=== PATIENT | female | born 1955 | race Caucasian/White ===

== ENCOUNTER → 2016-07-23 | Outpatient (CLI) | payer MEDICARE, MEDICAID ==
[~2016-07-23] MED LIST: ASPI81TA83 OR; BENT10CA PO; BUDESONIDE; BUPIVACAINE HCL 0.25% 30 ML VIAL As Ordered ONE; CELE50CA PO; ENTY1INJ IV; ESTR1MIS PV; HYOS0.378 OR; ISON300T4 PO; ISONIAZID; ISONIAZID OR; ISOVUE-M 300 61% 15ML VIAL (Q9967) As Ordered ONE; LIDOCAINE 1% SDV INJ 30 ML VIAL As Ordered ONE; NAME14CA PO; NASONEX; OMEP40CA2 PO; ONDA8TAB8 PO; OXYC15TA76 PO; TRIAMCINOLONE ACETONIDE SUSP 40 MG/ML VIAL (J3301) As Ordered ONE; VITAMIN B-6 OR; [UNRECOGNIZED DRUG - OTHER] AS ORDERED; apriso; diazePAM 5 MG TAB As Ordered ONE; oxyCODONE 5MG TAB As Ordered ONE
--- NOTE | 2016-07-23 18:39 | REP ---
Partial sacral coccyx series: Two views: History: Sacral coccygeal block for pain. 19 seconds of fluoroscopy time is reported. Findings: A sequence of two fluoroscopically obtained intraprocedural spot radiographs of the sacrum and coccyx document needle position and contrast injection associated with sacral coccygeal block procedure. Signed by Yonas Gupta MD 07/23/2016 07:28 P
--- NOTE | 2016-07-31 02:22 | ECWPNPC ---
PATIENT NAME: SANJEEV MONDRAGON : 1955 GENDER: FEMALE VISIT DATE: 07/23/2016 DISCHARGE DATE: 07/23/16 1157 VISIT LOCKED DATE TIME: PHYSICIAN: DAYNE CAMPOS RESOURCE: DAYNE CAMPOS REASON FOR APPOINTMENT 1. SACROCOCCYGEL INJECTION HISTORY OF PRESENT ILLNESS HISTORY OF PRESENT ILLNESS: PAIN THE PATIENT DESCRIBES THE PAIN... FALL RISK SCREENING: SCREENING :NO FALLS IN THE PAST YEAR CURRENT MEDICATIONS TAKING IBUPROFEN 800 MG TABLET 1 TAB ORALLY ONCE DAILY NEEDED, NOTES: NONE RECENT TAKING ALEVE 220 MG TABLET 1 TABLET NEEDED ORALLY EVERY 12 HRS, NOTES: 07/22/16 0500 TAKING OXYCODONE HCL 5 MG TABLET 1 TABLET ORALLY Q8H PRN MDD3, NOTES: 07/23/16 0500 TAKING CELEBREX 200 MG CAPSULE 1 CAPSULE ORALLY BID, NOTES: 07/21/16 2100 TAKING ENTYVIO 300 MG SOLUTION RECONSTITUTED INTRAVENOUS , NOTES: EARLY [facility] PER PT NOT-TAKING ASPIR-81 81 MG TABLET DELAYED RELEASE 1 TABLET ORALLY ONCE A DAY, NOTES: > 3 MONTHS MEDICATION LIST REVIEWED AND RECONCILED WITH THE PATIENT PAST MEDICAL HISTORY NIDDM - DIET CONTROLLED CROHNS DISEASE/IBS (PANCHO) CHRONIC BILATERAL ARM PAIN ALOPECIA OSTEOPOROSIS *ILLITERATE* MEMORY LOSS/HAS- NCN. PROMETHEUS TPMT 27.2 08/31 ( PER DR DELEON) LATENT TUBERCULOSIS LATENT TUBERCULOSIS ALLERGIES LATEX EXAM GLOVES: DIFFICULTY BREATHING: ALLERGY SULFA (FOR ALLERGY USE ONLY): DIFFICULTY BREATHING: ALLERGY REVIEW OF SYSTEMS CONSTITUTIONAL: ANY CHANGE IN YOUR MEDICAL CONDITION? NO . CHILLS NO . FEVER NO . INFECTION: DO YOU HAVE NEW INFECTIONS? NO . DO YOU HAVE HISTORY OF MRSA? NO . MUSCULOSKELETAL: ANY NEW PATTERNS OF PAIN OR NUMBNESS? NO . GASTROENTEROLOGY: ANY NEW CHANGE IN BOWEL CONTROL? NO . GENITOURINARY: ANY NEW CHANGE IN BLADDER CONTROL? NO . IS THERE A CHANCE YOU COULD BE ? NO . HEMATOLOGY/LYMPH: DO YOU TAKE ANY BLOOD THINNERS? (FOR EXAMPLE- COUMADIN, PLAVIX, AGGRENOX, PLATEL, PRADAXA, OR XARELTO) NO . WHEN WAS YOUR LAST DOSE? DATE: TIME: . NEUROLOGY: HAVE YOU FALLEN IN THE PAST 6 MONTHS? NO . ANY NEW EXTREMITY NUMBNESS OR WEAKNESS? NO . CARDIOLOGY: DO YOU HAVE A PACEMAKER OR DEFIBRILLATOR? NO . RESPIRATORY: HAVE YOU BEEN SICK IN THE PAST WEEK? NO . FEVER NO . FLU LIKE SYMPTOMS? NO . COUGH NO . INTEGUMENTARY: DO YOU HAVE ANY RASHES OR OPEN SORES? NO . ALLERGIC/IMMUNO: ARE YOU ALLERGIC TO SHELLFISH OR IV DYE? NO . ANY NEW ALLERGIES? NO . PSYCHIATRIC: DO YOU HAVE THOUGHTS OF HURTING YOURSELF OR SOMEONE ELSE? NO . ARE YOU ABUSED, NEGLECTED, OR IN AN UNSAFE ENVIRONMENT? NO . ENDOCRINOLOGY: ARE YOU DIABETIC? NO . OTHER: DO YOU NEED ANY PRESCRIPTIONS? NO . IF YES, PLEASE LIST: ____ . ANY NEW PROBLEMS WITH YOUR MEDICATIONS? NO . WHEN DID YOU LAST EAT? ____07/22/160 . WHEN DID YOU LAST DRINK? ____07/22/160 . WHAT DID YOU LAST DRINK? ____[place] . NAME OF PERSON DRIVING YOU HOME? ____FRAN ROUNDS . DO YOU HAVE ANY OTHER QUESTIONS OR CONCERNS NO . REVIEWED BY: PROVIDER: . VITAL SIGNS WT 108 LBS, HT 58.75 IN, BMI 22.00 INDEX, BP 131/62 MM HG, HR 93 /MIN, RR 16 /MIN, TEMP 97.4 F, OXYGEN SAT % 96, NA INITIALS TL 0949, REVIEWED BY: JD. ASSESSMENTS SPINAL ENTHESOPATHY, SACRAL AND SACROCOCCYGEAL REGION - M46.08 (PRIMARY) TREATMENT OTHERS NOTES: PREPROCEDURE DIAGNOSIS:INFLAMMATION OF THE SACROCOCCYGEAL LIGAMENT.COCCYDYNIA.POSTPROCEDURE DIAGNOSIS:INFLAMMATION OF THE SACROCOCCYGEAL LIGAMENT.COCCYDYNIA.PROCEDURE: INJECTION OF THE RIGHT AND LEFT SACROCOCCYGEAL LIGAMENT. SURGEON: [facility]. [facility].PREOPERATIVE NOTE: THE PATIENT HAS HISTORY OF LOW BACK PAIN. I EVALUATED THE PATIENT AND REVIEWED THE CHART. WE BOTH AGREE ON INJECTING OVER THE SACROCOCCYGEAL LIGAMENT. THE PATIENT IS AWARE OF THE POTENTIAL COMPLICATIONS WHICH INCLUDE INFECTIONS, VISCERAL PUNCTURE, INCLUDING RECTAL PUNCTURE AMONG OTHERS. I DISCUSSED ALTERNATIVES AND THE PATIENT EXPRESSED THAT SHE WOULD LIKE TO MOVE FORWARD. THE PATIENT DENIES UNEXPLAINABLE, WEIGHT LOSS, FEVER, CHILLS, OR CHANGES IN URINARY OR BOWEL CONTROL. DESCRIPTION OF PROCEDURE: AFTER CONSENT WAS TAKEN, THE PATIENT WAS BROUGHT TO THE PROCEDURE ROOM AND PLACED IN THE PRONE POSITION. THE LUMBOSACRAL AREA WAS CLEANED WITH CHLORAPREP SOLUTION AND DRAPED ASEPTICALLY. THE PROCEDURE WAS DONE UNDER STERILE CONDITIONS. UNDER FLUOROSCOPIC GUIDANCE, THE TARGET WAS SELECTED AT THE RIGHT AND LEFT SACROCOCCYGEAL LIGAMENT. LIDOCAINE WAS USED TO NUMB THE SKIN AND THE SUBCUTANEOUS TISSUE BELOW IT. A 25 NEEDLE WAS ADVANCED UNTIL WE REACHED THE RIGHT AND LEFT SACROCOCCYGEAL LIGAMENT. I DID AP AND LATERAL VIEWS. ISOVUE M DYE 30%, 1/4 ML, WAS INJECTED SHOWING ADEQUATE SPREAD OF THE DYE. THEN A SOLUTION OF 30 ML OF BUPIVACAINE 0.125% WITH KENALOG 30 MG WAS INJECTED OVER THE AFFECTED STRUCTURE. THERE WAS NO EVIDENCE OF BLOOD, PARESTHESIA OR CEREBROSPINAL FLUID. NO EVIDENCE OF VACUUM PHENOMENON OR VISCERAL PUNCTURE. THE PATIENT WAS SENT TO THE RECOVERY ROOM WHERE SHE WAS MOVING HER EXTREMITIES AND DOING WELL. THERE WERE NO COMPLICATIONS DURING THE PROCEDURE. FLUOROSOPY TIME WAS 19 SECONDS.POSTOPERATIVE NOTE: I DISCUSSED ALTERNATIVES WITH THE PATIENT. I AM LOOKING FOR LONG LASTING PAIN RELIEF WITH THIS INTERVENTION. INSTRUCTIONS WERE GIVEN. QUESTIONS WERE ANSWERED. THE PATIENT REPORTS UNDERSTANDING AND AGREES WITH THE PLAN. THERE WERE NO COMPLICATIONS DURING THE PROCEDURE. I, MICHAEL CORNEJO, DOCUMENTED THE ABOVE INFORMATION ACTING A SCRIBE FOR DR. CAMPOS. I, DR. CAMPOS, HAVE REVIEWED THE ABOVE DOCUMENT, SCRIBED BY MICHAEL CORNEJO, AND I VERIFY THAT IT IS ACCURATE. DIAGNOSTIC IMAGING [facility] FLUORO GUIDANCE (PAIN)[id number] PROCEDURE CODES 62617 INJ TENDON SHEATH/LIGAMENT 6045F RADXPS IN END [id number] PXD FOLLOW UP 3 WEEKS ELECTRONICALLY SIGNED BY DAYNE CAMPOS MD ON 07/30/2016 AT 02:27 PM EST DISCLAIMER : THIS IS A VISIT SUMMARY EXTRACTED FROM THE [employer] CHART. IT IS NOT A COPY OF THE [employer] PROGRESS NOTE. MTDD
== END ==
LOC: M PAIN 09:40
PROVIDERS: ATTEND Anesthesiology
DX: M46.08 Spinal enthesopathy, sacral and sacrococcygeal region (principal); K50.00 Crohn's disease of small intestine without complications; M79.601 Pain in right arm; M79.602 Pain in left arm; L65.9 Nonscarring hair loss, unspecified; M81.0 Age-related osteoporosis without current pathological fracture; Z55.0 Illiteracy and low-level literacy; R41.3 Other amnesia; R51 Headache; R76.11 Nonspecific reaction to tuberculin skin test without active tuberculosis; Z91.040 Latex allergy status; Z88.2 Allergy status to sulfonamides; Z79.1 Long term (current) use of non-steroidal anti-inflammatories (NSAID); Z79.891 Long term (current) use of opiate analgesic; Z79.899 Other long term (current) drug therapy
CPT/HCPCS: 20550; 77002; J3301; Q9967

== ENCOUNTER 2016-08-06 10:01 | Outpatient (CLI) | payer MEDICARE, MEDICAID ==
[~2016-08-06] VITALS: Ht 147.3 cm; Wt 48.0 kg
[~2016-08-06 10:01] MED LIST changes: -BUPIVACAINE HCL 0.25% 30 ML VIAL As Ordered ONE; -ISOVUE-M 300 61% 15ML VIAL (Q9967) As Ordered ONE; -LIDOCAINE 1% SDV INJ 30 ML VIAL As Ordered ONE; -TRIAMCINOLONE ACETONIDE SUSP 40 MG/ML VIAL (J3301) As Ordered ONE; -diazePAM 5 MG TAB As Ordered ONE; -oxyCODONE 5MG TAB As Ordered ONE
[2016-08-06] MEDS ORDERED: VEDOLIZUMAB 300 MG in NS 250 ML IV ONE (10:30)
== END 2016-08-06 11:50 | disposition home or self-care (01) ==
LOC: M INFU 10:01
PROVIDERS: ATTEND Internal Medicine Gastroenterology
DX: K50.00 Crohn's disease of small intestine without complications (principal)
CPT/HCPCS: 96413; J3380

== ENCOUNTER → 2016-08-09 | Outpatient (CLI) | payer MEDICARE, MEDICAID ==
--- NOTE | 2016-08-28 23:37 | ECWPNPC ---
PATIENT NAME: SANJEEV MONDRAGON : 1955 GENDER: FEMALE VISIT DATE: 08/09/2016 DISCHARGE DATE: 08/09/16 1052 VISIT LOCKED DATE TIME: PHYSICIAN: ERICK MCGINNIS RESOURCE: ERICK MCGINNIS REASON FOR APPOINTMENT 1. FOLLOWUP HISTORY OF PRESENT ILLNESS HISTORY OF PRESENT ILLNESS: HERE FOR POST PROCEDURE F/U.HAD SACROCOCCYGEAL INJECTION ON 07-23-16.REPORTS 100% IMPROVEMENT IN PAIN FOR 1 1/2 WEEKS THEN PAIN RETURNED.RATING PAIN VAS 10/10.DISCUSSED DIAGNOSTIC FACET BLOCK AND RADIOFREQUENCY.PAIN IS LOCATED OVER CENTRAL SPINE AND DESCRIBED STABBING. FALL RISK SCREENING: SCREENING :NO FALLS IN THE PAST YEAR CURRENT MEDICATIONS TAKING IBUPROFEN 800 MG TABLET 1 TAB ORALLY ONCE DAILY NEEDED TAKING ALEVE 220 MG TABLET 1 TABLET NEEDED ORALLY EVERY 12 HRS TAKING OXYCODONE HCL 5 MG TABLET 1 TABLET ORALLY Q8H PRN MDD3 TAKING CELEBREX 200 MG CAPSULE 1 CAPSULE ORALLY BID TAKING ENTYVIO 300 MG SOLUTION RECONSTITUTED INTRAVENOUS , NOTES: 08/06/16 NOT-TAKING ASPIR-81 81 MG TABLET DELAYED RELEASE 1 TABLET ORALLY ONCE A DAY, NOTES: > 3 MONTHS MEDICATION LIST REVIEWED AND RECONCILED WITH THE PATIENT PAST MEDICAL HISTORY NIDDM - DIET CONTROLLED CROHNS DISEASE/IBS (PANCHO) CHRONIC BILATERAL ARM PAIN ALOPECIA OSTEOPOROSIS *ILLITERATE* MEMORY LOSS/HAS- NCN. PROMETHEUS TPMT 27.2 08/31 ( PER DR DELEON) LATENT TUBERCULOSIS LATENT TUBERCULOSIS ALLERGIES LATEX EXAM GLOVES: DIFFICULTY BREATHING: ALLERGY SULFA (FOR ALLERGY USE ONLY): DIFFICULTY BREATHING: ALLERGY SOCIAL HISTORY GENERAL: TOBACCO USE ARE YOU A:NONSMOKER LEARNING BARRIERS / SPECIAL NEEDS ORIENTED TO PLAN OF CARE: PATIENT, PAIN MANAGEMENT PATIENT, ORIENTED TO PLAN OF CARE: PATIENT, PAIN MANAGEMENT PATIENT. NEW PATIENT PAIN DIARY TODAY'S VISITNOTES FROM 0-10, WHAT LEVEL IS YOUR PAIN TODAY?0 PAIN CLINIC PFS, CLERGY, PUBLIC HEALTH REFERRALS PFS REFERRAL NEEDED?NO CLERGY REFERRAL NEEDED?NO PUBLIC HEALTH REFERRAL NEEDED?NO WAS THE PROVIDER NOTIFIED OF ANY PERTINENT INFO?NO PFS REFERRAL NEEDED?NO CLERGY REFERRAL NEEDED?NO PUBLIC HEALTH REFERRAL NEEDED?NO WAS THE PROVIDER NOTIFIED OF ANY PERTINENT INFO?NO REVIEW OF SYSTEMS CONSTITUTIONAL: ANY CHANGE IN YOUR MEDICAL CONDITION? NO . CHILLS NO . FEVER NO . INFECTION: DO YOU HAVE NEW INFECTIONS? NO . DO YOU HAVE HISTORY OF MRSA? NO . MUSCULOSKELETAL: ANY NEW PATTERNS OF PAIN OR NUMBNESS? NO . GASTROENTEROLOGY: ANY NEW CHANGE IN BOWEL CONTROL? NO . GENITOURINARY: ANY NEW CHANGE IN BLADDER CONTROL? NO . IS THERE A CHANCE YOU COULD BE ? NO . HEMATOLOGY/LYMPH: DO YOU TAKE ANY BLOOD THINNERS? (FOR EXAMPLE- COUMADIN, PLAVIX, AGGRENOX, PLATEL, PRADAXA, OR XARELTO) NO . WHEN WAS YOUR LAST DOSE? DATE: TIME: . NEUROLOGY: HAVE YOU FALLEN IN THE PAST 6 MONTHS? NO . ANY NEW EXTREMITY NUMBNESS OR WEAKNESS? NO . CARDIOLOGY: DO YOU HAVE A PACEMAKER OR DEFIBRILLATOR? NO . RESPIRATORY: HAVE YOU BEEN SICK IN THE PAST WEEK? NO . FEVER NO . FLU LIKE SYMPTOMS? NO . COUGH NO . INTEGUMENTARY: DO YOU HAVE ANY RASHES OR OPEN SORES? NO . ALLERGIC/IMMUNO: ARE YOU ALLERGIC TO SHELLFISH OR IV DYE? NO . ANY NEW ALLERGIES? NO . PSYCHIATRIC: DO YOU HAVE THOUGHTS OF HURTING YOURSELF OR SOMEONE ELSE? NO . ARE YOU ABUSED, NEGLECTED, OR IN AN UNSAFE ENVIRONMENT? NO . ENDOCRINOLOGY: ARE YOU DIABETIC? NO . OTHER: DO YOU NEED ANY PRESCRIPTIONS? NO . IF YES, PLEASE LIST: ____ . ANY NEW PROBLEMS WITH YOUR MEDICATIONS? NO . WHEN DID YOU LAST EAT? ____ . WHEN DID YOU LAST DRINK? ____ . WHAT DID YOU LAST DRINK? ____ . NAME OF PERSON DRIVING YOU HOME? ____ . DO YOU HAVE ANY OTHER QUESTIONS OR CONCERNS NO . REVIEWED BY: PROVIDER: ERICK MORAES . VITAL SIGNS WT 108 LBS, HT 58.75 IN, BMI 22.00 INDEX, BP 115/65 MM HG, HR 76 /MIN, RR 16 /MIN, TEMP 98.0 F, OXYGEN SAT % 97, SAFE IN ENV? (Y/N) Y, Y, NA INITIALS WI 10:08, REVIEWED BY: KG. EXAMINATION GENERAL EXAMINATION: HEENT:HEAD:, NORMOCEPHALIC, EYES:, EYES NORMAL, NOSE:, NOSE CLEAR, THROAT: NORMAL. LUNGS:LUNG SOUNDS ARE CLEAR. HEART:HEART RATE REGULAR. ABDOMEN:SOFT AND NOT TENDER, NON-DISTENDED. MUSCULOSKELETAL:*. LUMBAR SACRAL SPINE POSITIVE PAIN ELICITED WITH PALPATION OVER LUMBAR PARAVERTEBRAL MUSCLES AND INTO THE SACRUM. RESTRICTION OF ROM IN THIS AREA. THORACIC SPINE+ FOR PAIN WITH PALPATION OF THORACIC SPINE. + FOR PAIN WITH PALPATION OF THORACIC PARASPINAL. SKIN:NORMAL, NO RASH. NEUROLOGIC EXAM:ALERT AND ORIENTED X 3, DTRS 1-2+ IN ALL 4 EXTREMITIES, DENIES UPPER EXTREMETIES SENSORY LOSS, DENIES LOWER EXTREMETIES SENSORY LOSS. DIAGNOSTIC:MRI L/S SPINE REVIEWED . 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 IT IS NOT A COPY OF THE [employer] PROGRESS NOTE. MTDD
== END ==
LOC: M PAIN 10:00
PROVIDERS: ATTEND Nurse Practitioner Family
DX: M54.6 Pain in thoracic spine (principal); M43.06 Spondylolysis, lumbar region; Z79.891 Long term (current) use of opiate analgesic; Z79.899 Other long term (current) drug therapy; E11.9 Type 2 diabetes mellitus without complications; K50.90 Crohn's disease, unspecified, without complications; M81.8 Other osteoporosis without current pathological fracture; A15.0 Tuberculosis of lung; R41.3 Other amnesia; Z91.040 Latex allergy status; Z88.2 Allergy status to sulfonamides

== ENCOUNTER → 2016-08-20 | Outpatient (CLI) | payer MEDICARE, MEDICAID ==
--- NOTE | 2016-08-20 11:43 | REPMRS ---
Patient History The patient states she has not had a clinical breast exam in over a year. Patient is postmenopausal. No known family history of cancer. Took unspecified hormones for 6 months. Digital Woman Screen Mammo: August 20, 2016 - Exam #: [id number] Bilateral CC and MLO view(s) were taken. Technologist: Imelda Hess, Technologist Prior study comparison: January 31, 2012, digital woman screen mammo performed at [facility] to [facility]. November 16, 2010, bilateral bilat screen digital mammo performed at [facility] to [facility]. FINDINGS: There are scattered fibroglandular densities. There has been no change in the appearance of the mammogram from the prior studies. There is a mild amount of scattered fibroglandular density which is fairly symmetric. There is no interval development of dominant mass, architectural distortion, or clustered microcalcification suggestive of malignancy. ASSESSMENT: BI-RADS/ACR category 1 mammogram. Negative. Recommendation Routine screening mammogram in 1 year (for women over age 40). This mammogram was interpreted with the aid of an FDA-approved computer-aided dectection system. Electronically Signed By: Nnamdi Gupta MD 08/20/16 [id number]
== END ==
LOC: M WHC 09:53
PROVIDERS: ATTEND Family Medicine
DX: Z12.31 Encounter for screening mammogram for malignant neoplasm of breast (principal); R92.8 Other abnormal and inconclusive findings on diagnostic imaging of breast

== ENCOUNTER → 2016-08-31 | Outpatient (REF) | payer MEDICARE, MEDICAID | LOC: M SFHCPLAZ 08:44 | PROVIDERS: ATTEND Family Medicine | DX: Z86.39 Personal history of other endocrine, nutritional and metabolic disease (principal); F17.200 Nicotine dependence, unspecified, uncomplicated; J20.8 Acute bronchitis due to other specified organisms; Z86.11 Personal history of tuberculosis; Z09 Encounter for follow-up examination after completed treatment for conditions other than malignant neoplasm ==

== ENCOUNTER → 2016-09-22 | Outpatient (CLI) | payer MEDICARE, MEDICAID | LOC: M LAB 16:29 | PROVIDERS: ATTEND Internal Medicine Gastroenterology | DX: K50.018 Crohn's disease of small intestine with other complication (principal) ==

== ENCOUNTER 2016-09-28 12:55 | Outpatient (CLI) | payer MEDICARE, MEDICAID ==
[~2016-09-28] VITALS: Ht 147.3 cm; Wt 48.0 kg
[~2016-09-28 12:55] MED LIST changes: +VEDOLIZUMAB 300 MG in NS 250 ML IV ONE; +diphenhydrAMINE 25 MG CAP PO ONE
== END 2016-09-28 14:15 | disposition home or self-care (01) ==
LOC: M INFU 12:55
PROVIDERS: ATTEND Internal Medicine Gastroenterology
DX: K50.90 Crohn's disease, unspecified, without complications (principal)
CPT/HCPCS: 96413; J3380

== ENCOUNTER → 2016-10-05 | Outpatient (CLI) | payer MEDICARE, MEDICAID ==
[~2016-10-05] MED LIST changes: -VEDOLIZUMAB 300 MG in NS 250 ML IV ONE; -diphenhydrAMINE 25 MG CAP PO ONE
== END ==
LOC: M LAB 14:29
PROVIDERS: ATTEND Internal Medicine Gastroenterology
DX: K50.018 Crohn's disease of small intestine with other complication (principal); R19.7 Diarrhea, unspecified

== ENCOUNTER → 2016-10-08 | Outpatient (CLI) | payer MEDICARE, MEDICAID ==
[~2016-10-08] MED LIST changes: +E-Z PAQUE 60% w/v SUSP 355ML BOTTLE As Ordered ONE
--- NOTE | 2016-10-08 10:53 | REP ---
Clinical: Crohn disease. Technique: Single contrast small bowel follow-through examination. Comparison: CT dated 02/20/2016. Findings: Current examination demonstrates normal appearance to the small bowel without obvious focal areas of narrowing slash stenosis, obstruction, or fistulous tract. The terminal ileum is normal on current exam. The cecum and ascending colon is unremarkable. Total fluoroscopic time 1 minute 50 seconds. Impression: Current examination demonstrates normal appearance to the small bowel including terminal ileum and cecum. Signed by Harry Frazier MD 10/08/2016 10:45 A
== END ==
LOC: M RAD 08:11
PROVIDERS: ATTEND Internal Medicine Gastroenterology
DX: K50.018 Crohn's disease of small intestine with other complication (principal); R19.7 Diarrhea, unspecified

== ENCOUNTER → 2016-10-13 | Outpatient (REF) | payer MEDICARE, MEDICAID ==
[~2016-10-13] MED LIST changes: -E-Z PAQUE 60% w/v SUSP 355ML BOTTLE As Ordered ONE
== END ==
LOC: M LAB REF 14:38
PROVIDERS: ATTEND Internal Medicine Gastroenterology
DX: K50.018 Crohn's disease of small intestine with other complication (principal); R19.7 Diarrhea, unspecified

== ENCOUNTER → 2016-10-22 | Outpatient (CLI) | payer MEDICARE, MEDICAID ==
--- NOTE | 2016-10-26 10:35 | DEXA ---
AP SPINE L1 - L4 0.818 -3.0 -1.1 LT FEMUR TOTAL 0.706 -2.4 -1.0 RT FEMUR TOTAL 0.725 -2.2 -0.8 TOTAL BODY TOTAL OTHER DUAL FEMUR FRAX* ASSESSMENT Risk factors: History of fracture (adult). Tobacco user (current smoker). 10 year probability of fracture Major osteoporotic fracture 18.2 % Hip fracture 5.2 % COMMENTS: There is low bone density of the hips. There is osteoporosis of the spine. The decreased density of the spine does represent a significant change. The decreased density of the left hip does represent a significant change. The decreased density of the right hip does represent a significant change. The density of the spine has decreased 9.4% since the initial exam on 2009. The spine density has decreased 15.2% since the most recent exam on 02/24/2012. The density of the left hip has decreased 9.6% since the initial exam on 2009. The density of the left hip has decreased 13.2% since the most recent exam on . The density of the right hip has decreased 9.1% since the initial exam on 2009. The density of the right hip has decreased 15.6% since the most recent exam on 02/24/2012. FOLLOW-UP: Recommendation for the next bone density exam: 2 years. MAK
== END ==
LOC: M WHC 12:55
PROVIDERS: ATTEND Family Medicine
DX: M81.0 Age-related osteoporosis without current pathological fracture (principal)

== ENCOUNTER 2016-10-25 07:56 | Outpatient (CLI) | payer MEDICARE, MEDICAID ==
[2016-10-25] MEDS ORDERED: ACETAMINOPHEN TAB 650MG DOSE (2X325MG) PO ONE (09:00)
[2016-10-25] MEDS ORDERED: diphenhydrAMINE 25 MG CAP PO ONE ×2 (09:00)
[2016-10-25] MEDS ORDERED: VEDOLIZUMAB 300 MG in NS 250 ML IV ONE (09:00)
== END 2016-10-25 09:55 | disposition home or self-care (01) ==
LOC: M INFU 07:56
PROVIDERS: ATTEND Internal Medicine Gastroenterology
DX: K50.10 Crohn's disease of large intestine without complications (principal)
CPT/HCPCS: 96413; J3380

== ENCOUNTER 2016-11-23 13:38 | Outpatient (CLI) | payer MEDICARE, MEDICAID ==
[2016-11-23] MEDS ORDERED: VEDOLIZUMAB 300 MG in NS 250 ML IV ONE (14:00)
[2016-11-23] MEDS ORDERED: diphenhydrAMINE 25 MG CAP PO ONE (14:00)
== END 2016-11-23 15:00 | disposition home or self-care (01) ==
LOC: M INFU 13:38
PROVIDERS: ATTEND Internal Medicine Gastroenterology
DX: K50.90 Crohn's disease, unspecified, without complications (principal)
CPT/HCPCS: 96365; J3380

== ENCOUNTER → 2016-12-06 | Outpatient (CLI) | payer MEDICARE, MEDICAID ==
--- NOTE | 2016-12-06 12:23 | REP ---
Low-dose lung screening CT: There are no comparison studies. The studies performed without IV contrast images are displayed at lung settings only. There are no nodules or masses. There is a small focal zone of subpleural density anteriorly in the right upper lobe on image 40, nonspecific. This could be a subsegmental infiltrate, atelectasis or fibrosis. There are small linear densities in the medial basilar segments of the lower lobes bilaterally compatible with discoid atelectasis versus scarring. Impression: There are no nodules or masses. The study is category 1 low-dose screening lung CT. Follow-up low-dose lung screening CT is recommended in 12 months. However, there are also findings compatible with infiltrate, atelectasis or scarring as described. For follow-up of these findings, CT of the chest in approximately 2-3 months might be considered in the absence of comparison studies. Signed by Tevin Shabazz MD 12/06/2016 12:14 P
== END ==
LOC: M RAD 11:01
PROVIDERS: ATTEND Family Medicine
DX: F17.210 Nicotine dependence, cigarettes, uncomplicated (principal)

== ENCOUNTER 2016-12-21 12:58 | Outpatient (CLI) | payer MEDICARE, MEDICAID ==
[2016-12-21] MEDS ORDERED: diphenhydrAMINE 25 MG CAP PO ONE (13:00)
[2016-12-21] MEDS ORDERED: VEDOLIZUMAB 300 MG in NS 250 ML IV ONE (13:00)
== END 2016-12-21 14:30 | disposition home or self-care (01) ==
LOC: M INFU 12:58
PROVIDERS: ATTEND Internal Medicine Gastroenterology
DX: K50.919 Crohn's disease, unspecified, with unspecified complications (principal)
CPT/HCPCS: 96413; J3380

== ENCOUNTER 2017-02-07 08:34 | Outpatient (CLI) | payer MEDICARE, MEDICAID ==
[2017-02-07] MEDS ORDERED: VEDOLIZUMAB 300 MG in NS 250 ML IV ONE (09:00)
== END 2017-02-07 09:40 | disposition home or self-care (01) ==
LOC: M INFU 08:34
PROVIDERS: ATTEND Internal Medicine Gastroenterology
DX: K50.90 Crohn's disease, unspecified, without complications (principal); Z88.2 Allergy status to sulfonamides; Z91.040 Latex allergy status; Z88.7 Allergy status to serum and vaccine; Z88.8 Allergy status to other drugs, medicaments and biological substances; Z72.0 Tobacco use; Z79.899 Other long term (current) drug therapy; Z79.891 Long term (current) use of opiate analgesic
CPT/HCPCS: 96413; J3380

== ENCOUNTER → 2017-02-10 | Outpatient (CLI) | payer MEDICARE, MEDICAID ==
[2017-02-10 11:08] LABS: BASO # 0.1 K/mm3 (0.0-0.2); BASO % 1.1 % (0.0-1.0); EOS # 0.4 K/mm3 (0.0-0.50); EOS % 5.8 % (0.0-3.0); LARGE UNSTAINED CELL # 0.2 K/mm3 (0.0-0.4); LARGE UNSTAINED CELL % 2.9 % (0.0-4.0); LYMPH # 1.9 K/mm3 (1.5-4.5); LYMPH % 29.4 % (24.0-44.0); MEAN CORPUSCULAR HEMOGLOBIN 33.1 pg (27.0-33.0); MEAN CORPUSCULAR HGB CONC 34.6 g/dl (32.0-36.5); MEAN CORPUSCULAR VOLUME 95.6 fl (80.0-96.0); MONO # 0.3 K/mm3 (0.0-0.8); MONO % 4.3 % (0.0-5.0); NEUTROPHILS # 3.6 K/mm3 (1.8-7.7); NEUTROPHILS % 56.5 % (36.0-66.0); PLATELET COUNT, AUTOMATED 351 k/mm3 (150-450); RED CELL DISTRIBUTION WIDTH 12.7 % (11.5-14.5); WHITE BLOOD COUNT 6.4 K/mm3 (4.0-10.0)
[2017-02-10 11:36] LABS: ALBUMIN 3.7 GM/DL (3.2-5.2); ALBUMIN/GLOBULIN RATIO 1.06 (1.00-1.93); ALKALINE PHOSPHATASE 118 U/L (45-117); ALT/SGPT 13 U/L (12-78); ANION GAP 6 MEQ/L (8-16); AST/SGOT 9 U/L (15-37); BILIRUBIN,TOTAL 0.3 MG/DL (0.2-1.0); BLOOD UREA NITROGEN 20 MG/DL (7-18); CALCIUM LEVEL 9.8 MG/DL (8.8-10.2); CARBON DIOXIDE LEVEL 27 MEQ/L (21-32); CHLORIDE LEVEL 102 MEQ/L (98-107); CREATININE FOR GFR 0.55 MG/DL (0.55-1.02); GLOMERULAR FILTRATION RATE > 60.0 (>45); GLUCOSE, FASTING 79 MG/DL (80-110); POTASSIUM SERUM 4.2 MEQ/L (3.5-5.1); SODIUM LEVEL 135 MEQ/L (136-145); TOTAL PROTEIN 7.2 GM/DL (6.4-8.2)
[2017-02-10 11:54] LABS: FOLATE 6.6 NG/ML
[2017-02-10 11:57] LABS: VITAMIN B12 LEVEL 399 PG/ML
== END ==
LOC: M LAB 10:19
PROVIDERS: ATTEND Internal Medicine Gastroenterology
DX: K50.018 Crohn's disease of small intestine with other complication (principal); N39.0 Urinary tract infection, site not specified

== ENCOUNTER → 2017-02-10 | Outpatient (REF) | payer MEDICARE, MEDICAID | LOC: M LAB REF 12:29 | PROVIDERS: ATTEND Nurse Practitioner Women's Health | DX: N39.0 Urinary tract infection, site not specified (principal) ==

== ENCOUNTER 2017-03-07 14:56 | Outpatient (CLI) | payer MEDICARE, MEDICAID ==
[2017-03-07] MEDS ORDERED: VEDOLIZUMAB 300 MG in NS 250 ML IV ONE (15:00)
== END 2017-03-07 16:00 | disposition home or self-care (01) ==
LOC: M INFU 14:56
PROVIDERS: ATTEND Internal Medicine Gastroenterology
DX: K50.90 Crohn's disease, unspecified, without complications (principal); Z72.0 Tobacco use; Z88.2 Allergy status to sulfonamides; Z91.040 Latex allergy status; Z88.8 Allergy status to other drugs, medicaments and biological substances; Z88.7 Allergy status to serum and vaccine; Z79.899 Other long term (current) drug therapy
CPT/HCPCS: 96413; J3380

== ENCOUNTER → 2017-03-24 | Outpatient (CLI) | payer MEDICARE, MEDICAID ==
[~2017-03-24] MED LIST changes: +LINE60TAB PO
--- NOTE | 2017-03-24 09:51 | REP ---
Clinical: Pain. Trauma. Technique: AP, lateral, bilateral oblique views of the right wrist. Findings: There is a transverse minimally posteriorly displaced fracture through the distal radial metaphysis with overlying soft tissue swelling. The carpal bones and metacarpal bones appear intact. Impression: Acute transverse fracture of the distal radial metaphysis with mild posterior displacement. Signed by Harry Frazier MD 03/24/2017 09:43 A
== END ==
LOC: M WUC 09:18
PROVIDERS: ATTEND Physician Assistant
DX: S52.511A Displaced fracture of right radial styloid process, initial encounter for closed fracture (principal); M25.531 Pain in right wrist; M79.641 Pain in right hand; X58.XXXA Exposure to other specified factors, initial encounter; Y92.89 Other specified places as the place of occurrence of the external cause; Y93.89 Activity, other specified; Y99.8 Other external cause status

== ENCOUNTER 2017-04-04 12:54 | Outpatient (CLI) | payer MEDICARE, MEDICAID ==
[~2017-04-04 12:54] MED LIST changes: -LINE60TAB PO
[2017-04-04] MEDS ORDERED: VEDOLIZUMAB 300 MG in NS 250 ML IV ONE (14:00)
== END 2017-04-04 14:15 | disposition home or self-care (01) ==
LOC: M INFU 12:54
PROVIDERS: ATTEND Internal Medicine Gastroenterology
DX: K50.90 Crohn's disease, unspecified, without complications (principal); F17.210 Nicotine dependence, cigarettes, uncomplicated; Z88.2 Allergy status to sulfonamides; Z88.8 Allergy status to other drugs, medicaments and biological substances; Z88.7 Allergy status to serum and vaccine; Z91.040 Latex allergy status; Z79.899 Other long term (current) drug therapy
CPT/HCPCS: 96413; J3380

== ENCOUNTER → 2017-04-21 | Outpatient (REF) | payer MEDICARE, MEDICAID ==
[~2017-04-21] MED LIST changes: +LINE60TAB PO
== END ==
LOC: M LAB REF 13:49
PROVIDERS: ATTEND Physician Assistant
DX: N39.0 Urinary tract infection, site not specified (principal)

== ENCOUNTER 2017-05-05 13:47 | Outpatient (CLI) | payer MEDICARE, MEDICAID ==
[~2017-05-05] VITALS: Ht 147.3 cm; Wt 48.6 kg
[~2017-05-05 13:47] MED LIST changes: -LINE60TAB PO
[2017-05-05] MEDS ORDERED: VEDOLIZUMAB 300 MG in NS 250 ML IV ONE (14:15)
== END 2017-05-05 15:30 | disposition home or self-care (01) ==
LOC: M INFU 13:47
PROVIDERS: ATTEND Internal Medicine Gastroenterology
DX: K50.90 Crohn's disease, unspecified, without complications (principal); Z88.2 Allergy status to sulfonamides; Z88.8 Allergy status to other drugs, medicaments and biological substances; Z88.7 Allergy status to serum and vaccine; Z91.040 Latex allergy status; Z79.899 Other long term (current) drug therapy; Z79.891 Long term (current) use of opiate analgesic
CPT/HCPCS: 96413; J3380

== ENCOUNTER 2017-05-22 14:29 | Inpatient (IN) | payer MEDICARE, MEDICAID ==
[~2017-05-22] VITALS: Ht 162.6 cm; Wt 41.4 kg
[2017-05-22] MEDS ORDERED: NS 500 ML IV ONE ×2 (17:15→18:45)
[2017-05-22] MEDS ORDERED: AZITHROMYCIN INJ 500 MG, VIAL MATE ADAPTER 1 EACH in D5W 250 ML IV ONE (17:45)
[2017-05-22] MEDS ORDERED: cefTRIAXone SOD 1 GM in D5W 50 ML IV ONE (17:45)
[2017-05-22 17:58] LABS: MEAN CORPUSCULAR HGB CONC 34.2 g/dl (32.0-36.5); MEAN CORPUSCULAR VOLUME 93.6 fl (80.0-96.0); PLATELET COUNT, AUTOMATED 219 10^3/uL (150-450); RED CELL DISTRIBUTION WIDTH 13.2 % (11.5-14.5); WHITE BLOOD COUNT 13.6 10^3/uL (4.0-10.0)
[2017-05-22 18:00] LABS: ADD MANUAL DIFFER YES; DIFF SLIDE NUMBER 157; LEFT SHIFT POS FLAG; POSITIVE MORPH POS FLAG
[2017-05-22 18:08] LABS: INR 0.93
[2017-05-22 18:31] LABS: ALKALINE PHOSPHATASE 116 U/L (45-117); ALT/SGPT 12 U/L (12-78); AST/SGOT 10 U/L (7-37); BILIRUBIN,DIRECT 0.4 MG/DL (0.0-0.2); BILIRUBIN,TOTAL 1.1 MG/DL (0.2-1.0); BLOOD UREA NITROGEN 28 MG/DL (7-18); CALCIUM LEVEL 9.2 MG/DL (8.8-10.2); CARBON DIOXIDE LEVEL 22 MEQ/L (21-32); CHLORIDE LEVEL 107 MEQ/L (98-107); CREATININE FOR GFR 1.26 MG/DL (0.55-1.02); GLUCOSE, FASTING 114 MG/DL (80-110); POTASSIUM SERUM 3.3 MEQ/L (3.5-5.1); SODIUM LEVEL 141 MEQ/L (136-145); THYROXINE (T4) 10.6 UG/DL (4.5-12.0)
[2017-05-22 18:40] LABS: BANDS 1 % (< 11); DOHLE BODIES 1+
[2017-05-22 18:50] LABS: ALBUMIN 3.2 GM/DL (3.2-5.2); ALBUMIN/GLOBULIN RATIO 0.78 (1.00-1.93); TOTAL PROTEIN 7.3 GM/DL (6.4-8.2)
[2017-05-22 18:51] LABS: ANION GAP 12 MEQ/L (8-16)
[2017-05-22] MEDS ORDERED: POTASSIUM CHLORIDE 10 MEQ SR TABLET PO ONE (19:00)
[2017-05-22 19:12] LABS: MAGNESIUM LEVEL 1.9 MG/DL (1.8-2.4)
[2017-05-22] MEDS ORDERED: IPRATROPIUM 0.02% SOLN 0.5MG/2.5 ML NEB INH PRN (19:30)
[2017-05-22] MEDS ORDERED: LEVALBUTEROL 1.25 MG/0.5 ML CONCENTRATE NEB INH PRN (19:30)
[2017-05-22] MEDS ORDERED: cefTRIAXone SOD 2 GM in D5W 50 ML IV SCH (19:30)
[2017-05-22] MEDS ORDERED: AZITHROMYCIN INJ 500 MG, VIAL MATE ADAPTER 1 EACH in D5W 250 ML IV SCH (19:30)
--- NOTE | 2017-05-22 19:33 | ECGEPIP ---
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
[2017-05-22] MEDS ORDERED: ACETAMINOPHEN TAB 650MG DOSE (2X325MG) PO ONE (19:45)
[2017-05-22] MEDS ORDERED: NS 1,000 ML IV ONE (19:45)
[2017-05-22] MEDS: IPRATROPIUM 0.02% SOLN 0.5MG/2.5 ML NEB INH SCH (20:13)
[2017-05-22] MEDS: LEVALBUTEROL 1.25 MG/0.5 ML CONCENTRATE NEB INH SCH ×2 (20:13→23:28)
[2017-05-22] MEDS: NS 1,000 ML IV SCH (21:00)
[2017-05-22] MEDS ORDERED: PERCOCET 5MG/325MG TAB PO ONE (21:00)
--- NOTE | 2017-05-22 21:20 | REPUSA ---
CLINICAL HISTORY: Left lobar pneumonia. TECHNIQUE: Multiple axial, coronal, sagittal CT images were obtained through the thorax without IV c ontrast material. COMMENTS: A note is made of a large rounded consolidation in the left upper lobe measuring approximately 10 x 6 .5 cm. Although this may represent infectious process, malignancy is not completely excluded. There is scarring versus atelectasis noted in the right mid lung and both lung bases. Small hiatal hernia is present. There are no pleural effusions. There is no evidence of hilar or mediastinal lymphaden opathy. The heart and great vessels are within normal limits. The visualized portions of the liver are of uniform attenuation without mass or defect. There is no intra or extrahepatic biliary ductal dilatation. Status post cholecystectomy. The spleen is unremar kable. The visualized pancreas is of normal contour and attenuation characteristics. There is no ev idence of adrenal mass. The visualized portions of the kidneys present no abnormalities. The bony structures are free of lytic or blastic lesions. IMPRESSION: 1. Large rounded consolidation in the left upper lobe measuring approximately 10 x 6.5 cm. Although this may represent infectious process, malignancy is not completely excluded. 2. Small hiatal hernia is present. 3. Consider short term followup study after treatment vs further evaluation with bronchoalveolar lav age.
[2017-05-23] MEDS ORDERED: UNRESOLVED CLARIFICATION ENTRY XX SCH (00:01)
[2017-05-23 00:33] VITALS: BP 94/68
[2017-05-23] MEDS: NS 1,000 ML IV SCH ×2 (01:26→08:06)
[2017-05-23] MEDS: PERCOCET 5MG/325MG TAB PO PRN ×4 (01:27→21:26)
[2017-05-23] MEDS: LEVALBUTEROL 1.25 MG/0.5 ML CONCENTRATE NEB INH SCH ×5 (03:28→19:49)
--- NOTE | 2017-05-23 06:20 | REP ---
CHEST PA AND LATERAL: 05/22/2017. Clinical history: Cough for several days. Comparison: Chest x-ray earlier today, 05/04/2016, 01/28/2016, 04/23/2015. Findings: There is extensive consolidation in the anterior segment left upper lobe in the left mid lung zone anteriorly. No definite effusion. Heart not enlarged. The aorta is normal for age. Airway is intact. No mediastinal or hilar mass. No free air under the diaphragm. Bones intact. Impression: 1. Fairly large segmental pneumonia in the left upper lobe anterior segment without pleural effusion or other definite infiltrate. This should be followed up with a chest x-ray in about 2-3 weeks after completion of therapy to document clearing. No definite hilar lesion or mass underlying the infiltrate, but this should be followed up after treatment. No change from the earlier study today. Discussed by phone with the attending ED physician. Signed by Sanjeev Ro MD 05/22/2017 06:53 P
--- NOTE | 2017-05-23 06:23 | HPE ---
DATE OF ADMISSION: 05/22/2017 PRIMARY CARE PHYSICIAN: Winnie De. The patient was fired from [facility] due to multiple missed appointments. HOSPITALIST: Dr. Brendan Rodarte. CHIEF COMPLAINT: Fever, cough, and left-sided chest pain. HISTORY OF PRESENTING ILLNESS: This is a 62-year-old female who presented to the emergency room after being seen at urgent care with a three-day history of fever, chills, nonproductive cough, and left-sided pleuritic chest pain. The patient describes the chest pain is worse with deep inspiration, described as sharp and constant. No alleviating factors with position. No medications taken for the pain. The patient has had ongoing fever for the past three days. No medications taken at home. Cough is nonproductive. The patient has had decrease in appetite and complains of generalized weakness. She also has noted right-sided wrist pain from recent surgery two weeks ago. She otherwise denies any dysuria, urgency, frequency, abdominal pain, nausea or vomiting. The patient has not had any bright red blood per rectum, melena or black tarry stools. She denies any shortness of breath, palpitations, lightheadedness, sore throat, rhinorrhea, headache, changes in vision. Denies any upper or lower extremity paresthesias, and no rashes. In the emergency room (ER), she was found to be hypotensive, systolic pressure of 95- 92. White count was 13.6. Chest x-ray showed a large left upper lobe consolidation. The patient has not had any recent travel or sick contacts at home. Denies any weight loss but complains of night sweats that she has had for five years. She had previously seen Dr. Sapp for latent tuberculosis. She otherwise denies any hemoptysis, weight loss, and no sick contacts. The patient was treated for nine months with INH for positive PPD in 2010, with compliance with treatment. She had in 2013, no active signs of tuberculosis and was continued to be treated with tumor necrosis factor (TNF) inhibitor for her Crohn's disease. PAST MEDICAL HISTORY: 1. Crohn's disease, status post TNF inhibitor. 2. Positive PPD, treated with nine months of isoniazid in 2010, reevaluated in 2013, with no active tuberculosis. 3. Vlm-qxoxuko-fpcnyhptx diabetes, diet controlled. 4. Memory loss. 5. Chronic bilateral arm pain. 6. Osteoporosis. 7. Alopecia. 8. Atherosclerotic cardiovascular disease (ASCVD), 5.2% 2017. PAST SURGICAL HISTORY: 1. Right wrist surgery 2. Total hysterectomy for dysfunctional uterine bleeding. 3. Tonsillectomy. 4. Tubal ligation. 5. Cholecystectomy. 6. Colonoscopy 2012, Dr. Singh for Crohn's ileitis treated with TNF alpha inhibitor. 7. Six total pregnancies. FAMILY HISTORY: Father unknown. Mother with Alzheimer's. Siblings four brothers, four sisters. Four daughters healthy. Diabetes in a sibling. SOCIAL HISTORY: Smokes 11-20 cigarettes a day. Not ready to quit. Drinks 2-4 alcoholic beverages per month. One or two in a typical day. No recreational drug use. Uses caffeinated beverages maybe once daily. Lives with a significant other of 30 years. Has a daughter who accompanies the patient to her doctors' appointments. The patient has been fired from the [facility] due to missed appointments from memory loss. REVIEW OF SYSTEMS: Per history of present illness (HPI). 12-point system otherwise negative. PHYSICAL EXAMINATION: VITAL SIGNS: Temperature 99.4, pulse 84, respiratory rate 18, blood pressure 92/55. GENERAL: The patient is awake, alert, and oriented to person, place and time. Answers questions appropriately. HEENT: Pupils are round, reactive. Anicteric sclerae. No jaundice. Extraocular muscles intact. Tongue is midline moist mucous membranes. Poor dentition with dental caries. NECK: No cervical lymphadenopathy, thyromegaly, or jugular venous distention. LUNGS: Bronchial breath sounds left upper lobe. Air entry is equal. Occasional audible wheezing. HEART: S1, S2. Sinus rhythm. No murmurs, rubs, or gallops. ABDOMEN: Soft, nontender, nondistended. Positive bowel sounds. EXTREMITIES: No cyanosis, clubbing or pitting edema. The patient had recent right wrist surgery. LABORATORY DATA: White count 13.6, hemoglobin 13, hematocrit 40, platelet count 219. Sodium 141, potassium 3.3, chloride 107, bicarbonate 22, BUN 28, creatinine 1.26. Previous creatinine 02/10/2017, was 0.55. Glucose of 114, lactic acid of 2.1, magnesium 1.9, calcium 9.2. Total bilirubin 1.1, direct bilirubin 0.4, AST 10, ALT 12, alkaline phosphatase 116. Total CK 25, MB fraction of one. CRP of 26. Total protein 7.3. IMAGING: Chest x-ray: Left upper lobe consolidation, follow through resolution. Repeat imaging recommended. EKG: Sinus rhythm, ventricular rate of 87, nonspecific ST-T wave changes, left atrial enlargement. OH interval 126, QRS 72, QT 356, QTC 429. ASSESSMENT AND PLAN: This is a 62-year-old female with prior history of vjn-sjtnvoa-rsgtmwxpp diabetes diet controlled, currently on no medications, osteoporosis, memory loss, Crohn's disease status post tumor necrosis factor inhibitor, latent tuberculosis treated with nine months of INH in 2010, re-evaluated 2013, by infectious disease specialist, Dr. Rafiq Sapp, with no active tuberculosis (TB) at that time, chronic bilateral upper extremity pain, alopecia, atherosclerotic cardiovascular disease (ASCVD) who presents to the emergency room with three-day history of fever, cough which is dry, left-sided pleuritic chest pain seen at urgent care and found to have left upper lobe pneumonia, sent to the ER for further evaluation and possible admission. The patient was found to be hypotensive, systolic pressure of 92, white count of 13.6 with a large left upper lobe consolidation. Hospitalist service was paged for admission for left upper lobe pneumonia, community-acquired. The patient will be admitted as an inpatient for two midnights, assigned to Dr. Brendan Rodarte for the following issues: 1. Left upper lobe pneumonia with lobar consolidation. The patient will be started on intravenous ceftriaxone and azithromycin. Will check sputum culture, culture and sensitivity (C and S), urine Legionella, urine streptococcal antigen , check a respiratory panel, check a methicillin-resistant Staphylococcus aureus (MRSA) screen. Nebulizer treatments. Supplemental oxygen as needed. Intravenous fluids. 2. Acute kidney injury. The patient will be started on intravenous fluids. Repeat metabolic panel. Strict intake and output, daily weights, and avoid nephrotoxins. Renally dose all medications. The patient denies any non-steroidal anti-inflammatory drug (NSAID) use for fevers and pain at home. 3. Crohn's disease on Entyvio. No acute exacerbation. Denies any bright red blood per rectum, melena, abdominal pain. 4. History of ozb-nrevdfy-yriqmhlgc diabetes. Has not taken medication in three years. Will check an A1c. Continue with low-fat, low-cholesterol diet. 5. History of chronic memory loss. The patient should be seen and referred to neurology for full assessment. She does have a family history of Alzheimer's dementia. Will check a thyroid stimulating hormone (TSH) level in the morning. The patient has missed multiple appointments and has been fired from the [facility] due to missed appointments from memory loss. The patient's significant other of 30 years is present at the bedside. I have advised for all appointments to be given to him or the patient's daughter as the patient is very forgetful. 6. Osteoporosis. Check a vitamin D level. Supplement with vitamin D 800 units per day. 7. History of latent tuberculosis. Check sputum, acid-fast bacillus (AFB) times three. She has a nonproductive cough. Will check CT chest due to complaints of night sweats. Rule out other etiology. She has had no weight loss. 8. Deep venous thrombosis (DVT) prophylaxis with subcutaneous Lovenox. The patient will be assigned to Dr. Brendan Rodarte at 7 a.m. on 05/23/2017. The patient will need a primary care physician at discharge and referral to neurologist. MAK
[2017-05-23 06:43] LABS: MEAN CORPUSCULAR HEMOGLOBIN 32.3 pg (27.0-33.0); MEAN CORPUSCULAR HGB CONC 33.3 g/dl (32.0-36.5); PLATELET COUNT, AUTOMATED 221 10^3/uL (150-450); RED CELL DISTRIBUTION WIDTH 13.5 % (11.5-14.5); WHITE BLOOD COUNT 10.3 10^3/uL (4.0-10.0)
[2017-05-23 06:46] LABS: POSITIVE MORPH POS FLAG
[2017-05-23 06:49] LABS: ADD MANUAL DIFFER YES; DIFF SLIDE NUMBER 87; LEFT SHIFT POS FLAG; WBC SCAT POS FLAG
[2017-05-23 07:11] LABS: ANION GAP 11 MEQ/L (8-16); BLOOD UREA NITROGEN 36 MG/DL (7-18); CALCIUM LEVEL 8.6 MG/DL (8.8-10.2); CARBON DIOXIDE LEVEL 18 MEQ/L (21-32); CHLORIDE LEVEL 116 MEQ/L (98-107); CHOLESTEROL LEVEL 97 MG/DL (<200); CREATININE FOR GFR 1.15 MG/DL (0.55-1.02); GLOMERULAR FILTRATION RATE 50.9 (>45); GLUCOSE, FASTING 115 MG/DL (80-110); POTASSIUM SERUM 3.4 MEQ/L (3.5-5.1); SODIUM LEVEL 145 MEQ/L (136-145); TRIGLYCERIDES LEVEL 116 MG/DL (<150)
[2017-05-23] MEDS: IPRATROPIUM 0.02% SOLN 0.5MG/2.5 ML NEB INH SCH ×4 (07:13→19:49)
--- NOTE | 2017-05-23 07:29 | REP ---
Right wrist four views: Comparison is 03/24/2017. There is internal fixation of the distal radius. The fracture and hardware are in satisfactory positions alignment. Signed by Tevin Shabazz MD 05/23/2017 07:20 A
[2017-05-23 07:42] LABS: BANDS 3 % (< 11)
[2017-05-23 07:43] LABS: ANISOCYTOSIS 1+; POIKILOCYTOSIS 1+
[2017-05-23] MEDS ORDERED: POTASSIUM CHLORIDE 10 MEQ SR TABLET PO ONE (08:15)
[2017-05-23] MEDS ORDERED: ONDANSETRON 4MG/2ML VIAL (J2405) IV PRN (08:15)
[2017-05-23] MEDS ORDERED: cefTRIAXone SOD 2 GM in D5W 50 ML IV SCH (09:00)
[2017-05-23] MEDS ORDERED: AZITHROMYCIN INJ 500 MG, VIAL MATE ADAPTER 1 EACH in D5W 250 ML IV SCH (10:00)
[2017-05-23 10:30] VITALS: BP 90/51
[2017-05-23] MEDS ORDERED: NS 500 ML IV ONE (10:45)
[2017-05-23 11:55] VITALS: BP 95/58
[2017-05-23] MEDS: guaiFENesin ER 600 MG TAB PO SCH ×2 (11:59→21:26)
[2017-05-23] MEDS: PANTOPRAZOLE 40MG TAB (PROTONIX) PO SCH (11:59)
[2017-05-23] MEDS ORDERED: SODIUM CHLORIDE 0.9% 1000 ML IV ONE (12:15)
[2017-05-23 13:24] VITALS: BP 90/47
[2017-05-23] MEDS ORDERED: NS 1,000 ML IV SCH (13:30)
[2017-05-23 14:00] VITALS: BP 107/50
[2017-05-23] MEDS ORDERED: VANCOMYCIN HCL 750 MG, VIAL MATE ADAPTER 1 EACH in D5W 250 ML IV SCH (14:15)
[2017-05-23] MEDS ORDERED: LevoFLOXacin IV 500 MG in APPROPRIATE DILUENT 1 EA IV ONE (15:00)
[2017-05-23] MEDS ORDERED: VANCOMYCIN HCL 1,000 MG, VIAL MATE ADAPTER 1 EACH in D5W 250 ML IV ONE (16:00)
[2017-05-23 20:00] VITALS: BP 103/56
--- NOTE | 2017-05-23 21:00 | IPNPDOC ---
Text Note Date of Service The patient was seen on 05/23/17. NOTE Subjective: Patient is a 62 year old female with past medical history of Crohns disease, positive PPD, type 2 diabetes, not on insulin, memory loss, chronic bilateral arm pain, osteoporosis, alopecia, presented with pneumonia. Patient was seen and examined at the bedside. Patient still had chest pain or shortness breath. However, it was improved from prior. Patient admits to black sputum. Patient also admitted to she was vomiting, black material. She still feels somewhat nauseous. Admits to cough. Denies any fever or chills, any abdominal pains, any diarrhea, constipation, any blood in the stool. Objective: Vitals (See below) General: Thin looking elderly female who was alert, awake, oriented 3, appears to be mild distress, lying comfortably in bed with head elevated 30 HEENT: NC, AT CVS: Regular rhythm, normal S1, S2, 2/6 systolic murmur Lungs: Poor respiratory effort with reduced bowel sound in the bases area and a focal wheezing on the left side. Abdomen: Soft, ND, NT Extremities: No edema, clubbing or cyanosis See labs below: Assessment and plan: Shortness breath and cough with left upper lobe pneumonia Patient was seen initially on ceftriazone and azithromycin 05/23/17 We have switch patient to vancomycin and levaquin is in today, due to she has a drip score of at least 4 with a recent hospitalization chronic lung disease, gastric acid suppression and the recent wound care Continue nebulizer. Continue follow-up with sputum culture. Continue acapella and IS Acute kidney injury -Improving, possibly at baseline Crohns disease on Entyvio -Denies any symptom currently Type 2 diabetes, not on insulin. -Controlled. A1c 5.3 History of chronic memory loss -Stable Osteoporosis -Stable History of latent tuberculosis was treated by Dr. Sapp per patient. - We will monitor her closely for any signs of active TB DVT prophylaxis - c/w Lovenox Fluid, electrolytes, nutrition: Repeat potassium of 4, low-fat, low-cholesterol regular diet Disposition: - c/w Antibiotics Patient has been discussed with attending Dr. Rodarte. GME ATTESTATION My preceptor for this patient encounter was physically present in the building during the encounter and was fully available. As needed, all aspects of the patient interview, examination, medical decision making process, and medical care plan development were reviewed and approved by the preceptor. Preceptor is aware and concurs with the plan as stated in the body of this note and will attest to such by his/her cosignature. VS,Fishbone, I+O VS, Fishbone, I+O Laboratory Tests 05/23/17 06:36 Red Blood Count 3.96 L, Mean Corpuscular Volume 97.0 H, Mean Corpuscular Hemoglobin 32.3, Mean Corpuscular Hemoglobin Concent 33.3, Red Cell Distribution Width 13.5 Vital Signs Date Time Temp Pulse Resp B/P (MAP) Pulse Ox O2 Delivery O2 Flow Rate FiO2 05/23/17 19:52 92 22 05/23/17 15:03 Nasal Cannula 1.0 05/23/17 14:00 99.3 107/50 (69) 100 I&O- Last 24 Hours up to 6 AM 05/24/17 06:00 Intake Total 1620 ml Output Total 200 ml Balance 1420 ml KENDRICK SANTOS DO May 23, 2017 21:00 DONALDO RODARTE MD Jun 05, 2017 21:43
[2017-05-24] VITALS (9 sets, daily range): BP systolic 94–136; BP diastolic 48–64
[2017-05-24] MEDS: LEVALBUTEROL 1.25 MG/0.5 ML CONCENTRATE NEB INH SCH ×6 (00:53→19:42)
[2017-05-24] MEDS: PERCOCET 5MG/325MG TAB PO PRN ×2 (05:18→13:12)
[2017-05-24 07:17] LABS: MEAN CORPUSCULAR HEMOGLOBIN 32.8 pg (27.0-33.0); MEAN CORPUSCULAR HGB CONC 34.3 g/dl (32.0-36.5); MEAN CORPUSCULAR VOLUME 95.6 fl (80.0-96.0); PLATELET COUNT, AUTOMATED 226 10^3/uL (150-450); WHITE BLOOD COUNT 9.7 10^3/uL (4.0-10.0)
[2017-05-24 07:20] LABS: ADD MANUAL DIFFER YES; DIFF SLIDE NUMBER 76; LEFT SHIFT POS FLAG; POSITIVE MORPH POS FLAG
[2017-05-24 07:49] LABS: ANION GAP 7 MEQ/L (8-16); BLOOD UREA NITROGEN 22 MG/DL (7-18); CALCIUM LEVEL 8.7 MG/DL (8.8-10.2); CARBON DIOXIDE LEVEL 19 MEQ/L (21-32); CHLORIDE LEVEL 117 MEQ/L (98-107); CREATININE FOR GFR 0.47 MG/DL (0.55-1.02); GLUCOSE, FASTING 84 MG/DL (80-110); POTASSIUM SERUM 3.4 MEQ/L (3.5-5.1); SODIUM LEVEL 143 MEQ/L (136-145)
[2017-05-24 07:50] LABS: GLOMERULAR FILTRATION RATE > 60.0 (>45)
[2017-05-24] MEDS: IPRATROPIUM 0.02% SOLN 0.5MG/2.5 ML NEB INH SCH ×4 (07:54→19:42)
[2017-05-24 07:57] LABS: EOSINOPHILS 2 % (0-5)
[2017-05-24 07:59] LABS: OVALOCYTES 1+
[2017-05-24 08:00] LABS: POIKILOCYTOSIS 1+
[2017-05-24] MEDS ORDERED: POTASSIUM CHLORIDE 10 MEQ SR TABLET PO ONE (08:30)
[2017-05-24] MEDS: guaiFENesin ER 600 MG TAB PO SCH ×2 (08:54→20:35)
[2017-05-24] MEDS: PANTOPRAZOLE 40MG TAB (PROTONIX) PO SCH (08:54)
[2017-05-24] MEDS: NYSTATIN 500,000 U/5 ML SUSP UDC SS SCH ×3 (08:54→20:35)
[2017-05-24] MEDS: ENOXAPARIN 30 MG/0.3 ML SYR (J1650) SC SCH (08:54)
[2017-05-24] MEDS ORDERED: INFLUENZA QUADRIVALENT PF VACCINE 0.5ML SYRINGE (90686) IM ONE (09:00)
[2017-05-24 10:04] LABS: RETIC HEMOGLOBIN EQUIVALENT 23.1 pg (24-36); RETICULOCYTE % 0.7 % (0.5-1.5)
[2017-05-24 10:35] LABS: PERCENT SATURATION 16.5 % (13.2-45.0)
[2017-05-24 10:45] LABS: FOLATE 6.1 NG/ML (>5.4)
[2017-05-24] MEDS: NICOTINE 14 MG/24 HR TRANSDERMAL TD SCH (11:52)
[2017-05-24] MEDS: LevoFLOXacin IV 250 MG in APPROPRIATE DILUENT 1 EA IV SCH (14:44)
[2017-05-24] MEDS: ACETAMINOPHEN TAB 650MG DOSE (2X325MG) PO PRN (14:44)
[2017-05-24] MEDS: NS 1,000 ML IV SCH ×2 (15:34→21:55)
[2017-05-24] MEDS ORDERED: NS 500 ML IV ONE (16:00)
[2017-05-24] MEDS ORDERED: VANCOMYCIN HCL 500 MG in D5W MINI-BAG PLUS 100 ML IV SCH (16:00)
[2017-05-24] MEDS ORDERED: PIPERACILLIN/TAZOBACTAM SOD 4.5 GM in D5W 50 ML IV SCH ×2 (16:00→17:00)
--- NOTE | 2017-05-24 16:02 | REP ---
CHEST, TWO VIEWS: HISTORY: Chest pain. COMPARISON: 05/22/2017. Increased density is present in the left upper lobe consistent with an infiltrate that is increased compared to the previous study. A new infiltrate is present in the left lower lobe. The right lung is clear. There is blunting of the left costophrenic angle due to a small pleural effusion. The heart is normal in size. The pulmonary vasculature is normal in appearance. The bony structure is intact. IMPRESSION: 1. Left upper lobe infiltrate increased compared to the previous study. 2. New left lower lobe infiltrate and new small left pleural effusion. Signed by Judah Frazier MD 05/24/2017 04:21 P
[2017-05-24] MEDS: VANCOMYCIN HCL 500 MG in D5W MINI-BAG PLUS 100 ML IV SCH (16:17)
[2017-05-24] MEDS ORDERED: IBUPROFEN 400 MG TAB PO ONE (16:30)
--- NOTE | 2017-05-24 17:05 | IPNPDOC ---
Text Note Date of Service The patient was seen on 05/24/17. NOTE Subjective: Patient is a 62 year old female with past medical history of Crohns disease, positive PPD, type 2 diabetes, not on insulin, memory loss, chronic bilateral arm pain, osteoporosis, alopecia, presented with pneumonia. Patient was seen and examined at the bedside. In the morning patient stated she was feeling better, she was breathing better and had less chest pain. However in the afternoon she developed fever 104. And her blood pressure was lower. Admits to cough and brown tinged sputum and it was black . Denies any fever or chills, any abdominal pains, any diarrhea, constipation, any blood in the stool. Objective: Vitals (See below) General: Thin looking elderly female who was alert, awake, oriented 3, appears to be mild distress, lying comfortably in bed with head elevated 30 HEENT: NC, AT CVS: Regular rhythm, normal S1, S2, 2/6 systolic murmur Lungs: Poor respiratory effort with reduced bowel sound in the bases area and a focal wheezing on the left side. Abdomen: Soft, ND, NT Extremities: No edema, clubbing or cyanosis See labs below: Assessment and plan: Severe Sepsis - likely 2/2 Left sided pneumonia - likely 2/2 healthcare associated pneumonia, coverage for gram negative rods and MRSA - Clinically the patient's is feeling better however she developed a high fever 104 and was tachycardic - LA increased compared to before - Repeat CXR 05/24/17 showed new LLL infiltrate and SANFORD infiltrate increased. - f/u cultures - c/w Vanco/ Levaquin; s/p Ceftriaxone and Azithromycin - Will increase rate of IVF and provide bolus - Will add incentive spirometry and acapella Acute kidney injury -Improving, possibly at baseline Crohns disease on Entyvio -Denies any symptom currently Type 2 diabetes, not on insulin. -Controlled. A1c 5.3 History of chronic memory loss -Stable Osteoporosis -Stable History of latent tuberculosis was treated by Dr. Sapp per patient - We will monitor her closely for any signs of active TB DVT prophylaxis - c/w Lovenox Fluid, electrolytes, nutrition: Repeat potassium of 4, low-fat, low-cholesterol regular diet Disposition: - c/w Antibiotics GME ATTESTATION My preceptor for this patient encounter was physically present in the building during the encounter and was fully available. As needed, all aspects of the patient interview, examination, medical decision making process, and medical care plan development were reviewed and approved by the preceptor. Preceptor is aware and concurs with the plan as stated in the body of this note and will attest to such by his/her cosignature. ATTENDING NOTE I, Lydia Joseph, have both independently examined this patient as well as reviewed the documentation. I have discussed in detail with the resident the findings and plan of treatment as documented in the residents documentation. I will continue to follow the patient and offer further guidance to the patients care as necessary during this hospital stay. VS,Fishbone, I+O VS, Fishbone, I+O Laboratory Tests 05/24/17 06:55 Red Blood Count 3.20 L, Mean Corpuscular Volume 95.6, Mean Corpuscular Hemoglobin 32.8, Mean Corpuscular Hemoglobin Concent 34.3, Red Cell Distribution Width 14.0, Calcium Level 8.7 L Vital Signs Date Time Temp Pulse Resp B/P (MAP) Pulse Ox O2 Delivery O2 Flow Rate FiO2 05/24/17 16:42 101.3 110 20 94/48 (63) 91 Room Air 101.3 05/23/17 15:03 1.0 I&O- Last 24 Hours up to 6 AM 05/25/17 06:00 Intake Total 1370 ml Balance 1370 ml KENDRICK SANTOS DO May 24, 2017 17:05 LYDIA JOSEPH MD May 24, 2017 18:40
[2017-05-25] MEDS: PERCOCET 5MG/325MG TAB PO PRN ×3 (00:43→20:48)
[2017-05-25] MEDS: LEVALBUTEROL 1.25 MG/0.5 ML CONCENTRATE NEB INH SCH ×6 (03:02→20:15)
[2017-05-25 05:58] VITALS: BP 95/67
[2017-05-25 07:12] LABS: MEAN CORPUSCULAR HGB CONC 33.9 g/dl (32.0-36.5); MEAN CORPUSCULAR VOLUME 97.2 fl (80.0-96.0); PLATELET COUNT, AUTOMATED 256 10^3/uL (150-450); RED CELL DISTRIBUTION WIDTH 14.3 % (11.5-14.5); WHITE BLOOD COUNT 10.5 10^3/uL (4.0-10.0)
[2017-05-25 07:13] LABS: ADD MANUAL DIFFER YES; DIFF SLIDE NUMBER 46; LEFT SHIFT POS FLAG; POSITIVE MORPH POS FLAG
[2017-05-25] MEDS: IPRATROPIUM 0.02% SOLN 0.5MG/2.5 ML NEB INH SCH ×4 (07:25→20:15)
[2017-05-25 07:43] LABS: ANION GAP 8 MEQ/L (8-16); BLOOD UREA NITROGEN 12 MG/DL (7-18); CALCIUM LEVEL 8.5 MG/DL (8.8-10.2); CARBON DIOXIDE LEVEL 18 MEQ/L (21-32); CHLORIDE LEVEL 116 MEQ/L (98-107); CREATININE FOR GFR 0.38 MG/DL (0.55-1.02); GLOMERULAR FILTRATION RATE > 60.0 (>45); GLUCOSE, FASTING 67 MG/DL (80-110); POTASSIUM SERUM 3.6 MEQ/L (3.5-5.1); SODIUM LEVEL 142 MEQ/L (136-145)
[2017-05-25 08:06] LABS: BANDS 1 % (< 11); EOSINOPHILS 4 % (0-5)
[2017-05-25 08:07] LABS: POIKILOCYTOSIS 1+; TOXIC GRANULATION 1+
[2017-05-25 08:08] LABS: ANISOCYTOSIS 1+; DOHLE BODIES 1+
[2017-05-25] MEDS ORDERED: KETOROLAC 30 MG/ML VIAL (J1885) IV ONE (08:15)
[2017-05-25] MEDS: PANTOPRAZOLE 40MG TAB (PROTONIX) PO SCH (08:31)
[2017-05-25] MEDS: NICOTINE 14 MG/24 HR TRANSDERMAL TD SCH (08:31)
[2017-05-25] MEDS: guaiFENesin ER 600 MG TAB PO SCH ×2 (08:31→20:49)
[2017-05-25] MEDS: NYSTATIN 500,000 U/5 ML SUSP UDC SS SCH ×3 (08:31→20:45)
[2017-05-25] MEDS: ACETAMINOPHEN TAB 650MG DOSE (2X325MG) PO PRN ×3 (08:32→23:24)
[2017-05-25] MEDS: ENOXAPARIN 30 MG/0.3 ML SYR (J1650) SC SCH (08:32)
[2017-05-25] MEDS: NS 1,000 ML IV SCH (08:33)
--- NOTE | 2017-05-25 11:47 | IPNPDOC ---
Text Note Date of Service The patient was seen on 05/25/17. NOTE Subjective: Patient is a 62 year old female with past medical history of Crohns disease, positive PPD, type 2 diabetes, not on insulin, memory loss, chronic bilateral arm pain, osteoporosis, alopecia, presented with pneumonia. Patient was seen and examined at the bedside. Patient had fever and was tachycardic yesterday and this morning. Patient stated she was feeling better however. Denies any fever or chills, any abdominal pains, any diarrhea, constipation, any blood in the stool. Her sputum is less black now and more like tinged with blood. She also stated she has been working to [employer] for 30 years and was treated for TB 30 years ago and has been having night sweat for 15 years. Objective: Vitals (See below) General: Thin looking elderly female who was alert, awake, oriented 3, appears to be mild distress, lying comfortably in bed with head elevated 30 HEENT: NC, AT CVS: Regular rhythm, normal S1, S2, 2/6 systolic murmur Lungs: Poor respiratory effort with reduced bowel sound in the bases area and a focal wheezing on the left side. Abdomen: Soft, ND, NT Extremities: No edema, clubbing or cyanosis Assessment and plan: Severe Sepsis - likely 2/2 Left sided pneumonia - likely 2/2 healthcare associated pneumonia, coverage for Gram negative rods and MRSA - Clinically the patient's is feeling better however she developed a high fever 104 and was tachycardic - LA normalized; CRP improving, WBC with mild elevation - Sputum culture 05/25: MRSA - CT chest 05/22: Large rounded consolidation at SANFORD; infectious process, malignancy not excluded - CXR 05/24: showed new LLL infiltrate and SANFORD infiltrate increased - c/w Vanco/ Levaquin; s/p Ceftriaxone and Azithromycin - c/w IV fluid hydration - c/w incentive spirometry and acapella s/p Acute kidney injury Crohns disease - c/w outpatient Entyvio when infection resolves - Denies any symptom currently NIDDM2 - A1c 5.3 - not on any medications History of chronic memory loss -Stable Osteoporosis -Stable Hx of Latent tuberculosis - Dr. Sapp treated the patient in the past - Does not appear to have any evidence of active TB DVT prophylaxis - c/w Lovenox Fluid, electrolytes, nutrition: Repeat potassium of 4, low-fat, low-cholesterol regular diet Disposition: - c/w Antibiotics GME ATTESTATION My preceptor for this patient encounter was physically present in the building during the encounter and was fully available. As needed, all aspects of the patient interview, examination, medical decision making process, and medical care plan development were reviewed and approved by the preceptor. Preceptor is aware and concurs with the plan as stated in the body of this note and will attest to such by his/her cosignature. ATTENDING NOTE I, Lydia Joseph, have both independently examined this patient as well as reviewed the documentation. I have discussed in detail with the resident the findings and plan of treatment as documented in the residents documentation. I will continue to follow the patient and offer further guidance to the patients care as necessary during this hospital stay. VS,Fishbone, I+O VS, Fishbone, I+O Laboratory Tests 05/25/17 07:01 Red Blood Count 3.55 L, Mean Corpuscular Volume 97.2 H, Mean Corpuscular Hemoglobin 33.0, Mean Corpuscular Hemoglobin Concent 33.9, Red Cell Distribution Width 14.3, Calcium Level 8.5 L Vital Signs Date Time Temp Pulse Resp B/P (MAP) Pulse Ox O2 Delivery O2 Flow Rate FiO2 05/25/17 06:13 102 05/25/17 05:58 99.2 22 95/67 (76) 91 Nasal Cannula 2.0 KENDRICK SANTOS DO May 25, 2017 11:47 LYDIA JOSEPH MD May 25, 2017 16:02
[2017-05-25 14:00] VITALS: BP 100/58
[2017-05-25 16:09] VITALS: BP 142/76
[2017-05-25] MEDS: VANCOMYCIN HCL 500 MG in D5W MINI-BAG PLUS 100 ML IV SCH (16:22)
[2017-05-25] MEDS: LevoFLOXacin IV 250 MG in APPROPRIATE DILUENT 1 EA IV SCH (18:06)
[2017-05-25 18:17] VITALS: BP 116/65
[2017-05-25] MEDS: VANCOMYCIN HCL 750 MG, VIAL MATE ADAPTER 1 EACH in D5W 250 ML IV SCH (20:49)
[2017-05-25 20:58] VITALS: BP 117/58
[2017-05-26] VITALS (7 sets, daily range): BP systolic 103–152; BP diastolic 54–80
[2017-05-26] MEDS: LEVALBUTEROL 1.25 MG/0.5 ML CONCENTRATE NEB INH SCH ×7 (00:49→23:26)
[2017-05-26] MEDS: PERCOCET 5MG/325MG TAB PO PRN ×3 (00:51→14:55)
[2017-05-26] MEDS: IPRATROPIUM 0.02% SOLN 0.5MG/2.5 ML NEB INH SCH ×4 (07:13→19:45)
[2017-05-26 07:21] LABS: BASO % 0.3 % (0.0-1.0); EOS # 0.1 10^3/uL (0.0-0.50); EOS % 0.8 % (0.0-3.0); IMMATURE GRANULOCYTE % 1.4 % (0-0); LYMPH # 0.8 10^3/uL (1.5-4.5); LYMPH % 6.7 % (24.0-44.0); MEAN CORPUSCULAR HEMOGLOBIN 31.9 pg (27.0-33.0); MEAN CORPUSCULAR HGB CONC 34.5 g/dl (32.0-36.5); MEAN CORPUSCULAR VOLUME 92.5 fl (80.0-96.0); MONO # 0.7 10^3/uL (0.0-0.8); MONO % 6.1 % (0.0-5.0); NEUTROPHILS # 9.9 10^3/uL (1.8-7.7); NEUTROPHILS % 84.7 % (36.0-66.0); PLATELET COUNT, AUTOMATED 332 10^3/uL (150-450); RED CELL DISTRIBUTION WIDTH 13.7 % (11.5-14.5); WHITE BLOOD COUNT 11.7 10^3/uL (4.0-10.0)
[2017-05-26 07:51] LABS: ANION GAP 8 MEQ/L (8-16); BLOOD UREA NITROGEN 6 MG/DL (7-18); CALCIUM LEVEL 8.4 MG/DL (8.8-10.2); CARBON DIOXIDE LEVEL 25 MEQ/L (21-32); CHLORIDE LEVEL 106 MEQ/L (98-107); GLOMERULAR FILTRATION RATE > 60.0 (>45); GLUCOSE, FASTING 85 MG/DL (80-110); POTASSIUM SERUM 2.9 MEQ/L (3.5-5.1); SODIUM LEVEL 139 MEQ/L (136-145)
--- NOTE | 2017-05-26 08:09 | REP ---
Portable chest, 07:27 a.m.: Comparisons are the AP and lateral plain film study 05/24/[address] of 05/22/2017. There is a large left upper lobe infiltrate that has increased in size. There is a left pleural effusion that has increased in size. The right lung is clear. Cardiac size is normal. The adelita, mediastinum, and bony thorax are unremarkable Signed by Tevin Shabazz MD 05/26/2017 08:01 A
[2017-05-26] MEDS ORDERED: POTASSIUM CHLORIDE 10 MEQ SR TABLET PO ONE (09:00)
[2017-05-26] MEDS ORDERED: PIPERACILLIN/TAZOBACTAM SOD 3.375 GM in D5W 50 ML IV SCH (09:00)
[2017-05-26] MEDS: ENOXAPARIN 30 MG/0.3 ML SYR (J1650) SC SCH (09:06)
[2017-05-26] MEDS: NYSTATIN 500,000 U/5 ML SUSP UDC SS SCH ×3 (09:06→21:28)
[2017-05-26] MEDS: guaiFENesin ER 600 MG TAB PO SCH ×2 (09:06→21:28)
[2017-05-26] MEDS: PANTOPRAZOLE 40MG TAB (PROTONIX) PO SCH (09:06)
[2017-05-26] MEDS: KCL 10MEQ IN 100ML SWI (KRUN) 10 MEQ in APPROPRIATE DILUENT 1 EA IV SCH ×6 (09:07→14:32)
[2017-05-26] MEDS: NICOTINE 14 MG/24 HR TRANSDERMAL TD SCH (09:08)
[2017-05-26] MEDS: VANCOMYCIN HCL 750 MG, VIAL MATE ADAPTER 1 EACH in D5W 250 ML IV SCH ×2 (10:22→21:28)
[2017-05-26] MEDS: KCL 40MEQ in NS 1000ML 1,000 ML IV SCH (11:55)
--- NOTE | 2017-05-26 13:32 | CR ---
DATE OF CONSULTATION: 05/26/2017 Belkis is a 62-year-old female who cannot provide me with any significant history. She states she has been sick forever. She is not clear when her cough or her symptoms started; however, she states "I just feel awful". She is awake, alert and is telling me stories; however, some of these stories she tells me are questionable. 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 Her main complaint is that of left sided chest discomfort that is pleuritic in nature. She states she is not getting out of bed because she feels so awful. She does have incentive spirometry next to her. She has had no hemoptysis. She has not had any productive mucus today, but had been coughing up yellow mucus in the past. She is on air borne precautions because of her history of latent tuberculosis. She has already been treated for nine months with INH. However, they have not actually obtained sputum for AFB. In order to get her off isolation, I have recommended that they do so. Three cultures so far have grown methicillin-resistant Staphylococcus aureus (MRSA) and there was a question of whether or not she needed to be changed as far as antibiotic therapy. She has also reasonably been on Levaquin and was recently switched to Zosyn today in addition to vancomycin since the time of her admission. The patient has had intermittent fevers and gets a headache with her fevers. No headache in between. No nuchal rigidity. She has had minimal epistaxis which she attributes to oxygen use. Currently she is off oxygen with normal saturation. No pain or burning with urination. She has no diarrhea. She has a history of Crohn's disease. She is chronically immunosuppressed. She states she is on an anti-TNF medication every month that is not Remicade. She states OPDIVO, but does not coincide with her underlying diagnosis. I believe she means ENTYVIO or vedolizumab. She states she has not been on prednisone therapy recently. She is unable to tell me if she was on antibiotics prior to her admission. The patient states she has not felt good since her right wrist surgery this month. PAST MEDICAL HISTORY: 1. Crohn's on anti-TNF therapy. Currently no diarrhea. 2. History of latent tuberculosis. Treated in 2010 for 9 months with INH. 3. History of non insulin dependent diabetes. Diet controlled. 4. History of memory loss. 5. Chronic bilateral arm pain. 6. Osteoporosis. 7. Alopecia. 8. Medical noncompliance. 9. Suspected COPD. Has not been confirmed by pulmonary function testing. 10. Atherosclerotic cardiovascular disease. 11. Total hysterectomy for dysfunctional uterine bleeding. 12. Tonsillectomy. 13. Right wrist surgery. 14. Tubal ligation. 15. Cholecystectomy. 16. Multiple unremarkable pregnancies. MEDICATIONS: - Atrovent nebulized - Xopenex nebulized - Percocet - Zofran - Mucinex - Protonix 40 mg daily - Lovenox 30 mg subcutaneous daily - Mycostatin - nicotine patch - Tylenol - Advil - vancomycin - Zosyn - IV fluids at 100 mL/hr FAMILY HISTORY: Mother with Alzheimer's. Grandfather had active tuberculosis. Sibling with diabetes. SOCIAL HISTORY: Patient smokes. She states she has not smoked since the . On admission, she stated she smoked 11 to 20 cigarettes a day. She drinks two to four alcoholic beverages a month. No illicit drug use. No alcohol use. No significant exposures that she can recall. REVIEW OF SYSTEMS: CONSTITUTIONAL: She has been having fevers, headaches. No weight loss, night sweats, or shaking chills. HEENT: No change in vision. Positive for epistaxis as mentioned above. No difficulty swallowing. Eats well. Positive cough, but no coughing with food. No difficulty with hearing. CARDIAC: She does have left sided chest pain, but no anginal features. It is pleuritic in nature. No lower extremity edema, orthopnea or paroxysmal nocturnal dyspnea (PND) or symptoms of claudication. PULMONARY: As per history of present illness (HPI). GI: No nausea, vomiting, diarrhea, constipation, blood in stool. No history of hepatitis. No history of pancreatitis. : No burning or pain with urination. No hematuria or nocturia. ENDOCRINE: No hyperglycemia, hypoglycemia episodes. No history of hot or cold intolerance. She does have history of diabetes, but does not follow routinely with a physician. NEUROLOGIC: No unilateral weakness, tremor, history of seizure or significant head trauma. ALLERGIES: No significant environmental allergy. No history of recurrent pneumonia. SLEEP: No history of witnessed apneas, snoring or excessive daytime fatigue. PHYSICAL EXAMINATION: Temperature is 98.4 currently, this morning at 8 o'clock it was 102. Pulse 110 in a sinus rhythm. Respiratory rate 18. Blood pressure 114/56. Oxygen saturation 92% on room air. HEENT: Sclerae clear. Anicteric sclerae. Pupils equal and react to light. Mucous membranes are moist without lesions. Tongue is midline. NECK: Supple. No tracheal deviation or mass. No lymphadenopathy. No cervical , supraclavicular or axillary adenopathy. CARDIAC: Tachycardic. S1, regular, without murmur, rub or gallop. No elevated jugular venous pulse (JVP). No peripheral edema. PULMONARY: Decreased breath sounds at the left base. Clear to auscultation on the right. There are expiratory rhonchi on the left. No accessory muscle use. There is no dullness to percussion. There is no difference in tactile fremitus. ABDOMEN: Soft. Nontender. Nondistended. No hepatosplenomegaly. No masses or hernia. EXTREMITIES: No cyanosis, clubbing or edema. NEUROLOGIC: No unilateral weakness. No tremor. No myoclonus. Pupil exam as mentioned above. SKIN: Dark, without rashes, jaundice or bruising. LABORATORY EVALUATION: Shows a white blood cell count elevated at 11.7, hemoglobin 11.0, hematocrit 31.9 with a platelet count of 232. There is a bandemia of 1.4. Sodium 139, potassium 2.9, chloride 106, bicarbonate 25, BUN 6 , creatinine 0.40, with a fasting glucose of 85, calcium 8.4, troponin less than 0.02. Chest x-ray shows a left upper lobar pneumonia. Chest x-ray this morning suggests some atelectasis at the left base. I do not have evidence of a pleural effusion. The previous chest x-rays are fairly similar; however, less penetrated. Chest CT from 05/22/2017 shows lobar infiltrate clearly with air present. In the right lower lobe, there is an abnormal structure that appears to be vascular. There is minimal atelectasis of the left lower lobe with some nonspecific infiltrate. There is no significant lymphadenopathy. Small hiatal hernia. Three sputum cultures growing MRSA sensitive to vancomycin. IMPRESSION: 1. Methicillin-resistant Staphylococcus aureus pneumonia. Has been cultured three separate times. Clear resistance pattern to methicillin. At this point in time, she has atelectasis on the left. Therefore, would recommend agressive pulmonary toilet, incentive spirometry and continued therapy to expand that lung, including getting out of bed on a daily basis. She may have continued fever due to the pneumonia or atelectasis. At this point in time, I do not see a pleural effusion developing. However, if she remains febrile I recommend obtaining a PA and lateral CXR to rule out evolving effusion because she is having pleuritic symptoms. Because there may be an IV medication shortage, would consider switching her to linezolid po (by mouth) as she is able to eat, drink and swallow. I will review this with her infectious disease specialist who has followed her in the past. At this point in time, there is no indication for Zosyn and would deescalate antibiotic therapy as occasionally antibiotics can induce a fever. 2. Leukocytosis likely secondary to MRSA pneumonia. At this point in time, I find no other source of infection. There is a large lobar infiltrate consistent with bacterial pneumonia. MTDD
--- NOTE | 2017-05-26 13:57 | IPNPDOC ---
Text Note Date of Service The patient was seen on 05/26/17. NOTE Subjective: Patient is a 62 year old female with past medical history of Crohns disease, positive PPD, type 2 diabetes, not on insulin, memory loss, chronic bilateral arm pain, osteoporosis, alopecia, presented with pneumonia. Patient was seen and examined at the bedside. Patient had fever again this morning and was feeling sicker than yesterday. She admits to increased shortness of breath as well. Denies any abdominal pains, any diarrhea, constipation, any blood in the stool. She stated she misses her dogs and would like to go home. Objective: Vitals (See below) General: Thin looking elderly female who was alert, awake, oriented 3, appears to be mild distress, lying comfortably in bed with head elevated 30 HEENT: NC, AT CVS: Regular rhythm, normal S1, S2, 2/6 systolic murmur Lungs: Poor respiratory effort with reduced bowel sound in the bases area and a increased focal wheezing on the left side, decreased breath sounds on left Abdomen: Soft, ND, NT Extremities: No edema, clubbing or cyanosis Assessment and plan: Severe Sepsis - likely 2/2 Left sided pneumonia - likely 2/2 healthcare associated pneumonia, coverage for Gram negative rods and MRSA - Clinically the patient's is worse today and still having a fever and was tachycardic - LA improved; CRP improved, WBC with mild elevation - Sputum culture 05/25: MRSA - CT chest 05/22: Large rounded consolidation at [place]; infectious process, malignancy not excluded - CXR 05/24: showed new LLL infiltrate and [place] infiltrate increased - Started Zoysn, c/w Vancomycin, s/p Levaquin; s/p Ceftriaxone and Azithromycin - c/w IV fluid hydration - c/w incentive spirometry and acapella - Consulted Dr. Pretty (Pulmonology) and Dr. Sapp (Infectious disease) today due to patient's CXR and symptoms are worsening, we appreciate their help s/p Acute kidney injury Crohns disease - c/w outpatient Entyvio when infection resolves - Denies any symptom currently NIDDM2 - A1c 5.3 - not on any medications History of chronic memory loss -Stable Osteoporosis -Stable Hx of Latent tuberculosis - Dr. Sapp treated the patient in the past - Does not appear to have any evidence of active TB - Will recheck with AFB Smear and Culture DVT prophylaxis - c/w Lovenox Fluid, electrolytes, nutrition: Repeat potassium of 4, low-fat, low-cholesterol regular diet Disposition: - c/w Antibiotics, follow Dr. Sapp and Dr. Pretty recommendations GME ATTESTATION My preceptor for this patient encounter was physically present in the building during the encounter and was fully available. As needed, all aspects of the patient interview, examination, medical decision making process, and medical care plan development were reviewed and approved by the preceptor. Preceptor is aware and concurs with the plan as stated in the body of this note and will attest to such by his/her cosignature. ATTENDING NOTE I, Lydia Conway, have both independently examined this patient as well as reviewed the documentation. I have discussed in detail with the resident the findings and plan of treatment as documented in the residents documentation. I will continue to follow the patient and offer further guidance to the patients care as necessary during this hospital stay. VS,Fishbone, I+O VS, Fishbone, I+O Laboratory Tests 05/26/17 07:09 Red Blood Count 3.45 L, Mean Corpuscular Volume 92.5, Mean Corpuscular Hemoglobin 31.9, Mean Corpuscular Hemoglobin Concent 34.5, Red Cell Distribution Width 13.7, Neutrophils (%) (Auto) 84.7 H, Lymphocytes (%) (Auto) 6.7 L, Monocytes (%) (Auto) 6.1 H, Eosinophils (%) (Auto) 0.8, Basophils (%) ( Auto) 0.3, Neutrophils # (Auto) 9.9 H, Lymphocytes # (Auto) 0.8 L, Monocytes # ( Auto) 0.7, Eosinophils # (Auto) 0.1, Basophils # (Auto) 0.0, Calcium Level 8.4 L , Total Creatine Kinase 42 Vital Signs Date Time Temp Pulse Resp B/P (MAP) Pulse Ox O2 Delivery O2 Flow Rate FiO2 05/26/17 10:00 98.4 110 18 114/56 (75) 92 Room Air 05/26/17 08:10 2.0 I&O- Last 24 Hours up to 6 AM 05/27/17 06:00 Intake Total 490 ml Balance 490 ml KENDRICK SANTOS DO May 26, 2017 13:57 LYDIA CONWAY MD May 26, 2017 14:09
[2017-05-26 14:15] LABS: ORGANISM ID Not indicated. (.); SPECIMEN SOURCE Urine (.)
[2017-05-26] MEDS: IBUPROFEN 600 MG TAB PO PRN (14:54)
[2017-05-26] MEDS: ACETAMINOPHEN TAB 650MG DOSE (2X325MG) PO PRN (16:36)
[2017-05-26 16:45] LABS: BLOOD UREA NITROGEN 6 MG/DL (7-18); CALCIUM LEVEL 8.1 MG/DL (8.8-10.2); CARBON DIOXIDE LEVEL 24 MEQ/L (21-32); CHLORIDE LEVEL 107 MEQ/L (98-107); CREATININE FOR GFR 0.37 MG/DL (0.55-1.02); GLOMERULAR FILTRATION RATE > 60.0 (>45); GLUCOSE, FASTING 91 MG/DL (80-110)
[2017-05-26 17:00] LABS: ANION GAP 9 MEQ/L (8-16); SODIUM LEVEL 140 MEQ/L (136-145)
[2017-05-26] MEDS ORDERED: SALINE NOSE DROPS 30 ML PRN (17:00)
[2017-05-26 17:05] LABS: POTASSIUM SERUM 3.6 MEQ/L (3.5-5.1)
--- NOTE | 2017-05-26 20:07 | ECGEPIP ---
Stationary ECG Study [facility] Test Date: 2017-05-26 Pat Name: SANJEEV MONDRAGON Department: Room: [place] [address] Gender: F [employer] In[employer]: FIOR : 1955 Requested By: KENDRICK SANTOS Order Number: [id number] Reading MD: Lidia Holden Measurements Intervals [place] Rate: 114 P: 65 GA: 124 QRS: 62 QRSD: 82 T: 55 QT: 317 QTc: 438 Interpretive Statements SINUS TACHYCARDIA WITH OCCASIONAL SUPRAVENTRICULAR PREMATURE COMPLEXES ABNORMAL RHYTHM ECG SIMILAR TO 05/22/17 Electronically Signed On 05-26-2017 20:06:47 EST by Lidia Holden
--- NOTE | 2017-05-26 22:02 | CR ---
INFECTIOUS DISEASE CONSULTATION: 05/26/2017 REQUESTING PHYSICIAN: Brendan Rodarte MD REASON FOR CONSULTATION: Evaluation of Methicillin-resistant Staphylococcus aureus (MRSA) pneumonia. HISTORY OF PRESENT ILLNESS: Mrs. Gann is a 62-year-old female who was admitted to the hospital on 05/22 with complaint of shortness of breath and fever. The patient stated she had fever, chills and a nonproductive, with left-sided pleuritic chest pain. The pain was worse with inspiration, sharp and constant. She had fevers of 3 days duration. She also was complaining of decreased appetite and generalized weakness. The patient a couple weeks prior had fallen and broke her right wrist and had open reduction internal fixation in [place] about 10 days ago. She denied any dysuria, hematuria, frequency, abdominal pain , nausea or vomiting. She has a history of Crohn disease and she is well controlled on vedolizumab 300 mg monthly that she gets through the infusion unit. Her last infusion was 05/05 and she was scheduled for another one this coming week. On admission, she had two sets of blood cultures that were negative. Sputum culture was positive for MRSA on three different occasions, sputum AFB was negative. Urine culture had Escherichia (E.) coli more than 100,000 with urinalysis with pyuria. The patient has been started on Levaquin and vancomycin. The patient was febrile up to 104 on admission, but currently is down to 101. She was also hypotensive in the emergency room. Chest x-ray showed large left upper lobe consolidation. The patient has a history of latent tuberculosis by a positive PPD. She was treated by myself in 2010 with isoniazid for 9 months, later QuantiFERON TB Gold has been done and was negative. The patient had been on TNF inhibitors for many years without any problems and no recurrent infections. PAST MEDICAL HISTORY: Significant for: Crohn disease, vedolizumab monthly 300 mg through the infusion unit. Latent tuberculosis with a positive PPD, treated with 9 months of isoniazid in 2010. QuantiFERON TB Gold was negative in 2016. Non-insulin dependent diabetes, diet controlled. Chronic degenerative disc disease. Osteoarthritis. Alopecia. Atherosclerotic heart disease. Tobacco abuse. PAST SURGICAL HISTORY: Open reduction, internal fixation of right wrist two weeks ago. Hysterectomy. Tonsillectomy. Cholecystectomy. Colonoscopy [place] [address] Singh. FAMILY HISTORY: Mother has Alzheimer's SOCIAL HISTORY: She smokes a pack of cigarettes a day. She states that she will quit now. She drinks two to four alcoholic beverages per month. No recreational drug use. REVIEW OF SYSTEMS: The patient complains of fever and chills, cough with shortness of breath, nausea, vomiting, diarrhea, abdominal pain,decreased appetite She complains of some wrist pain but she has fair range of motion for 2 weeks postoperatively. ALLERGIES: AZATHIOPRINE, HYOSCYAMINE, LATEX, SULFA DRUGS and ANTITUBERCULIN. MEDICATIONS: - Zosyn 3.375 grams IV every 8 hours - levofloxacin 250 mg IV every 24 hours has been discontinued - ibuprofen 600 mg by mouth every 6 as needed - vancomycin 750 mg IV every 12 as needed - Tylenol 650 as needed - Nystatin Swish and Swallow three times a day - nicotine patch daily - Protonix 40 mg by mouth daily - Zofran 4 mg IV every 6 as needed daily - Percocet 1-2 tablets every 6 as needed daily - albuterol/Atrovent nebs as needed PHYSICAL EXAMINATION: Temperature is 97.7. T-max was 102.2 today, pulse 87, respiratory rate 18, blood pressure 103/54, O2 saturation 96% on room air. Heart: Normal S1, S2, tachycardiac. No murmurs, rubs or gallops. Diminished breath sounds bilaterally with extra rhonchi on the left side, clear on the right side. Abdomen: Soft, nontender. No hepatosplenomegaly. No masses felt. Extremities: No clubbing, cyanosis or edema. Skin: Dark. She is [place]. No rashes. Extremities: No clubbing, cyanosis or edema. Neurologic: Exam within normal except for tremors. LABORATORY DATA: White count 11.7, hemoglobin 11, hematocrit 31.9, platelets 332 , 84% neutrophils, 6% lymphocytes, 6% monocytes. Sodium 140, potassium 3.6, chloride 107, bicarb 24, BUN 6, creatinine 0.37, glucose 91, calcium 8.1, total CK 42, troponin less than 0.02, CRP 25.6 and has remained elevated in the past 4 days. Chest x-ray with a very large left upper lobe pneumonia consolidation. Imaging studies, chest x-ray on 05/26 shows the right lung being clear. The large left upper lobe infiltrate has increased in size and the left pleural effusion. CT chest shows large rounded consolidation in the left upper lobe measuring 10 x 6.5 cm, most likely an infectious process and not malignancy. Small hiatus hernia is present. Wrist x-ray on 05/22 showed internal fixation of the distal radius. The fracture is in satisfactory position. IMPRESSION: This is a frail 52-year-old female with a history of Crohn disease on TNF inhibitors being treated with vedolizumab who is admitted with pneumonia and left upper lobe pneumonia with culture positive for MRSA. She has been on IV vancomycin with persistent fever and chills. The patient also has asymptomatic bacteruria, which does not need to be treated. She has received 3 days of gram-negative coverage which does not need to be continued. In spite of her fever and elevated inflammatory markers the patient looks pretty good otherwise. She has tolerated IV vancomycin. Probably persistent fever is due to the extent of pneumonia and the fact that she is immunocompromised with treatment for Crohn disease. PLAN: Continue IV vancomycin until the patient defervesced and she could be switched to oral linezolid. The patient does not have active TB. She was treated with isoniazid in 2010 for 9 months and QuantiFERON TB Gold has been negative. So I am not even sure that she had latent TB based on the positive PPD. Her treatment with vedolizumab will need to be held this month and be scheduled for next month until pneumonia has completely cleared. Call the infusion unit to hold her next treatment for Crohn disease which will be placed on hold for the month of May. Discontinue Zosyn. The patient does not have a urinary tract infection (UTI). Continue with IV vancomycin at current dose 750 mg every 12 hours. Most recent vancomycin trough was done on 05/25 and was 1.6 and 05/26 the result is pending. She may need increased dose of her vancomycin. Once she defervesces she could be switched to oral Zyvox. Do not treat asymptomatic bacteruria with gram-negative coverage. MTDD
[2017-05-27] MEDS: KCL 40MEQ in NS 1000ML 1,000 ML IV SCH ×3 (01:12→15:54)
[2017-05-27 02:00] VITALS: BP 142/69
[2017-05-27] MEDS ORDERED: VANCOMYCIN HCL 750 MG, VIAL MATE ADAPTER 1 EACH in D5W 250 ML IV SCH (03:00)
[2017-05-27] MEDS: PERCOCET 5MG/325MG TAB PO PRN ×3 (03:19→22:35)
[2017-05-27] MEDS: LEVALBUTEROL 1.25 MG/0.5 ML CONCENTRATE NEB INH SCH ×5 (03:29→19:35)
[2017-05-27] MEDS: ACETAMINOPHEN TAB 650MG DOSE (2X325MG) PO PRN ×2 (05:14→16:04)
[2017-05-27 06:00] VITALS: BP 147/65
[2017-05-27] MEDS: IPRATROPIUM 0.02% SOLN 0.5MG/2.5 ML NEB INH SCH ×2 (07:00→11:02)
[2017-05-27 07:04] LABS: BASO % 0.2 % (0.0-1.0); EOS # 0.1 10^3/uL (0.0-0.50); EOS % 0.7 % (0.0-3.0); IMMATURE GRANULOCYTE % 1.2 % (0-0); LYMPH # 0.9 10^3/uL (1.5-4.5); LYMPH % 7.1 % (24.0-44.0); MEAN CORPUSCULAR HEMOGLOBIN 32.4 pg (27.0-33.0); MEAN CORPUSCULAR HGB CONC 34.4 g/dl (32.0-36.5); MONO # 0.7 10^3/uL (0.0-0.8); MONO % 5.4 % (0.0-5.0); NEUTROPHILS # 10.4 10^3/uL (1.8-7.7); NEUTROPHILS % 85.4 % (36.0-66.0); PLATELET COUNT, AUTOMATED 359 10^3/uL (150-450); RED CELL DISTRIBUTION WIDTH 13.5 % (11.5-14.5); WHITE BLOOD COUNT 12.1 10^3/uL (4.0-10.0)
[2017-05-27 07:31] LABS: ANION GAP 8 MEQ/L (8-16); BLOOD UREA NITROGEN 7 MG/DL (7-18); CALCIUM LEVEL 8.1 MG/DL (8.8-10.2); CARBON DIOXIDE LEVEL 23 MEQ/L (21-32); CHLORIDE LEVEL 110 MEQ/L (98-107); CREATININE FOR GFR 0.36 MG/DL (0.55-1.02); GLOMERULAR FILTRATION RATE > 60.0 (>45); GLUCOSE, FASTING 86 MG/DL (80-110); POTASSIUM SERUM 3.9 MEQ/L (3.5-5.1); SODIUM LEVEL 141 MEQ/L (136-145)
[2017-05-27] MEDS: NYSTATIN 500,000 U/5 ML SUSP UDC SS SCH ×3 (08:43→21:22)
[2017-05-27] MEDS: guaiFENesin ER 600 MG TAB PO SCH ×2 (08:43→21:22)
[2017-05-27] MEDS: PANTOPRAZOLE 40MG TAB (PROTONIX) PO SCH (08:43)
[2017-05-27] MEDS: ENOXAPARIN 30 MG/0.3 ML SYR (J1650) SC SCH (08:44)
[2017-05-27] MEDS: NICOTINE 14 MG/24 HR TRANSDERMAL TD SCH (08:45)
[2017-05-27 10:00] VITALS: BP 142/64
--- NOTE | 2017-05-27 11:19 | IPNPDOC ---
Text Note Date of Service The patient was seen on 05/27/17. NOTE Subjective: Patient is a 62 year old female with past medical history of Crohns disease, positive PPD, type 2 diabetes, not on insulin, memory loss, chronic bilateral arm pain, osteoporosis, alopecia, presented with pneumonia. Patient was seen and examined at the bedside. Patient admits to feeling better today, less cough and breathing better. Still has a little more right sided chest pain, however it was improved from day before. Denies any abdominal pains , any diarrhea, constipation, any blood in the stool. Objective: Vitals (See below) General: Thin looking elderly female who was alert, awake, oriented 3, appears to be mild distress, lying comfortably in bed with head elevated 30 HEENT: NC, AT CVS: Regular rhythm, normal S1, S2, 2/6 systolic murmur Lungs: Poor respiratory effort with improved lung sound compared to day before, some rhonchi Abdomen: Soft, ND, NT, no peritoneal signs Extremities: No edema, clubbing or cyanosis Assessment and plan: Severe Sepsis - likely 2/2 Left sided pneumonia - likely 2/2 healthcare associated pneumonia, coverage for Gram negative rods and MRSA - Improving - Clinically the patient's is worse today and still having a fever and was tachycardic - LA improved; CRP improved, WBC with mild elevation - Sputum culture 05/24, 05/24, 05/23: MRSA and yeast like organism - CT chest 05/22: Large rounded consolidation at [facility]; infectious process, malignancy not excluded - CXR 05/24: showed new LLL infiltrate and [place] infiltrate increased - c/w Vancomycin 05/23/17 Day 5, s/p Zosyn, s/p Levaquin; s/p Ceftriaxone and Azithromycin - c/w IV fluid hydration - c/w incentive spirometry and acapella - Consulted Dr. Daniel/Sukhwinder (Pulmonology) and Dr. Sapp (Infectious disease), we appreciate their help s/p Acute kidney injury Crohns disease - HOLD outpatient Entyvio when infection resolves, called infusion center to stop for this month, patient will call to restart next month due to active infection - Denies any symptom currently NIDDM2 - A1c 5.3 - not on any medications History of chronic memory loss -Stable Osteoporosis -Stable Hx of Latent tuberculosis - Dr. Sapp treated the patient in the past - Does not appear to have any evidence of active TB - Will recheck with AFB Smear and Culture DVT prophylaxis - c/w Lovenox Fluid, electrolytes, nutrition: Repeat potassium of 4, low-fat, low-cholesterol regular diet Disposition: - c/w Antibiotics, follow Dr. Sapp and Dr. Daniel recommendations GME ATTESTATION My preceptor for this patient encounter was physically present in the building during the encounter and was fully available. As needed, all aspects of the patient interview, examination, medical decision making process, and medical care plan development were reviewed and approved by the preceptor. Preceptor is aware and concurs with the plan as stated in the body of this note and will attest to such by his/her cosignature. ATTENDING NOTE I, Lydia Conway, have both independently examined this patient as well as reviewed the documentation. I have discussed in detail with the resident the findings and plan of treatment as documented in the residents documentation. I will continue to follow the patient and offer further guidance to the patients care as necessary during this hospital stay. VS,Fishbone, I+O VS, Fishbone, I+O Laboratory Tests 05/26/17 16:02 Calcium Level 8.1 L 05/27/17 06:56 Calcium Level 8.1 L, Red Blood Count 3.18 L, Mean Corpuscular Volume 94.0, Mean Corpuscular Hemoglobin 32.4, Mean Corpuscular Hemoglobin Concent 34.4, Red Cell Distribution Width 13.5, Neutrophils (%) (Auto) 85.4 H, Lymphocytes (%) (Auto) 7.1 L, Monocytes (%) (Auto) 5.4 H, Eosinophils (%) (Auto) 0.7, Basophils (%) ( Auto) 0.2, Neutrophils # (Auto) 10.4 H, Lymphocytes # (Auto) 0.9 L, Monocytes # (Auto) 0.7, Eosinophils # (Auto) 0.1, Basophils # (Auto) 0.0 Vital Signs Date Time Temp Pulse Resp B/P (MAP) Pulse Ox O2 Delivery O2 Flow Rate FiO2 05/27/17 06:00 99.8 103 20 147/65 (92) 95 05/26/17 21:44 Room Air 05/26/17 08:15 2.0 I&O- Last 24 Hours up to 6 AM 05/28/17 06:00 Intake Total 120 ml Output Total 200 ml Balance -80 ml KENDRICK SANTOS DO May 27, 2017 11:18 LYDIA CONWAY MD May 27, 2017 13:06
--- NOTE | 2017-05-27 15:22 | PHACANCOPD ---
PHARMACY VANCOMYCIN DOSING Pt Demographics Demographics Patient Age:62 , Weight:44.900 , Gender: female Adjusted Body Weight Date: 05/27/17, Adjusted Body Weight: [44.9] Kg Events Past 24 Hours Events Past 24 Hours: NO: Dialysis, Diuretic Therapy, Change in CrCl, Fever, Elevation in WBC, Pending Diagnostics, Pending Procedures, Other Vancomycin Vancomycin indication: PNEUMONIA Vancomycin Target Ranges: 15-20 mcg/ml Vancomycin Load Y/N: No Load Dose Date Time Vancomycin Load Dose: Date: Time: Vancomycin Dose Date: 05/27/17. Current Vancomycin Dose: [750MG IV Q8H @1500] Intermittent Dosing?: No Labs Labs Item Value Date Time White Blood Count 10.5 10^3/uL H 05/25/17 0701 White Blood Count 11.7 10^3/uL H 05/26/17 0709 White Blood Count 12.1 10^3/uL H 05/27/17 0656 Creatinine 0.37 MG/DL L 05/26/17 1602 Creatinine 0.36 MG/DL L 05/27/17 0656 Vancomycin Level Trough 1.6 UG/ML L 05/25/17 1604 Vancomycin Level Trough 7.9 UG/ML L 05/26/17 2017 Vancomycin Level Trough 9.9 UG/ML L 05/27/17 1346 Micro Microbiology 05/25/17 Blood Culture - Preliminary, Resulted No Growth after 48 hours. All Specime... 05/25/17 Blood Culture - Preliminary, Resulted No Growth after 48 hours. All Specime... 05/24/17 Blood Culture - Preliminary, Resulted No Growth after 72 hours. All specime... 05/24/17 Blood Culture - Preliminary, Resulted No Growth after 72 hours. All specime... 05/22/17 Blood Culture - Preliminary, Resulted No Growth after 72 hours. All specime... 05/22/17 Blood Culture - Preliminary, Resulted No Growth after 72 hours. All specime... 05/27/17 Acid Fast Stain - Final, Resulted 05/27/17 Mycobacterial Culture, Resulted Pending 05/26/17 Respiratory Virus Panel (PCR) (NELY) - Final, Complete 05/24/17 Gram Stain - Final, Complete 05/24/17 Sputum Culture - Final, Complete Staph.aureus Methicillin Resis Yeast Like Organism 05/24/17 Gram Stain - Final, Complete 05/24/17 Sputum Culture - Final, Complete Staph.aureus Methicillin Resis Yeast Like Organism 05/23/17 Acid Fast Stain - Final, Resulted 05/23/17 Mycobacterial Culture, Resulted Pending 05/23/17 Gram Stain - Final, Complete 05/23/17 Sputum Culture - Final, Complete Staph.aureus Methicillin Resis Yeast Like Organism 05/23/17 MRSA Screen - Final, Complete 05/22/17 Respiratory Virus Panel (PCR) (NELY) - Final, Complete 05/23/17 Urine Culture - Final, Complete Escherichia Coli Creatinine Clearance Date:05/27/17. Creatinine Clearance: [150ML/MIN]. Assessment and Plan Maintaining Current Dose?: No Reason for dose change: Trough too low Pharmacist Note Pharmacist Note Date: 05/27/17. Pharmacist note:PT trough came in low today @ 9.9mcg/ml. The dose will be changed to 750mg IV every 8 hours starting 05/27/17 @1500. A trough is scheduled for 05/28/17 @14:00. We will continue to monitor and adjust doses as needed. MATA MCDONALD PHARMACY May 27, 2017 15:22
[2017-05-27] MEDS: VANCOMYCIN HCL 750 MG, VIAL MATE ADAPTER 1 EACH in D5W 250 ML IV SCH ×2 (15:54→22:35)
--- NOTE | 2017-05-27 17:45 | REP ---
Procedure: PICC line insertion with Fabi-Mi The procedure was performed under the direct supervision of Dr. Gupta. The risks and benefits of the procedure were explained to the patient and informed consent was obtained. The right basilic vein was localized using ultrasound guidance. The skin was prepped and draped in a sterile fashion. 2% lidocaine was used as a local anesthetic. Using ultrasound guidance the basilic vein was cannulated and a 0.018 guidewire was inserted and advanced to the SVC using fluoroscopic guidance. The needle was removed and a 5.5 Cypriot dilator and peel-away sheath was inserted over the guide wire. A 5.5 Cypriot dual lumen catheter was cut to length of 37 cm. The dilator was removed and the catheter was inserted over the guide wire with the tip ending in the SVC. The peel-away sheath was removed and the catheter was flushed with heparinized saline as per Hospital protocol. The catheter was affixed to the skin and a sterile dressing was applied. The the patient tolerated the procedure well and there were no immediate complications. 0.2 minutes of fluoro time was utilized for this procedure. Reviewed by JACKY Zavaleta 05/27/2017 05:03 PSigned by Yonas Gupta MD 05/27/2017 05:35 P
[2017-05-27 18:00] VITALS: BP 142/67
[2017-05-27] MEDS: SODIUM CHLORIDE 0.9% INJ 10 ML SYR IV SCH (18:00)
[2017-05-27] MEDS ORDERED: SODIUM CHLORIDE 0.9% INJ 10 ML SYR IV PRN (18:00)
[2017-05-27 22:00] VITALS: BP 146/70
[2017-05-27] MEDS: IBUPROFEN 600 MG TAB PO PRN (22:35)
--- NOTE | 2017-05-28 02:05 | IPN ---
DATE OF SERVICE: 05/27/2017 Belkis seems to be doing a little better today, but feels very shaky. She denies any nausea, vomiting, diarrhea or abdominal pain. She is currently on intravenous (IV) vancomycin. Vancomycin trough was still low at 9.9. She will be redosed appropriately. Her cough is productive. She does complain of pleuritic chest pain. Temperature is 99.4, pulse 100, respirations 20, blood pressure 142/64, oxygen saturation 96% on room air. Heart normal S1, S2, tachycardiac. No heart murmur. Lungs diminished breath sounds at the left base, but otherwise good air entry. No wheezing. Abdomen soft, nontender. No visceromegaly. Extremities no edema. The patient is very tremulous. LABORATORY DATA: White count 12.1, hemoglobin 10.3, hematocrit 29.9, platelets 359, 85% neutrophils, 7% lymphocytes, 5% monocytes. Sodium 141, potassium 3.9, chloride 110, bicarbonate 23, BUN 7, creatinine 0.36, glucose 86, calcium 8.1, CRP 23.9. Sputum cultures were all positive for MRSA. AFB smears were negative times two. Chest x-ray showed a left upper lobe infiltrate that has increased in size with a left pleural effusion that also has increased in size. IMPRESSION: 1. Left sided upper lobe pneumonia with a left pleural effusion with culture positive for methicillin-resistant Staphylococcus aureus (MRSA) on intravenous (IV) vancomycin. The patient's vancomycin has been subtherapeutic since 05/23. She is currently day #4. I have discussed the case with Kathy del rio, who will be giving her an extra dose of 500 mg and increasing her vancomycin to keep a trough of 15-20. Persistent fever could be due to severe pneumonia, underdosing of vancomycin and the fact that the patient is immunocompromised due to her Crohn's disease and the patient is on monthly infusion of Entyvio. 2. Crohn's disease on immunosuppressive therapy with Entyvio. 3. History of tobacco abuse. The patient has promised she will not be smoking again. PLAN: Continue IV vancomycin. Would not switch to oral linezolid until the patient is afebrile, at least with improving fever and improved symptoms. Case discussed with Dr. Daniel. I would suggest using nebulizers as needed as the patient is very tremulous and receiving her inhalers every 4 hours.
[2017-05-28] MEDS: LEVALBUTEROL 1.25 MG/0.5 ML CONCENTRATE NEB INH SCH ×7 (03:50→23:13)
[2017-05-28] MEDS: KCL 40MEQ in NS 1000ML 1,000 ML IV SCH ×2 (05:35→17:02)
[2017-05-28] MEDS: SODIUM CHLORIDE 0.9% INJ 10 ML SYR IV SCH ×2 (05:35→17:08)
[2017-05-28 06:00] VITALS: BP 151/68
[2017-05-28] MEDS: VANCOMYCIN HCL 750 MG, VIAL MATE ADAPTER 1 EACH in D5W 250 ML IV SCH ×2 (06:56→22:55)
[2017-05-28 07:51] LABS: HISTOPLASMA GAL'MANNAN AG UR <0.5 (<0.5 ng/mL)
--- NOTE | 2017-05-28 07:54 | REP ---
Chest two views HISTORY: Pneumonia Comparison: 05/26/2017 An infiltrate is present in the left upper lobe that is decreased compared to the previous study. Increased density is present in the left lower lobe consistent with atelectasis or infiltrate. The right lung is clear. Small bilateral pleural effusions are present. The heart is normal in size. The pulmonary vasculature is normal in appearance. The bony structure is intact. A PICC line is present in the superior vena cava. IMPRESSION: 1. Left upper lobe infiltrate decreased compared to the previous study. 2. Left lower lobe atelectasis or infiltrate. 3. Small bilateral pleural effusions. Signed by Judah Frazier MD 05/28/2017 07:46 A
[2017-05-28 08:30] LABS: BASO % 0.3 % (0.0-1.0); EOS # 0.2 10^3/uL (0.0-0.50); EOS % 1.2 % (0.0-3.0); IMMATURE GRANULOCYTE % 1.3 % (0-0); LYMPH # 1.1 10^3/uL (1.5-4.5); LYMPH % 7.2 % (24.0-44.0); MEAN CORPUSCULAR HEMOGLOBIN 32.3 pg (27.0-33.0); MEAN CORPUSCULAR HGB CONC 34.9 g/dl (32.0-36.5); MEAN CORPUSCULAR VOLUME 92.5 fl (80.0-96.0); MONO # 0.7 10^3/uL (0.0-0.8); MONO % 4.6 % (0.0-5.0); NEUTROPHILS # 12.9 10^3/uL (1.8-7.7); NEUTROPHILS % 85.4 % (36.0-66.0); PLATELET COUNT, AUTOMATED 439 10^3/uL (150-450); RED CELL DISTRIBUTION WIDTH 13.4 % (11.5-14.5); WHITE BLOOD COUNT 15.1 10^3/uL (4.0-10.0)
[2017-05-28 08:52] LABS: ALBUMIN 1.9 GM/DL (3.2-5.2); ALBUMIN/GLOBULIN RATIO 0.59 (1.00-1.93); ALKALINE PHOSPHATASE 101 U/L (45-117); ALT/SGPT 11 U/L (12-78); ANION GAP 8 MEQ/L (8-16); AST/SGOT 12 U/L (7-37); BILIRUBIN,TOTAL 0.7 MG/DL (0.2-1.0); BLOOD UREA NITROGEN 6 MG/DL (7-18); CALCIUM LEVEL 7.8 MG/DL (8.8-10.2); CARBON DIOXIDE LEVEL 25 MEQ/L (21-32); CHLORIDE LEVEL 104 MEQ/L (98-107); CREATININE FOR GFR 0.28 MG/DL (0.55-1.02); GLOMERULAR FILTRATION RATE > 60.0 (>45); GLUCOSE, FASTING 103 MG/DL (80-110); MAGNESIUM LEVEL 1.4 MG/DL (1.8-2.4); SODIUM LEVEL 137 MEQ/L (136-145); TOTAL PROTEIN 5.1 GM/DL (6.4-8.2)
[2017-05-28] MEDS: ENOXAPARIN 30 MG/0.3 ML SYR (J1650) SC SCH (09:00)
[2017-05-28] MEDS: PANTOPRAZOLE 40MG TAB (PROTONIX) PO SCH (09:19)
[2017-05-28] MEDS: NICOTINE 14 MG/24 HR TRANSDERMAL TD SCH (09:19)
[2017-05-28] MEDS: guaiFENesin ER 600 MG TAB PO SCH ×2 (09:19→20:06)
[2017-05-28] MEDS: NYSTATIN 500,000 U/5 ML SUSP UDC SS SCH ×3 (09:19→20:06)
[2017-05-28] MEDS: IBUPROFEN 600 MG TAB PO PRN ×3 (09:20→18:28)
[2017-05-28] MEDS: PERCOCET 5MG/325MG TAB PO PRN ×2 (09:21→18:29)
--- NOTE | 2017-05-28 11:00 | IPNPDOC ---
Text Note Date of Service The patient was seen on 05/28/17. NOTE Subjective: Patient is a 62 year old female with past medical history of Crohns disease, positive PPD, type 2 diabetes, not on insulin, memory loss, chronic bilateral arm pain, osteoporosis, alopecia, presented with pneumonia. Patient was seen and examined at the bedside. Currently she notes that she is still not feeling back to normal. Her last fever was on 05/27 morning at 101.4, since then there have been no additional fevers reported. Continues to have a productive cough. Objective: Vitals (See below) General: Thin looking elderly female who was alert, awake, oriented 3, appears to be mild distress, lying comfortably in bed with head elevated 30 HEENT: NC, AT CVS: Regular rhythm, normal S1, S2, 2/6 systolic murmur Lungs: Poor respiratory effort, poor lung sounds on left, Abdomen: Soft, ND, NT, no peritoneal signs Extremities: No edema, clubbing or cyanosis Assessment and plan: Severe Sepsis - likely 2/2 Left sided pneumonia - likely 2/2 healthcare associated pneumonia, coverage for MRSA - Clinically remains stable - Physical with decreased lung sounds on left - WBC elevated, but CRP continues to trend down - s/p Lactic acidosis - Sputum culture 05/24, 05/24, 05/23: MRSA and yeast like organism - CT chest 05/22: Large rounded consolidation at [facility]; infectious process, malignancy not excluded - CXR 05/24: showed new LLL infiltrate and [facility] infiltrate increased - c/w Vancomycin (Day #6), s/p Zosyn, s/p Levaquin; s/p Ceftriaxone and Azithromycin - s/p IV fluid hydration - c/w incentive spirometry and acapella - Dr. Daniel/Sukhwinder (Pulmonology) and Dr. Sapp (Infectious disease) on consult; appreciate their help s/p Acute kidney injury Crohns disease - HOLD outpatient Entyvio when infection resolves - Infusion center notified to stop for this month; patient will call to restart next month due to active infection - Denies any symptom currently NIDDM2 - A1c 5.3 - not on any medications History of chronic memory loss -Stable Osteoporosis -Stable Hx of Latent tuberculosis - Dr. Sapp treated the patient in the past - Does not appear to have any evidence of active TB - Will recheck with AFB Smear and Culture DVT prophylaxis - c/w Lovenox Fluid, electrolytes, nutrition: Repeat potassium of 4, low-fat, low-cholesterol regular diet Disposition: - c/w Antibiotics - Awaiting fever to resolve over 24-48 hours prior to switching to Linezolid VS,Fishbone, I+O VS, Fishbone, I+O Laboratory Tests 05/28/17 08:12 Red Blood Count 3.19 L, Mean Corpuscular Volume 92.5, Mean Corpuscular Hemoglobin 32.3, Mean Corpuscular Hemoglobin Concent 34.9, Red Cell Distribution Width 13.4, Neutrophils (%) (Auto) 85.4 H, Lymphocytes (%) (Auto) 7.2 L, Monocytes (%) (Auto) 4.6, Eosinophils (%) (Auto) 1.2, Basophils (%) (Auto ) 0.3, Neutrophils # (Auto) 12.9 H, Lymphocytes # (Auto) 1.1 L, Monocytes # ( Auto) 0.7, Eosinophils # (Auto) 0.2, Basophils # (Auto) 0.0, Calcium Level 7.8 L , Aspartate Amino Transf (AST/SGOT) 12, Alanine Aminotransferase (ALT/SGPT) 11 L , Alkaline Phosphatase 101, Total Bilirubin 0.7, Total Protein 5.1 L, Albumin 1.9 L Vital Signs Date Time Temp Pulse Resp B/P (MAP) Pulse Ox O2 Delivery O2 Flow Rate FiO2 05/28/17 09:21 22 Room Air 05/28/17 06:00 98.0 105 151/68 (95) 97 05/27/17 14:22 2.0 I&O- Last 24 Hours up to 6 AM 05/29/17 06:00 Intake Total 0 ml Balance 0 ml GRIFFIN JOSEPH MD May 28, 2017 11:00
[2017-05-28] MEDS: MAG SULF 1GM/100ML (MAG RUN) 1 GM in APPROPRIATE DILUENT 1 EA IV SCH ×2 (11:32→13:33)
[2017-05-28 14:00] VITALS: BP 121/64
[2017-05-28] MEDS ORDERED: VANCOMYCIN HCL 1,000 MG, VIAL MATE ADAPTER 1 EACH in D5W 250 ML IV ONE (15:00)
--- NOTE | 2017-05-28 15:39 | PHACANCOPD ---
PHARMACY VANCOMYCIN DOSING Pt Demographics Demographics Patient Age:62 , Weight:44.900 , Gender: female Adjusted Body Weight Date: 05/27/17, Adjusted Body Weight: [44.9] Kg Vancomycin Vancomycin indication: PNEUMONIA Vancomycin Target Ranges: 15-20 mcg/ml Vancomycin Load Y/N: No Load Dose Date Time Vancomycin Load Dose: Date: Time: Vancomycin Dose Date: 05/27/17. Current Vancomycin Dose: [750MG IV Q8H @1500] Intermittent Dosing?: No Labs Micro Microbiology 05/25/17 Blood Culture - Preliminary, Resulted No Growth after 72 hours. All specime... 05/25/17 Blood Culture - Preliminary, Resulted No Growth after 72 hours. All specime... 05/24/17 Blood Culture - Preliminary, Resulted No Growth after 72 hours. All specime... 05/24/17 Blood Culture - Preliminary, Resulted No Growth after 72 hours. All specime... 05/22/17 Blood Culture - Final, Complete NO GROWTH AFTER 5 DAYS 05/22/17 Blood Culture - Final, Complete NO GROWTH AFTER 5 DAYS 05/27/17 Acid Fast Stain - Final, Resulted 05/27/17 Mycobacterial Culture, Resulted Pending 05/26/17 Respiratory Virus Panel (PCR) (NELY) - Final, Complete 05/24/17 Gram Stain - Final, Complete 05/24/17 Sputum Culture - Final, Complete Staph.aureus Methicillin Resis Yeast Like Organism 05/24/17 Gram Stain - Final, Complete 05/24/17 Sputum Culture - Final, Complete Staph.aureus Methicillin Resis Yeast Like Organism 05/23/17 Acid Fast Stain - Final, Resulted 05/23/17 Mycobacterial Culture, Resulted Pending 05/23/17 Gram Stain - Final, Complete 05/23/17 Sputum Culture - Final, Complete Staph.aureus Methicillin Resis Yeast Like Organism 05/23/17 MRSA Screen - Final, Complete 05/22/17 Respiratory Virus Panel (PCR) (NELY) - Final, Complete 05/23/17 Urine Culture - Final, Complete Escherichia Coli Creatinine Clearance Date:05/27/17. Creatinine Clearance: [150ML/MIN]. Assessment and Plan Maintaining Current Dose?: Yes Reason for dose change: No Dose Change Pharmacist Note Pharmacist Note 05/28/17: Trough today resulted at 13.2mcg/ml. Will give 1g today for scheduled 1500 dose, then continue the patient on her current regimen of 750mg IV Q8H. We will continue to monitor and schedule another trough/make further dose adjustments as needed. Date: 05/27/17. Pharmacist note:PT trough came in low today @ 9.9mcg/ml. The dose will be changed to 750mg IV every 8 hours starting 05/27/17 @1500. A trough is scheduled for 05/28/17 @14:00. We will continue to monitor and adjust doses as needed. ROGER RICHARD PHARMACY May 28, 2017 15:39
[2017-05-28 22:00] VITALS: BP 110/54
[2017-05-29] MEDS: LEVALBUTEROL 1.25 MG/0.5 ML CONCENTRATE NEB INH SCH ×5 (03:10→19:39)
[2017-05-29 06:00] VITALS: BP 139/75
[2017-05-29] MEDS: KCL 40MEQ in NS 1000ML 1,000 ML IV SCH ×4 (06:19→21:38)
[2017-05-29] MEDS: SODIUM CHLORIDE 0.9% INJ 10 ML SYR IV SCH ×2 (06:20→18:00)
[2017-05-29 06:35] LABS: BASO % 0.1 % (0.0-1.0); EOS # 0.2 10^3/uL (0.0-0.50); EOS % 1.1 % (0.0-3.0); IMMATURE GRANULOCYTE % 0.9 % (0-0); LYMPH # 0.9 10^3/uL (1.5-4.5); LYMPH % 6.2 % (24.0-44.0); MEAN CORPUSCULAR HEMOGLOBIN 31.8 pg (27.0-33.0); MEAN CORPUSCULAR HGB CONC 34.3 g/dl (32.0-36.5); MEAN CORPUSCULAR VOLUME 92.9 fl (80.0-96.0); MONO # 0.6 10^3/uL (0.0-0.8); MONO % 4.5 % (0.0-5.0); NEUTROPHILS # 12.4 10^3/uL (1.8-7.7); NEUTROPHILS % 87.2 % (36.0-66.0); PLATELET COUNT, AUTOMATED 483 10^3/uL (150-450); RED CELL DISTRIBUTION WIDTH 13.4 % (11.5-14.5); WHITE BLOOD COUNT 14.3 10^3/uL (4.0-10.0)
[2017-05-29] MEDS: VANCOMYCIN HCL 750 MG, VIAL MATE ADAPTER 1 EACH in D5W 250 ML IV SCH (06:40)
[2017-05-29 07:06] LABS: ALBUMIN 1.8 GM/DL (3.2-5.2); ALBUMIN/GLOBULIN RATIO 0.55 (1.00-1.93); ALKALINE PHOSPHATASE 104 U/L (45-117); ALT/SGPT 17 U/L (12-78); ANION GAP 9 MEQ/L (8-16); AST/SGOT 13 U/L (7-37); BILIRUBIN,TOTAL 0.6 MG/DL (0.2-1.0); BLOOD UREA NITROGEN 5 MG/DL (7-18); CALCIUM LEVEL 7.9 MG/DL (8.8-10.2); CARBON DIOXIDE LEVEL 24 MEQ/L (21-32); CHLORIDE LEVEL 106 MEQ/L (98-107); CREATININE FOR GFR 0.21 MG/DL (0.55-1.02); GLOMERULAR FILTRATION RATE > 60.0 (>45); GLUCOSE, FASTING 93 MG/DL (80-110); SODIUM LEVEL 139 MEQ/L (136-145); TOTAL PROTEIN 5.1 GM/DL (6.4-8.2)
[2017-05-29] MEDS: ENOXAPARIN 30 MG/0.3 ML SYR (J1650) SC SCH (09:08)
[2017-05-29] MEDS: NICOTINE 14 MG/24 HR TRANSDERMAL TD SCH (09:08)
[2017-05-29] MEDS: IBUPROFEN 600 MG TAB PO PRN ×2 (09:09→21:40)
[2017-05-29] MEDS: PANTOPRAZOLE 40MG TAB (PROTONIX) PO SCH (09:10)
[2017-05-29] MEDS: guaiFENesin ER 600 MG TAB PO SCH ×2 (09:10→21:35)
[2017-05-29] MEDS: PERCOCET 5MG/325MG TAB PO PRN ×2 (09:10→21:36)
--- NOTE | 2017-05-29 11:24 | IPNPDOC ---
Text Note Date of Service The patient was seen on 05/29/17. NOTE Subjective: Patient is a 62 year old female with past medical history of Crohns disease, positive PPD, type 2 diabetes, not on insulin, memory loss, chronic bilateral arm pain, osteoporosis, alopecia, presented with pneumonia. Patient was seen and examined at the bedside. She is stilling feeling chill and not feeling better. Still has a cough and admits to constant chest pain that is worse whenever the pain medication wears off. Patient denies any abdominal pain , nausea, vomiting, diarrhea, constipation, problems with urination, swelling in lower extremities. Objective: Vitals (See below) General: Thin looking elderly female who was alert, awake, oriented 3, appears to be mild distress, lying comfortably in bed with head elevated 30 HEENT: NC, AT CVS: Regular rhythm, normal S1, S2, 2/6 systolic murmur Lungs: Poor respiratory effort, poor lung sounds on left Abdomen: Soft, ND, NT, no peritoneal signs Extremities: No edema, clubbing or cyanosis Assessment and plan: Severe Sepsis - likely 2/2 Left sided pneumonia - likely 2/2 healthcare associated pneumonia, coverage for MRSA - Clinically remains stable - Physical with decreased lung sounds on left - WBC elevated, but CRP continues to trend down - s/p Lactic acidosis - Sputum culture 05/24, 05/24, 05/23: MRSA and yeast like organism - CT chest 05/22: Large rounded consolidation at [facility]; infectious process, malignancy not excluded - CXR 05/24: showed new LLL infiltrate and [facility] infiltrate increased - Started on Linezolid (Zyvox) 600 mg PO bid (Day #1; Total antibiotic day #7), s/p Vancomycin, s/p Zosyn, s/p Levaquin; s/p Ceftriaxone and Azithromycin - s/p IV fluid hydration - c/w incentive spirometry and acapella - Dr. Daniel/Sukhwinder (Pulmonology) and Dr. Sapp (Infectious disease) on consult; appreciate their help s/p Acute kidney injury Crohns disease - HOLD outpatient Entyvio when infection resolves - Infusion center notified to stop for this month; patient will call to restart next month due to active infection - Denies any symptom currently NIDDM2 - A1c 5.3 - not on any medications History of chronic memory loss -Stable Osteoporosis -Stable Hx of Latent tuberculosis - Dr. Sapp treated the patient in the past - Does not appear to have any evidence of active TB - Will recheck with AFB Smear and Culture DVT prophylaxis - c/w Lovenox Fluid, electrolytes, nutrition: Repeat potassium of 4, low-fat, low-cholesterol regular diet Disposition: - c/w Antibiotics - will get CXR tomorrow AM GME ATTESTATION My preceptor for this patient encounter was physically present in the building during the encounter and was fully available. As needed, all aspects of the patient interview, examination, medical decision making process, and medical care plan development were reviewed and approved by the preceptor. Preceptor is aware and concurs with the plan as stated in the body of this note and will attest to such by his/her cosignature. ATTENDING NOTE I, Lydia Conway, have both independently examined this patient as well as reviewed the documentation. I have discussed in detail with the resident the findings and plan of treatment as documented in the residents documentation. I will continue to follow the patient and offer further guidance to the patients care as necessary during this hospital stay. VS,Fishbone, I+O VS, Fishbone, I+O Laboratory Tests 05/29/17 06:17 Red Blood Count 3.08 L, Mean Corpuscular Volume 92.9, Mean Corpuscular Hemoglobin 31.8, Mean Corpuscular Hemoglobin Concent 34.3, Red Cell Distribution Width 13.4, Neutrophils (%) (Auto) 87.2 H, Lymphocytes (%) (Auto) 6.2 L, Monocytes (%) (Auto) 4.5, Eosinophils (%) (Auto) 1.1, Basophils (%) (Auto ) 0.1, Neutrophils # (Auto) 12.4 H, Lymphocytes # (Auto) 0.9 L, Monocytes # ( Auto) 0.6, Eosinophils # (Auto) 0.2, Basophils # (Auto) 0.0, Calcium Level 7.9 L , Aspartate Amino Transf (AST/SGOT) 13, Alanine Aminotransferase (ALT/SGPT) 17, Alkaline Phosphatase 104, Total Bilirubin 0.6, Total Protein 5.1 L, Albumin 1.8 L Vital Signs Date Time Temp Pulse Resp B/P (MAP) Pulse Ox O2 Delivery O2 Flow Rate FiO2 05/29/17 09:10 24 05/29/17 06:00 99.0 61 139/75 (96) 95 Room Air 05/27/17 14:22 2.0 I&O- Last 24 Hours up to 6 AM 05/30/17 06:00 Intake Total 620 ml Output Total 300 ml Balance 320 ml KENDRICK SANTOS DO May 29, 2017 11:24 LYDIA CONWAY MD May 29, 2017 11:44
[2017-05-29] MEDS: LINEZOLID 600MG TABLET (ZYVOX) PO SCH ×2 (11:46→21:35)
[2017-05-29 14:00] VITALS: BP 113/56
[2017-05-29 22:00] VITALS: BP 142/68
[2017-05-29] MEDS: MORPHINE 2 MG/ML 1ML SYRINGE IV PRN (23:38)
[2017-05-30] MEDS: LEVALBUTEROL 1.25 MG/0.5 ML CONCENTRATE NEB INH SCH ×6 (04:00→20:21)
[2017-05-30] MEDS: SODIUM CHLORIDE 0.9% INJ 10 ML SYR IV SCH ×2 (05:03→18:55)
[2017-05-30] MEDS: PERCOCET 5MG/325MG TAB PO PRN ×3 (05:16→18:51)
[2017-05-30 05:48] LABS: BASO % 0.4 % (0.0-1.0); EOS # 0.2 10^3/uL (0.0-0.50); EOS % 1.5 % (0.0-3.0); IMMATURE GRANULOCYTE % 0.7 % (0-0); LYMPH # 1.2 10^3/uL (1.5-4.5); LYMPH % 11.1 % (24.0-44.0); MEAN CORPUSCULAR HEMOGLOBIN 31.9 pg (27.0-33.0); MEAN CORPUSCULAR HGB CONC 33.7 g/dl (32.0-36.5); MEAN CORPUSCULAR VOLUME 94.8 fl (80.0-96.0); MONO # 0.6 10^3/uL (0.0-0.8); NEUTROPHILS # 8.6 10^3/uL (1.8-7.7); NEUTROPHILS % 80.3 % (36.0-66.0); PLATELET COUNT, AUTOMATED 489 10^3/uL (150-450); RED CELL DISTRIBUTION WIDTH 13.4 % (11.5-14.5); WHITE BLOOD COUNT 10.7 10^3/uL (4.0-10.0)
[2017-05-30 06:00] VITALS: BP 135/63
[2017-05-30 06:07] LABS: ALBUMIN 1.7 GM/DL (3.2-5.2); ALBUMIN/GLOBULIN RATIO 0.53 (1.00-1.93); ALKALINE PHOSPHATASE 103 U/L (45-117); ALT/SGPT 11 U/L (12-78); ANION GAP 7 MEQ/L (8-16); AST/SGOT 12 U/L (7-37); BILIRUBIN,TOTAL 0.6 MG/DL (0.2-1.0); BLOOD UREA NITROGEN 5 MG/DL (7-18); CALCIUM LEVEL 7.9 MG/DL (8.8-10.2); CARBON DIOXIDE LEVEL 23 MEQ/L (21-32); CHLORIDE LEVEL 109 MEQ/L (98-107); CREATININE FOR GFR 0.21 MG/DL (0.55-1.02); GLOMERULAR FILTRATION RATE > 60.0 (>45); GLUCOSE, FASTING 74 MG/DL (80-110); MAGNESIUM LEVEL 1.9 MG/DL (1.8-2.4); POTASSIUM SERUM 4.4 MEQ/L (3.5-5.1); SODIUM LEVEL 139 MEQ/L (136-145); TOTAL PROTEIN 4.9 GM/DL (6.4-8.2)
--- NOTE | 2017-05-30 07:54 | REP ---
Clinical: Left upper lobe infiltrate. Comparison: 05/28/2017, 05/24/2017. Technique: PA and lateral. Findings: Right-sided PICC line with tip in the SVC remains stable. Mediastinum and cardiac silhouette are within normal limits and unchanged. Moderate sized left upper lobe consolidation with suspected central cavitary component may be minimally improved when compared to prior examination. Small left pleural effusion remains stable. New small right pleural effusion represents change from prior examination. Trace basilar atelectasis suggested. No pneumothorax. Skeletal structures are intact. Impression: 1. Left upper lobe infiltrate similar to prior examination and forming cavitary component cannot be excluded. 2. Small pleural effusions and trace basilar atelectasis. Signed by Harry Frazier MD 05/30/2017 07:46 A
[2017-05-30] MEDS: LINEZOLID 600MG TABLET (ZYVOX) PO SCH ×2 (08:20→20:25)
[2017-05-30] MEDS: ENOXAPARIN 30 MG/0.3 ML SYR (J1650) SC SCH (08:20)
[2017-05-30] MEDS: PANTOPRAZOLE 40MG TAB (PROTONIX) PO SCH (08:20)
[2017-05-30] MEDS: MORPHINE 2 MG/ML 1ML SYRINGE IV PRN (08:20)
[2017-05-30] MEDS: guaiFENesin ER 600 MG TAB PO SCH ×2 (08:21→20:25)
[2017-05-30] MEDS: NICOTINE 14 MG/24 HR TRANSDERMAL TD SCH (08:21)
--- NOTE | 2017-05-30 10:36 | IPNPDOC ---
Text Note Date of Service The patient was seen on 05/30/17. NOTE Subjective: Patient is a 62 year old female with past medical history of Crohns disease, positive PPD, type 2 diabetes, not on insulin, memory loss, chronic bilateral arm pain, osteoporosis, alopecia, presented with pneumonia. Patient was seen and examined at the bedside. She reports that her chest pain and breathing has improved significantly. She has been walking around on her own , will work with physical therapy to demonstrate she can do so safety. She is still coughing up dark colored sputum. Has not had any fevers for >48 hours. Objective: Vitals (See below) General: NC, AT, Awake, Alert and Oriented x3 HEENT: NC, AT CVS: Regular rhythm, normal S1, S2, 2/6 systolic murmur Lungs: Poor respiratory effort, poor lung sounds on left Abdomen: Soft, ND, NT, no peritoneal signs Extremities: No edema, clubbing or cyanosis Assessment and plan: s/p Severe Sepsis - likely 2/2 Left sided pneumonia - likely 2/2 healthcare associated pneumonia, coverage for MRSA - Has improvement in her shortness of breath and productive cough; mild cough still remains - Physical with improved aeration on the left side compared to prior - WBC and CRP continue to improve; s/p Lactic acidosis - Sputum culture 05/24, 05/24, 05/23: MRSA and yeast like organism - CT chest 05/22: Large rounded consolidation at [facility]; infectious process, malignancy not excluded - CXR 05/24: showed new LLL infiltrate and [facility] infiltrate increased - c/w Linezolid (Day #2 / Total antiboitic day #8); s/p Vancomycin, Zosyn, Levaquin, Ceftriaxone and Azithromycin - s/p IV fluid hydration - c/w incentive spirometry and acapella - Dr. Daniel/Sukhwinder (Pulmonology) and Dr. Sapp (Infectious disease) on consult; appreciate their help s/p Acute kidney injury Crohns disease - Remains asymptomatic - Will hold off on Entyvio as an outpatient until her infection improves; Infusion center notified NIDDM2 - A1c 5.3 - not on any medications History of chronic memory loss - Stable Osteoporosis - Stable Hx of Latent tuberculosis - Dr. Sapp treated the patient in the past - Acid fast stain negative - Does not appear to have any evidence of active TB DVT prophylaxis - c/w Lovenox Disposition: - c/w oral antibiotics - Awaiting improvement in labs and clearance from PT VS,Fishbone, I+O VS, Fishbone, I+O Laboratory Tests 05/30/17 05:29 Red Blood Count 2.88 L, Mean Corpuscular Volume 94.8, Mean Corpuscular Hemoglobin 31.9, Mean Corpuscular Hemoglobin Concent 33.7, Red Cell Distribution Width 13.4, Neutrophils (%) (Auto) 80.3 H, Lymphocytes (%) (Auto) 11.1 L, Monocytes (%) (Auto) 6.0 H, Eosinophils (%) (Auto) 1.5, Basophils (%) ( Auto) 0.4, Neutrophils # (Auto) 8.6 H, Lymphocytes # (Auto) 1.2 L, Monocytes # ( Auto) 0.6, Eosinophils # (Auto) 0.2, Basophils # (Auto) 0.0, Calcium Level 7.9 L , Aspartate Amino Transf (AST/SGOT) 12, Alanine Aminotransferase (ALT/SGPT) 11 L , Alkaline Phosphatase 103, Total Bilirubin 0.6, Total Protein 4.9 L, Albumin 1.7 L Vital Signs Date Time Temp Pulse Resp B/P (MAP) Pulse Ox O2 Delivery O2 Flow Rate FiO2 05/30/17 08:20 20 97 Room Air 05/30/17 06:00 97.6 86 135/63 (87) 05/29/17 21:36 2.0 I&O- Last 24 Hours up to 6 AM 05/31/17 06:00 Intake Total 240 ml Balance 240 ml GRIFFIN JOSEPH MD May 30, 2017 10:36
[2017-05-30] MEDS ORDERED: LINE60TAB PO (10:37)
[2017-05-30 14:00] VITALS: BP 119/64
[2017-05-30] MEDS: ACETAMINOPHEN TAB 650MG DOSE (2X325MG) PO PRN (18:52)
[2017-05-30] MEDS: KCL 40MEQ in NS 1000ML 1,000 ML IV SCH (20:28)
[2017-05-30 22:00] VITALS: BP 119/66
[2017-05-31] MEDS: LEVALBUTEROL 1.25 MG/0.5 ML CONCENTRATE NEB INH SCH ×6 (03:37→20:55)
[2017-05-31 06:00] VITALS: BP 123/68
[2017-05-31] MEDS: SODIUM CHLORIDE 0.9% INJ 10 ML SYR IV SCH ×2 (06:13→20:27)
[2017-05-31 06:28] LABS: BASO % 0.2 % (0.0-1.0); EOS # 0.1 10^3/uL (0.0-0.50); IMMATURE GRANULOCYTE % 0.6 % (0-0); LYMPH # 1.1 10^3/uL (1.5-4.5); LYMPH % 8.9 % (24.0-44.0); MEAN CORPUSCULAR HGB CONC 33.8 g/dl (32.0-36.5); MEAN CORPUSCULAR VOLUME 94.7 fl (80.0-96.0); MONO # 0.7 10^3/uL (0.0-0.8); MONO % 5.7 % (0.0-5.0); NEUTROPHILS # 10.4 10^3/uL (1.8-7.7); NEUTROPHILS % 83.6 % (36.0-66.0); PLATELET COUNT, AUTOMATED 557 10^3/uL (150-450); RED CELL DISTRIBUTION WIDTH 13.5 % (11.5-14.5); WHITE BLOOD COUNT 12.4 10^3/uL (4.0-10.0)
[2017-05-31 07:15] LABS: ALBUMIN 1.9 GM/DL (3.2-5.2); ALBUMIN/GLOBULIN RATIO 0.51 (1.00-1.93); ALKALINE PHOSPHATASE 111 U/L (45-117); ALT/SGPT 11 U/L (12-78); ANION GAP 11 MEQ/L (8-16); AST/SGOT 12 U/L (7-37); BILIRUBIN,TOTAL 0.6 MG/DL (0.2-1.0); BLOOD UREA NITROGEN 4 MG/DL (7-18); CARBON DIOXIDE LEVEL 23 MEQ/L (21-32); CHLORIDE LEVEL 104 MEQ/L (98-107); CREATININE FOR GFR 0.22 MG/DL (0.55-1.02); GLOMERULAR FILTRATION RATE > 60.0 (>45); GLUCOSE, FASTING 64 MG/DL (80-110); MAGNESIUM LEVEL 1.9 MG/DL (1.8-2.4); POTASSIUM SERUM 4.4 MEQ/L (3.5-5.1); SODIUM LEVEL 138 MEQ/L (136-145); TOTAL PROTEIN 5.6 GM/DL (6.4-8.2)
[2017-05-31] MEDS: ENOXAPARIN 30 MG/0.3 ML SYR (J1650) SC SCH (08:52)
[2017-05-31] MEDS: LINEZOLID 600MG TABLET (ZYVOX) PO SCH ×2 (08:53→20:25)
[2017-05-31] MEDS: NICOTINE 14 MG/24 HR TRANSDERMAL TD SCH (08:53)
[2017-05-31] MEDS: guaiFENesin ER 600 MG TAB PO SCH ×2 (08:53→20:25)
[2017-05-31] MEDS: PANTOPRAZOLE 40MG TAB (PROTONIX) PO SCH (08:53)
[2017-05-31] MEDS: KCL 40MEQ in NS 1000ML 1,000 ML IV SCH (08:54)
[2017-05-31 09:05] LABS: ERYTHROCYTE SEDIMENTATION RATE 70 mm/hr (0-30)
[2017-05-31 09:22] VITALS: BP 130/70
[2017-05-31] MEDS: IBUPROFEN 600 MG TAB PO PRN ×2 (09:38→17:54)
[2017-05-31] MEDS: PERCOCET 5MG/325MG TAB PO PRN ×2 (09:39→17:54)
--- NOTE | 2017-05-31 12:10 | IPN ---
DATE: 05/31/2017 Patient had a 103.1 fever yesterday at 1845 hours and again at 2027 hours. Currently, low grade temperature 100.6 at 0922 hours this morning. She is still complains of night sweats, which she states she has had for several months. Denies any shortness of breath. Still with productive cough. Currently on oral Zyvox. No other issues per nursing. Maximum temperature (Tmax) 103.1, current temperature 100.6, pulse 100, respiratory rate 18, blood pressure 130/70, 96% on room air. Generally, patient is awake, alert, oriented times three, answering questions appropriately. Lungs diminished breath sounds on the left. Heart: S1, S2, sinus rhythm. Abdomen is soft, nontender, nondistended. Positive bowel sounds. Extremities: No cyanosis, clubbing or pitting edema. Laboratory data, imaging studies have been reviewed. ASSESSMENT AND PLAN: This is a 62-year-old female, history of Crohn's disease, chronic memory loss, diabetes, not on insulin, on chronic Entyvio, immunocompromise due to Crohn's disease with persistent fever 103 after transitioning to oral Zyvox from intravenous (IV) vancomycin on 05/29/2017. Patient spiked a temperature on 05/30/2017, was 103.1 with slight increase in white count from 10 to 12.4. IMPRESSION: 1. Severe sepsis present on admission with MRSA pneumoniae and dense consolidation on CT of the chest. Patient is currently on oral Zyvox. Had previously been on IV vancomycin. Dr. Rafiq Sapp has been consulted for changes in antibiotics. Patient currently has slight increase in white count. 2. Crohn's disease. On immunosuppressive therapy, Entyvio. 3. History of tobacco abuse. Patient has decided to quit. 4. Qqx-oexdcro-kgcnxekcm diabetes. A1c of 5.3. On no medications. 5. History of chronic memory loss. No new changes. 6. Osteoporosis. Stable. 7. History of latent tuberculosis (TB). Patient had been treated in the past. Acid-fast stain is negative. No evidence of active tuberculosis. 8. Deep venous thrombosis (DVT) prophylaxis with Lovenox. MTDD
[2017-05-31 14:00] VITALS: BP 123/60
[2017-05-31 22:00] VITALS: BP 121/68
[2017-06-01] MEDS: LEVALBUTEROL 1.25 MG/0.5 ML CONCENTRATE NEB INH SCH ×7 (04:00→23:09)
[2017-06-01] MEDS: SODIUM CHLORIDE 0.9% INJ 10 ML SYR IV SCH ×2 (05:07→18:00)
[2017-06-01 05:38] LABS: BASO % 0.3 % (0.0-1.0); EOS # 0.3 10^3/uL (0.0-0.50); EOS % 2.6 % (0.0-3.0); IMMATURE GRANULOCYTE % 0.7 % (0-0); LYMPH # 1.1 10^3/uL (1.5-4.5); LYMPH % 11.3 % (24.0-44.0); MEAN CORPUSCULAR HEMOGLOBIN 31.4 pg (27.0-33.0); MEAN CORPUSCULAR HGB CONC 32.5 g/dl (32.0-36.5); MEAN CORPUSCULAR VOLUME 96.8 fl (80.0-96.0); MONO # 0.7 10^3/uL (0.0-0.8); MONO % 7.1 % (0.0-5.0); NEUTROPHILS # 7.9 10^3/uL (1.8-7.7); PLATELET COUNT, AUTOMATED 599 10^3/uL (150-450); RED CELL DISTRIBUTION WIDTH 13.5 % (11.5-14.5); WHITE BLOOD COUNT 10.1 10^3/uL (4.0-10.0)
[2017-06-01 05:51] LABS: ALBUMIN 1.9 GM/DL (3.2-5.2); ALBUMIN/GLOBULIN RATIO 0.53 (1.00-1.93); ALKALINE PHOSPHATASE 93 U/L (45-117); ALT/SGPT 11 U/L (12-78); ANION GAP 6 MEQ/L (8-16); AST/SGOT 9 U/L (7-37); BILIRUBIN,TOTAL 0.2 MG/DL (0.2-1.0); BLOOD UREA NITROGEN 6 MG/DL (7-18); CARBON DIOXIDE LEVEL 25 MEQ/L (21-32); CHLORIDE LEVEL 111 MEQ/L (98-107); CREATININE FOR GFR 0.36 MG/DL (0.55-1.02); GLUCOSE, FASTING 98 MG/DL (80-110); MAGNESIUM LEVEL 1.9 MG/DL (1.8-2.4); POTASSIUM SERUM 4.3 MEQ/L (3.5-5.1); SODIUM LEVEL 142 MEQ/L (136-145); TOTAL PROTEIN 5.5 GM/DL (6.4-8.2)
[2017-06-01 05:57] LABS: GLOMERULAR FILTRATION RATE > 60.0 (>45)
[2017-06-01 06:00] VITALS: BP 130/65
[2017-06-01] MEDS: KCL 40MEQ in NS 1000ML 1,000 ML IV SCH ×4 (06:41→23:30)
--- NOTE | 2017-06-01 09:19 | REP ---
Clinical: Pneumonia with increasing symptoms. Technique: Axial contrast enhanced images from the thoracic inlet to the upper abdomen using 100 ml Isovue 370 intravenous contrast material with coronal and sagittal re-formations. Comparison: 05/22/2017. Findings: The left upper lobe consolidation has increased in size measuring greater than 10.5 x 6.1 x 7.8 cm with new areas of cavitation. A small left pleural effusion is now identified along with left lower lobe atelectasis and mild reactive adenopathy. Remainder of the bilateral lung lopez are relatively well aerated and clear. Atherosclerotic changes to the thoracic aorta and coronary arteries are identified. No cardiomegaly or pericardial effusion. The tracheobronchial tree is relatively patent. The surrounding musculoskeletal structures are intact without focal osseous abnormality. Normal bilateral adrenal glands identified evidence for prior cholecystectomy noted. Impression: Left upper lobe consolidation has increased in size and demonstrates more consolidative components as well as new central areas of cavitation. Small reactive left pleural effusion, basilar atelectasis and mild reactive adenopathy noted. Signed by Harry Frazier MD 06/01/2017 09:11 A
[2017-06-01] MEDS: ENOXAPARIN 30 MG/0.3 ML SYR (J1650) SC SCH (10:03)
[2017-06-01] MEDS: NICOTINE 14 MG/24 HR TRANSDERMAL TD SCH (10:04)
[2017-06-01] MEDS: LINEZOLID 600MG TABLET (ZYVOX) PO SCH ×2 (10:04→22:10)
[2017-06-01] MEDS: PANTOPRAZOLE 40MG TAB (PROTONIX) PO SCH (10:04)
[2017-06-01] MEDS: guaiFENesin ER 600 MG TAB PO SCH ×2 (10:05→22:11)
[2017-06-01] MEDS: PERCOCET 5MG/325MG TAB PO PRN ×3 (10:07→23:00)
[2017-06-01] MEDS: IBUPROFEN 600 MG TAB PO PRN ×2 (10:08→18:55)
--- NOTE | 2017-06-01 12:35 | IPN ---
DATE: 06/01/2017 The patient reports diarrhea four times today, loose bowel movements but no blood. No fever or chills overnight. Temperature 98.5, pulse 80, respiratory rate 18, blood pressure 130/65, 98% on room air. GENERAL: Awake, alert, oriented times three. Answering questions appropriately. LUNGS: Diminished breath sounds with bilateral rhonchi. HEART: S1, S2. Sinus rhythm. ABDOMEN: Soft, nontender, nondistended. EXTREMITIES: No pitting edema. White count 10, hemoglobin 8.8, hematocrit 27, platelet count 599, sodium 142, potassium 4.6, chloride 111, bicarbonate 25, BUN 6, creatinine 0.36, glucose of 98. Microbiology: Two sets of blood cultures negative. AFB stain is negative. Sputum culture with methicillin resistant Staphylococcus aureus (MRSA) and yeast. CT of the chest on 05/31/2017 shows left upper lobe consolidation has increased in size, more consolidated components, as well as new central areas of cavitations, small reactive left pleural effusion, atelectasis, mild reactive adenopathy has been noted. ASSESSMENT AND PLAN: This is a 62-year-old female with a prior history of positive PPD treated in 2010, followed by Dr. Sapp. No active tuberculosis. Acid-fast bacillus negative. Chronic immunosuppression due to Entyvio due to chronic Crohn's disease, chronic memory loss, diabetes, who had persistent fever after transition to oral Zyvox from IV vancomycin on 05/29/2017 with slight increase in white count. Repeat CT shows further increase in the cavitary lesion and consolidation. The patient has had decrease in white count to [address] Rafiq Sapp has been consulted and continued on Zyvox. IMPRESSION: 1. Large left upper lobe consolidation with slight increase in size and new central areas of cavitations, small left pleural effusion, basilar atelectasis with mild reactive adenopathy. The patient had previously been seen by Dr. Pretty from pulmonology to determine other etiology for the cavitary lesion and persistent infection. Recommendations were aggressive pulmonary toilet, incentive spirometry. No significant pleural effusion previously seen. Large focal infiltrate consistent with MRSA. No other source of infection. We will continue with Zyvox for now. Defer to Dr. Sapp for any new changes in antibiotic. There is no free flowing empyema. No sign of abscess formation. 2. Crohn's disease. On chronic immunosuppressive therapy with Entyvio. 3. History of tobacco abuse. Decided to quit. 4. Qdh-ouupeoz-hqzqeokrv diabetes. On no medications. A1/c of 5.3. 5. History of chronic memory loss. No new changes. 6. Osteoporosis, stable. 7. History of latent TB, been treated in the past. AFB stain is negative. No active signs of tuberculosis. 8. Deep vein thrombosis (DVT) prophylaxis with Lovenox. 9. Protein-calorie malnutrition. nutrition consult, calorie count, and supplement with ensure if needed. MTDD
[2017-06-01 14:00] VITALS: BP 120/59
[2017-06-01 22:00] VITALS: BP 104/57
[2017-06-02] MEDS: MORPHINE 2 MG/ML 1ML SYRINGE IV PRN (02:18)
[2017-06-02] MEDS: PERCOCET 5MG/325MG TAB PO PRN (03:00)
[2017-06-02] MEDS: LEVALBUTEROL 1.25 MG/0.5 ML CONCENTRATE NEB INH SCH ×2 (03:05→08:34)
[2017-06-02] MEDS: ACETAMINOPHEN TAB 650MG DOSE (2X325MG) PO PRN (04:26)
[2017-06-02] MEDS: SODIUM CHLORIDE 0.9% INJ 10 ML SYR IV SCH (05:02)
[2017-06-02 05:16] LABS: BASO % 0.5 % (0.0-1.0); EOS # 0.2 10^3/uL (0.0-0.50); EOS % 3.5 % (0.0-3.0); IMMATURE GRANULOCYTE % 0.7 % (0-0); LYMPH # 1.3 10^3/uL (1.5-4.5); LYMPH % 21.8 % (24.0-44.0); MEAN CORPUSCULAR HEMOGLOBIN 31.6 pg (27.0-33.0); MEAN CORPUSCULAR HGB CONC 32.3 g/dl (32.0-36.5); MONO # 0.5 10^3/uL (0.0-0.8); MONO % 7.9 % (0.0-5.0); NEUTROPHILS # 3.9 10^3/uL (1.8-7.7); NEUTROPHILS % 65.6 % (36.0-66.0); PLATELET COUNT, AUTOMATED 554 10^3/uL (150-450); RED CELL DISTRIBUTION WIDTH 13.5 % (11.5-14.5); WHITE BLOOD COUNT 5.9 10^3/uL (4.0-10.0)
[2017-06-02 05:50] LABS: ALBUMIN 1.8 GM/DL (3.2-5.2); ALBUMIN/GLOBULIN RATIO 0.55 (1.00-1.93); ALKALINE PHOSPHATASE 75 U/L (45-117); ALT/SGPT 10 U/L (12-78); ANION GAP 7 MEQ/L (8-16); AST/SGOT 14 U/L (7-37); BILIRUBIN,TOTAL 0.2 MG/DL (0.2-1.0); BLOOD UREA NITROGEN 7 MG/DL (7-18); CARBON DIOXIDE LEVEL 25 MEQ/L (21-32); CHLORIDE LEVEL 112 MEQ/L (98-107); GLOMERULAR FILTRATION RATE > 60.0 (>45); GLUCOSE, FASTING 83 MG/DL (80-110); MAGNESIUM LEVEL 1.8 MG/DL (1.8-2.4); POTASSIUM SERUM 4.5 MEQ/L (3.5-5.1); SODIUM LEVEL 144 MEQ/L (136-145); TOTAL PROTEIN 5.1 GM/DL (6.4-8.2)
[2017-06-02 06:00] VITALS: BP 130/62
--- NOTE | 2017-06-02 06:35 | IPN ---
DATE: 05/31/2017 SUBJECTIVE: Belkis complains of being fatigued but otherwise states that her cough, shortness of breath have improved. She had a temperature of 103.1 last night. Currently 100.6. She denies any nausea, vomiting or diarrhea. No headache. No side effects from medication. She is tolerating linezolid pretty well. OBJECTIVE: VITAL SIGNS: Temperature is 97.2, pulse 78, respirations 17, blood pressure 121/68, Oxygen saturation fluctuates between 92% and 98% on room air. HEART: Normal S1, S2. No murmurs, rubs or gallops. LUNGS: Pretty good air entry, slightly diminished at the left upper lung. No wheezing. ABDOMEN: Is soft, nontender no HSM EXTREMITIES: No clubbing, cyanosis or edema. LABORATORY DATA: 05/31: White count 12.4, hemoglobin 9.6, hematocrit 28.4, platelets 557, 83% neutrophils, 9% lymphocytes, 5% monocytes. Sed rate 70. Sodium 138, potassium 4.4, chloride 104, bicarb 23, BUN four, creatinine 0.2, glucose 64, calcium eight, magnesium 1.9, bilirubin 0.6, AST 12, ALT 11, alk phos 111. CRP 10.9 which is down from 28.6. Total protein 5.6, albumin 1.9. MICROBIOLOGY: 05/31: Two sets of blood cultures were drawn and are pending. AFB smear negative times two. IMAGING STUDY: Chest x-ray done on 05/30 shows the left upper lobe infiltrate similar to prior examination forming cavitary component with small pleural effusions. Chest CT done on 05/31 at 4 p.m. showed left upper lobe consolidation increased in size and demonstrating more consolidative components. There are new central areas of cavitation, small reactive left pleural effusion, basilar atelectasis and mild reactive adenopathy. IMPRESSION: 1. Left upper lobe cavitary methicillin-resistant Staphylococcus aureus (MRSA) pneumonia with recurrent fever but no evidence of worsening pleural effusion or empyema. The patient has been on linezolid for three days and tolerating well. Prior to that, she had received six days of vancomycin and but she was under dosed with very low trough levels. 2. Crohn's disease on immunosuppressive therapy which is on hold this month, probably the reason for such a severe necrotizing pneumonia. 3. History of positive PPD but negative QuantiFERON Gold, treated with nine months of INH in the past with negative acid-fast bacillus (AFB) times two. PLAN: Continue with linezolid, monitor fever. Will obtain prior authorization for linezolid as an outpatient in anticipation for discharge hopefully by the end of the week. MTDD
[2017-06-02 06:52] LABS: RETICULOCYTE % 2.4 % (0.5-1.5)
[2017-06-02] MEDS ORDERED: LINE60TAB PO (07:58)
[2017-06-02] MEDS ORDERED: BACITAB PO (07:58)
[2017-06-02] MEDS ORDERED: NICO14PA TD (07:58)
[2017-06-02] MEDS ORDERED: HIBI4LIQ EX (08:41)
[2017-06-02] MEDS ORDERED: BACT2OIN10 TOP (08:41)
[2017-06-02] MEDS: ENOXAPARIN 30 MG/0.3 ML SYR (J1650) SC SCH (09:24)
[2017-06-02] MEDS: NICOTINE 14 MG/24 HR TRANSDERMAL TD SCH (09:24)
[2017-06-02] MEDS: guaiFENesin ER 600 MG TAB PO SCH (09:24)
[2017-06-02] MEDS: LINEZOLID 600MG TABLET (ZYVOX) PO SCH (09:24)
[2017-06-02] MEDS: PANTOPRAZOLE 40MG TAB (PROTONIX) PO SCH (09:24)
--- NOTE | 2017-06-02 16:18 | DSES ---
DATE OF ADMISSION: 05/22/2017 DATE OF DISCHARGE: 06/02/2017 CONSULTANTS: Dr. Rafiq Sapp, infectious disease, web knitter, Dr. Pretty and Dr. Daniel. PRIMARY DISCHARGE DIAGNOSES: 1. Methicillin-resistant Staphylococcus aureus pneumonia in left upper lobe with cavitary lesions. 2. Sepsis secondary to large left upper lobe methicillin-resistant Staphylococcus aureus pneumonia with central areas of cavitations and left pleural effusion and reactive adenopathy. 3. History of Crohn's disease, on chronic immunosuppressive therapy with Entyvio. 4. History of tobacco abuse. 5. Gnb-tytghhh-qoiogfycp diabetes. 6. Chronic memory loss. 7. Osteoporosis. 8. History of latent tuberculosis. 9. Protein calorie malnutrition with body mass index 15.7. 10. Active tobacco use. 11. Anemia, not requiring red blood cell transfusion secondary to anemia of chronic inflammation. DISCHARGE MEDICATIONS: - Zyvox 600 mg twice a day for 14 days - Hibiclens 4% daily - Bacid one tablet by mouth twice a day - Bactroban topical twice a day - nicotine patch, 14 mg patch daily HOSPITAL COURSE: This is a 62-year-old female with a history of significant for Crohn's disease, on Entyvio monthly, 300 mg with infusion unit, latent tuberculosis with positive purified protein derivative (PPD), treated with 9 months of INH in 2010 with 2016 QuantiFeron-TB Gold being negative, css-wkrbyrb-peksabstu diabetes mellitus, which is diet controlled, chronic degenerative disc disease, osteoarthritis, alopecia, memory loss, atherosclerotic heart disease, tobacco abuse, presented to the emergency room with complaints of night sweats, fever, nonproductive cough, and chills with left-sided pleuritic chest pain, worse with inspiration, constant for the past 3 days. She also complains of decreased appetite and generalized weakness two weeks prior to admission. She had a fall on the right wrist and had open reduction, internal fixation in [place] 10 days prior to admission. Two sets of blood cultures were negative. Sputum culture was positive for methicillin-resistant Staphylococcus aureus (MRSA) on three different occasions. Sputum AFB was negative. Urine grew out Escherichia (E) coli, more than 100,000, with urinalysis (UA) and pyuria. Patient had initially been on Levaquin and vancomycin with fever up to 104 on admission, down to 101. At that time patient was hypertensive in the emergency room (ER). Chest x-ray showed large left upper lobe consolidation. Patient had been on tumor necrosis factor (TNF) inhibitors for many years without any problems and no recurrent infections. Dr. Rafiq Sapp, infectious disease, was consulted. Recommended continuation of the intravenous (IV) vancomycin until the patient defervesced. She does not have active tuberculosis. Patient's Entyvio was withheld due to active pneumonia until the pneumonia is . Zosyn was discontinued. Patient remained afebrile until May 30, when she spiked a 103.[address] of the chest was repeated to rule out empyema or abscess formation, which showed a larger left upper lobe consolidation and new central areas of cavitation with a small reactive left pleural effusion, basilar atelectasis with mild reactive adenopathy. Zyvox was continued. White count decreased from peak white count of 13.6 to discharge white count of 5.9. Microbiology grew out MRSA and yeast-like organism in the sputum on May 23 and May 24. Urine culture grew out Escherichia (E) coli on May 23, and she had received Levaquin and Zosyn. Repeat blood cultures on May 25 and May 31 were all negative. Patient was discharged home complete 14 more days of Zyvox as outpatient. She is to followup with Dr. Rafiq Sapp as well as Dr. Pretty in the office. LABORATORY DATA ON DISCHARGE: White count 5.9, hemoglobin 8.1, hematocrit 25, platelet count 554. Sodium 144, potassium 4.5, chloride 112, bicarbonate 25, BUN 7, creatinine 0.4, glucose of 83. Microbiology: MRSA yeast-like organism 05/24/2017. Blood culture negative 05/31/2017. Respiratory virus panel was negative. CT of the chest 05/31/2017: Left upper lobe consolidation increased in size. New central areas of cavitation. Small reactive left pleural effusion. Basilar atelectasis and mild reactive adenopathy. TIME SPENT ON DISCHARGE: 30 minutes.
== END 2017-06-02 12:15 | disposition home or self-care (01) | DRG 871 ==
LOC: M ED 14:29 → M ED INP 19:29 → M MS4PR 05-23 00:42 → M MSPAV 05-25 15:46
PROVIDERS: ADMIT General Practice; ATTEND General Practice
DX: A41.9 Sepsis, unspecified organism (principal); J15.212 Pneumonia due to Methicillin resistant Staphylococcus aureus; K50.90 Crohn's disease, unspecified, without complications; N17.9 Acute kidney failure, unspecified; J90 Pleural effusion, not elsewhere classified; E87.2 Acidosis; E46 Unspecified protein-calorie malnutrition; Z68.1 Body mass index [BMI] 19.9 or less, adult; R65.20 Severe sepsis without septic shock; E11.9 Type 2 diabetes mellitus without complications; M81.0 Age-related osteoporosis without current pathological fracture; L65.9 Nonscarring hair loss, unspecified; I25.10 Atherosclerotic heart disease of native coronary artery without angina pectoris; F04 Amnestic disorder due to known physiological condition; F17.210 Nicotine dependence, cigarettes, uncomplicated; Y95 Nosocomial condition; D64.9 Anemia, unspecified; Z79.899 Other long term (current) drug therapy

== ENCOUNTER → 2017-06-13 | Outpatient (REF) | payer MEDICARE, MEDICAID ==
[~2017-06-13] MED LIST changes: +BACITAB PO; +BACT2OIN10 TOP; +HIBI4LIQ EX; +LINE60TAB PO; +NICO14PA TD
[2017-06-13 16:20] LABS: BASO % 0.5 % (0.0-1.0); EOS # 0.4 10^3/uL (0.0-0.50); EOS % 5.4 % (0.0-3.0); IMMATURE GRANULOCYTE % 0.4 % (0-0); LYMPH # 1.9 10^3/uL (1.5-4.5); LYMPH % 24.4 % (24.0-44.0); MEAN CORPUSCULAR HEMOGLOBIN 31.4 pg (27.0-33.0); MEAN CORPUSCULAR HGB CONC 32.7 g/dl (32.0-36.5); MONO # 0.5 10^3/uL (0.0-0.8); MONO % 6.8 % (0.0-5.0); NEUTROPHILS # 4.8 10^3/uL (1.8-7.7); NEUTROPHILS % 62.5 % (36.0-66.0); PLATELET COUNT, AUTOMATED 500 10^3/uL (150-450); RED CELL DISTRIBUTION WIDTH 13.6 % (11.5-14.5); WHITE BLOOD COUNT 7.8 10^3/uL (4.0-10.0)
[2017-06-13 16:35] LABS: ALBUMIN 3.1 GM/DL (3.2-5.2); ALBUMIN/GLOBULIN RATIO 0.82 (1.00-1.93); ALKALINE PHOSPHATASE 90 U/L (45-117); ALT/SGPT 12 U/L (12-78); ANION GAP 9 MEQ/L (8-16); AST/SGOT 10 U/L (7-37); BILIRUBIN,TOTAL 0.2 MG/DL (0.2-1.0); BLOOD UREA NITROGEN 9 MG/DL (7-18); CALCIUM LEVEL 8.9 MG/DL (8.8-10.2); CARBON DIOXIDE LEVEL 25 MEQ/L (21-32); CHLORIDE LEVEL 107 MEQ/L (98-107); CREATININE FOR GFR 0.37 MG/DL (0.55-1.02); GLOMERULAR FILTRATION RATE > 60.0 (>45); GLUCOSE, FASTING 85 MG/DL (80-110); POTASSIUM SERUM 3.4 MEQ/L (3.5-5.1); SODIUM LEVEL 141 MEQ/L (136-145); TOTAL PROTEIN 6.9 GM/DL (6.4-8.2)
== END ==
LOC: M LABDRAW1 15:36
PROVIDERS: ATTEND Internal Medicine Infectious Disease
DX: J15.212 Pneumonia due to Methicillin resistant Staphylococcus aureus (principal)
CPT/HCPCS: 36415; 80053; 85025; 86140; G0463

== ENCOUNTER 2017-06-29 14:31 | Outpatient (CLI) | payer MEDICARE, MEDICAID ==
[~2017-06-29] VITALS: Ht 147.3 cm; Wt 48.0 kg
[~2017-06-29 14:31] MED LIST changes: +ISOVUE-370 76% 100ML VIAL (Q9967) As Ordered ONE; +LINEZOLID 600MG TABLET (ZYVOX) As Ordered ONE
[2017-06-29] MEDS ORDERED: VEDOLIZUMAB 300 MG in NS 250 ML IV ONE (14:45)
== END 2017-06-29 16:00 | disposition home or self-care (01) ==
LOC: M INFU 14:31
PROVIDERS: ATTEND Internal Medicine Gastroenterology
DX: K50.90 Crohn's disease, unspecified, without complications (principal); Z88.2 Allergy status to sulfonamides; Z91.040 Latex allergy status; Z72.0 Tobacco use; Z88.8 Allergy status to other drugs, medicaments and biological substances; Z88.7 Allergy status to serum and vaccine; Z79.899 Other long term (current) drug therapy; Z79.891 Long term (current) use of opiate analgesic
CPT/HCPCS: 96365; J3380; Q9967

== ENCOUNTER → 2017-07-21 | Outpatient (REF) | payer MEDICARE, MEDICAID | LOC: M SFHCPLAZ 17:10 | DX: A49.02 Methicillin resistant Staphylococcus aureus infection, unspecified site (principal) | CPT/HCPCS: 87081 ==

== ENCOUNTER 2017-08-03 13:20 | Outpatient (CLI) | payer MEDICARE, MEDICAID ==
[2017-08-03] MEDS ORDERED: VEDOLIZUMAB 300 MG in NS 250 ML IV (14:30)
== END 2017-08-03 14:25 | disposition home or self-care (01) ==
LOC: M INFU 13:20
DX: K50.90 Crohn's disease, unspecified, without complications (principal); Z53.29 Procedure and treatment not carried out because of patient's decision for other reasons
CPT/HCPCS: 96365

== ENCOUNTER → 2017-08-04 | Outpatient (CLI) | payer MEDICARE, MEDICAID | LOC: M RAD 12:56 | DX: J15.212 Pneumonia due to Methicillin resistant Staphylococcus aureus (principal) | CPT/HCPCS: 71046 ==

== ENCOUNTER 2017-08-15 12:58 | Outpatient (CLI) | payer MEDICARE, MEDICAID | END 2017-08-15 13:45 | disposition home or self-care (01) | LOC: M INFU 12:58 | DX: K50.90 Crohn's disease, unspecified, without complications (principal); Z53.9 Procedure and treatment not carried out, unspecified reason ==

== ENCOUNTER → 2017-08-18 | Outpatient (REF) | payer MEDICARE, MEDICAID | LOC: M LAB REF 11:55 | DX: J01.00 Acute maxillary sinusitis, unspecified (principal) | CPT/HCPCS: 87205 ==

== ENCOUNTER 2017-09-07 13:30 | Outpatient (CLI) | payer MEDICARE, MEDICAID ==
[2017-09-07] MEDS: VEDOLIZUMAB 300 MG in NS 250 ML IV (13:55)
== END 2017-09-07 14:30 | disposition home or self-care (01) ==
LOC: M INFU 13:30
DX: K50.90 Crohn's disease, unspecified, without complications (principal); M54.9 Dorsalgia, unspecified; Z79.899 Other long term (current) drug therapy; Z91.040 Latex allergy status; Z88.2 Allergy status to sulfonamides
CPT/HCPCS: J3380

== ENCOUNTER → 2017-10-10 | Day surgery (SDC) | payer MEDICARE, MEDICAID ==
[~2017-10-10] MED LIST changes: -ASPI81TA83 OR; -BACITAB PO; -BACT2OIN10 TOP; -BENT10CA PO; -BUDESONIDE; -CELE50CA PO; -ENTY1INJ IV; -ESTR1MIS PV; -HIBI4LIQ EX; -HYOS0.378 OR; -ISON300T4 PO; -ISONIAZID; -ISONIAZID OR; -ISOVUE-370 76% 100ML VIAL (Q9967) As Ordered ONE; -LINE60TAB PO; -LINEZOLID 600MG TABLET (ZYVOX) As Ordered ONE; -NAME14CA PO; -NASONEX; -NICO14PA TD; +NS 1,000 ML IV; -OMEP40CA2 PO; -ONDA8TAB8 PO; -OXYC15TA76 PO; +PROPOFOL 200 MG/20 ML VIAL As Ordered; -VITAMIN B-6 OR; -[UNRECOGNIZED DRUG - OTHER] AS ORDERED; -apriso
== END | disposition home or self-care (01) ==
LOC: M OPP 13:28
DX: Z53.9 Procedure and treatment not carried out, unspecified reason (principal)

== ENCOUNTER 2017-11-02 11:21 | Outpatient (CLI) | payer MEDICARE, MEDICAID ==
[2017-11-02] MEDS: VEDOLIZUMAB 300 MG in NS 250 ML IV (12:03)
== END 2017-11-02 12:25 | disposition home or self-care (01) ==
LOC: M INFU 11:21
DX: K50.90 Crohn's disease, unspecified, without complications (principal); M54.9 Dorsalgia, unspecified; Z79.899 Other long term (current) drug therapy; Z88.8 Allergy status to other drugs, medicaments and biological substances; Z91.040 Latex allergy status; F17.210 Nicotine dependence, cigarettes, uncomplicated
CPT/HCPCS: J3380

== ENCOUNTER 2018-01-03 11:11 | Outpatient (CLI) | payer MEDICARE, MEDICAID ==
[2018-01-03] MEDS: VEDOLIZUMAB 300 MG in NS 250 ML IV (11:55)
== END 2018-01-03 12:35 | disposition home or self-care (01) ==
LOC: M INFU 11:11
DX: K50.90 Crohn's disease, unspecified, without complications (principal); M54.9 Dorsalgia, unspecified; F17.210 Nicotine dependence, cigarettes, uncomplicated; Z79.899 Other long term (current) drug therapy; Z88.0 Allergy status to penicillin; Z91.040 Latex allergy status
CPT/HCPCS: J3380

== ENCOUNTER → 2018-02-06 | Outpatient (REF) | payer MEDICARE, MEDICAID | LOC: M LAB REF 12:16 | DX: N39.0 Urinary tract infection, site not specified (principal) | CPT/HCPCS: 87186 ==

== ENCOUNTER 2018-02-28 13:55 | Outpatient (CLI) | payer MEDICARE, MEDICAID ==
[2018-02-28] MEDS: VEDOLIZUMAB 300 MG in NS 250 ML IV (14:59)
== END 2018-02-28 15:45 | disposition home or self-care (01) ==
LOC: M INFU 13:55
DX: K50.90 Crohn's disease, unspecified, without complications (principal); Z88.8 Allergy status to other drugs, medicaments and biological substances; Z88.7 Allergy status to serum and vaccine; Z91.040 Latex allergy status; Z88.2 Allergy status to sulfonamides; Z79.899 Other long term (current) drug therapy
CPT/HCPCS: J3380

== ENCOUNTER 2018-04-27 14:23 | Outpatient (CLI) | payer MEDICARE, MEDICAID ==
[2018-04-27] MEDS: VEDOLIZUMAB 300 MG in NS 250 ML IV (16:10)
== END 2018-04-27 16:50 | disposition home or self-care (01) ==
LOC: M INFU 14:23
DX: K50.90 Crohn's disease, unspecified, without complications (principal); Z88.8 Allergy status to other drugs, medicaments and biological substances; Z88.2 Allergy status to sulfonamides; Z91.040 Latex allergy status
CPT/HCPCS: J3380

== ENCOUNTER → 2018-05-16 | Outpatient (CLI) | payer MEDICARE, MEDICAID ==
[2018-05-16 15:29] LABS: BASO # 0.1 10^3/uL (0.0-0.2); BASO % 0.9 % (0.0-1.0); EOS # 0.4 10^3/uL (0.0-0.50); EOS % 5.5 % (0.0-3.0); HEMATOCRIT 41.9 % (36.0-47.0); HEMOGLOBIN 13.9 g/dl (12.0-15.5); IMMATURE GRANULOCYTE % 0.2 % (0-3.0); LYMPH # 2.6 10^3/uL (1.5-4.5); LYMPH % 40.7 % (24.0-44.0); MEAN CORPUSCULAR HEMOGLOBIN 32.2 pg (27.0-33.0); MEAN CORPUSCULAR HGB CONC 33.2 g/dl (32.0-36.5); MONO # 0.5 10^3/uL (0.0-0.8); MONO % 7.4 % (0.0-5.0); NEUTROPHILS # 2.9 10^3/uL (1.8-7.7); NEUTROPHILS % 45.3 % (36.0-66.0); PLATELET COUNT, AUTOMATED 288 10^3/uL (150-450); RED BLOOD COUNT 4.32 10^6/uL (4.00-5.40); RED CELL DISTRIBUTION WIDTH 12.7 % (11.5-14.5); WHITE BLOOD COUNT 6.4 10^3/uL (4.0-10.0)
[2018-05-16 16:00] LABS: ALBUMIN 3.8 GM/DL (3.2-5.2); ALBUMIN/GLOBULIN RATIO 1.09 (1.00-1.93); ALKALINE PHOSPHATASE 103 U/L (45-117); ALT/SGPT 14 U/L (12-78); ANION GAP 7 MEQ/L (8-16); AST/SGOT 10 U/L (7-37); BILIRUBIN,TOTAL 0.2 MG/DL (0.2-1.0); BLOOD UREA NITROGEN 12 MG/DL (7-18); C REACTIVE PROTEIN QUANTITATIV < 0.30 MG/DL (0.00-0.30); CALCIUM LEVEL 9.3 MG/DL (8.8-10.2); CARBON DIOXIDE LEVEL 24 MEQ/L (21-32); CHLORIDE LEVEL 107 MEQ/L (98-107); CREATININE FOR GFR 0.54 MG/DL (0.55-1.30); GLOMERULAR FILTRATION RATE > 60.0 (>45); GLUCOSE, FASTING 91 MG/DL (70-100); POTASSIUM SERUM 3.9 MEQ/L (3.5-5.1); SODIUM LEVEL 138 MEQ/L (136-145); TOTAL PROTEIN 7.3 GM/DL (6.4-8.2)
[2018-05-16 16:09] LABS: FOLATE 8.8 NG/ML
== END ==
LOC: M LAB 14:22
DX: K50.018 Crohn's disease of small intestine with other complication (principal)
CPT/HCPCS: 82746

== ENCOUNTER 2018-06-20 13:07 | Outpatient (CLI) | payer MEDICARE, MEDICAID ==
[2018-06-20] MEDS: VEDOLIZUMAB 300 MG in NS 250 ML IV (13:32)
== END 2018-06-20 14:30 | disposition home or self-care (01) ==
LOC: M INFU 13:07
DX: K50.90 Crohn's disease, unspecified, without complications (principal); Z88.8 Allergy status to other drugs, medicaments and biological substances; Z91.040 Latex allergy status; Z88.2 Allergy status to sulfonamides
CPT/HCPCS: J3380

== ENCOUNTER 2018-08-15 14:47 | Outpatient (CLI) | payer MEDICARE, MEDICAID ==
[~2018-08-15] VITALS: Ht 141 cm; Wt 48.6 kg
[~2018-08-15 14:47] MED LIST changes: +ASPI81TA83 OR; +BACITAB PO; +BACT2OIN10 TOP; +BENT10CA PO; +BUDESONIDE; +CELE50CA PO; +DICY10IN2 IM; +DICY10SO PO; +ENTY1INJ IV; +ESTR1MIS PV; +HIBI4LIQ EX; +HYOS0.378 OR; +ISON300T4 PO; +ISONIAZID; +ISONIAZID OR; +LINE60TAB PO; +NAME14CA PO; +NASONEX; +NICO14PA TD; -NS 1,000 ML IV; +OMEP20CA3 PO; +OMEP40CA2 PO; +ONDA8TAB8 PO; +OXYC15TA76 PO; -PROPOFOL 200 MG/20 ML VIAL As Ordered; +VITAMIN B-6 OR; +[UNRECOGNIZED DRUG - OTHER] AS ORDERED; +apriso
[2018-08-15 14:50] VITALS: BP 166/74
[2018-08-15] MEDS ORDERED: VEDOLIZUMAB 300 MG in NS 250 ML IV ONE (15:00)
[2018-08-15 16:01] VITALS: BP 154/68
== END 2018-08-15 16:00 | disposition home or self-care (01) ==
LOC: M INFU 14:47
PROVIDERS: ATTEND Internal Medicine Gastroenterology
DX: K50.90 Crohn's disease, unspecified, without complications (principal); Z88.2 Allergy status to sulfonamides; Z88.8 Allergy status to other drugs, medicaments and biological substances; Z91.040 Latex allergy status
CPT/HCPCS: 96365; J3380

== ENCOUNTER 2018-10-10 11:07 | Outpatient (CLI) | payer MEDICARE, MEDICAID ==
[~2018-10-10] VITALS: Ht 141 cm; Wt 48.6 kg
[2018-10-10 11:10] VITALS: BP 143/68
[2018-10-10] MEDS ORDERED: VEDOLIZUMAB 300 MG in NS 250 ML IV ONE (11:30)
[2018-10-10 12:15] VITALS: BP 133/83
== END 2018-10-10 12:20 | disposition home or self-care (01) ==
LOC: M INFU 11:07
PROVIDERS: ATTEND Internal Medicine Gastroenterology
DX: K50.90 Crohn's disease, unspecified, without complications (principal); Z88.0 Allergy status to penicillin; Z91.040 Latex allergy status
CPT/HCPCS: 96365; J3380

== ENCOUNTER 2018-12-06 14:49 | Outpatient (CLI) | payer MEDICARE, MEDICAID ==
[~2018-12-06] VITALS: Ht 141 cm; Wt 48.6 kg
[~2018-12-06 14:49] MED LIST changes: +ISON300T18 PO; -ISON300T4 PO; +LINE1TAB PO; -LINE60TAB PO
[2018-12-06 15:00] VITALS: BP 177/76
[2018-12-06] MEDS ORDERED: VEDOLIZUMAB 300 MG in NS 250 ML IV ONE (16:00)
[2018-12-06 16:45] VITALS: BP 143/85
== END 2018-12-06 16:50 | disposition home or self-care (01) ==
LOC: M INFU 14:49
PROVIDERS: ATTEND Internal Medicine Gastroenterology
DX: K50.00 Crohn's disease of small intestine without complications (principal)
CPT/HCPCS: 96365; J3380

== ENCOUNTER → 2018-12-07 | Outpatient (REF) | payer MEDICARE, MEDICAID | LOC: M LAB REF 17:45 | PROVIDERS: ATTEND Internal Medicine Gastroenterology | DX: K50.018 Crohn's disease of small intestine with other complication (principal) ==

== ENCOUNTER 2019-01-30 10:43 | Outpatient (CLI) | payer MEDICARE, MEDICAID ==
[~2019-01-30] VITALS: Ht 135.9 cm; Wt 48.6 kg
[~2019-01-30 10:43] MED LIST changes: +OMEP1CAP73 PO; -OMEP20CA3 PO; -OMEP40CA2 PO; +OMEP40CA97 PO
[2019-01-30] MEDS ORDERED: VEDOLIZUMAB 300 MG in NS 250 ML IV ONE (11:00)
[2019-01-30 11:32] VITALS: BP 172/73
[2019-01-30 12:14] VITALS: BP 139/93
== END 2019-01-30 12:10 | disposition home or self-care (01) ==
LOC: M INFU 10:43
PROVIDERS: ATTEND Internal Medicine Gastroenterology
DX: K50.90 Crohn's disease, unspecified, without complications (principal)
CPT/HCPCS: 96365; J3380

== ENCOUNTER → 2019-03-04 | Outpatient (REF) | payer MEDICARE, MEDICAID ==
[~2019-03-04] MED LIST changes: -OMEP1CAP73 PO; +OMEP20CA4 PO; +OMEP40CA2 PO; -OMEP40CA97 PO
== END ==
LOC: M WUC 10:54
PROVIDERS: ATTEND Physician Assistant
DX: N39.0 Urinary tract infection, site not specified (principal)

== ENCOUNTER 2019-03-28 14:59 | Outpatient (CLI) | payer OTHER, MEDICAID ==
[~2019-03-28] VITALS: Ht 147.3 cm; Wt 49.8 kg
[~2019-03-28 14:59] MED LIST changes: -OMEP40CA2 PO; +OMEP40CA97 PO
[2019-03-28 15:10] VITALS: BP 133/63
[2019-03-28] MEDS ORDERED: VEDOLIZUMAB 300 MG in NS 250 ML IV ONE (15:45)
[2019-03-28 16:25] VITALS: BP 141/69
== END 2019-03-28 16:35 | disposition home or self-care (01) ==
LOC: M INFU 14:59
PROVIDERS: ATTEND Internal Medicine Gastroenterology
DX: K50.90 Crohn's disease, unspecified, without complications (principal); Z88.2 Allergy status to sulfonamides; Z88.8 Allergy status to other drugs, medicaments and biological substances; Z91.040 Latex allergy status
CPT/HCPCS: 96365; J3380

== ENCOUNTER 2019-05-22 11:35 | Outpatient (CLI) | payer OTHER, MEDICAID ==
[~2019-05-22] VITALS: Ht 149.9 cm; Wt 49.8 kg
[~2019-05-22 11:35] MED LIST changes: +OMEP-172 PO; -OMEP20CA4 PO
[2019-05-22] MEDS ORDERED: VEDOLIZUMAB 300 MG in NS 250 ML IV ONE (12:15)
[2019-05-22 12:20] VITALS: BP 139/66
[2019-05-22 13:40] VITALS: BP 140/78
== END 2019-05-22 13:40 | disposition home or self-care (01) ==
LOC: M INFU 11:35
PROVIDERS: ATTEND Internal Medicine Gastroenterology
DX: K50.90 Crohn's disease, unspecified, without complications (principal); Z88.8 Allergy status to other drugs, medicaments and biological substances; Z88.2 Allergy status to sulfonamides; Z91.040 Latex allergy status
CPT/HCPCS: 96365; J3380

== ENCOUNTER → 2019-06-04 | Outpatient (CLI) | payer MEDICARE, MEDICAID ==
[~2019-06-04] MED LIST changes: -OMEP-172 PO; +OMEP20CA4 PO
[2019-06-04 18:13] LABS: HEMATOCRIT 39.8 % (36.0-47.0); HEMOGLOBIN 13.6 g/dl (12.0-15.5); MEAN CORPUSCULAR HEMOGLOBIN 31.7 pg (27.0-33.0); MEAN CORPUSCULAR HGB CONC 34.2 g/dl (32.0-36.5); MEAN CORPUSCULAR VOLUME 92.8 fl (80.0-96.0); PLATELET COUNT, AUTOMATED 336 10^3/uL (150-450); RED BLOOD COUNT 4.29 10^6/uL (4.00-5.40); WHITE BLOOD COUNT 7.8 10^3/uL (4.0-10.0)
[2019-06-04 18:42] LABS: ALBUMIN 3.6 GM/DL (3.2-5.2); ALT/SGPT 16 U/L (12-78); BILIRUBIN,DIRECT < 0.1 MG/DL (0.0-0.2); BILIRUBIN,TOTAL 0.4 MG/DL (0.2-1.0); BLOOD UREA NITROGEN 16 MG/DL (7-18); CALCIUM LEVEL 8.7 MG/DL (8.8-10.2); CARBON DIOXIDE LEVEL 24 MEQ/L (21-32); CHLORIDE LEVEL 105 MEQ/L (98-107); CREATININE FOR GFR 0.64 MG/DL (0.55-1.30); GLOMERULAR FILTRATION RATE > 60.0 (>45); GLUCOSE, FASTING 83 MG/DL (70-100); PHOSPHORUS LEVEL 3.3 MG/DL (2.5-4.9); POTASSIUM SERUM 3.2 MEQ/L (3.5-5.1); SODIUM LEVEL 139 MEQ/L (136-145); TOTAL PROTEIN 7.2 GM/DL (6.4-8.2)
== END ==
LOC: M LAB 16:56
PROVIDERS: ATTEND Podiatrist Foot & Ankle Surgery
DX: Z79.899 Other long term (current) drug therapy (principal)

== ENCOUNTER → 2019-06-05 | Outpatient (CLI) | payer MEDICARE, MEDICAID ==
[2019-06-05 18:27] LABS: BASO # 0.1 10^3/uL (0.0-0.2); EOS # 0.9 10^3/uL (0.0-0.5); EOS % 13.1 % (0.0-3.0); HEMATOCRIT 42.6 % (36.0-47.0); HEMOGLOBIN 14.5 g/dl (12.0-15.5); LYMPH # 2.6 10^3/uL (1.5-5.0); LYMPH % 38.8 % (24.0-44.0); MEAN CORPUSCULAR HEMOGLOBIN 31.9 pg (27.0-33.0); MEAN CORPUSCULAR VOLUME 93.6 fl (80.0-96.0); MONO # 0.5 10^3/uL (0.0-0.8); MONO % 6.6 % (0.0-5.0); NEUTROPHILS # 2.7 10^3/uL (1.5-8.5); NEUTROPHILS % 40.4 % (36.0-66.0); PLATELET COUNT, AUTOMATED 346 10^3/uL (150-450); RED BLOOD COUNT 4.55 10^6/uL (4.00-5.40); WHITE BLOOD COUNT 6.8 10^3/uL (4.0-10.0)
[2019-06-05 19:09] LABS: ALBUMIN 3.8 GM/DL (3.2-5.2); ALT/SGPT 18 U/L (12-78); BILIRUBIN,TOTAL 0.4 MG/DL (0.2-1.0); BLOOD UREA NITROGEN 17 MG/DL (7-18); CALCIUM LEVEL 8.9 MG/DL (8.8-10.2); CARBON DIOXIDE LEVEL 24 MEQ/L (21-32); CHLORIDE LEVEL 107 MEQ/L (98-107); CREATININE FOR GFR 0.64 MG/DL (0.55-1.30); FREE T4 1.02 NG/DL (0.76-1.46); GLOMERULAR FILTRATION RATE > 60.0 (>45); GLUCOSE, FASTING 86 MG/DL (70-100); POTASSIUM SERUM 3.4 MEQ/L (3.5-5.1); SODIUM LEVEL 140 MEQ/L (136-145); TOTAL PROTEIN 7.8 GM/DL (6.4-8.2)
== END ==
LOC: M LAB 17:10
PROVIDERS: ATTEND Internal Medicine Gastroenterology
DX: K52.9 Noninfective gastroenteritis and colitis, unspecified (principal); E07.9 Disorder of thyroid, unspecified

== ENCOUNTER → 2019-06-06 | Outpatient (REF) | payer MEDICARE, MEDICAID | LOC: M LAB REF 17:32 | PROVIDERS: ATTEND Internal Medicine Gastroenterology | DX: K50.818 Crohn's disease of both small and large intestine with other complication (principal) ==

== ENCOUNTER → 2019-07-13 | Outpatient (CLI) | payer OTHER, MEDICAID ==
[~2019-07-13] MED LIST changes: +OMEP-172 PO; -OMEP20CA4 PO
[2019-07-13 15:08] LABS: BASO # 0.1 10^3/uL (0.0-0.2); BASO % 0.8 % (0.0-1.0); EOS # 0.3 10^3/uL (0.0-0.5); EOS % 4.2 % (0.0-3.0); HEMATOCRIT 43.8 % (36.0-47.0); HEMOGLOBIN 14.4 g/dl (12.0-15.5); LYMPH # 2.2 10^3/uL (1.5-5.0); LYMPH % 27.9 % (24.0-44.0); MEAN CORPUSCULAR HEMOGLOBIN 31.5 pg (27.0-33.0); MEAN CORPUSCULAR HGB CONC 32.9 g/dl (32.0-36.5); MEAN CORPUSCULAR VOLUME 95.8 fl (80.0-96.0); MONO # 0.5 10^3/uL (0.0-0.8); MONO % 6.6 % (0.0-5.0); NEUTROPHILS # 4.7 10^3/uL (1.5-8.5); NEUTROPHILS % 60.2 % (36.0-66.0); PLATELET COUNT, AUTOMATED 328 10^3/uL (150-450); RED BLOOD COUNT 4.57 10^6/uL (4.00-5.40); WHITE BLOOD COUNT 7.8 10^3/uL (4.0-10.0)
[2019-07-13 15:46] LABS: ALBUMIN 3.8 GM/DL (3.2-5.2); ALT/SGPT 14 U/L (12-78); BILIRUBIN,TOTAL 0.3 MG/DL (0.2-1.0); BLOOD UREA NITROGEN 13 MG/DL (7-18); CALCIUM LEVEL 9.3 MG/DL (8.8-10.2); CARBON DIOXIDE LEVEL 22 MEQ/L (21-32); CHLORIDE LEVEL 109 MEQ/L (98-107); GLOMERULAR FILTRATION RATE > 60.0 (>45); GLUCOSE, FASTING 132 MG/DL (70-100); POTASSIUM SERUM 3.3 MEQ/L (3.5-5.1); SODIUM LEVEL 141 MEQ/L (136-145); TOTAL PROTEIN 7.5 GM/DL (6.4-8.2)
== END ==
LOC: M LAB 14:27
PROVIDERS: ATTEND Physician Assistant Medical
DX: R51 Headache (principal); R63.5 Abnormal weight gain

== ENCOUNTER 2019-07-20 13:19 | Outpatient (CLI) | payer OTHER, MEDICAID ==
[~2019-07-20] VITALS: Ht 147.3 cm; Wt 49.8 kg
[2019-07-20 13:30] VITALS: BP 127/81
[2019-07-20] MEDS ORDERED: VEDOLIZUMAB 300 MG in NS 250 ML IV ONE (14:00)
[2019-07-20 14:45] VITALS: BP 138/60
== END 2019-07-20 14:45 | disposition home or self-care (01) ==
LOC: M INFU 13:19
PROVIDERS: ATTEND Internal Medicine Gastroenterology
DX: K50.90 Crohn's disease, unspecified, without complications (principal); Z88.2 Allergy status to sulfonamides; Z88.8 Allergy status to other drugs, medicaments and biological substances; Z91.040 Latex allergy status
CPT/HCPCS: 96365; J3380

== ENCOUNTER 2019-08-31 11:05 | Outpatient (CLI) | payer MEDICARE, MEDICAID ==
[~2019-08-31] VITALS: Ht 147.3 cm; Wt 51.2 kg
[~2019-08-31 11:05] MED LIST changes: -OMEP-172 PO; +OMEP1CAP73 PO
[2019-08-31 11:10] VITALS: BP 150/70
[2019-08-31] MEDS ORDERED: VEDOLIZUMAB 300 MG in NS 250 ML IV ONE (12:00)
[2019-08-31 12:30] VITALS: BP 149/68
== END 2019-08-31 12:30 | disposition home or self-care (01) ==
LOC: M INFU 11:05
PROVIDERS: ATTEND Internal Medicine Gastroenterology
DX: K50.90 Crohn's disease, unspecified, without complications (principal); Z88.2 Allergy status to sulfonamides; Z88.8 Allergy status to other drugs, medicaments and biological substances; Z91.040 Latex allergy status
CPT/HCPCS: 96365; J3380

== ENCOUNTER 2019-10-12 10:35 | Outpatient (CLI) | payer MEDICARE, MEDICAID ==
[~2019-10-12] VITALS: Ht 149.9 cm; Wt 51.2 kg
[2019-10-12] MEDS ORDERED: VEDOLIZUMAB 300 MG in NS 250 ML IV ONE (11:15)
[2019-10-12 11:17] VITALS: BP 143/65
[2019-10-12 12:09] VITALS: BP 150/74
== END 2019-10-12 12:10 | disposition home or self-care (01) ==
LOC: M INFU 10:35
PROVIDERS: ATTEND Internal Medicine Gastroenterology
DX: K50.90 Crohn's disease, unspecified, without complications (principal); Z88.2 Allergy status to sulfonamides; Z88.8 Allergy status to other drugs, medicaments and biological substances; Z91.040 Latex allergy status
CPT/HCPCS: 96365; J3380

== ENCOUNTER 2019-11-23 11:10 | Outpatient (CLI) | payer OTHER, MEDICAID ==
[~2019-11-23] VITALS: Ht 147.3 cm; Wt 51.2 kg
[2019-11-23 11:10] VITALS: BP 134/65
[~2019-11-23 11:10] MED LIST changes: +OXYC-1 PO; -OXYC15TA76 PO
[2019-11-23] MEDS ORDERED: VEDOLIZUMAB 300 MG in NS 250 ML IV ONE (12:00)
[2019-11-23 12:04] VITALS: BP 125/84
== END 2019-11-23 12:10 | disposition home or self-care (01) ==
LOC: M INFU 11:10
PROVIDERS: ATTEND Internal Medicine Gastroenterology
DX: K50.90 Crohn's disease, unspecified, without complications (principal); Z88.2 Allergy status to sulfonamides; Z88.8 Allergy status to other drugs, medicaments and biological substances; Z91.040 Latex allergy status
CPT/HCPCS: 96365; J3380

== ENCOUNTER 2020-01-08 14:17 | Outpatient (CLI) | payer OTHER, MEDICAID ==
[~2020-01-08] VITALS: Ht 147.3 cm; Wt 51.2 kg
[2020-01-08 14:20] VITALS: BP 112/65
[2020-01-08] MEDS ORDERED: VEDOLIZUMAB 300 MG in NS 250 ML IV ONE (14:30)
[2020-01-08 15:30] VITALS: BP 126/74
== END 2020-01-08 15:30 | disposition home or self-care (01) ==
LOC: M INFU 14:17
PROVIDERS: ATTEND Internal Medicine Gastroenterology
DX: K50.90 Crohn's disease, unspecified, without complications (principal); Z88.2 Allergy status to sulfonamides; Z88.7 Allergy status to serum and vaccine; Z88.8 Allergy status to other drugs, medicaments and biological substances; Z91.040 Latex allergy status; Z79.899 Other long term (current) drug therapy
CPT/HCPCS: 81002; 82948; 87088; 87186; 96365; G0463; J3380

== ENCOUNTER → 2020-01-08 | Outpatient (REF) | payer MEDICARE, OTHER, MEDICAID | LOC: M SFHCLERA 12:40 | PROVIDERS: ATTEND Nurse Practitioner Family | DX: R30.0 Dysuria (principal); R81 Glycosuria | CPT/HCPCS: 81002; 82948; 87088; 87186; G0463 ==

== ENCOUNTER 2020-02-19 13:42 | Outpatient (CLI) | payer OTHER, MEDICAID ==
[~2020-02-19 13:42] MED LIST changes: +VEDOLIZUMAB 300MG VIAL (ENTYVIO) (J3380 PER 1MG) ONE
== END 2020-02-19 15:20 | disposition home or self-care (01) ==
LOC: M INFU 13:42
PROVIDERS: ATTEND Internal Medicine Gastroenterology
DX: K50.90 Crohn's disease, unspecified, without complications (principal)
CPT/HCPCS: 96365; J3380

== ENCOUNTER → 2020-03-26 | Outpatient (CLI) | payer OTHER, MEDICAID ==
[~2020-03-26] MED LIST changes: -VEDOLIZUMAB 300MG VIAL (ENTYVIO) (J3380 PER 1MG) ONE
[2020-03-26 11:05] LABS: BASO # 0.1 10^3/uL (0.0-0.2); BASO % 0.8 % (0.0-1.0); EOS # 0.3 10^3/uL (0.0-0.5); EOS % 5.4 % (0.0-3.0); HEMOGLOBIN 13.8 g/dl (12.0-15.5); LYMPH % 32.2 % (24.0-44.0); MEAN CORPUSCULAR HEMOGLOBIN 31.7 pg (27.0-33.0); MEAN CORPUSCULAR HGB CONC 33.7 g/dl (32.0-36.5); MONO # 0.5 10^3/uL (0.0-0.8); MONO % 7.3 % (0.0-5.0); NEUTROPHILS # 3.4 10^3/uL (1.5-8.5); NEUTROPHILS % 54.1 % (36.0-66.0); PLATELET COUNT, AUTOMATED 342 10^3/uL (150-450); RED BLOOD COUNT 4.36 10^6/uL (4.00-5.40); WHITE BLOOD COUNT 6.3 10^3/uL (4.0-10.0)
[2020-03-26 11:59] LABS: ALBUMIN 3.5 GM/DL (3.2-5.2); ALT/SGPT 13 U/L (12-78); BILIRUBIN,TOTAL 0.3 MG/DL (0.2-1.0); BLOOD UREA NITROGEN 10 MG/DL (7-18); CALCIUM LEVEL 9.1 MG/DL (8.8-10.2); CARBON DIOXIDE LEVEL 28 MEQ/L (21-32); CHLORIDE LEVEL 108 MEQ/L (98-107); CREATININE FOR GFR 0.46 MG/DL (0.55-1.30); GLOMERULAR FILTRATION RATE > 60.0 (>45); GLUCOSE, FASTING 74 MG/DL (70-100); POTASSIUM SERUM 4.2 MEQ/L (3.5-5.1); SODIUM LEVEL 138 MEQ/L (136-145); TOTAL PROTEIN 7.4 GM/DL (6.4-8.2); VITAMIN B12 LEVEL 301 PG/ML (247-911)
== END ==
LOC: M LAB 10:13
PROVIDERS: ATTEND Internal Medicine Gastroenterology
DX: K50.018 Crohn's disease of small intestine with other complication (principal)

== ENCOUNTER → 2020-03-27 | Outpatient (REF) | payer OTHER | LOC: M LAB REF 11:30 | PROVIDERS: ATTEND Internal Medicine Gastroenterology | DX: K50.018 Crohn's disease of small intestine with other complication (principal) ==

== ENCOUNTER → 2020-03-28 | Outpatient (REF) | payer OTHER | LOC: M LAB REF 13:36 | PROVIDERS: ATTEND Physician Assistant | DX: N39.0 Urinary tract infection, site not specified (principal) ==

== ENCOUNTER 2020-04-02 10:33 | Outpatient (CLI) | payer OTHER ==
[~2020-04-02] VITALS: Ht 147.3 cm; Wt 51.2 kg
[2020-04-02 10:45] VITALS: BP 148/63
[2020-04-02] MEDS ORDERED: VEDOLIZUMAB 300 MG in NS 250 ML IV ONE (11:00)
[2020-04-02 11:45] VITALS: BP 131/62
== END 2020-04-02 11:45 | disposition home or self-care (01) ==
LOC: M INFU 10:33
PROVIDERS: ATTEND Internal Medicine Gastroenterology
DX: K50.90 Crohn's disease, unspecified, without complications (principal)
CPT/HCPCS: 96365; J3380

== ENCOUNTER → 2020-05-09 | Outpatient (REF) | payer OTHER | LOC: M WUC 20:17 | PROVIDERS: ATTEND Physician Assistant | DX: R30.0 Dysuria (principal) ==

== ENCOUNTER 2020-05-26 10:31 | Outpatient (CLI) | payer MEDICARE, MEDICAID ==
[~2020-05-26] VITALS: Ht 149.9 cm; Wt 51.2 kg
[~2020-05-26 10:31] MED LIST changes: +VEDOLIZUMAB 300 MG in NS 250 ML IV ONE
[2020-05-26 11:27] VITALS: BP 149/67
[2020-05-26] MEDS ORDERED: VEDOLIZUMAB 300 MG in NS 250 ML IV ONE (11:30)
[2020-05-26 12:15] VITALS: BP 142/65
== END 2020-05-26 12:20 | disposition home or self-care (01) ==
LOC: M INFU 10:31
PROVIDERS: ATTEND Internal Medicine Gastroenterology
DX: K50.90 Crohn's disease, unspecified, without complications (principal); Z88.2 Allergy status to sulfonamides; Z88.8 Allergy status to other drugs, medicaments and biological substances; Z91.040 Latex allergy status
CPT/HCPCS: 96365; J3380

== ENCOUNTER → 2020-06-06 | Outpatient (REF) | payer MEDICARE, MEDICAID ==
[~2020-06-06] MED LIST changes: -VEDOLIZUMAB 300 MG in NS 250 ML IV ONE
== END ==
LOC: M WUC 19:57
PROVIDERS: ATTEND Physician Assistant
DX: R30.0 Dysuria (principal)

== ENCOUNTER 2020-07-07 12:26 | Outpatient (CLI) | payer MEDICARE, MEDICAID ==
[~2020-07-07] VITALS: Ht 147.3 cm; Wt 51.2 kg
[2020-07-07 12:00] VITALS: BP 159/73
[2020-07-07] MEDS ORDERED: VEDOLIZUMAB 300 MG in NS 250 ML IV ONE (12:30)
[2020-07-07 13:50] VITALS: BP 163/70
== END 2020-07-07 13:50 | disposition home or self-care (01) ==
LOC: M INFU 12:26
PROVIDERS: ATTEND Internal Medicine Gastroenterology
DX: K50.90 Crohn's disease, unspecified, without complications (principal); Z88.1 Allergy status to other antibiotic agents; Z88.2 Allergy status to sulfonamides; Z88.8 Allergy status to other drugs, medicaments and biological substances; Z91.040 Latex allergy status
CPT/HCPCS: 96365; J3380

== ENCOUNTER → 2020-07-09 | Outpatient (REF) | payer MEDICARE | LOC: M WUC 15:53 | PROVIDERS: ATTEND Physician Assistant | DX: R30.0 Dysuria (principal) ==

== ENCOUNTER → 2020-08-20 | Outpatient (REF) | payer MEDICARE, MEDICAID | LOC: M LAB REF 15:56 | PROVIDERS: ATTEND Physician Assistant | DX: N39.0 Urinary tract infection, site not specified (principal) ==

== ENCOUNTER 2020-08-25 11:01 | Outpatient (CLI) | payer MEDICARE, MEDICAID ==
[~2020-08-25] VITALS: Ht 147.3 cm; Wt 51.2 kg
[~2020-08-25 11:01] MED LIST changes: +VEDOLIZUMAB 300 MG in NS 250 ML IV ONE
[2020-08-25 11:54] VITALS: BP 164/78
[2020-08-25 12:45] VITALS: BP 157/77
== END 2020-08-25 12:45 | disposition home or self-care (01) ==
LOC: M INFU 11:01
PROVIDERS: ATTEND Internal Medicine Gastroenterology
DX: K50.90 Crohn's disease, unspecified, without complications (principal); Z88.1 Allergy status to other antibiotic agents; Z88.2 Allergy status to sulfonamides; Z88.8 Allergy status to other drugs, medicaments and biological substances; Z91.040 Latex allergy status
CPT/HCPCS: 96365; J3380

== ENCOUNTER 2020-10-02 11:04 | Outpatient (CLI) | payer MEDICARE, MEDICAID ==
[~2020-10-02] VITALS: Ht 147.3 cm; Wt 51.2 kg
[2020-10-02 11:15] VITALS: BP 146/87
[2020-10-02 12:22] VITALS: BP 156/84
== END 2020-10-02 12:23 | disposition home or self-care (01) ==
LOC: M INFU 11:04
PROVIDERS: ATTEND Internal Medicine Gastroenterology
DX: K50.90 Crohn's disease, unspecified, without complications (principal); Z88.1 Allergy status to other antibiotic agents; Z88.2 Allergy status to sulfonamides; Z88.8 Allergy status to other drugs, medicaments and biological substances; Z91.040 Latex allergy status
CPT/HCPCS: 96365; J3380

== ENCOUNTER → 2020-10-09 | Outpatient (CLI) | payer MEDICARE, MEDICAID ==
[~2020-10-09] MED LIST changes: -VEDOLIZUMAB 300 MG in NS 250 ML IV ONE
[2020-10-09 14:53] LABS: BASO # 0.1 10^3/uL (0.0-0.2); BASO % 0.9 % (0.0-1.0); EOS # 0.3 10^3/uL (0.0-0.5); EOS % 4.8 % (0.0-3.0); HEMATOCRIT 44.1 % (36.0-47.0); HEMOGLOBIN 14.8 g/dl (12.0-15.5); LYMPH % 33.7 % (24.0-44.0); MEAN CORPUSCULAR HEMOGLOBIN 32.4 pg (27.0-33.0); MEAN CORPUSCULAR HGB CONC 33.6 g/dl (32.0-36.5); MEAN CORPUSCULAR VOLUME 96.5 fl (80.0-96.0); MONO # 0.4 10^3/uL (0.0-0.8); MONO % 6.5 % (2.0-8.0); NEUTROPHILS # 3.2 10^3/uL (1.5-8.5); NEUTROPHILS % 53.9 % (36.0-66.0); PLATELET COUNT, AUTOMATED 331 10^3/uL (150-450); RED BLOOD COUNT 4.57 10^6/uL (4.00-5.40); WHITE BLOOD COUNT 5.9 10^3/uL (4.0-10.0)
[2020-10-09 15:28] LABS: ALT/SGPT 18 U/L (12-78); BILIRUBIN,TOTAL 0.3 MG/DL (0.2-1.0); BLOOD UREA NITROGEN 16 MG/DL (7-18); CALCIUM LEVEL 9.4 MG/DL (8.8-10.2); CARBON DIOXIDE LEVEL 26 MEQ/L (21-32); CHLORIDE LEVEL 107 MEQ/L (98-107); CREATININE FOR GFR 0.64 MG/DL (0.55-1.30); GLOMERULAR FILTRATION RATE > 60.0 (>45); GLUCOSE, FASTING 102 MG/DL (70-100); POTASSIUM SERUM 4.6 MEQ/L (3.5-5.1); SODIUM LEVEL 137 MEQ/L (136-145); TOTAL PROTEIN 7.8 GM/DL (6.4-8.2)
[2020-10-09 15:31] LABS: VITAMIN B12 LEVEL 370 PG/ML (247-911)
== END ==
LOC: M LAB 13:41
PROVIDERS: ATTEND Internal Medicine Gastroenterology
DX: K50.018 Crohn's disease of small intestine with other complication (principal)

== ENCOUNTER → 2020-10-11 | Outpatient (REF) | payer MEDICARE, MEDICAID | LOC: M LAB REF 18:17 | PROVIDERS: ATTEND Internal Medicine Gastroenterology | DX: K50.018 Crohn's disease of small intestine with other complication (principal) ==

== ENCOUNTER → 2020-11-20 | Outpatient (CLI) | payer OTHER, MEDICAID ==
[~2020-11-20] VITALS: Ht 147.3 cm; Wt 51.2 kg
[~2020-11-20] MED LIST changes: +VEDOLIZUMAB 300 MG in NS 250 ML IV ONE
[2020-11-20 12:23] VITALS: BP 163/69
[2020-11-20 14:30] VITALS: BP 136/67
== END ==
LOC: M INFU 11:47
PROVIDERS: ATTEND Internal Medicine Gastroenterology
DX: K50.90 Crohn's disease, unspecified, without complications (principal); Z88.2 Allergy status to sulfonamides; Z91.040 Latex allergy status
CPT/HCPCS: 96365; J3380

== ENCOUNTER 2020-12-25 10:38 | Outpatient (CLI) | payer OTHER, MEDICAID ==
[~2020-12-25] VITALS: Ht 147.3 cm; Wt 51.2 kg
[~2020-12-25 10:38] MED LIST changes: -VEDOLIZUMAB 300 MG in NS 250 ML IV ONE
[2020-12-25] MEDS ORDERED: VEDOLIZUMAB 300 MG in NS 250 ML IV ONE (11:00)
[2020-12-25 11:14] VITALS: BP 163/74
== END 2020-12-25 11:30 | disposition home or self-care (01) ==
LOC: M INFU 10:38
PROVIDERS: ATTEND Internal Medicine Gastroenterology
DX: K50.90 Crohn's disease, unspecified, without complications (principal); Z53.8 Procedure and treatment not carried out for other reasons

== ENCOUNTER 2021-02-11 10:50 | Outpatient (CLI) | payer OTHER, MEDICAID ==
[~2021-02-11] VITALS: Ht 147.3 cm; Wt 51.2 kg
[~2021-02-11 10:50] MED LIST changes: +OMEP40CA4 PO; -OMEP40CA97 PO
[2021-02-11 11:00] VITALS: BP 160/70
[2021-02-11] MEDS ORDERED: VEDOLIZUMAB 300 MG in NS 250 ML IV ONE (11:00)
[2021-02-11 12:09] VITALS: BP 153/67
== END 2021-02-11 12:15 | disposition home or self-care (01) ==
LOC: M INFU 10:50
PROVIDERS: ATTEND Internal Medicine Gastroenterology
DX: K50.90 Crohn's disease, unspecified, without complications (principal); Z88.1 Allergy status to other antibiotic agents; Z88.2 Allergy status to sulfonamides; Z88.8 Allergy status to other drugs, medicaments and biological substances; Z91.040 Latex allergy status
CPT/HCPCS: 96365; J3380

== ENCOUNTER → 2021-03-30 | Outpatient (CLI) | payer OTHER, MEDICAID ==
[2021-03-30 17:25] LABS: BASO # 0.1 10^3/uL (0.0-0.2); BASO % 0.9 % (0.0-1.0); EOS # 0.4 10^3/uL (0.0-0.5); HEMATOCRIT 42.9 % (36.0-47.0); HEMOGLOBIN 14.2 g/dl (12.0-15.5); LYMPH # 2.8 10^3/uL (1.5-5.0); LYMPH % 35.2 % (24.0-44.0); MEAN CORPUSCULAR HEMOGLOBIN 31.8 pg (27.0-33.0); MEAN CORPUSCULAR HGB CONC 33.1 g/dl (32.0-36.5); MEAN CORPUSCULAR VOLUME 96.2 fl (80.0-96.0); MONO # 0.6 10^3/uL (0.0-0.8); MONO % 7.2 % (2.0-8.0); NEUTROPHILS # 4.1 10^3/uL (1.5-8.5); NEUTROPHILS % 51.4 % (36.0-66.0); PLATELET COUNT, AUTOMATED 330 10^3/uL (150-450); RED BLOOD COUNT 4.46 10^6/uL (4.00-5.40); WHITE BLOOD COUNT 7.9 10^3/uL (4.0-10.0)
[2021-03-30 17:53] LABS: ALBUMIN 3.8 GM/DL (3.2-5.2); ALT/SGPT 12 U/L (12-78); BILIRUBIN,TOTAL 0.6 MG/DL (0.2-1.0); BLOOD UREA NITROGEN 12 MG/DL (7-18); CALCIUM LEVEL 9.3 MG/DL (8.8-10.2); CARBON DIOXIDE LEVEL 26 MEQ/L (21-32); CHLORIDE LEVEL 107 MEQ/L (98-107); CREATININE FOR GFR 0.53 MG/DL (0.55-1.30); GLOMERULAR FILTRATION RATE > 60.0 (>45); GLUCOSE, FASTING 67 MG/DL (70-100); POTASSIUM SERUM 4.4 MEQ/L (3.5-5.1); SODIUM LEVEL 139 MEQ/L (136-145); TOTAL PROTEIN 7.2 GM/DL (6.4-8.2)
[2021-03-30 19:00] LABS: ERYTHROCYTE SEDIMENTATION RATE 19 mm/hr (0-30)
== END ==
LOC: M LAB 16:19
PROVIDERS: ATTEND Internal Medicine Gastroenterology
DX: K50.018 Crohn's disease of small intestine with other complication (principal)

== ENCOUNTER 2021-04-08 15:29 | Outpatient (CLI) | payer OTHER, MEDICAID ==
[~2021-04-08] VITALS: Ht 147.3 cm; Wt 48.2 kg
[~2021-04-08 15:29] MED LIST changes: +VEDOLIZUMAB 300 MG in NS 250 ML IV ONE
[2021-04-08 15:35] VITALS: BP 139/68
[2021-04-08 17:18] VITALS: BP 149/75
== END 2021-04-08 17:20 | disposition home or self-care (01) ==
LOC: M INFU 15:29
PROVIDERS: ATTEND Internal Medicine Gastroenterology
DX: K50.90 Crohn's disease, unspecified, without complications (principal); Z88.8 Allergy status to other drugs, medicaments and biological substances; Z88.2 Allergy status to sulfonamides; Z91.040 Latex allergy status
CPT/HCPCS: 96365; J3380

== ENCOUNTER → 2021-04-24 | Outpatient (REF) | payer OTHER, MEDICAID ==
[~2021-04-24] MED LIST changes: -VEDOLIZUMAB 300 MG in NS 250 ML IV ONE
== END ==
LOC: M LAB REF 15:51
PROVIDERS: ATTEND Internal Medicine Gastroenterology
DX: K50.018 Crohn's disease of small intestine with other complication (principal)

== ENCOUNTER 2021-05-19 15:47 | Inpatient (IN) | payer OTHER, MEDICAID ==
[~2021-05-19] VITALS: Ht 142.2 cm; Wt 49.2 kg
--- OUTSIDE RECORDS SUMMARY | 2021-05-19 15:56 | CCD | Continuity of Care Document ---
Author Author Belkis CESPEDES MD Organization Unknown Address [address] [place] [id number] Phone [phone] Care Team Providers Care Forging Press Setter Up Name Role Phone Rafiq Sapp M.D. AUTM [phone] Problems Active Problems Provider Date Crohn's disease of small intestine Gurjit Cespedes MD Onset : 06/20/2012 Irritable bowel syndrome Gurjit Cespedes MD Onset: 06/20/20 12 Flatulence, eructation and gas pain Gurjit Cespedes MD Onse t: 06/20/2012 Chronic rhinitis Kali Mancera MD Onset: 06/20/2012 Chronic maxillary sinusitis Kali Mancera MD Onset: 06/20 Chronic ethmoidal sinusitis Kali Mancera MD Onset: 06/20 Hypertrophy of nasal turbinates Kali Mancera MD Onset: 1 08/21/2011 Abdominal pain Gurjit Cespedes MD Onset: 06/20/2012 Nonspecified Reaction To Tuberculin Skin Test Without Active TB Gurjit Cespedes MD Onset: 06/20/2012 Diarrhea Gurjit Cespedes MD Onset: 06/20/2012 Chronic otitis externa Rosana Jeronimo, RPA-C Onset: Cough Kali Mancera MD Onset: 06/20/2012 Impacted cerumen Kali Mancera MD Onset: 06/20/2012 Ulceration of intestine Gurjit Cespedes MD Onset: 2 Disorder of intestine Gurjit Cespedes MD Onset: 06/20/2012 Intestinal obstruction Gurjit Cespedes MD Onset: 06/20/2012 Heartburn Gurjit Cespedes MD Onset: 06/20/2012 Diaphragmatic hernia Gurjit Cespedes MD Onset: 06/20/2012 Digestive symptom Gurjit Cespedes MD Onset: 06/20/2012 Screening for malignant neoplasm of colon Gurjit Cespedes MD Onset: 06/20/2012 Gallstone Guillermo Thomas MD Onset: 06/20/2012 Weight decreased Gurjit Cespedes MD Onset: 06/27/2014 Disorder of digestive system Gurjit Cespedes MD Onset: 06/17 Disorder of intestine Gurjit Cespedes MD Onset: 06/27/2014 Fecal Smearing Gurjit Cespedes MD Onset: 06/27/2014 Crohn's disease of small intestine with intestinal obstructi on Gurjit Cepsedes MD Onset: 04/23/2015 Social History Type Date Description Comments Sex Unknown ETOH Use Denies alcohol use Tobacco Use Start: Unknown smokes daily Recreational Drug Use Denies Drug Use Tobacco Use Start: Unknown Report Cessation Counseling Was Provided Tobacco Use Start: Unknown Smokes 1/2 Pack A Day Allergies, Adverse Reactions, Alerts Active Allergies Criticality Reaction | Severity Comments Date Sulfa Unable to assess criticality stop breathing 07/28/2009 Latex Unable to assess criticality rash.respiration depressi on 07/28/2009 Hyoscyamine Unable to assess criticality Blurred vision, dry mouth | Moderate 05/25/2011 Azathioprine Unable to assess criticality pt with noncompliance-unreliable/dementia 06/11/2015 PPD Unable to assess criticality PPD positive-tx with INHx9 months in 2010/Олег 03/10/2016 Medications Active Medications SIG Qnty Indications Ordering Provide r Date Cholestyramine 4gm Packet Take 1 packet by mouth 3 times per day mixed with water or non-carbonated drink for diarrhea 90units R19.7 Gurjit Cespedes MD 03/30/2021 Miralax 17GM/Scoop Powder use as directed see dr cespedes colon preparation instructions 510gm K50.018 Brett jamaica Cespedes MD 03/30/2021 Milk Of Magnesia 1200mg/15ML Suspe nsion take 45 milliliters by mouth as directed on colonoscopy prep sheet. 355ml K50.018 Gurjit Cespedes MD 03/30/2021 Dicyclomine HCL 10mg Capsules 1 to 2 by mouth every 6 hours as needed abdominal cramping 60caps K50.018 Gurjit Cespedes MD 03/26/2020 Entyvio 300mg Solution Rec infuse 300 mg iv every 6 weeks Gurjit Cespedes MD 08/13/2019 Immunizations Description No Information Available Vital Signs Date Vital Result Comment 03/30/2021 3:26pm BP Systolic 152 mmHg BP Diastolic 68 mmHg Height 58 inches 4'10" Weight 99.00 lb BMI (Body Mass Index) 20.7 kg/m2 [place] Body Weight 100 lb Weight 44.906 kg BSA (Body Surface Area) 1.35 m2 10/09/2020 11:25am BP Systolic 150 mmHg BP Diastolic 78 mmHg Height 58 inches 4'10" Weight 107.00 lb BMI (Body Mass Index) 22.4 kg/m2 [place] Body Weight 100 lb Weight 48.535 kg BSA (Body Surface Area) 1.40 m2 Results Test Acquired Date Facility Test Result H/L Range Note CBC With Differential 03/30/2021 [facility] [address] [place] [phone] White Blood Count 7.9 10 Normal 4.0-10.0 Red Blood Count 4.46 10 Normal 4.00-5.40 Hemoglobin 14.2 g/dL Normal 12.0-15.5 Hematocrit 42.9 % Normal 36.0-47.0 Mean Corpuscular Volume 96.2 fl High 80.0-96.0 Mean Corpuscular Hemoglobin 31.8 pg Normal 27.0-33.0 Mean Corpuscular HGB Conc 33.1 g/dL Normal 32.0-36.5 Red Cell Distribution Width 12.7 % Normal 11.5-14.5 Platelet Count, Automated 330 10 Normal 150-450 Neutrophils % 51.4 % Normal 36.0-66.0 Lymph % 35.2 % Normal 24.0-44.0 [place] % 7.2 % Normal 2.0-8.0 Eos % 5.0 % High 0.0-3.0 Baso % 0.9 % Normal 0.0-1.0 Immature Granulocyte % 0.3 % Normal 0-3.0 Nucleated Red Blood Cell % 0.0 % Normal 0-0 Neutrophils # 4.1 10 Normal 1.5-8.5 Lymph # 2.8 10 Normal 1.5-5.0 [place] # 0.6 10 Normal 0.0-0.8 Eos # 0.4 10 Normal 0.0-0.5 Baso # 0.1 10 Normal 0.0-0.2 Comprehensive Metabolic Profil 03/30/2021 [facility] [address] [place] [address] [phone] Glucose, Fasting 67 mg/dL Low 70-100 Blood Urea Nitrogen 12 mg/dL Normal 7-18 Creatinine For GFR 0.53 mg/dL Low 0.55-1.30 Glomerular Filtration Rate > 60.0 Normal >45 1 Sodium Level 139 mEq/L Normal 136-145 Potassium Serum 4.4 mEq/L Normal 3.5-5.1 Chloride Level 107 mEq/L Normal 98-107 Carbon Dioxide Level 26 mEq/L Normal 21-32 Anion Gap 6 mEq/L Low 8-16 Calcium Level 9.3 mg/dL Normal 8.8-10.2 Ast/Sgot 9 U/L Normal 7-37 Alt/SGPT 12 U/L Normal 12-78 Alkaline Phosphatase 78 U/L Normal 45-117 Bilirubin,Total 0.6 mg/dL Normal 0.2-1.0 Total Protein 7.2 GM/DL Normal 6.4-8.2 Albumin 3.8 GM/DL Normal 3.2-5.2 Albumin/Globulin Ratio 1.1 Low 1.2-2.2 Laboratory test finding 03/30/2021 [facility] [address] [place] [phone] Erythrocyte Sedimentation Rate 19 mm/hr Normal 0 -30 C Reactive Protein Quantitativ 0.30 mg/dL Normal 0.00-0.30 2 Laboratory test finding 10/11/2020 [facility] [address] [place] [phone] Calprotectin Stool 133 ug/g High 0-120 3 Pancreatic Elastase Stool >500 Normal >200 4 Laboratory test finding 10/09/2020 [facility] [address] [place], [place] [phone] Vitamin B12 Level 370 pg/mL Normal 247-911 5 CBC With Differential 10/09/2020 [facility] [address] [place] [phone] White Blood Count 5.9 10 Normal 4.0-10.0 Red Blood Count 4.57 10 Normal 4.00-5.40 Hemoglobin 14.8 g/dL Normal 12.0-15.5 Hematocrit 44.1 % Normal 36.0-47.0 Mean Corpuscular Volume 96.5 fl High 80.0-96.0 Mean Corpuscular Hemoglobin 32.4 pg Normal 27.0-33.0 Mean Corpuscular HGB Conc 33.6 g/dL Normal 32.0-36.5 Red Cell Distribution Width 13.3 % Normal 11.5-14.5 Platelet Count, Automated 331 10 Normal 150-450 Neutrophils % 53.9 % Normal 36.0-66.0 Lymph % 33.7 % Normal 24.0-44.0 [place] % 6.5 % Normal 2.0-8.0 Eos % 4.8 % High 0.0-3.0 Baso % 0.9 % Normal 0.0-1.0 Immature Granulocyte % 0.2 % Normal 0-3.0 Nucleated Red Blood Cell % 0.0 % Normal 0-0 Neutrophils # 3.2 10 Normal 1.5-8.5 Lymph # 2.0 10 Normal 1.5-5.0 [place] # 0.4 10 Normal 0.0-0.8 Eos # 0.3 10 Normal 0.0-0.5 Baso # 0.1 10 Normal 0.0-0.2 Comprehensive Metabolic Profil 10/09/2020 [facility] [address] [place] [address] [phone] Glucose, Fasting 102 mg/dL High 70-100 Blood Urea Nitrogen 16 mg/dL Normal 7-18 Creatinine For GFR 0.64 mg/dL Normal 0.55-1.30 Glomerular Filtration Rate > 60.0 Normal >45 6 Sodium Level 137 mEq/L Normal 136-145 Potassium Serum 4.6 mEq/L Normal 3.5-5.1 Chloride Level 107 mEq/L Normal 98-107 Carbon Dioxide Level 26 mEq/L Normal 21-32 Anion Gap 4 mEq/L Low 8-16 Calcium Level 9.4 mg/dL Normal 8.8-10.2 Ast/Sgot 16 U/L Normal 7-37 Alt/SGPT 18 U/L Normal 12-78 Alkaline Phosphatase 89 U/L Normal 45-117 Bilirubin,Total 0.3 mg/dL Normal 0.2-1.0 Total Protein 7.8 GM/DL Normal 6.4-8.2 Albumin 4.0 GM/DL Normal 3.2-5.2 Albumin/Globulin Ratio 1.1 Low 1.2-2.2 7 1 Units are mL/min/1.73 m2 Chronic Kidney Disease Staging per NKF: Stage I & II GFR >=60 Normal to Mildly Decreased Stage III GFR 30-59 Moderately Decreased Stage IV GFR 15-29 Severely Decreased Stage V GFR <15 Very Little GFR Left ESRD GFR <15 on HEALTH SCIENCE WRITER 2 03/30/21 (TueMar 30) 07:12 PM GURJIT CESPEDES normal 3 Concentration Interpreta tion Follow-Up <16 - 50 ug/g Normal None >50 -120 ug/g Borderline Re-evaluate in 4-6 weeks >120 ug/g Abnormal Repeat as clinically indicated Performed at: [facility] Lab[address] [id number] Piano Mechanic: Mehran Vasquez MD, Phone: [phone] 4 Result Units: ug Elast./g Severe Pancreatic Insufficiency: <100 Moderate Pancreatic Insufficiency: 100 - 200 Normal: >200 5 VITAMIN B12 NORMAL RANGE NORMAL 247 - 911 PG/ML INDETERMINATE 211 - 246 PG/ML DEFICIENT LESS THAN 211 PG/ML 6 Units are mL/min/1.73 m2 Chronic Kidney Disease Staging per NKF: Stage I & II GFR >=60 Normal to Mildly Decreased Stage III GFR 30-59 Moderately Decreased Stage IV GFR 15-29 Severely Decreased Stage V GFR <15 Very Little GFR Left ESRD GFR <15 on HEALTH SCIENCE WRITER 7 10/15/20 (TueOct 15) 07:16 PM GURJIT CESPEDES ok Procedures Date Code Description Status 03/30/2021 65266 Office/Outpatient Established Mo d MDM 30-39 Min Completed 10/09/2020 27163 Office/Outpatient Established Mo d MDM 30-39 Min Completed Medical Devices Description No Information Available Encounters Type Date Location Provider Dx Diagnosis Office Visit 03/30/2021 3:30p [facility] ctice Gurjit Cespedes MD K50.018 Crohn's disease of small int estine with other complication Office Visit 10/09/2020 11:30a [facility] Laura Lutz K50.018 Crohn's disease of small intestine with other complication K58.0 Irritable bowel syndrome wit h diarrhea Assessments Date Code Description Provider 03/30/2021 K50.018 Crohn's disease of small intesti ne with other complication Gurjit Cespedes MD 10/09/2020 K50.018 Crohn's disease of small intesti ne with other complication Gurjit Cespedes MD 10/09/2020 K58.0 Irritable bowel syndrome with di arrhea Gurjit Cespedes MD Plan of Treatment Future Appointment(s):* 09/11/2021 6:00 am - Gurjit Cespedes MD at [facility] * 07/31/2021 6:00 am - Gurjit Cespedes MD at [facility] * 06/19/2021 6:00 am - [facility] * 05/08/2021 6:00 am - Gurjit Cespedes MD at [facility] 03/30/2021 - Gurjit Cespedes MD* K50.018 Crohn's disease of small intestine with other complication * * New Medication:* Miralax 17 GM/Scoop * Milk Of Magnesia 1200 mg/15ML * New Labs:* Calprotectin Stool Sendout, Ordered: 03/30/21 * Gastrointestinal (GI) Panel, Ordered: 03/30/21 * Pancreatic Elastase Stool Sendout, Ordered: 03/30/21 * New Orders:* Colonoscopy, Ordered: 03/30/21 * Comments:* has had some increased looseness at times. also with an episode of incontinence. * Follow up:* 6 months or sooner prn * Recommendations:* will recheck inflammatory markers, will add questran to firm up stools, would suggest we do another colonoscopy to re assess. Functional Status Description No Information Available Mental Status Description No Information Available Referrals Description No Information Available
--- OUTSIDE RECORDS SUMMARY | 2021-05-19 15:56 | CCD | Continuity of Care Document ---
Author Author Belkis CESPEDES MD Organization Unknown Address [address] [place] [address] Phone [phone] Care Team Providers Care Lining Machine Operator Name Role Phone Rafiq Sapp M.D. AUTM [phone] Problems Active Problems Provider Date Crohn's disease [...] small intestine with intestinal obstructi on Gurjit Cespedes MD Onset: 04/23/2015 Social History Type Date Description Comments Sex Unknown ETOH Use Denies alcohol use Tobacco Use Start: Unknown smokes daily Recreational Drug Use Denies Drug Use Tobacco Use Start: Unknown Report Cessation Counseling Was Provided Tobacco Use Start: Unknown Smokes 1/2 Pack A Day Allergies and adverse reactions Active Allergies Criticality Reaction | Severity Comments [...] cespedes colon preparation instructions 510gm K50.018 Brett Cespedes MD 03/30/2021 Milk Of Magnesia 1200mg/15ML [...] lb BMI (Body Mass Index) 20.7 kg/m2 [place] Body Weight 100 lb Weight 44.906 kg BSA (Body Surface Area) 1.35 m2 10/09/2020 11:25am BP Systolic 150 mmHg BP Diastolic 78 mmHg Height 58 inches 4'10" Weight 107.00 lb BMI (Body Mass Index) 22.4 kg/m2 [place] Body Weight 100 lb Weight 48.535 kg BSA (Body Surface Area) 1.40 m2 Results Test Acquired Date Facility Test Result H/L Range Note Laboratory test finding 04/24/2021 [facility] Main Lab [address] [place] [address] [phone] Calprotectin Stool 63 ug/g Normal 0-120 1 Gastrointestinal (GI) Panel 04/24/2021 [facility] Main Lab [address] [place] [address] [phone] Gastrointestinal (GI) Panel This Gastrointes <SEE NOTE > 2 Laboratory test finding 04/24/2021 [facility] Main Lab [address] [place] [address] [phone] Pancreatic Elastase Stool >500 Normal >200 3 CBC With Differential 03/30/2021 [facility] Main Lab [address] [place] [address] [phone] White Blood Count 7.9 10 Normal 4.0-10.0 [...] 36.0-66.0 Lymph % 35.2 % Normal 24.0-44.0 [place] % 7.2 % Normal 2.0-8.0 Eos % 5.0 % High 0.0-3.0 Baso % 0.9 % Normal 0.0-1.0 Immature Granulocyte % 0.3 % Normal 0-3.0 Nucleated Red Blood Cell % 0.0 % Normal 0-0 Neutrophils # 4.1 10 Normal 1.5-8.5 Lymph # 2.8 10 Normal 1.5-5.0 [place] # 0.6 10 Normal 0.0-0.8 Eos # 0.4 10 Normal 0.0-0.5 Baso # 0.1 10 Normal 0.0-0.2 Comprehensive Metabolic Profil 03/30/2021 [facility] Main Lab [address] [place] [address] [phone] Glucose, Fasting 67 mg/dL Low 70-100 Blood Urea Nitrogen 12 mg/dL Normal 7-18 Creatinine For GFR 0.53 mg/dL Low 0.55-1.30 Glomerular Filtration Rate > 60.0 Normal >45 4 Sodium Level 139 mEq/L Normal 136-145 Potassium [...] 1.1 Low 1.2-2.2 Laboratory test finding 03/30/2021 [facility] Main Lab 0 [place] [address] [phone] Erythrocyte Sedimentation Rate 19 mm/hr Normal 0 -30 C Reactive Protein Quantitativ 0.30 mg/dL Normal 0.00-0.30 5 1 Concentration Interpreta tion Follow-Up <16 - 50 ug/g Normal None >50 -120 ug/g Borderline Re-evaluate in 4-6 weeks >120 ug/g Abnormal Repeat as clinically indicated Performed at: [facility] [address] [id number] Biomathematician: Mehran Vasquez MD, Phone: [phone] 2 This Gastrointestinal PCR Pa shanique detects the following bacteria, parasites and viruses: Campylobacter (jejuni, coli and upsaliensis), Clostridium difficile (toxin A/B), Plesiomonas shigelloides, Salmonella, Yersinia enterocolitica, Vibrio (parahaemolyticus, vulnificus and cholerae), Vibrio clolerae, Enteroaggregative E. coli (EAEC), Enteropathogenis E. coli (EPEC), Enterotoxigenic E. coli (ETEC) it/st, Shiga-like producing E. coli (STEC) stx1/stc2, E.coli O157, Shigella/Enteroinvasive E. coli (EIEC), Cryptosporidium, Cyclospora cayetanensis, Entamoeba histolytica, Giardia lamblia, Adenovirus F 40/41, Astrovirus, Norovirus GI/GII, Rotavirus A and Sapovirus (I, II, IV, V). One negative specimen does not rule out the possibility of a parasitic infection. NEGATIVE by MULTIPLEXED NUCLEIC ACID PCR 3 Result Units: ug Elast./g Severe Pancreatic Insufficiency: <100 Moderate Pancreatic Insufficiency: 100 - 200 Normal: >200 4 Units are mL/min/1.73 m2 Chronic Kidney Disease Staging per NKF: Stage I & II GFR >=60 Normal to Mildly Decreased Stage III GFR 30-59 Moderately Decreased Stage IV GFR 15-29 Severely Decreased Stage V GFR <15 Very Little GFR Left ESRD GFR <15 on BOBBIN MARKER 5 03/30/21 (TueMar 30) 07:12 PM GURJIT CESPEDES normal Procedures Date Code Description Status 03/30/2021 35886 Office/Outpatient Established Mo d MDM 30-39 Min Completed Medical Devices Description No Information Available Encounters Type Date Location Provider Dx Diagnosis Office Visit 03/30/2021 3:30p [facility] ctice Gurjit Cespedes MD K50.018 Crohn's disease of small int estine with other complication Assessments Date Code Description Provider 03/30/2021 K50.018 Crohn's disease of small intesti ne with other complication Gurjit Cespedes MD Plan of Treatment Future Appointment(s):* 09/11/2021 6:00 am - Gurjit Cespedes MD at [facility] * 07/31/2021 6:00 am - Gurjit Cespedes MD at [facility] * 06/19/2021 6:00 am - Gurjit Cespedes MD at [facility] * 05/08/2021 6:00 am - Gurjit Cespedes MD at [facility] 03/30/2021 - Gurjit Cespedes MD* K50.018 Crohn's disease of small intestine with other complication * * New Medication:* Miralax 17 GM/Scoop * Milk Of Magnesia 1200 mg/15ML * New Orders:* Colonoscopy, Ordered: 03/30/21 * [...]
--- OUTSIDE RECORDS SUMMARY | 2021-05-19 15:57 | CCD | Continuity of Care Document ---
Author Author Belkis CESPEDES MD Organization Unknown Address [address] [place] [address] Phone [phone] Care Team Providers Care Lathe Hand Name Role Phone Rafiq Sapp M.D. AUTM [phone] Problems Active Problems Provider Date Crohn's disease [...] lb BMI (Body Mass Index) 20.7 kg/m2 [place] Body Weight 100 lb Weight 44.906 kg BSA (Body Surface Area) 1.35 m2 10/09/2020 11:25am BP Systolic 150 mmHg BP Diastolic 78 mmHg Height 58 inches 4'10" Weight 107.00 lb BMI (Body Mass Index) 22.4 kg/m2 [place] Body Weight 100 lb Weight 48.535 kg BSA (Body Surface Area) 1.40 m2 Results Test Acquired Date Facility Test Result H/L Range Note CBC With Differential 03/30/2021 [facility] Main Lab [address] [place] [address] [phone] White Blood Count 7.9 10 Normal 4.0-10.0 [...] 36.0-66.0 Lymph % 35.2 % Normal 24.0-44.0 [place] % 7.2 % Normal 2.0-8.0 Eos % 5.0 % High 0.0-3.0 Baso % 0.9 % Normal 0.0-1.0 Immature Granulocyte % 0.3 % Normal 0-3.0 Nucleated Red Blood Cell % 0.0 % Normal 0-0 Neutrophils # 4.1 10 Normal 1.5-8.5 Lymph # 2.8 10 Normal 1.5-5.0 [place] # 0.6 10 Normal 0.0-0.8 Eos # 0.4 10 Normal 0.0-0.5 Baso # 0.1 10 Normal 0.0-0.2 Comprehensive Metabolic Profil 03/30/2021 [facility] Main Lab [address] [place] [address] [phone] Glucose, Fasting 67 mg/dL Low 70-100 Blood [...] 1.1 Low 1.2-2.2 Laboratory test finding 03/30/2021 [facility] Main Lab [address] [place] [address] [phone] Erythrocyte Sedimentation Rate 19 mm/hr Normal 0 -30 C Reactive Protein Quantitativ 0.30 mg/dL Normal 0.00-0.30 2 Laboratory test finding 10/11/2020 [facility] Main Lab [address] [place] [address] [phone] Calprotectin Stool 133 ug/g High 0-120 3 Pancreatic Elastase Stool >500 Normal >200 4 Laboratory test finding 10/09/2020 [facility] Main Lab [address] [place], [place] [phone] Vitamin B12 Level 370 pg/mL Normal 247-911 5 CBC With Differential 10/09/2020 [facility] Main Lab [address] [place] [address] [phone] White Blood Count 5.9 10 Normal 4.0-10.0 [...] 36.0-66.0 Lymph % 33.7 % Normal 24.0-44.0 [place] % 6.5 % Normal 2.0-8.0 Eos % 4.8 % High 0.0-3.0 Baso % 0.9 % Normal 0.0-1.0 Immature Granulocyte % 0.2 % Normal 0-3.0 Nucleated Red Blood Cell % 0.0 % Normal 0-0 Neutrophils # 3.2 10 Normal 1.5-8.5 Lymph # 2.0 10 Normal 1.5-5.0 [place] # 0.4 10 Normal 0.0-0.8 Eos # 0.3 10 Normal 0.0-0.5 Baso # 0.1 10 Normal 0.0-0.2 Comprehensive Metabolic Profil 10/09/2020 [facility] Main Lab [address] [place] [address] [phone] Glucose, Fasting 102 mg/dL High 70-100 Blood [...] Little GFR Left ESRD GFR <15 on TRAFFIC SUPERINTENDENT 2 03/30/21 (TueMar 30) 07:12 PM GURJIT CESPEDES normal 3 Concentration Interpreta tion Follow-Up <16 - 50 ug/g Normal None >50 -120 ug/g Borderline Re-evaluate in 4-6 weeks >120 ug/g Abnormal Repeat as clinically indicated Performed at: [facility] [address] [id number] Access Nurse: Mehran Vasquez MD, Phone: [phone] Result Units: ug Elast./g Severe Pancreatic [...] Little GFR Left ESRD GFR <15 on TRAFFIC SUPERINTENDENT 7 10/15/20 (TueOct 15) 07:16 PM GURJIT CESPEDES ok Procedures Date Code Description Status 10/09/2020 12526 Office/Outpatient Established Mo d MDM 30-39 Min Completed Medical Devices Description No Information Available Encounters Type Date Location Provider Dx Diagnosis Office Visit 10/09/2020 11:30a [facility] Practice Laura Lutz K50.018 Crohn's disease of small intestine with other complication K58.0 Irritable bowel syndrome wit h diarrhea Assessments Date Code Description Provider 03/30/2021 K50.018 Crohn's disease of small intesti ne with other complication Gurjit Cespedes MD 03/30/2021 R19.7 Diarrhea, unspecified Gurjit pfeiffer MD 03/30/2021 R63.4 Abnormal weight loss Gurjit fleming MD 10/09/2020 K50.018 Crohn's disease of small intesti ne with other complication Gurjit Cespedes MD 10/09/2020 K58.0 Irritable bowel syndrome with di arrhea Gurjit Cespedes MD Plan of Treatment Future Appointment(s):* 09/11/2021 6:00 am - Gurjit Cespedes MD at [facility] * 07/31/2021 6:00 am - Gurjit Cespedes MD at [facility] * 06/19/2021 6:00 am - Gurjit Cespedes MD at [facility] * 05/08/2021 6:00 am - [facility] 03/30/2021 - Gurjit Cespedes MD* K50.018 Crohn's disease of small intestine with other complication * R19.7 Diarrhea, unspecified * R63.4 Abnormal weight loss * * New Medication:* Miralax 17 GM/Scoop [...]
--- OUTSIDE RECORDS SUMMARY | 2021-05-19 15:57 | CCD | Continuity of Care Document ---
Author Author Belkis CESPEDES MD Organization Unknown Address [address] [place] [address] Phone [phone] Care Team Providers Care On Air Talent Name Role Phone Rafiq Sapp M.D. AUTM [phone] Problems Active Problems Provider Date Crohn's disease [...] lb BMI (Body Mass Index) 20.7 kg/m2 [place] Body Weight 100 lb Weight 44.906 kg BSA (Body Surface Area) 1.35 m2 10/09/2020 11:25am BP Systolic 150 mmHg BP Diastolic 78 mmHg Height 58 inches 4'10" Weight 107.00 lb BMI (Body Mass Index) 22.4 kg/m2 [place] Body Weight 100 lb Weight 48.535 kg BSA (Body Surface Area) 1.40 m2 Results Test Acquired Date Facility Test Result H/L Range Note CBC With Differential 03/30/2021 [facility] Main Lab [address] [place] [address] [phone] White Blood Count 7.9 10 Normal 4.0-10.0 [...] 36.0-66.0 Lymph % 35.2 % Normal 24.0-44.0 [place] % 7.2 % Normal 2.0-8.0 Eos % 5.0 % High 0.0-3.0 Baso % 0.9 % Normal 0.0-1.0 Immature Granulocyte % 0.3 % Normal 0-3.0 Nucleated Red Blood Cell % 0.0 % Normal 0-0 Neutrophils # 4.1 10 Normal 1.5-8.5 Lymph # 2.8 10 Normal 1.5-5.0 [place] # 0.6 10 Normal 0.0-0.8 Eos # 0.4 10 Normal 0.0-0.5 Baso # 0.1 10 Normal 0.0-0.2 Comprehensive Metabolic Profil 03/30/2021 [facility] Main Lab [address] [place] [address] [phone] Glucose, Fasting 67 mg/dL Low 70-100 Blood [...] 1.1 Low 1.2-2.2 Laboratory test finding 03/30/2021 [facility] Main Lab [address] [place] [address] [phone] Erythrocyte Sedimentation Rate 19 mm/hr Normal 0 -30 C Reactive Protein Quantitativ 0.30 mg/dL Normal 0.00-0.30 2 Laboratory test finding 10/11/2020 [facility] Main Lab [address] [place] [address] [phone] Calprotectin Stool 133 ug/g High 0-120 3 Pancreatic Elastase Stool >500 Normal >200 4 Laboratory test finding 10/09/2020 [facility] Main Lab [address] [place], [place] 3945217 [phone] Vitamin B12 Level 370 pg/mL Normal 247-911 5 CBC With Differential 10/09/2020 [facility] Main Lab [address] [place] [address] [phone] White Blood Count 5.9 10 Normal 4.0-10.0 [...] 36.0-66.0 Lymph % 33.7 % Normal 24.0-44.0 [place] % 6.5 % Normal 2.0-8.0 Eos % 4.8 % High 0.0-3.0 Baso % 0.9 % Normal 0.0-1.0 Immature Granulocyte % 0.2 % Normal 0-3.0 Nucleated Red Blood Cell % 0.0 % Normal 0-0 Neutrophils # 3.2 10 Normal 1.5-8.5 Lymph # 2.0 10 Normal 1.5-5.0 [place] # 0.4 10 Normal 0.0-0.8 Eos # 0.3 10 Normal 0.0-0.5 Baso # 0.1 10 Normal 0.0-0.2 Comprehensive Metabolic Profil 10/09/2020 [facility] Main Lab [address] [place] [address] [phone] Glucose, Fasting 102 mg/dL High 70-100 Blood [...] Little GFR Left ESRD GFR <15 on SUPERVISOR SCREEN MAKING 2 03/30/21 (TueMar 30) 07:12 PM GURJIT CESPEDES normal 3 Concentration Interpreta tion Follow-Up <16 - 50 ug/g Normal None >50 -120 ug/g Borderline Re-evaluate in 4-6 weeks >120 ug/g Abnormal Repeat as clinically indicated Performed at: [facility] [address] [id number] 61 Internal Grinder: Mehran Vasquez MD, Phone: [phone] Result Units: ug Elast./g Severe Pancreatic [...] Little GFR Left ESRD GFR <15 on SUPERVISOR SCREEN MAKING 7 10/15/20 (TueOct 15) 07:16 PM GURJIT CESPEDES ok Procedures Date Code Description Status 10/09/2020 83342 Office/Outpatient Established Mo d MDM 30-39 Min Completed Medical Devices Description No Information Available Encounters Type Date Location Provider Dx Diagnosis Office Visit 10/09/2020 11:30a [facility] Practice Luara Lutz K50.018 Crohn's disease of small intestine [...] 6:00 am - Gurjit Cespedes MD at [facility] * 07/31/2021 6:00 am - Gurjit Cespedes MD at [facility] * 06/19/2021 6:00 am - Gurjit Cespedes MD at [facility] * 05/08/2021 6:00 am - [facility] 03/30/2021 - Gurjit Cespedes MD* K50.018 [...]
--- OUTSIDE RECORDS SUMMARY | 2021-05-19 15:57 | CCD ---
Continuity of Care Document (CCD) Created on: 03/30/2021 Belkis Gann External Reference #: [id number] : [id number] Sex: Female Author Author Belkis CESPEDES MD Organization Unknown Address [address] [place] [address] Phone [phone] Care Team Providers Care Slate Mixer Name Role Phone Rafiq Sapp M.D. AUTM [phone] Problems Active Problems Provider Date Crohn's disease [...] TB Gurjit Cespedes MD Onset: 06/20/2012 Diarrhea Gujrit Cespedes MD Onset: 06/20/2012 Chronic otitis externa [...] lb BMI (Body Mass Index) 20.7 kg/m2 [place] Body Weight 100 lb Weight 44.906 kg BSA (Body Surface Area) 1.35 m2 10/09/2020 11:25am BP Systolic 150 mmHg BP Diastolic 78 mmHg Height 58 inches 4'10" Weight 107.00 lb BMI (Body Mass Index) 22.4 kg/m2 [place] Body Weight 100 lb Weight 48.535 kg BSA (Body Surface Area) 1.40 m2 Results Test Acquired Date Facility Test Result H/L Range Note CBC With Differential 03/30/2021 [facility] Main Lab [address] [place] [address] [phone] White Blood Count 7.9 10 Normal 4.0-10.0 [...] 36.0-66.0 Lymph % 35.2 % Normal 24.0-44.0 [place] % 7.2 % Normal 2.0-8.0 Eos % 5.0 % High 0.0-3.0 Baso % 0.9 % Normal 0.0-1.0 Immature Granulocyte % 0.3 % Normal 0-3.0 Nucleated Red Blood Cell % 0.0 % Normal 0-0 Neutrophils # 4.1 10 Normal 1.5-8.5 Lymph # 2.8 10 Normal 1.5-5.0 [place] # 0.6 10 Normal 0.0-0.8 Eos # 0.4 10 Normal 0.0-0.5 Baso # 0.1 10 Normal 0.0-0.2 Comprehensive Metabolic Profil 03/30/2021 [facility] Main Lab [address] [place] [address] [phone] Glucose, Fasting 67 mg/dL Low 70-100 Blood [...] 1.1 Low 1.2-2.2 Laboratory test finding 03/30/2021 [facility] Main Lab [address] [place] [address] [phone] Erythrocyte Sedimentation Rate 19 mm/hr Normal 0 -30 C Reactive Protein Quantitativ 0.30 mg/dL Normal 0.00-0.30 2 Laboratory test finding 10/11/2020 [facility] Main Lab [address] [place] [address] [phone] Calprotectin Stool 133 ug/g High 0-120 3 Pancreatic Elastase Stool >500 Normal >200 4 Laboratory test finding 10/09/2020 [facility] Main Lab [address] [place], [place] 5550374 [phone] Vitamin B12 Level 370 pg/mL Normal 247-911 5 CBC With Differential 10/09/2020 [facility] Main Lab [address] [place] [address] [phone] White Blood Count 5.9 10 Normal 4.0-10.0 [...] 36.0-66.0 Lymph % 33.7 % Normal 24.0-44.0 [place] % 6.5 % Normal 2.0-8.0 Eos % 4.8 % High 0.0-3.0 Baso % 0.9 % Normal 0.0-1.0 Immature Granulocyte % 0.2 % Normal 0-3.0 Nucleated Red Blood Cell % 0.0 % Normal 0-0 Neutrophils # 3.2 10 Normal 1.5-8.5 Lymph # 2.0 10 Normal 1.5-5.0 [place] # 0.4 10 Normal 0.0-0.8 Eos # 0.3 10 Normal 0.0-0.5 Baso # 0.1 10 Normal 0.0-0.2 Comprehensive Metabolic Profil 10/09/2020 [facility] Main Lab [address] [place] [address] [phone] Glucose, Fasting 102 mg/dL High 70-100 Blood [...] Little GFR Left ESRD GFR <15 on NUMERICAL CONTROL NESTING OPERATOR 2 03/30/21 (TueMar 30) 07:12 PM GURJIT CESPEDES normal 3 Concentration Interpreta tion Follow-Up <16 - 50 ug/g Normal None >50 -120 ug/g Borderline Re-evaluate in 4-6 weeks >120 ug/g Abnormal Repeat as clinically indicated Performed at: [facility] [address] [id number] Trade Clerk: Mehran Vasquez MD, Phone: [phone] Result Units: ug Elast./g Severe Pancreatic [...] Little GFR Left ESRD GFR <15 on NUMERICAL CONTROL NESTING OPERATOR 7 10/15/20 (TueOct 15) 07:16 PM GURJIT CESPEDES ok Procedures Date Code Description Status 10/09/2020 64320 Office/Outpatient Established Mo d MDM 30-39 Min Completed Medical Devices Description No Information Available Encounters Type Date Location Provider Dx Diagnosis Office Visit 10/09/2020 11:30a [facility] Practice Laura Lutz K50.018 [...] 6:00 am - Gurjit Cespedes MD at [facility] * 07/31/2021 6:00 am - Gurjit Cespedes MD at [facility] * 06/19/2021 6:00 am - Gurjit Cespedes MD at [facility] * 05/08/2021 6:00 am - [facility]/30/2021 - Gurjit Cespedes MD* [...]
--- OUTSIDE RECORDS SUMMARY | 2021-05-19 15:57 | CCD | Continuity of Care Document ---
Author Author Belkis CESPEDES MD Organization Unknown Address [address] [place] [address] Phone [phone] Care Team Providers Care Entrance Guard Name Role Phone Rafiq Sapp M.D. AUTM [phone] Problems Active Problems Provider Date Crohn's disease [...] Gurjit Cespedes MD Onset: 06/20/2012 Diarrhea Gurjit Cespedse MD Onset: 06/20/2012 Chronic otitis externa Rosana [...] lb BMI (Body Mass Index) 20.7 kg/m2 [place] Body Weight 100 lb Weight 44.906 kg BSA (Body Surface Area) 1.35 m2 10/09/2020 11:25am BP Systolic 150 mmHg BP Diastolic 78 mmHg Height 58 inches 4'10" Weight 107.00 lb BMI (Body Mass Index) 22.4 kg/m2 [place] Body Weight 100 lb Weight 48.535 kg BSA (Body Surface Area) 1.40 m2 Results Test Acquired Date Facility Test Result H/L Range Note CBC With Differential 03/30/2021 [facility] Main Lab [address] [place] [address] [phone] White Blood Count 7.9 10 Normal 4.0-10.0 [...] 36.0-66.0 Lymph % 35.2 % Normal 24.0-44.0 [place] % 7.2 % Normal 2.0-8.0 Eos % 5.0 % High 0.0-3.0 Baso % 0.9 % Normal 0.0-1.0 Immature Granulocyte % 0.3 % Normal 0-3.0 Nucleated Red Blood Cell % 0.0 % Normal 0-0 Neutrophils # 4.1 10 Normal 1.5-8.5 Lymph # 2.8 10 Normal 1.5-5.0 [place] # 0.6 10 Normal 0.0-0.8 Eos # 0.4 10 Normal 0.0-0.5 Baso # 0.1 10 Normal 0.0-0.2 Comprehensive Metabolic Profil 03/30/2021 [facility] Main Lab [address] [place] [address] [phone] Glucose, Fasting 67 mg/dL Low 70-100 Blood [...] 1.1 Low 1.2-2.2 Laboratory test finding 03/30/2021 [facility] Main Lab [address] [place] [address] [phone] Erythrocyte Sedimentation Rate 19 mm/hr Normal 0 -30 C Reactive Protein Quantitativ 0.30 mg/dL Normal 0.00-0.30 2 Laboratory test finding 10/11/2020 [facility] Main Lab [address] [place] [address] [phone] Calprotectin Stool 133 ug/g High 0-120 3 Pancreatic Elastase Stool >500 Normal >200 4 Laboratory test finding 10/09/2020 [facility] Main Lab [address] [place], [place] 7596590 [phone] Vitamin B12 Level 370 pg/mL Normal 247-911 5 CBC With Differential 10/09/2020 [facility] Main Lab [address] [place] [address] [phone] White Blood Count 5.9 10 Normal 4.0-10.0 [...] 36.0-66.0 Lymph % 33.7 % Normal 24.0-44.0 [place] % 6.5 % Normal 2.0-8.0 Eos % 4.8 % High 0.0-3.0 Baso % 0.9 % Normal 0.0-1.0 Immature Granulocyte % 0.2 % Normal 0-3.0 Nucleated Red Blood Cell % 0.0 % Normal 0-0 Neutrophils # 3.2 10 Normal 1.5-8.5 Lymph # 2.0 10 Normal 1.5-5.0 [place] # 0.4 10 Normal 0.0-0.8 Eos # 0.3 10 Normal 0.0-0.5 Baso # 0.1 10 Normal 0.0-0.2 Comprehensive Metabolic Profil 10/09/2020 [facility] Main Lab [address] [place] [address] [phone] Glucose, Fasting 102 mg/dL High 70-100 Blood [...] Little GFR Left ESRD GFR <15 on ANIMAL SCIENCE PROFESSOR 2 03/30/21 (TueMar 30) 07:12 PM GURJIT CESPEDES normal 3 Concentration Interpreta tion Follow-Up <16 - 50 ug/g Normal None >50 -120 ug/g Borderline Re-evaluate in 4-6 weeks >120 ug/g Abnormal Repeat as clinically indicated Performed at: [facility] [address] [id number] Purifying Plant Operator: Mehran Vasquez MD, Phone: [phone] Result Units: ug Elast./g Severe Pancreatic [...] Little GFR Left ESRD GFR <15 on ANIMAL SCIENCE PROFESSOR 7 10/15/20 (TueOct 15) 07:16 PM GURJIT CESPEDES ok Procedures Date Code Description Status 10/09/2020 28074 Office/Outpatient Established Mo d MDM 30-39 Min Completed Medical Devices Description No Information Available Encounters Type Date Location Provider Dx Diagnosis Office Visit 10/09/2020 11:30a [facility] Laura Lutz K50.018 Crohn's disease [...] 6:00 am - Gurjit Cespedes MD at [facility] * 07/31/2021 6:00 am - Gurjit Cespedes MD at [facility] * 06/19/2021 6:00 am - Gurjit Cespedes MD at [facility] * 05/08/2021 6:00 am - [facility]/30/2021 - Gurjit Cespedes MD* [...]
--- OUTSIDE RECORDS SUMMARY | 2021-05-19 15:58 | CCD ---
Author Author [facility] Organization [facility] Address Unknown Phone Unavailable Care Team Providers Care Soa Integration Developer Name Role Phone Mcmillin, L Roro MAINTENANCE PORTER Unavailable Unavailable Mcmillin, L Roro MAINTENANCE PORTER Unavailable Unavailable Razia, L Roro MAINTENANCE PORTER Unavailable Unavailable Razia, L Roro MAINTENANCE PORTER Unavailable Unavailable Razia, L Roro MAINTENANCE PORTER Unavailable Unavailable Razia, L Roro MAINTENANCE PORTER Unavailable Unavailable Mcmillin, L Roro MAINTENANCE PORTER Unavailable Unavailable Razia, L Roro MAINTENANCE PORTER Unavailable Unavailable Mcmillin, L Roro MAINTENANCE PORTER Unavailable Unavailable Razia, L Roro MAINTENANCE PORTER Unavailable Unavailable Razia, L Roro MAINTENANCE PORTER Unavailable Unavailable Razia, L Roro MAINTENANCE PORTER Unavailable Unavailable Razia, L Roro MAINTENANCE PORTER Unavailable Unavailable Mcmillin, L Roro MAINTENANCE PORTER Unavailable Unavailable Razia, L Roro MAINTENANCE PORTER Unavailable Unavailable Mcmillin, L Roro MAINTENANCE PORTER Unavailable Unavailable Razia, L Roro MAINTENANCE PORTER Unavailable Unavailable Razia, L Roro MAINTENANCE PORTER Unavailable Unavailable Mcmillin, L Roro MAINTENANCE PORTER Unavailable Unavailable Mcmillin, L Roro MAINTENANCE PORTER Unavailable Unavailable Mcmillin, L Roro MAINTENANCE PORTER Unavailable Unavailable Razia, L Roro MAINTENANCE PORTER Unavailable Unavailable Razia, L Roor MAINTENANCE PORTER Unavailable Unavailable Razia, L Roro MAINTENANCE PORTER Unavailable Unavailable Razia, L Roro MAINTENANCE PORTER Unavailable Unavailable Razia, L Roro MAINTENANCE PORTER Unavailable Unavailable Mcmillin, L Roro MAINTENANCE PORTER Unavailable Unavailable Mcmillin, L Roro MAINTENANCE PORTER Unavailable Unavailable Mcmillin, L Roro MAINTENANCE PORTER Unavailable Unavailable Mcmillin, L Roro MAINTENANCE PORTER Unavailable Unavailable Mcmillin, L Roro MAINTENANCE PORTER Unavailable Unavailable Razia, L Roro MAINTENANCE PORTER Unavailable Unavailable Mcmillin, L Roro MAINTENANCE PORTER Unavailable Unavailable Mcmillin, L Roro MAINTENANCE PORTER Unavailable Unavailable Razia, L Roro MAINTENANCE PORTER Unavailable Unavailable Razia, L Roro MAINTENANCE PORTER Unavailable Unavailable Razia, L Roro MAINTENANCE PORTER Unavailable Unavailable Mcmillin, L Roro MAINTENANCE PORTER Unavailable Unavailable Mcmillin, L Roro MAINTENANCE PORTER [facility] Unavailable ARMANDO, MATA PA Unavailable Unavailable ARMANDO, MATA PA Unavailable Unavailable ARMANDO, MATA PA Unavailable Unavailable ARMANDO, MATA PA Unavailable Unavailable ARMANDO, MATA PA Unavailable Unavailable ARMANDO, MATA PA Unavailable Unavailable ARMANDO, MATA PA Unavailable Unavailable ARMANDO, MATA PA Unavailable Unavailable ARMANDO, MATA PA Unavailable Unavailable ARMANDO, MATA PA Unavailable Unavailable ARMANDO, MATA PA Unavailable Unavailable ARMANDO, MATA PA Unavailable Unavailable ARMANDO, MATA PA Unavailable Unavailable ARMANDO, MATA PA Unavailable Unavailable ARMANDO, MATA PA Unavailable Unavailable ARMANDO, MATA PA Unavailable Unavailable ARMANDO, MATA PA Unavailable Unavailable ARMANDO, MATA PA Unavailable Unavailable ARMANDO, MATA PA Unavailable Unavailable ARMANDO, MATA PA Unavailable Unavailable ARMANDO, MATA PA Unavailable Unavailable ARMANDO, MATA PA Unavailable Unavailable ARMANDO, MATA PA Unavailable Unavailable ARMANDO, MATA PA Unavailable Unavailable ARMANDO, MATA PA Unavailable Unavailable ARMANDO, MATA PA Unavailable Unavailable ARMANDO, MATA PA Unavailable Unavailable ARMANDO, MATA PA Unavailable Unavailable ARMANDO, MATA PA Unavailable Unavailable ARMANDO, MATA PA Unavailable Unavailable ARMANDO, MATA PA Unavailable Unavailable ARMANDO, MATA PA Unavailable Unavailable ARMANDO, MATA PA Unavailable Unavailable ARMANDO, MATA PA Unavailable Unavailable ARMANDO, MATA PA Unavailable Unavailable ARMANDO, MATA PA Unavailable Unavailable RING, K COSMO PA Unavailable Unavailable RING, K COSMO PA Unavailable Unavailable RING, K COSMO PA Unavailable Unavailable RING, K COSMO PA Unavailable Unavailable RING, K COSMO PA Unavailable Unavailable RING, K COSMO PA Unavailable Unavailable RING, K COSMO PA Unavailable Unavailable RING, K COSMO PA Unavailable Unavailable RING, K COSMO PA Unavailable Unavailable RING, K COSMO PA Unavailable Unavailable RING, K COSMO PA Unavailable Unavailable RING, K COSMO PA Unavailable Unavailable RING, K COSMO PA Unavailable Unavailable RING, K COSMO PA Unavailable Unavailable RING, K COSMO PA Unavailable Unavailable RING, K COSMO PA Unavailable Unavailable RING, K COSMO PA Unavailable Unavailable RING, K CSOMO PA Unavailable Unavailable RING, K COSMO PA Unavailable Unavailable RING, K COSMO PA Unavailable Unavailable RING, K COSMO PA Unavailable Unavailable Nathaniel, Radha Rakesh CASINO FLOOR RUNNER Unavailable Unavailable Nathaniel, Radha Rakesh CASINO FLOOR RUNNER Unavailable Unavailable [place], Radha Rakesh CASINO FLOOR RUNNER Unavailable Unavailable Nathaniel, Radha Rakesh CASINO FLOOR RUNNER Unavailable Unavailable [place], Radha Rakesh CASINO FLOOR RUNNER Unavailable Unavailable Nathaniel, Radha Rakesh CASINO FLOOR RUNNER Unavailable Unavailable Nathaniel, Radha Rakesh CASINO FLOOR RUNNER Unavailable Unavailable Nathaniel, Radha Rakesh CASINO FLOOR RUNNER Unavailable Unavailable [place], Radha Rakesh CASINO FLOOR RUNNER Unavailable Unavailable [place], Radha Rakesh CASINO FLOOR RUNNER Unavailable Unavailable [place], Radha Rakesh CASINO FLOOR RUNNER Unavailable Unavailable Nathaniel, Radha Rakesh CASINO FLOOR RUNNER Unavailable Unavailable Nathaniel, Radha Rakesh CASINO FLOOR RUNNER Unavailable Unavailable [place], Radha Rakesh CASINO FLOOR RUNNER Unavailable Unavailable GURJIT DELEON MD Unavailable Unavailable PANCHO, GURJIT PATEL Unavailable Unavailable GURJIT DELEON MD Unavailable Unavailable GURJIT DELEON MD Unavailable Unavailable GURJIT DELEON MD Unavailable Unavailable REINGURJIT BEAN MD Unavailable Unavailable REINGURJIT BEAN MD Unavailable Unavailable REINGURJIT BEAN MD Unavailable Unavailable GURJIT DELEON MD Unavailable Unavailable REINGURJIT BEAN MD Unavailable Unavailable GURJIT DELEON MD Unavailable Unavailable GURJIT DELEON MD Unavailable Unavailable GURJIT DELEON MD Unavailable Unavailable GURJIT DELEON MD Unavailable Unavailable PANCHO, GURJIT PATEL Unavailable Unavailable REINGENEVA, GURJIT PATEL Unavailable Unavailable PANCHO, GURJIT PATEL Unavailable Unavailable PANCHO, GURJIT PATEL Unavailable Unavailable PANCHO, GURJIT PATEL Unavailable Unavailable GURJIT DELEON MD Unavailable Unavailable PANCHO, GURJIT PATEL Unavailable Unavailable PANCHO, GURJIT PATEL Unavailable Unavailable REINGURJIT BEAN MD Unavailable Unavailable REINGURJIT BEAN MD Unavailable Unavailable REINGENEVA, GURJIT PATEL Unavailable Unavailable REINGENEVA, GURJIT PATEL Unavailable Unavailable REINDL, GURJIT PATEL Unavailable Unavailable REINDL, GURJIT PATEL Unavailable Unavailable REINDL, GURJIT PATEL Unavailable Unavailable REINDL, GURJIT PATEL Unavailable Unavailable REINDL, GURJIT PATEL Unavailable Unavailable REINDL, GURJIT PATEL Unavailable Unavailable REINDL, GURJIT PATEL Unavailable Unavailable REINDL, GURJIT PATEL Unavailable Unavailable REINDL, GURJIT PATEL Unavailable Unavailable REINDL, GURJIT PATEL Unavailable Unavailable REINDL, GURJIT PATEL Unavailable Unavailable REINDL, GURJIT PATEL Unavailable Unavailable REINDL, GURJIT PATEL Unavailable Unavailable REINDL, GURJIT PATEL Unavailable Unavailable REINDL, GURJIT PATEL Unavailable Unavailable REINDL, GURJIT PATEL Unavailable Unavailable Jaimee, Ted W Samanta CASINO FLOOR RUNNER-C Unavailable Unavailabl e Jaimee, Regalexi W Samanta CASINO FLOOR RUNNER-C Unavailable Unavailabl e Jaimee, Regalexi W Samanta CASINO FLOOR RUNNER-C Unavailable Unavailabl e Jaimee, Regalexi W Samanta CASINO FLOOR RUNNER-C Unavailable Unavailabl e Jaimee, Regalexi Issa Samanta CASINO FLOOR RUNNER-C Unavailable Unavailabl e Jaimee, Regalexi W Samanta CASINO FLOOR RUNNER-C Unavailable Unavailabl e Jaimee, Regalexi W Samanta CASINO FLOOR RUNNER-C Unavailable Unavailabl e Jaimee, Regalexi Issa Samanta CASINO FLOOR RUNNER-C Unavailable Unavailabl e Jaimee, Regalexi W Samanta CASINO FLOOR RUNNER-C Unavailable Unavailabl e Jaimee, Regalexi W Samanta CASINO FLOOR RUNNER-C Unavailable Unavailabl e Jaimee, Regalexi W Samanta CASINO FLOOR RUNNER-C Unavailable Unavailabl e Jaimee, Regalexi W Samanta CASINO FLOOR RUNNER-C Unavailable Unavailabl e Jaimee, Regalexi W Samanta CASINO FLOOR RUNNER-C Unavailable Unavailabl e Jaimee, Regalexi W Samanta CASINO FLOOR RUNNER-C Unavailable Unavailabl e Jaimee, Regalexi W Samanta CASINO FLOOR RUNNER-C Unavailable Unavailabl e Jaimee, Regalexi W Samanta CASINO FLOOR RUNNER-C Unavailable Unavailabl e Jaimee, Regalexi W Samanta CASINO FLOOR RUNNER-C Unavailable Unavailabl e Jaimee, Regalexi W Samanta CASINO FLOOR RUNNER-C Unavailable Unavailabl e Jaimee, Regalexi W Samanta CASINO FLOOR RUNNER-C Unavailable Unavailabl e Jaimee, Regalexi W Samanta CASINO FLOOR RUNNER-C Unavailable Unavailabl e Jaimee, Regalexi W Samanta CASINO FLOOR RUNNER-C Unavailable Unavailabl e Jaimee, Ted [place] CASINO FLOOR RUNNER-C Unavailable Unavailabl e Jaimee, Ted [place] CASINO FLOOR RUNNER-C Unavailable Unavailabl e Jaimee, Ted [place] CASINO FLOOR RUNNER-C Unavailable Unavailabl e Jaimee, Ted [place] CASINO FLOOR RUNNER-C Unavailable Unavailabl e Jaimee, Ted [place] CASINO FLOOR RUNNER-C Unavailable Unavailabl e Jaimee, Ted Zavalae CASINO FLOOR RUNNER-C Unavailable Unavailabl e Jaimee, Ted [place] CASINO FLOOR RUNNER-C Unavailable Unavailabl e Jaimee, Ted Zavalae CASINO FLOOR RUNNER-C Unavailable Unavailabl e Jaimee, Ted [place] CASINO FLOOR RUNNER-C Unavailable Unavailabl e Jaimee, Ted Zavalae CASINO FLOOR RUNNER-C Unavailable Unavailabl e Jaimee, Ted Zavalae CASINO FLOOR RUNNER-C Unavailable Unavailabl e LETTIERE, A DI PA Unavailable Unavailable LETTIERE, A DI PA Unavailable Unavailable LETTIERE, A DI PA Unavailable Unavailable LETTIERE, A DI PA Unavailable Unavailable LETTIERE, A DI PA Unavailable Unavailable LETTIERE, A DI PA Unavailable Unavailable LETTIERE, A DI PA Unavailable Unavailable LETTIERE, A DI PA Unavailable Unavailable LETTIERE, A DI PA Unavailable Unavailable LETTIERE, A DI PA Unavailable Unavailable LETTIERE, A DI PA Unavailable Unavailable LETTIERE, A DI PA Unavailable Unavailable LETTIERE, A DI PA Unavailable Unavailable LETTIERE, A DI PA Unavailable Unavailable LETTIERE, A DI PA Unavailable Unavailable LETTIERE, A DI PA Unavailable Unavailable LETTIERE, A DI PA Unavailable Unavailable LETTIERE, A DI PA Unavailable Unavailable LETTIERE, A DI PA Unavailable Unavailable LETTIERE, A DI PA Unavailable Unavailable LETTIERE, A DI PA Unavailable Unavailable LETTIERE, A DI PA Unavailable Unavailable LETTIERE, A DI PA Unavailable Unavailable LETTIERE, A DI PA Unavailable Unavailable LETTIERE, A DI PA Unavailable Unavailable LETTIERE, A DI PA Unavailable Unavailable LETTIERE, A DI PA Unavailable Unavailable LETTIERE, A DI PA Unavailable Unavailable LETTIERE, A DI PA Unavailable Unavailable LETTIERE, A DI PA Unavailable Unavailable LETTIERE, A DI PA Unavailable Unavailable FLORES, ANTWON BRENDA RPA-C Unavailable Unavailable FLORES, ANTWON BRENDA RPA-C Unavailable Unavailable FLORES, ANTWON BRENDA RPA-C Unavailable Unavailable FLORES, ANTWON BRENDA RPA-C Unavailable Unavailable FLORES, ANTWON BRENDA RPA-C Unavailable Unavailable FLORES, ANTWON BRENDA RPA-C Unavailable Unavailable FLORES, ANTWON BRENDA RPA-C Unavailable Unavailable FLORES, ANTWON BRENDA RPA-C Unavailable Unavailable FLORES, ANTWON BRENDA RPA-C Unavailable Unavailable FLORES, ANTWON BRENDA RPA-C Unavailable Unavailable FLORES, ANTWON BRENDA RPA-C Unavailable Unavailable FLORES, ANTWON BRENDA RPA-C Unavailable Unavailable FLORES, ANTWON BRENDA RPA-C Unavailable Unavailable FLORES, ANTWON BRENDA RPA-C Unavailable Unavailable FLORES, ANTWON BRENDA RPA-C Unavailable Unavailable FLORES, ANTWON BRENDA RPA-C Unavailable Unavailable FLORES, ANTWON BRENDA RPA-C Unavailable Unavailable FLORES, ANTWON BRENDA RPA-C Unavailable Unavailable FLORES, ANTWON BRENDA RPA-C Unavailable Unavailable FLORES, ANTWON BRENDA RPA-C Unavailable Unavailable FLORES, ANTWON BRENDA RPA-C Unavailable Unavailable FLORES, ANTWON BRENDA RPA-C Unavailable Unavailable FLORES, ANTWON BRENDA RPA-C Unavailable Unavailable FLORES, ANTWON BRENDA RPA-C Unavailable Unavailable FLORES, ANTWON BRENDA RPA-C Unavailable Unavailable FLORES, ANTWON BRENDA RPA-C Unavailable Unavailable FLORES, ANTWON BRENDA RPA-C Unavailable Unavailable FLORES, ANTWON BRENDA RPA-C Unavailable Unavailable FLORES, ANTWON BRENDA RPA-C Unavailable Unavailable FLORES, ANTWON BRENDA RPA-C Unavailable Unavailable FLORES, ANTWON BRENDA RPA-C Unavailable Unavailable FLORES, ANTWON BRENDA RPA-C Unavailable Unavailable FLORES, ANTWON BRENDA RPA-C Unavailable Unavailable FLORES, ANTWON BRENDA RPA-C Unavailable Unavailable FLORES, ANTWON BRENDA RPA-C Unavailable Unavailable FLORES, ANTWON BRENDA RPA-C Unavailable Unavailable FLORES, ANTWON BRENDA RPA-C Unavailable Unavailable FLORES, ANTWON BRENDA RPA-C Unavailable Unavailable FLORES, ANTWON BRENDA RPA-C Unavailable Unavailable FLORES, ANTWON BRENDA RPA-C Unavailable Unavailable FLORES, ANTWON BRENDA RPA-C Unavailable Unavailable FLORES, ANTWON BRENDA RPA-C Unavailable Unavailable FLORES, ANTWON BRENDA RPA-C Unavailable Unavailable Campanaro, Mare Devora PA Unavailable Unavailable Campanaro, Mare Devora PA Unavailable Unavailable Campanaro, Mare Devora PA Unavailable Unavailable Campanaro, Mare Devora PA Unavailable Unavailable Campanaro, Mare Devora PA Unavailable Unavailable Campanaro, Mare Devora PA Unavailable Unavailable Campanaro, Mare Devora PA Unavailable Unavailable Campanaro, Mare Devora PA Unavailable Unavailable Campanaro, Mare Devora PA Unavailable Unavailable Campanaro, Mare Devora PA Unavailable Unavailable Campanaro, Mare Devora PA Unavailable Unavailable Campan[place], Mare Devora PA Unavailable Unavailable Campanaro, Mare Devora PA Unavailable Unavailable Campanaro, Mare Devora PA Unavailable Unavailable Campan[place], Mare Devora PA Unavailable Unavailable Campanaro, Mare Deovra PA Unavailable Unavailable Campanaro, Mare Devora PA Unavailable Unavailable JULIA, A SEAN DO Unavailable Unavailable JULIA, A SEAN DO Unavailable Unavailable JULIA, A SEAN DO Unavailable Unavailable JULIA, A SEAN DO Unavailable Unavailable JULIA, A SEAN DO Unavailable Unavailable JULIA, A SEAN DO Unavailable Unavailable JULIA, A SEAN DO Unavailable Unavailable JULIA, A SEAN DO Unavailable Unavailable JULIA, A SEAN DO Unavailable Unavailable JULIA, A SEAN DO Unavailable Unavailable JULIA, A SEAN DO Unavailable Unavailable JULIA, A SEAN DO Unavailable Unavailable JULIA, A SEAN DO Unavailable Unavailable JULIA, A SEAN DO Unavailable Unavailable JULIA, A SEAN DO Unavailable Unavailable JULIA, A SEAN DO Unavailable Unavailable JULIA, A SEAN DO Unavailable Unavailable JULIA, A SEAN DO Unavailable Unavailable JULIA, A SEAN DO Unavailable Unavailable JULIA, A SEAN DO Unavailable Unavailable JULIA, A SEAN DO Unavailable Unavailable JULIA, A SEAN DO Unavailable Unavailable JULIA, A SEAN DO Unavailable Unavailable JULIA, A SEAN DO Unavailable Unavailable JULIA, A SEAN DO Unavailable Unavailable JULIA, A SEAN DO Unavailable Unavailable JULIA, A SEAN DO Unavailable Unavailable JULIA, A SEAN DO Unavailable Unavailable JULIA, A SEAN DO Unavailable Unavailable JULIA, A SEAN DO Unavailable Unavailable JULIA, A SEAN DO Unavailable Unavailable JULIA, A SEAN DO Unavailable Unavailable JULIA, A SEAN DO Unavailable Unavailable JULIA, A SEAN DO Unavailable Unavailable JULIA, A SEAN DO Unavailable Unavailable JULIA, A SEAN DO Unavailable Unavailable JULIA, A SEAN DO Unavailable Unavailable JULIA, A SEAN DO Unavailable Unavailable JULIA, A SEAN DO Unavailable Unavailable JULIA, A SEAN DO Unavailable Unavailable JULIA, A SEAN DO Unavailable Unavailable JULIA, A SEAN DO Unavailable Unavailable JULIA, A SEAN DO Unavailable Unavailable JULIA, A SEAN DO Unavailable Unavailable JULIA, A SEAN DO Unavailable Unavailable JULIA, A SEAN DO Unavailable Unavailable JULIA, A SEAN DO Unavailable Unavailable JULIA, A SEAN DO Unavailable Unavailable JULIA, A SEAN DO Unavailable Unavailable JULIA, A SEAN DO Unavailable Unavailable JULIA, A SEAN DO Unavailable Unavailable JULIA, A SEAN DO Unavailable Unavailable JULIA, A SEAN DO Unavailable Unavailable JULIA, A SEAN DO Unavailable Unavailable JULIA, A SEAN DO Unavailable Unavailable JULIA, A SEAN DO Unavailable Unavailable JULIA, A SEAN DO Unavailable Unavailable JULIA, A SEAN DO Unavailable Unavailable JULIA, A SEAN DO Unavailable Unavailable JULIA, A SEAN DO Unavailable Unavailable JULIA, A SEAN DO Unavailable Unavailable JULIA, A SEAN DO Unavailable Unavailable JULIA, A SEAN DO Unavailable Unavailable JULIA, A SEAN DO Unavailable Unavailable Ileana, A Melissa CASINO FLOOR RUNNER Unavailable Unavailable Ileana, A Melissa CASINO FLOOR RUNNER Unavailable Unavailable Ileana, A Melissa CASINO FLOOR RUNNER Unavailable Unavailable Ileana, A Melissa CASINO FLOOR RUNNER Unavailable Unavailable Ileana, A Melissa CASINO FLOOR RUNNER Unavailable Unavailable Ileana, A Melissa CASINO FLOOR RUNNER Unavailable Unavailable Ileana, A Melissa CASINO FLOOR RUNNER Unavailable Unavailable Ileana, A Melissa CASINO FLOOR RUNNER Unavailable Unavailable Ileana, A Melissa CASINO FLOOR RUNNER Unavailable Unavailable Ileana, A Melissa CASINO FLOOR RUNNER Unavailable Unavailable Ileana, A Melissa CASINO FLOOR RUNNER Unavailable Unavailable Ileana, A Melissa CASINO FLOOR RUNNER Unavailable Unavailable Ileana, A Melissa CASINO FLOOR RUNNER Unavailable Unavailable Ileana, A Melissa CASINO FLOOR RUNNER Unavailable Unavailable Ileana, A Melissa CASINO FLOOR RUNNER Unavailable Unavailable Ileana, A Melissa CASINO FLOOR RUNNER Unavailable Unavailable Ileana, A Melissa CASINO FLOOR RUNNER Unavailable Unavailable Ileana, A Melissa CASINO FLOOR RUNNER Unavailable Unavailable Ileana, A Melissa CASINO FLOOR RUNNER Unavailable Unavailable Ileana, A Melissa CASINO FLOOR RUNNER Unavailable Unavailable Ileana, A Melissa CASINO FLOOR RUNNER Unavailable Unavailable Ileana, A Melissa CASINO FLOOR RUNNER Unavailable Unavailable Ileana, A Melissa CASINO FLOOR RUNNER Unavailable Unavailable Ileana, A Melissa CASINO FLOOR RUNNER Unavailable Unavailable Ileana, A Melissa CASINO FLOOR RUNNER Unavailable Unavailable Ileana, A Melissa CASINO FLOOR RUNNER Unavailable Unavailable Ileana, A Melissa CASINO FLOOR RUNNER Unavailable Unavailable Ileana, A Melissa CASINO FLOOR RUNNER Unavailable Unavailable Ileana, A Melissa CASINO FLOOR RUNNER Unavailable Unavailable Ileana, A Melissa CASINO FLOOR RUNNER Unavailable Unavailable Ileana, A Melissa CASINO FLOOR RUNNER Unavailable Unavailable Ileana, A Melissa CASINO FLOOR RUNNER Unavailable Unavailable Ileana, A Melissa CASINO FLOOR RUNNER Unavailable Unavailable Ileana, A Melissa CASINO FLOOR RUNNER Unavailable Unavailable Ileana, A Melissa CASINO FLOOR RUNNER Unavailable Unavailable Ileana, A Melissa CASINO FLOOR RUNNER Unavailable Unavailable Ileana, A Melissa CASINO FLOOR RUNNER Unavailable Unavailable Ileana, A Melissa CASINO FLOOR RUNNER Unavailable Unavailable Ileana, A Melissa CASINO FLOOR RUNNER Unavailable Unavailable Ileana, A Melissa CASINO FLOOR RUNNER Unavailable Unavailable Ileana, A Melissa CASINO FLOOR RUNNER Unavailable Unavailable Ileana, A Melissa CASINO FLOOR RUNNER Unavailable Unavailable Ileana, A Melissa CASINO FLOOR RUNNER Unavailable Unavailable Ileana, A Melissa CASINO FLOOR RUNNER Unavailable Unavailable Ileana, A Melissa CASINO FLOOR RUNNER Unavailable Unavailable Ileana, A Melissa CASINO FLOOR RUNNER Unavailable Unavailable Ileana, A Melissa CASINO FLOOR RUNNER Unavailable Unavailable Ileana, A Melissa CASINO FLOOR RUNNER Unavailable Unavailable Ileana, A Emlissa CASINO FLOOR RUNNER Unavailable Unavailable Ileana, A Melissa CASINO FLOOR RUNNER Unavailable Unavailable Ileana, A Melissa CASINO FLOOR RUNNER Unavailable Unavailable Ileana, A Melissa CASINO FLOOR RUNNER Unavailable Unavailable Ileana, A Melissa CASINO FLOOR RUNNER Unavailable Unavailable Ileana, A Melissa CASINO FLOOR RUNNER Unavailable Unavailable [place], Radha Rakesh CASINO FLOOR RUNNER Unavailable Unavailable Nathaniel, Radha Rakesh CASINO FLOOR RUNNER Unavailable Unavailable Nathaniel, Radha Rakesh CASINO FLOOR RUNNER Unavailable Unavailable [place], Radha Rakesh CASINO FLOOR RUNNER Unavailable Unavailable Nathaniel, Radha Rakesh CASINO FLOOR RUNNER Unavailable Unavailable Nathaniel, Radha Rakesh CASINO FLOOR RUNNER Unavailable Unavailable Nathaniel, Radha Rakesh CASINO FLOOR RUNNER Unavailable Unavailable Nathaniel, Radha Rakesh CASINO FLOOR RUNNER Unavailable Unavailable [place], Radha Rakesh CASINO FLOOR RUNNER Unavailable Unavailable [place], Radha Cameron CASINO FLOOR RUNNER Unavailable Unavailable [place], Radha Cameron CASINO FLOOR RUNNER Unavailable Unavailable [place], Radha Cameron CASINO FLOOR RUNNER Unavailable Unavailable [place], Radha Cameron CASINO FLOOR RUNNER Unavailable Unavailable Nathaniel, Radha Cameron CASINO FLOOR RUNNER Unavailable Unavailable Re-disclosure Warning The records that you are about to access may contain information from federally-assisted alcohol or drug abuse programs. If such information is present, then the following federally mandated warning applies: This information has been disclosed to you from records protected by federal confidentiality rules (42 CFR part 2). The federal rules prohibit you from making any further disclosure of this information unless further disclosure is expressly permitted by the written consent of the person to whom it pertains or as otherwise permitted by 42 CFR part 2. A general authorization for the release of medical or other information is NOT sufficient for this purpose. The Federal rules restrict any use of the information to criminally investigate or prosecute any alcohol or drug abuse patient.The records that you are about to access may contain highly sensitive health information, the redisclosure of which is protected by Article 27-F of the [facility] Public Health law. If you continue you may have access to information: Regarding HIV / AIDS; Provided by facilities licensed or operated by the [facility] Office of Mental Health; or Provided by the [facility] Office for People With Developmental Disabilities. If such information is present, then the following [facility] mandated warning applies: This information has been disclosed to you from confidential records which are protected by state law. State law prohibits you from making any further disclosure of this information without the specific written consent of the person to whom it pertains, or as otherwise permitted by law. Any unauthorized further disclosure in violation of state law may result in a fine or fci sentence or both. A general authorization for the release of medical or other information is NOT sufficient authorization for further disc losure. Family History Family Member Name Family Member Gender Family Member Status Date o f Status Description Data Source(s) Unknown Unknown Problem [facility] ([facility]) Unknown Male Problem MED[facility] ([facility] Unknown Unknown Problem [facility] ([facility]) Unknown Unknown Encounters Encounter Providers Location Date Indications Data Source(s ) Outpatient Attender: GURJIT Mancera/Shaun/Jani/Rein dl 03/30/2021 03:30:00 PM EDT MEDENT ([facility]) Outpatient Attender: Rakesh Armstrong FNPReferrer: Danielle MORAES EMERGENCY ROOM-LAB REF 03/09/2021 10:56:00 AM EDT - 03/09/2021 10:56:[address] [facility] Outpatient Attender: Rakesh Armstrong FNPConsultant: [facility] [id number] 03/09/2021 10:17:00 AM [facility] Outpatient Attender: Rakesh MORAES 03/09/2021 10:14:[address] [facility] Outpatient Attender: Roro CHERRY 03/04/2021 08:38:[address] [facility] Outpatient Attender: Roro Randle RNPReferrer: Sangeeta MORAES EMERGENCY ROOM-MAMMO 02/25/2021 11:21:00 AM EDT - 02/25/2021 11:21:[address] [facility] Outpatient Attender: Roro CHERRY 02/04/2021 10:00:[address] [facility] Outpatient Attender: Samanta IRVINGP-CReferrer: Me alex MORAES EMERGENCY ROOM-LAB REF 11/13/2020 03:27:00 PM EDT - 11/13/2020 03:27:[address] [facility] Outpatient Attender: SEAN DUMONT DOConsultant: [facility] [id number] 11/13/2020 01:15:00 PM [facility] Outpatient Attender: Samanta Hermosillo CASINO FLOOR RUNNER-C 11/13/2020 01:01:[address] [facility] Outpatient Attender: GURJIT Mancera/Shaun/Jani/Rein dl 10/09/2020 11:30:00 AM EDT [facility] ([facility]) Outpatient Attender: COSMO Fuentes 08/20/2020 11:30:00 AM EST [facility] ([facility]) [place] [address] [address] 07/25/2020 12:00:00 AM EST eCW1 ([facility]) Outpatient Attender: DI Otero Prim pedro 07/09/2020 12:20:00 PM EST [facility] ([facility] Outpatient Attender: DI Otero Prim pedro 06/06/2020 06:25:00 PM EST [facility] ([facility]) Outpatient [facility] 06/02/2020 12:38:00 PM [facility] Outpatient Attender: Melissa MORAES 05/27/2020 08:00 :00 AM [facility] Outpatient [facility] 05/14/2020 12:44:00 PM EDT [facility] Outpatient [facility] 05/14/2020 12:43:01 PM EDT [facility] Outpatient [facility] 05/14/2020 10:01:00 AM EDT [facility] Outpatient Attender: DI Otero Prim pedro 05/09/2020 03:35:00 PM EDT [facility] ([facility]) Outpatient Attender: Devora Otero Prim pedro 04/21/2020 04:15:00 PM EDT [facility] ([facility]) Outpatient 04/03/2020 12:00:00 AM [facility] Outpatient Attender: Melissa RIOSttender: BRENDA SANCHEZ RPA-C 03/31/2020 12:01:[address] [facility] Outpatient Attender: MATA Rodrigueza ry 03/28/2020 10:30:00 AM EDT [facility] ([facility]) Outpatient Attender: GURJIT Mancera/Shaun/Jani/Melanie bean 03/26/2020 09:30:00 AM EDT [facility] ([facility]) Outpatient Attender: BRENDA FLORES RPA-C 02/28/2020 12:01:[address] [facility] Outpatient Attender: BRENDA GUERREROCReferrer: BRENDA FLORES RPA-C 04/24/2019 04:50:00 PM EDT - 04/24/2019 04:50:00 PM [facility] Outpatient Attender: BRENDA HOGAN 11/21/2018 01:00:[address] [facility] Outpatient Attender: BRENDA HOGAN 09/16 12:52:00 PM EDT - 10/05/2018 12:52:[address] [facility] Medications Medication Brand Name Start Date Product Form Dose Route Admi nistrative Instructions Pharmacy Instructions Status Indications Reaction Description Data Source(s) 4 gram 03/31/2021 12:00:00 AM EDT powder in packet 90 TAKE 1 PACKET BY MOUTH 3 TIMES PER DAY MIXED WITH WATER OR NON-CARBONATED DRINK FOR DIARRHEA TAKE 1 PACKET BY MOUTH 3 TIMES PER DAY MIXED WITH WATER OR NON-CARBONATED DRINK FOR DIARRHEA SOLD: 04/01/2021 [facility] 17 gram/dose 03/31/2021 12:00:00 AM EDT powder [address] DELEON COLON PREPARTATION INSTRUCTIONS USE DIRECTED SEE DR. DELEON COLON PREPARTATION INSTRUCTIONS SOLD: 04/01/2021 [facility] 4 gram 03/31/2021 12:00:00 AM EDT powder in packet 90 TAKE 1 PACKET BY MOUTH 3 TIMES PER DAY MIXED WITH WATER OR NON-CARBONATED DRINK FOR DIARRHEA TAKE 1 PACKET BY MOUTH 3 TIMES PER DAY MIXED WITH WATER OR NON-CARBONATED DRINK FOR DIARRHEA SOLD: 05/02/2021 [facility] 400 mg/5 mL 03/31/2021 12:00:00 AM EDT suspension 473 TAKE 45MLS [3 TABLESPOONFULS] BY MOUTH DIRECTED ON COLONOSCOPY PREP SHEET TAKE 45MLS [3 TABLESPOONFULS] BY MOUTH DIRECTED ON COLONOSCOPY PREP SHEET SOLD: 04/01/2021 [facility] POLYETHYLENE GLYCOL 3350 142 MG/ML Oral Solution [Miralax] M iralax 03/30/2021 12:00:00 AM EDT active M [facility]ENT ([facility], ) Magnesium Hydroxide 80 MG/ML Oral Suspension Milk Of Magnesi a 03/30/2021 12:00:00 AM EDT ORAL active M [facility] ([facility], ) Cholestyramine Resin 66.7 MG/ML Oral Suspension Cholestyrami ne 03/30/2021 12:00:00 AM EDT ORAL active M [facility] ([facility], ) NITROFURANTOIN, MACROCRYSTALS 25 MG / Ni trofurantoin, Monohydrate 75 MG Oral Capsule 100 mg NITROFURANTOIN MONOHYD/M-CRYST 03/09/2021 12:00:00 AM EDT ca psule 14 TAKE ONE CAPSULE BY MOUTH TWICE A DAY WITH FOOD FOR 7 DAYS TAKE ONE CAPSULE BY MOUTH TWICE A DAY WITH FOOD FOR 7 DAYS SOLD: 03/09/2021 [facility] 21 mg/24 hr 03/04/2021 12:00:00 AM EDT patch 24 hour 28 APPLY ONE PATCH TO THE SKIN EVERY DAY APPLY ONE PATCH TO THE SKIN EVERY DAY SOLD: 03/07/2021 [facility] 21 mg/24 hr 02/04/2021 12:00:00 AM EDT patch 24 hour 28 APPLY ONE PATCH TO THE SKIN EVERY DAY APPLY ONE PATCH TO THE SKIN EVERY DAY SOLD: 02/04/2021 [facility] Cephalexin 500 MG Oral Capsule CEPHALEXIN 08/20/2020 12:00:00 AM EST capsule 14 TAKE ONE CAPSULE BY MOUTH EVERY 12 HOURS FOR 7 DAYS TA KE ONE CAPSULE BY MOUTH EVERY 12 HOURS FOR 7 DAYS SOLD: 08/20/2020 [facility] Cephalexin 500 MG Oral Tablet Cephalexin 08/20/2020 12:00:00 AM EST ORAL active [facility] ([facility]) Cephalexin 500 MG Oral Capsule CEPHALEXIN 07/09/2020 12:00:00 AM EST capsule 14 TAKE ONE CAPSULE BY MOUTH TWICE A DAY FOR 7 DAYS TAKE ONE CAPSULE BY MOUTH TWICE A DAY FOR 7 DAYS SOLD: 07/09/2020 [facility] Cephalexin 500 MG Oral Tablet Cephalexin 07/09/2020 12:00:00 AM EST ORAL completed [facility] ([facility]) 500 mg 06/06/2020 12:00:00 AM EST capsule 14 TAKE ONE CAPSULE BY MOUTH TWICE A DAY FOR 7 DAYS TAKE ONE CAPSULE BY MOUTH TWICE A DAY FOR 7 DAYS SOLD: 06/06/2020 [facility] Cephalexin 500 MG Oral Tablet Cephalexin 06/06/2020 12:00:00 AM EST ORAL completed [facility] ([facility]) Cephalexin 500 MG Oral Tablet Cephalexin 05/11/2020 12:00:00 AM EDT ORAL completed [facility] ([facility]) 500 mg 05/11/2020 12:00:00 AM EDT capsule 14 TAKE ONE CAPSULE BY MOUTH TWICE A DAY FOR 7 DAYS TAKE ONE CAPSULE BY MOUTH TWICE A DAY FOR 7 DAYS SOLD: 05/12/2020 [facility] 100 mg 05/09/2020 12:00:00 AM EDT capsule 14 TAKE ONE CAPSULE BY MOUTH TWICE A DAY FOR 7 DAYS TAKE ONE CAPSULE BY MOUTH TWICE A DAY FOR 7 DAYS SOLD: 05/09/2020 [facility] NITROFURANTOIN, MACROCRYSTALS 25 MG / Ni trofurantoin, Monohydrate 75 MG Oral Capsule [Macrobid] Macrobid 05/09/2020 12:00:00 AM EDT ORAL completed [facility] ([facility]) 100 mg 04/23/2020 12:00:00 AM EDT capsule 14 TAKE ONE CAPSULE BY MOUTH TWICE A DAY FOR 7 DAYS TAKE ONE CAPSULE BY MOUTH TWICE A DAY FOR 7 DAYS SOLD: 04/23/2020 [facility] NITROFURANTOIN, MACROCRYSTALS 25 MG / Ni trofurantoin, Monohydrate 75 MG Oral Capsule [Macrobid] Macrobid 04/23/2020 12:00:00 AM EDT ORAL completed [facility] ([facility]) Cephalexin 500 MG Oral Capsule [Keflex] Keflex 04/21/2020 12:00:0 0 AM EDT ORAL completed [facility] ([facility]) Cephalexin 500 MG Oral Capsule CEPHALEXIN 04/21/2020 12:00:00 AM EDT capsule 14 TAKE ONE CAPSULE BY MOUTH TWICE A DAY FOR 7 DAYS TAKE ONE CAPSULE BY MOUTH TWICE A DAY FOR 7 DAYS SOLD: 04/21/2020 [facility] Cephalexin 500 MG Oral Capsule CEPHALEXIN 03/28/2020 12:00:00 AM EDT capsule 14 TAKE ONE CAPSULE BY MOUTH TWICE A DAY FOR 7 DAYS TAKE ONE CAPSULE BY MOUTH TWICE A DAY FOR 7 DAYS SOLD: 03/29/2020 [facility] Cephalexin 500 MG Oral Tablet Cephalexin 03/28/2020 12:00:00 AM EDT ORAL completed [facility] ([facility]) 10 mg 03/27/2020 12:00:00 AM EDT capsule 60 TAKE ONE TO TWO CAPSULES BY MOUTH EVERY 6 HOURS NEEDED FOR ABDOMINAL CRAMPING TAKE ONE TO TWO CAPSULES BY MOUTH EVERY 6 HOURS NEEDED FOR ABDOMINAL CRAMPING SOLD: 03/29/2020 [facility] Dicyclomine Hydrochloride 10 MG Oral Capsule Dicyclomine HCL 03/26/2020 12:00:00 AM EDT ORAL active [facility] ([facility] Insurance Providers Payer name Policy type / Coverage type Policy ID Covered alliance party ID Covered alliance party's relationship to botello Policy Bot[place] Plan Information MEDICARE [id number] SP [id number] A MEDICARE [id number] SP [id number] MEDICARE [id number] SP [id number] A MEDICARE [id number] SP [id number] A MEDICARE [id number] SP [id number] A Medicaid [place] Medigap Part B [id number] Self [id number] [facility] Medigap Part B [id number] Self [id number] [facility] Medigap Part B [id number] Self [id number] [facility] Manoj/MCR Medigap Part B [id number] Self [id number] [facility] Manoj/MCR Medigap Part B [id number] Self [id number] [place] [id number] S [id number] [employer] [id number] S [id number] Hmo Blue Option/Medicaid Health Maintenance Organization (HMO) V [id number] Self V [id number] [place] [id number] S [id number] Hmo Blue Option/Medicaid Health Maintenance Organization (HMO) V [id number] Self V [id number] Hmo Blue Option/Medicaid Health Maintenance Organization (HMO) V [id number] Self V [id number] [employer] [employer] [id number] S [id number] MEDICARE - [place] [id number] S [id number] BS Manoj Hmo Blue Option Medigap Part B [id number] Self [id number] Medicare [place] Medicare Primary [id number] Self [id number] BS Manoj Hmo Blue Option Medigap Part B [id number] Self [id number] [place] Primary [id number] Self [id number] BS Manoj Hmo Blue Option Medigap Part B [id number] Self [id number] [employer] [id number] S [id number] Medicare [place] Primary [id number] Self [id number] Hmo Blue Option/Medicaid Health Maintenance Organization (HMO) V [id number] Self V [id number] Hmo Blue Option/Medicaid Health Maintenance Organization (HMO) V [id number] Self V [id number] Hmo Blue Option/Medicaid Health Maintenance Organization (HMO) [id number] Self [id number]/802 Medicare [place]/NGS Medicare Primary [id number] Self Medicare [place] Medicare Primary [id number] Self [id number] HUMANA MEDICARE ADVANTAGE G [id number] Self [id number] MEDICARE A [id number] Self [id number] A MEDICARE [id number] SP [id number] A MEDICARE A [id number] Self [id number] [id number] Medicaid S [id number] S [id number] Medicaid P [id number] S [id number] A Medicare P [id number] S [id number] [id number] Medicare P [id number] S [id number] A MEDICAID M [id number] Self [id number] MEDICAID [id number] SP [id number] MEDICAID [id number] SP [id number] MEDICAID [id number] SP [id number] MEDICAID [id number] SP [id number] MEDICAID [id number] S [id number] MEDICAID [id number] S [id number] [place] [id number] SP [id number] [place] [id number] SP [id number] MEDICAID [id number] SP [id number] HUMANA GOLD CLASSIC UNAVAILABLE S UNAVAILABLE HUMANA GOLD CLASSIC [id number] S [id number] HUMANA GOLD CLASSIC [id number] S [id number] HUMANA GOLD CLASSIC [id number] S [id number] Medicare P [id number] S [id number] [id number] Medicare Natl Gov't Servi Medicare Primary [id number] Self [id number] [place] [id number] [id number] Self [id number] [facility] UNAVAILABLE [id number] S UNAVAILABLE Medicaid Medigap Part B [id number] Self [id number] [place] [id number] Self [id number] [place] [id number] [place] [id number] SP [id number] MEDICARE [id number] SP [id number] A Medicare Part B Medicare Primary [id number] Self Medicaid Medicaid 1 1 [id number] Self 1 1 [facility] [id number] SP [id number] Medicare Medicare Primary [id number] Self SELF PAY UNAVAILABLE SP UNAVAILA BLE MEDICARE [id number] SP [id number] [place] [id number] Self Medicare [place] Primary [id number] Self Medicare S [id number] S [id number] [employer] PLAN [id number] SP [id number] [facility] BLUE [id number] SP [id number] MEDICARE UNAVAILABLE SP UNAVAILA BLE [facility] [id number] SP [id number] MEDICAID [id number] SP [id number] HUMANA GOLD [id number] SP [id number] HUMANA GOLD CLASSIC [id number] S [id number] MEDICAID [id number] S [id number] MEDICAID [id number] S [id number] MEDICAID [id number] S [id number] [facility] MEDICARE DIVISION [id number] S [id number] [place]ICARE [place] [id number] S [id number] WELLCARE [id number] [id number] SP [id number] [facility] DUAL COMPLET [id number] S [id number] [facility] DUAL COMPLET [id number] S [id number] MEDICARE [id number] SP [id number] HUMANA GOLD [id number] SP [id number] [place] [id number] SP [id number] WELLCARE [id number] SP [id number] HUMANA GOLD [id number] SP [id number] SP [id number] Medicaid S [id number] S [id number] A [facility] COMMUNITY PLAN [facility] [id number] SP [id number] HUMANA GOLD [id number] SP [id number] MEDICARE [id number] SP [id number] A HUMANA GOLD [id number] SP [id number] HUMANA GOLD [id number] SP [id number] HUMANA GOLD [id number] SP [id number] [facility] Horizons P [id number] S [id number] [facility] DUAL COMPLET [id number] S [id number] HUMANA [id number] S [id number] [facility] DUAL COMPLET [id number] S [id number] [place] [id number] Self [id number] Medicare [place]/[facility] Medicare Primary [id number] Self [id number] MEDICAID [id number] SP [id number] Medicaid [facility] Part B [id number] Self [id number] [place] [employer] [id number] S [id number] [place] [id number] S [id number] Medicaid [facility] Part B [id number] Self [id number] Medicare Part B Medicare Primary [id number] Self [id number] Medicaid [facility] Part B [id number] Self [id number] Medicare Natl Gov't Servi Medicare Primary [id number] Self [id number] [place] Medisumter Part B [id number] Self [id number] Medicare Natl Gov't Servi Medicare Primary [id number] Self [id number] MEDICAID M [id number] S [id number] MEDICARE C [id number] S [id number] A Medicaid Medigap Part B [id number] 93.0 Self [id number] Medicare Part B Medicare Primary [id number] Self [id number] [place] [id number] Self [id number] [facility] OPTIONS C [id number] S [id number] [place] [id number] Self [id number] [place] [id number] Self [id number] [place] [id number] Self [id number] Medicare Natl Gov't Servi Medicare Primary [id number] Self [id number] [place] [id number] Self [id number] [place] [id number] Self [id number] [place] [id number] Self [id number] Problems, Conditions, and Diagnoses Code Display Name Description Problem Type Effective Dates Data Source(s) R35.0 Frequency of micturition FREQUENCY OF MICTURITION Diag nosis 03/09/2021 10:56:[address] [facility] N30.01 Acute cystitis with hematuria ACUTE CYSTITIS WITH MEENAKSHI TURIA Diagnosis 03/09/2021 10:14:[address] [facility] Z71.2 Person consulting for explanation of exa mination or test findings PERSON CONSULTING FOR EXPLANATION OF EXAM OR TEST Diagnosis 03/04/2021 08:38: [address] [facility] E78.00 PURE HYPERCHOLESTEROLEMIA, UNSPECIFIED P URE HYPERCHOLESTEROLEMIA, UNSPECIFIED Diagnosis 03/04/2021 08:38:00 AM [facility] F17.210 Nicotine dependence, cigarettes, uncompl icated NICOTINE DEPENDENCE, CIGARETTES, UNCOMPLICATED Diagnosis 03/04/2021 08:38:00 AM [facility] K50.90 Crohn's disease, unspecified, without co mplications CROHN'S DISEASE, UNSPECIFIED, WITHOUT COMPLICATION Diagnosis 02/04/2021 10:00:[address] [facility] Z12.31 Encounter for screening mammogram for ma lignant neoplasm of breast ENCNTR SCREEN MAMMOGRAM FOR MALIGNANT NEOPLASM OF Diagnosis 02/04/2021 10:00:[address] [facility] Z71.89 Other specified counseling OTHER SPECIFIED COUNSELING Diagnosis 02/04/2021 10:00:[address] [facility] Z55.0 Illiteracy and low-level literacy ILLITERACY AND LOW-LEVEL LITERACY Diagnosis 02/04/2021 10:00:[address] [facility] Z86.39 Personal history of other endocrine, nut ritional and metabolic disease PERSONAL HISTORY OF ENDO, NUTRITIONAL AND METABOLI Diagnosis 10:00:[address] [facility] Z86.11 Personal history of tuberculosis PERSONAL HISTOR Y OF TUBERCULOSIS Diagnosis 02/04/2021 10:00:[address] [facility] Z13.31 ENCOUNTER FOR SCREENING FOR DEPRESSION E NCOUNTER FOR SCREENING FOR DEPRESSION Diagnosis 02/04/2021 10:00:00 AM [facility] R63.4 Abnormal weight loss ABNORMAL WEIGHT LOSS Diagnosis 02/04/2021 10:00:[address] [facility] M81.0 Age-related osteoporosis without current pathological fracture AGE-RELATED OSTEOPOROSIS W/O CURRENT PATHOLOGICAL Diagnosis 02/04/2021 10:00:[address] [facility] L98.9 Disorder of the skin and subcutaneous ti ssue, unspecified DISORDER OF THE SKIN AND SUBCUTANEOUS TISSUE, UNSP Diagnosis 02/04/2021 10:00:00 AM ED [facility] F03.90 Unspecified dementia without behavioral disturbance UNSPECIFIED DEMENTIA WITHOUT BEHAVIORAL DISTURBANC Diagnosis 02/04/2021 10:00:00 AM EDT [facility] E78.5 Hyperlipidemia, unspecified HYPERLIPIDEMIA, UNSPECIFIE D Diagnosis 02/04/2021 10:00:[address] [facility] R30.0 Dysuria DYSURIA Diagnosis 11/13/2020 03:27:00 PM [facility] 525.13 LOSS OF TEETH DUE TO CARIES LOSS OF TEETH DUE TO DANA S 05/14/2020 12:42:22 PM EDT [facility] Surgeries/Procedures Procedure Description Date Indications Data Source(s) OFFICE OUTPATIENT VISIT 25 MINUTES 03/30/2021 12:00:00 AM EDT [facility] ([facility], ) OFFICE OUTPATIENT VISIT 25 MINUTES 10/09/2020 12:00:00 AM EDT [facility] ([facility]) Results ID Date Data Source [id number] 04/24/2021 12:15:00 PM EDT [facility] ([facility]) Name Value Range Interpretation Code Description Data Bouchra rce(s) Supporting Document(s) Elastase.pancreatic [Mass/mass] in Stool Laboratory test result Normal (applies to non-numeric results) [facility] ([facility], ) <content>Result Units: ug Elast./g</cont ent>
<content>Severe Pancreatic Insufficiency: <100</content>
<content>Moderate Pancreatic Insufficiency: 100 - 200</content>
<content>Normal: >200</content>
<content></content> ID Date Data Source [id number] 04/24/2021 12:15:00 PM EDT [facility] Name Value Range Interpretation Code Description Data Bouchra rce(s) Supporting Document(s) Gastrointestinal (GI) Panel Laboratory test result [facility] ([facility]) This Gastrointestinal PCR Panel detects the following bacteria, parasites and viruses: [...] infection. NEGATIVE by MULTIPLEXED NUCLEIC ACID PCR ID Date Data Source [id number] 04/24/2021 12:15:00 PM EDT [facility] ([facility]) Name Value Range Interpretation Code Description Data Bouchra rce(s) Supporting Document(s) Calprotectin [Mass/mass] in Stool 63 ug/g 0-120 Normal (applies to non-numeric results) [facility] ([facility]) <content>Concentration Interpretatio n Follow-Up</content>
<content><16 - 50 ug/g Normal None</content>
<content>>50 -120 ug/g Borderline Re-evaluate in 4-6 weeks</content>
<content>>120 ug/g Abnormal Repeat as clinically</content>
<content>indicated</content>
<content>Performed at: [facility]</content>
<content>[address] [place] [id number]</content>
<content>Certified Midwife: Mehran Vasquez MD, Phone: [phone]</content>
<content></content> ID Date Data Source [id number] 03/30/2021 04:56:00 PM EDT [facility] ([facility]) Name Value Range Interpretation Code Description Data Bouchra rce(s) Supporting Document(s) Erythrocyte sedimentation rate by Westergren method 19 mm/hr 0-30 Normal (applies to non-numeric results) [facility] ([facility]) C reactive protein [Mass/volume] in Serum or Plasma by High sensitivity method 0.30 mg/dL 0.00-0.30 Normal (applies to non-numeric results) [facility] ([facility]) 03/30/21 (TueMar 30) 07:12 PM GURJ[facility] normal ID Date Data Source [id number] 03/30/2021 04:56:00 PM EDT [facility] ([facility]) Name Value Range Interpretation Code Description Data Bouchra rce(s) Supporting Document(s) Blood Urea Nitrogen 12 mg/dL 7-18 Normal (applies to non-nume andrew results) [facility] ([facility]) Glucose, Fasting 67 mg/dL 70-100 Below low normal [facility] ([facility]) Creatinine For GFR 0.53 mg/dL 0.55-1.30 Below low normal [facility] ([facility]) Glomerular Filtration Rate Laboratory test result Normal (applies to non- numeric results) [facility]) <content>Units are mL/min/1.73 m2</content>
<content></content>
<content>Chronic Kidney Disease Staging per NKF:</content>
<content></content>
<content>Stage I & II GFR >=60 Normal to Mildly Decreased</content>
<content>Stage III GFR 30- 59 Moderately Decreased</content>
<content>Stage IV GFR 15-29 Severely Decreased</content>
<content>Stage V GFR <15 Very Little GFR Left</content>
<content>ESRD GFR <15 on ACTUARIAL TRAINEE</content>
<content></content> Sodium Level 139 meq/L 136-145 Normal (applies to non-numeric res ults) [facility] ([facility]) Chloride Level 107 meq/L 98-107 Normal (applies to non-numeric r esults) [facility] ([facility]) Potassium Serum 4.4 meq/L 3.5-5.1 Normal (applies to non-numeric results) [facility] ([facility]) Carbon Dioxide Level 26 meq/L 21-32 Normal (applies to non-num sri results) [facility] [facility]) Anion Gap 6 meq/L 8-16 Below low normal [facility] ( [facility]) Alt/SGPT 12 U/L 12-78 Normal (applies to non-numeric resul ts) [facility] Calcium Level 9.3 mg/dL 8.8-10.2 Normal (applies to non-numeric re sults) [facility]) Ast/Sgot 9 U/L 7-37 Normal (applies to non-numeric resul ts) [facility] ([facility]) Total Protein 7.2 GM/DL 6.4-8.2 Normal (applies to non-numeric re sults) [facility] ([facility]) Bilirubin,Total 0.6 mg/dL 0.2-1.0 Normal (applies to non-numeric results) [facility] ([facility]) Alkaline Phosphatase 78 U/L 45-117 Normal (applies to non-num sri results) [facility] ([facility]) Albumin 3.8 GM/DL 3.2-5.2 Normal (applies to non-numeric resul ts) [facility] ([facility]) Albumin/Globulin Ratio 1.1 1.2-2.2 Below low normal [facility] ([facility]) ID Date Data Source [id number] 03/30/2021 04:56:00 PM EDT [facility] ([facility]) Name Value Range Interpretation Code Description Data Bouchra rce(s) Supporting Document(s) Red Blood Count 4.46 10 4.00-5.40 Normal (applies to non-numeric results) [facility] ([facility]) Hemoglobin 14.2 g/dL 12.0-15.5 Normal (applies to non-numeric resul ts) [facility]) White Blood Count 7.9 10 4.0-10.0 Normal (applies to non-numeri c results) [facility]) Mean Corpuscular Volume 96.2 fl 80.0-96.0 Above high normal [facility] ([facility]) Hematocrit 42.9 % 36.0-47.0 Normal (applies to non-numeric resul ts) [facility]) Mean Corpuscular Hemoglobin 31.8 pg 27.0-33.0 Norm al (applies to non-numeric results) [facility] ([facility]) Red Cell Distribution Width 12.7 % 11.5-14.5 Norm al (applies to non-numeric results) [facility]) Mean Corpuscular HGB Conc 33.1 g/dL 32.0-36.5 Normal (applies to non-numeric results) [facility] ([facility]) Neutrophils % 51.4 % 36.0-66.0 Normal (applies to non-numeric re sults) [facility] ([facility]) Platelet Count, Automated 330 10 150-450 Normal (applies to non-numeric results) [facility] ([facility]) Lymph % 35.2 % 24.0-44.0 Normal (applies to non-numeric resul ts) [facility]) Baso % 0.9 % 0.0-1.0 Normal (applies to non-numeric resul ts) [facility]) Eos % 5.0 % 0.0-3.0 Above high normal [facility] ([facility]) Cobb % 7.2 % 2.0-8.0 Normal (applies to non-numeric resul ts) [facility]) Immature Granulocyte % 0.3 % 0-3.0 Normal (applies to non-n umeric results) [facility]) Neutrophils # 4.1 10 1.5-8.5 Normal (applies to non-numeric re sults) [facility]) Nucleated Red Blood Cell % 0.0 % 0-0 Normal (applies to n on-numeric results) [facility] ([facility], ) Lymph # 2.8 10 1.5-5.0 Normal (applies to non-numeric resul ts) [facility] ([facility]) Eos # 0.4 10 0.0-0.5 Normal (applies to non-numeric resul ts) [facility] ([facility]) Cobb # 0.6 10 0.0-0.8 Normal (applies to non-numeric resul ts) [facility] ([facility]) Baso # 0.1 10 0.0-0.2 Normal (applies to non-numeric resul ts) [facility] ([facility]) ID Date Data Source [id number] 03/11/2021 02:55:00 PM EDT [facility] Name Value Range Interpretation Code Description Data Bouchra rce(s) Supporting Document(s) ORGANISM [facility] COLONY COUNT N [facility] ID Date Data Source [id number] 03/09/2021 11:03:00 AM EDT [facility] l MICROSCOPIC PERFORMED ON UNSPUN SPECIMAN DUE TO QNS Name Value Range Interpretation Code Description Data Bouchra rce(s) Supporting Document(s) URINE RBC 0-2 /hpf 0-3 [facility] URINE WBC TNTC /hpf 0-[address] [facility] URINE EPITHELIAL CELLS 1+ /hpf [facility] URINE BACTERIA 3+ NONE SEEN [facility] ID Date Data Source [id number] 03/09/2021 11:02:00 AM EDT [facility] l MICROSCOPIC PERFORMED ON UNSPUN SPECIMAN DUE TO QNS Name Value Range Interpretation Code Description Data Bouchra rce(s) Supporting Document(s) URINE COLOR. YELLOW [facility] URINE APPEARANCE CLOUDY [facility] URINE GLUCOSE (UA) NEGATIVE mg/dL NEGATIVE [facility] URINE BILIRUBIN NEGATIVE NEGATIVE [facility] URINE KETONE NEGATIVE [facility],URINE 1.025 1.005-1.030 [facility] URINE BLOOD TRACE NEGATIVE [facility] PH,URINE 5.5 5.0-9.0 [facility] URINE PROTEIN 1+(30) mg/dL NEGATIVE H [facility] URINE UROBILINOGEN NORMAL(0.2-1) mg/dL 0-1 [facility] URINE NITRATE POSITIVE NEGATIVE [facility] URINE LEUKOCYTE ESTERASE 1+(SMALL) NEGATIVE [facility] ID Date Data Source [id number] 02/25/2021 02:18:00 PM EDT [facility] l DATE OF EXAMINATION: 02/25/2021 12:39 EDT MAMMO SCREEN BILAT WITH CAD HISTORY: Screening Based on the personal and family history information your patient supplied atthe time of imaging, her lifetime risk of breast cancer estimated date by theTyrer-Cuzick model is 4.1%. If anything changes in the personal and/or familyhistory this percentage could increase or decrease. Currently, NCCN and ACSrecommended adjunctive breast MRI screening starting at age 30 for women with a> 20-25% lifetime risk of developing breast cancer. Comparison is made to prior study dated 10/05/2018. 2-D bilateral digital mammogram in the CC and MLO planes were performed withsupplemental 3-D tomosynthesis of both breasts. The images were analyzed through the latest version of the [employer] ddiagnosis system. The patient states that her last clinical breast examination was not provided. Craniocaudal and oblique lateral views of the breasts were obtained. (B) Thereare scattered areas of fibroglandular density. . There is no dominant mass,suspicious clustered calcification, or architectural distortion. IMPRESSION: No mammographic evidence of malignancy. Final assessment of breast composition BIRAD classification (B) There arescattered areas of fibroglandular density. BIRAD 2 - Benign Findings, Routine Yearly Mammographic Follow-up recommended. 10-15% of cancers are not identified by mammography. This usually occurs whenthe mass is of the same radiographic density as the surrounding breast tissue,emphasizing the importance of breast self examination (BSE) and physicalexamination. A normal mammogram should not delay biopsy if a suspicious mass orabnormal findings are present upon physical examination. Electronically signed in PS360 by: Rios Barajas M.D. 02/25/2021 14:12 EDT Name Value Range Interpretation Code Description Data Bouchra rce(s) Supporting Document(s) ID Date Data Source [id number] 02/25/2021 01:44:00 PM EDT [facility] DATE OF EXAMINATION: 02/25/2021 12:39 EDT HISTORY: Evaluate for osteoporosis. IMPRESSION: For a detailed report please refer to the software generated [employer]. Electronically signed in PS360 by: Rios Barajas M.D. 02/25/2021 13:38 EDT Name Value Range Interpretation Code Description Data Bouchra rce(s) Supporting Document(s) ID Date Data Source [id number] 02/25/2021 12:54:00 PM EDT [facility] Name Value Range Interpretation Code Description Data Bouchra rce(s) Supporting Document(s) FREE T4 1.1 ng/dL 0.76-1.46 [facility] ID Date Data Source [id number] 02/25/2021 12:54:00 PM EDT [facility] Name Value Range Interpretation Code Description Data Bouchra rce(s) Supporting Document(s) TSH 1.675 uIU/mL 0.360-3.740 [facility] ID Date Data Source [id number] 02/25/2021 12:22:00 PM EDT [facility] Name Value Range Interpretation Code Description Data Bouchra rce(s) Supporting Document(s) CHOLESTEROL 203 mg/dL 0-[address] [facility] TRIGLYCERIDES 105 mg/dL 0-150 [facility] LDL CHOLESTEROL 130 mg/dL 0-[address] [facility] HDL CHOLESTEROL 52 mg/dL 40-60 [facility] CHOL/HDL RATIO 3.9 0.0-5.0 [facility] ID Date Data Source [id number] 02/25/2021 12:22:00 PM EDT [facility] Name Value Range Interpretation Code Description Data Bouchra rce(s) Supporting Document(s) GLUCOSE 106 mg/dL 74-106 [facility] BLOOD UREA NITROGEN 14 mg/dL 7-18 [facility] ital CREATININE 0.60 mg/dL 0.6-1.0 [facility] SODIUM 143 mmol/L 136-145 [facility] POTASSIUM 3.6 mmol/L 3.5-5.1 [facility] CHLORIDE 106 mmol/L 98-107 [facility] CO2 23 mmol/L 21-32 [facility] CALCIUM 9.1 mg/dL 8.5-10.1 [facility] ANION GAP 14.0 mmol/L 5-[address] [facility] GLOMERULAR FILTRATION RATE >90 mL/min [facility] GFR IS CALCULATED IN mL/min/1.73m2 JESSICA L FUNCTION: >90MILDLY DECREASED: 60-89MILDY TO MODERATELY DECREASED: 45-59 MODERATELY TO SEVERELY DECREASED: 30-44SEVERELY DECREASED: 15-29RENAL FAILURE: <15 AST 9 U/L 15-[address] [facility] ALT 16 U/L 12-78 [facility] ALKALINE PHOSPHATASE 73 U/L 46-116 [facility] pital TOTAL BILIRUBIN 0.3 mg/dL 0.2-1.0 [facility] TOTAL PROTEIN 7.0 g/dl 6.4-8.2 [facility] ALBUMIN 3.7 gm/dL 3.4-5.0 [facility] ID Date Data Source [id number] 02/25/2021 12:04:00 PM EDT [facility] Name Value Range Interpretation Code Description Data Bouchra rce(s) Supporting Document(s) HGBA1C 5.1 % 3.8-5.6 [facility] Diabetic > or = to 6.5%Prediabetes 5.7-6 .4%Normal <5.7 ESTIMATED AVERAGE GLUCOSE 99.7 mg/dL [facility] ID Date Data Source [id number] 02/25/2021 11:43:00 AM EDT [facility] Name Value Range Interpretation Code Description Data Bouchra rce(s) Supporting Document(s) WHITE BLOOD COUNT 6.8 K/mm3 4.0-10.0 [facility] al RED BLOOD COUNT 4.14 M/mm3 4.00-5.50 [facility] HEMOGLOBIN 13.3 gm/dL 12.0-16.0 [facility] HEMATOCRIT 38.5 % 36.0-48.8 [facility] MEAN CELL VOLUME 93.0 fl 80-96 [facility] MEAN CORPUSCULAR HEMOGLOBIN 32.1 pg 27.0-31.0 H [facility] MEAN CORPUSCULAR HGB CONC 34.5 g/dl 32.0-36.0 [facility] RED CELL DISTRIBUTION WIDTH 13.2 % 10.0-14.5 [facility] PLATELET COUNT 280 K/mm3 172-450 [facility] MEAN PLATELET VOLUME 9.7 fl 9.0-13.0 [facility] pital GRAN % 58.5 % 50-80.0 [facility] IG% 0.1 % 0.0-0.2 [facility] LYMPH % 31.4 % 25.0-50.0 [facility] MONO % 4.6 % 2.0-10.0 [facility] EOS % 4.7 % 0-5.0 [facility] BASO % 0.7 % 0.0-2.0 [facility] GRAN # 4.0 K/mm3 2.0-8.00 [facility] IG# 0.0 K/mm3 0.0-0.2 [facility] LYMPH # 2.1 K/mm3 1.0-5.0 [facility] MONO # 0.3 K/mm3 0.10-1.20 [facility] EOS # 0.3 K/mm3 0.0-0.5 [facility] BASO # 0.1 K/mm3 0.0-0.2 [facility] ID Date Data Source [id number] 11/13/2020 03:34:00 PM EDT [facility] l Name Value Range Interpretation Code Description Data Bouchra rce(s) Supporting Document(s) URINE COLOR. YELLOW [facility] URINE APPEARANCE CLEAR [facility] URINE GLUCOSE (UA) NEGATIVE mg/dL NEGATIVE [facility] URINE BILIRUBIN NEGATIVE NEGATIVE [facility] URINE KETONE NEGATIVE mg/dL [facility] SPECIFIC GRAVITY,URINE 1.010 1.005-1.030 [facility] URINE BLOOD NEGATIVE NEGATIVE [facility] PH,URINE 5.5 5.0-9.0 [facility] URINE PROTEIN NEGATIVE mg/dL [facility]IVE [facility] URINE UROBILINOGEN 0.2 mg/dL 0-1 [facility] URINE NITRATE NEGATIVE NEGATIVE [facility] URINE LEUKOCYTE ESTERASE NEGATIVE NEGATIVE [facility] ID Date Data Source [id number] 10/11/2020 07:20:00 AM EDT [facility] Name Value Range Interpretation Code Description Data Bouchra rce(s) Supporting Document(s) Elastase.pancreatic [Mass/mass] in Stool Laboratory test result Normal (applies to non-numeric results) [facility] ([facility] ) <content>Result Units: ug Elast./g</cont ent>
<content>Severe Pancreatic Insufficiency: <100</content>
<content>Moderate Pancreatic Insufficiency: 100 - 200</content>
<content>Normal: >200</content>
<content></content> Calprotectin [Mass/mass] in Stool 133 ug/g 0-120 Above high no rmal [facility] ([facility], ) <content>Concentration Interpretatio n Follow-Up</content>
<content><16 - 50 ug/g Normal None</content>
<content>>50 -120 ug/g Borderline Re-evaluate in 4-6 weeks</content>
<content>>120 ug/g Abnormal Repeat as clinically</content>
<content>indicated</content>
<content>Performed at: [facility]</content>
<content>[address], [place] [id number]</content>
<content>Certified Midwife: Mehran Vasquez MD, Phone: [phone]</content>
<content></content> ID Date Data Source [id number] 10/09/2020 01:54:00 PM EDT [facility] Name Value Range Interpretation Code Description Data Bouchra rce(s) Supporting Document(s) Creatinine For GFR 0.64 mg/dL 0.55-1.30 Normal (applies to non -numeric results) [facility] ([facility]) Glucose, Fasting 102 mg/dL 70-100 Above high normal [facility] Blood Urea Nitrogen 16 mg/dL 7-18 Normal (applies to non-nume andrew results) [facility] ([facility]) Glomerular Filtration Rate Laboratory test result Normal (applies to non- numeric results) [facility] ([facility]) <content>Units are mL/min/1.73 m2</content>
<content></content>
<content>Chronic Kidney Disease Staging per NKF:</content>
<content></content>
<content>Stage I & II GFR >=60 Normal to Mildly Decreased</content>
<content>Stage III GFR 30- 59 Moderately Decreased</content>
<content>Stage IV GFR 15-29 Severely Decreased</content>
<content>Stage V GFR <15 Very Little GFR Left</content>
<content>ESRD GFR <15 on ACTUARIAL TRAINEE</content>
<content></content> Potassium Serum 4.6 meq/L 3.5-5.1 Normal (applies to non-numeric results) [facility] ([facility], ) Chloride Level 107 meq/L 98-107 Normal (applies to non-numeric r esults) [facility] ([facility]) Sodium Level 137 meq/L 136-145 Normal (applies to non-numeric res ults) [facility] Calcium Level 9.4 mg/dL 8.8-10.2 Normal (applies to non-numeric re sults) [facility] ([facility]) Carbon Dioxide Level 26 meq/L 21-32 Normal (applies to non-num sri results) [facility] ([facility]) Anion Gap 4 meq/L 8-16 Below low normal [facility] ( [facility]) Alkaline Phosphatase 89 U/L 45-117 Normal (applies to non-num sri results) [facility] ([facility], ) Ast/Sgot 16 U/L 7-37 Normal (applies to non-numeric resul ts) [facility] ([facility]) Alt/SGPT 18 U/L 12-78 Normal (applies to non-numeric resul ts) [facility] Bilirubin,Total 0.3 mg/dL 0.2-1.0 Normal (applies to non-numeric results) [facility]) Albumin 4.0 GM/DL 3.2-5.2 Normal (applies to non-numeric resul ts) [facility] Total Protein 7.8 GM/DL 6.4-8.2 Normal (applies to non-numeric re sults) [facility] ([facility]) Albumin/Globulin Ratio 1.1 1.2-2.2 Below low normal [facility] 10/15/20 (TueOct 15) 07:16 PM GURJIT SOTO ok ID Date Data Source [id number] 10/09/2020 01:54:00 PM EDT [facility] ([facility], ) Name Value Range Interpretation Code Description Data Bouchra rce(s) Supporting Document(s) White Blood Count 5.9 10 4.0-10.0 Normal (applies to non-numeri c results) [facility] ([facility]) Hemoglobin 14.8 g/dL 12.0-15.5 Normal (applies to non-numeric resul ts) [facility]) Red Blood Count 4.57 10 4.00-5.40 Normal (applies to non-numeric results) [facility] ([facility]) Mean Corpuscular HGB Conc 33.6 g/dL 32.0-36.5 Normal (applies to non-numeric results) [facility]) Mean Corpuscular Hemoglobin 32.4 pg 27.0-33.0 Norm al (applies to non-numeric results) [facility] ([facility]) Mean Corpuscular Volume 96.5 fl 80.0-96.0 Above high normal [facility] ([facility]) Hematocrit 44.1 % 36.0-47.0 Normal (applies to non-numeric resul ts) [facility] ([facility]) Neutrophils % 53.9 % 36.0-66.0 Normal (applies to non-numeric re sults) [facility]) Platelet Count, Automated 331 10 150-450 Normal (applies to non-numeric results) [facility] ([facility]) Red Cell Distribution Width 13.3 % 11.5-14.5 Norm al (applies to non-numeric results) [facility]) Cobb % 6.5 % 2.0-8.0 Normal (applies to non-numeric resul ts) [facility]) Eos % 4.8 % 0.0-3.0 Above high normal [facility] ([facility]) Lymph % 33.7 % 24.0-44.0 Normal (applies to non-numeric resul ts) [facility]) Baso % 0.9 % 0.0-1.0 Normal (applies to non-numeric resul ts) [facility] ([facility]) Nucleated Red Blood Cell % 0.0 % 0-0 Normal (applies to n on-numeric results) [facility] ([facility]) Immature Granulocyte % 0.2 % 0-3.0 Normal (applies to non-n umeric results) [facility] Neutrophils # 3.2 10 1.5-8.5 Normal (applies to non-numeric re sults) [facility] Lymph # 2.0 10 1.5-5.0 Normal (applies to non-numeric resul ts) [facility]) Cobb # 0.4 10 0.0-0.8 Normal (applies to non-numeric resul ts) [facility]) Eos # 0.3 10 0.0-0.5 Normal (applies to non-numeric resul ts) [facility] Baso # 0.1 10 0.0-0.2 Normal (applies to non-numeric resul ts) [facility] ([facility]) ID Date Data Source [id number] 10/09/2020 01:54:00 PM EDT [facility] ([facility]) Name Value Range Interpretation Code Description Data Bouchra rce(s) Supporting Document(s) Cobalamin (Vitamin B12) [Mass/volume] in Serum or Plasma 370 pg/ mL 247-911 Normal (applies to non-numeric results) [facility] ([facility]) VITAMIN B12 NORMAL RANGE NORMAL 247 - 911 PG/ML INDETERMINATE 211 - 246 PG/ML DEFICIENT LESS THAN 211 PG/ML ID Date Data Source [id number] 08/20/2020 12:18:00 PM EST [facility] ([facility]) Name Value Range Interpretation Code Description Data Bouchra rce(s) Supporting Document(s) Bacteria identified in Urine by Culture Laboratory test result [facility] ([facility]) ID Date Data Source [id number] 07/09/2020 12:55:00 PM EST [facility] ([facility]) Name Value Range Interpretation Code Description Data Bouchra rce(s) Supporting Document(s) Bacteria identified in Urine by Culture Laboratory test result [facility] ([facility]) Rx Keflex ID Date Data Source [id number] 06/06/2020 06:16:00 PM EST [facility] ([facility]) Name Value Range Interpretation Code Description Data Bouchra rce(s) Supporting Document(s) Bacteria identified in Urine by Culture Laboratory test result [facility] ([facility]) <content>FULL REPORT IN LAB NOTES ([facility] a nd [facility]).</content>
<content></content>
<content>ORGANISM 1: ESCHERICHIA COLI</content>
<content></content>
<content>COLONY COUNT > 100,000</content>
<content></content>
<content></content>
<content>O RGANISM 1: ESCHERICHIA COLI</content>
<content></content>
<content> ESCHERICHIA COLI: REACTION</content>
<content>TRIMETHOPRIM/SULFAMETHOXAZOLE IV 160mg TMP & 800mg SMXq6h <=20 S</content>
<content> TRIMETHOPRIM/SULFAMETHOXAZOLE PO Bactrim DS Bid <=20 S</content>
<content>AMPICILLIN IV 500mg q6h 4 S</content>
<content>AMPICILLIN PO 500mg q6h fasting 4 S</content>
<content>GENTAMICIN IV 80mg q8h <=1 S</content>
<content>NITROFURANTOIN PO 100mg BID <=16 S</content>
<content>CEFAZOLIN IV 1gm q8h <=4 S</content>
<content> LEVOFLOXACIN IV 500mg qd <=0.12 S</content>
<content>LEVOFLOXACIN PO 250mg qd <=0.12 S</content>
<content>LEVOFLOXACIN PO 500mg qd <=0.12 S</content>
<content>TOBRAMYCIN IV 80mg q8h <=1 S</content>
<content>CEFTRIAXONE IV 1gm q24h <=1 S</content>
<content>CEFTAZIDIME IV 1gm q8h <=1 S</content>
<content> AMPICILLIN/SULBACTAM IV 1.5g q6h <=2 S</content>
<content>PIPERACILLIN/TAZOBACTAM IV 2.25 gm q6h <=4 S</content>
<content>AZTREONAM IV 1gm q8h <=1 S</content>
<content>ERTAPENEM IV 1gm qd <=0.5 S</content>
<content>MEROPENEM IV 1 gm q8h <=0.25 S</content>
<content>MEROPENEM IV 500 mg q8h <=0.25 S</content>
<content>TIGECYCLINE IV 50mg q12h <=0.5 S</content>
<content>CEFEPIME IV 1 gm q12h <=1 S</content>
<content>CEFEPIME IV 2 gm q12h <=1 S</content>
<content>EXTD BRD SPCTRM BETA LACTAMASE IV NEGATIVE FOR ESBL</content>
<content></content> ID Date Data Source [id number] 05/14/2020 10:00:43 AM EDT [facility] Current Problems: LOSS OF TEETH DUE TO C DARRYL (ICD-525.13) (AYS39-R64.139)DENTAL CARIES EXTENDING INTO DENTINE (ICD-521.02) (KJP21-J82.62)Dental caries (ICD- 521.00) (GDG75-D69.9)Tobacco use (ICD-305.1) (KSI96-V03.0)Allergic rhinitis (ICD-477.9) (IPB77-X16.9)HEALTH SCREENING (ICD-V70.0) (MTS93-E13.9)DEMENTIA (ICD-294.8) (RWT53-O88.90)ALOPECIA (ICD-704.00) (SUT03-S74.9)FH OTHER MEDICAL PROBLEMS (ICD-V19.8)OSTEOARTHRITIS (ICD-715.90) (TXH60-G53.90)DIABETES, TYPE 2 (ICD-250.00) (HVI06-P99.9)CROHN'S DISEASE (ICD-555.9) (FFH56-K02.90)Problem list reviewed during this update.Current Medications: ZYRTEC ALLERGY 10 MG ORAL TABLET (CETIRIZINE HCL) 1 pill po dailyMUCINEX 600 MG ORAL TABLET EXTENDED RELEASE 12 HOUR (GUAIFENESIN) 1 pill po bidFLONASE 50 MCG/ACT NASAL SUSPENSION (FLUTICASONE PROPIONATE) 1 squirt each nostril bidAZATHIOPRINE 50 MG ORAL TABLET (AZATHIOPRINE) 1 1/2 tabs dailyMAXALT 10 MG ORAL TABLET (RIZATRIPTAN BENZOATE) 1 po daily at onset of headache, may repeat [id number] 5 MG ORAL TABLET (DO NEPEZIL HCL) 1 po dailyMedication list reviewed during this update.Current Allergies: BACTRIM DS (SULFAMETHOXAZOLE-TRIMETHOPRIM TABS) (Critical)* LATEX (Critical)Allergy list reviewed during this update. Dental Chart: Procedures:Type - CDT Code - Description B - (D0230) Intraoral, periapical, each additional radiographic image on Tooth # 11 (Performed by Millicent Boateng DDS) B - (D0140) Limited oral evaluation - problem focused on Tooth # 31 (Performed by Millicent Boateng DDS) B - (D0220) Intraoral, periapical, first radiographic image on Tooth # 31 (Performed by Millicent Boateng DDS) Existing:Type - CDT Code - Description[E] Missing - [place] and Root On #10 Surface I Region XR, #11 Surface I Region XR, #14 Surface O Region XR, #15 Surface O Region XR, #4 Surface O Region XR, #5 Surface O Region XR, #6 Surface I Region XR, #7 Surface I Region XR, #8 Surface I Region XR, #9 Surface I Region XR Chart Notes:len (May 14 2020 12:42PM): Additional PPE requirements due to COVID-19 in the dental setting, N95, surgical mask, hair covering, gown and shield.S: CC:" I got a sore spot on my gum and I have a tooth that is bad, wakes me up at night". O: RMHx (-)Per Pt. HPI: [address]: 9 BP: 166/87 P: 79, PA #31 has huge deay that is close to pulp. Negative to percussion and palpation. A: DDS recommends ext 31 and have os evaluate prominent bone on facial of # 11. DX: non restorable # 31.P # 31 anf evaluation of prominent bone facial of # 11. Refere to General DDS for full upper denture.Informed Pt about new pain management policy of the clinic regarding about narcotic,told pt to alternate Ibuprophen 600- 800mg and tylenol 500mg every 4 to 6 hrs for pain when needed. Assisted By: NV: Anh/Millicent Erazo DDS by len (05/14/2020 12:42 PM): Tooth Notes and Watches:- Tooth 31 Note: Referred to Millicent Malloy DDS by stanton (05/14/2020 10:44 AM): Assessment & Plan Problems:Added: LOSS OF TEETH DUE TO CARIES (ICD-525.13) ([id number])Medications:ZYRTEC ALLERGY 10 MG ORAL TABLETMUCINEX 600 MG ORAL TABLET EXTENDED RELEASE 12 HOURFLONASE 50 MCG/ACT NASAL SUSPENSIONAZATHIOPRINE 50 MG ORAL TABLETMAXALT 10 MG ORAL TABLETARICEPT 5 MG ORAL TABLETAllergies:BACTRIM DS (SULFAMETHOXAZOLE- TRIMETHOPRIM TABS) (Critical)* LATEX (Critical)Orders:Oral Surgery Referral [CPT-[id number]] Multi-Service Referral [CPT-[id number]] Name Value Range Interpretation Code Description Data Bouchra rce(s) Supporting Document(s) ID Date Data Source [id number] 05/09/2020 03:16:00 PM EDT [facility] ([facility]) Name Value Range Interpretation Code Description Data Bouchra rce(s) Supporting Document(s) Bacteria identified in Urine by Culture Laboratory test result [facility] ([facility]) <content>FULL REPORT IN LAB NOTES (eCW a nd Med[facility]).</content>
<content></content>
<content>ORGANISM 1: KLEBSIELLA PNEUMONIAE</content>
<content></content>
<content>COLONY COUNT >100,000</content>
<content></content>
<content></content>
<content> ORGANISM 1: KLEBSIELLA PNEUMONIAE</content>
<content></content>
<content>KLEBSIELLA PNEUMONIAE: REACTION</content>
<content>TRIMETHOPRIM/SULFAMETHOXAZOLE IV 160mg TMP & 800mg SMXq6h <=20 S</content>
<content> TRIMETHOPRIM/SULFAMETHOXAZOLE PO Bactrim DS Bid <=20 S</content>
<content>AMPICILLIN IV 500mg q6h >=32 R</content>
<content>AMPICILLIN PO 500mg q6h fasting >=32 R</content>
<content>GENTAMICIN IV 80mg q8h <=1 S</content>
<content>NITROFURANTOIN PO 100mg BID 128 R</content>
<content>CEFAZOLIN IV 1gm q8h <=4 S</content>
<content> LEVOFLOXACIN IV 500mg qd <=0.12 S</content>
<content>LEVOFLOXACIN PO 250mg qd <=0.12 S</content>
<content>LEVOFLOXACIN PO 500mg qd <=0.12 S</content>
<content>TOBRAMYCIN IV 80mg q8h <=1 S</content>
<content>CEFTRIAXONE IV 1gm q24h <=1 S</content>
<content>CEFTAZIDIME IV 1gm q8h <=1 S</content>
<content> AMPICILLIN/SULBACTAM IV 1.5g q6h 4 S</content>
<content>PIPERACILLIN/TAZOBACTAM IV 2.25 gm q6h <=4 S</content>
<content>AZTREONAM IV 1gm q8h <=1 S</content>
<content>ERTAPENEM IV 1gm qd <=0.5 S</content>
<content>MEROPENEM IV 1 gm q8h <=0.25 S</content>
<content>MEROPENEM IV 500 mg q8h <=0.25 S</content>
<content> TIGECYCLINE IV 50mg q12h 1 S</content>
<content>CEFEPIME IV 1 gm q12h <=1 S</content>
<content>CEFEPIME IV 2 gm q12h <=1 S</content>
<content>EXTD BRD SPCTRM BETA LACTAMASE IV NEGATIVE FOR ESBL</content>
<content></content> ID Date Data Source [id number] 04/21/2020 05:14:00 PM EDT [facility] ([facility]) Name Value Range Interpretation Code Description Data Bouchra rce(s) Supporting Document(s) Bacteria identified in Urine by Culture Laboratory test result [facility] ([facility]) Sent Triage to Nurse...stop Keflex.. [place] nge to Macrobid. ID Date Data Source [id number] 03/28/2020 10:48:00 AM EDT [facility] ([facility]) Name Value Range Interpretation Code Description Data Bouchra rce(s) Supporting Document(s) Bacteria identified in Urine by Culture Laboratory test result [facility] ([facility]) <content>FULL REPORT IN LAB NOTES (eCW a nd Medent).</content>
<content></content>
<content>ORGANISM 1: KLEBSIELLA PNEUMONIAE</content>
<content></content>
<content>COLONY COUNT >100,000</content>
<content></content>
<content></content>
<content> ORGANISM 1: KLEBSIELLA PNEUMONIAE</content>
<content></content>
<content>KLEBSIELLA PNEUMONIAE: REACTION</content>
<content>TRIMETHOPRIM/SULFAMETHOXAZOLE IV 160mg TMP & 800mg SMXq6h <=20 S</content>
<content> TRIMETHOPRIM/SULFAMETHOXAZOLE PO Bactrim DS Bid <=20 S</content>
<content>AMPICILLIN IV 500mg q6h >=32 R</content>
<content>AMPICILLIN PO 500mg q6h fasting >=32 R</content>
<content>GENTAMICIN IV 80mg q8h <=1 S</content>
<content>NITROFURANTOIN PO 100mg BID 128 R</content>
<content>CEFAZOLIN IV 1gm q8h <=4 S</content>
<content> LEVOFLOXACIN IV 500mg qd <=0.12 S</content>
<content>LEVOFLOXACIN PO 250mg qd <=0.12 S</content>
<content>LEVOFLOXACIN PO 500mg qd <=0.12 S</content>
<content>TOBRAMYCIN IV 80mg q8h <=1 S</content>
<content>CEFTRIAXONE IV 1gm q24h <=1 S</content>
<content>CEFTAZIDIME IV 1gm q8h <=1 S</content>
<content> AMPICILLIN/SULBACTAM IV 1.5g q6h 16 I</content>
<content>PIPERACILLIN/TAZOBACTAM IV 2.25 gm q6h <=4 S</content>
<content>AZTREONAM IV 1gm q8h <=1 S</content>
<content>ERTAPENEM IV 1gm qd <=0.5 S</content>
<content>MEROPENEM IV 1 gm q8h <=0.25 S</content>
<content>MEROPENEM IV 500 mg q8h <=0.25 S</content>
<content> TIGECYCLINE IV 50mg q12h 1 S</content>
<content>CEFEPIME IV 1 gm q12h <=1 S</content>
<content>CEFEPIME IV 2 gm q12h <=1 S</content>
<content>EXTD BRD SPCTRM BETA LACTAMASE IV NEGATIVE FOR ESBL</content>
<content></content> ID Date Data Source [id number] 03/27/2020 11:30:00 AM EDT [facility] ([facility], ) Name Value Range Interpretation Code Description Data Bouchra rce(s) Supporting Document(s) Gastrointestinal (GI) Panel Laboratory test result [facility] ([facility]) This Gastrointestinal PCR Panel detects the following bacteria, parasites and viruses: [...] A and Sapovirus (I, II, IV, V). NEGATIVE by MULTIPLEXED NUCLEIC ACID PCR ID Date Data Source [id number] 03/27/2020 11:30:00 AM EDT [facility] ([facility], ) Name Value Range Interpretation Code Description Data Bouchra rce(s) Supporting Document(s) Elastase.pancreatic [Mass/mass] in Stool Laboratory [facility], ) Calprotectin [Mass/mass] in Stool 33 ug/g 0-120 Normal (applies to non-numeric results) [facility]) <content>Concentration Interpretatio n Follow-Up</content>
<content><16 - 50 ug/g Normal None</content>
<content>>50 -120 ug/g Borderline Re-evaluate in 4-6 weeks</content>
<content>>120 ug/g Abnormal Repeat as clinically</content>
<content>indicated</content>
<content></content> ID Date Data Source [id number] 03/26/2020 10:31:00 AM EDT [facility]) Name Value Range Interpretation Code Description Data Bouchra rce(s) Supporting Document(s) Cobalamin (Vitamin B12) [Mass/volume] in Serum or Plasma 301 pg/ mL 247-911 Normal (applies to non-numeric results) [facility] ([facility]) VITAMIN B12 NORMAL RANGE NORMAL 247 - 911 PG/ML INDETERMINATE 211 - 246 PG/ML DEFICIENT LESS THAN 211 PG/ML ID Date Data Source [id number] 03/26/2020 10:31:00 AM EDT [facility]) Name Value Range Interpretation Code Description Data Bouchra rce(s) Supporting Document(s) Blood Urea Nitrogen 10 mg/dL 7-18 Normal (applies to non-nume andrew results) [facility] ([facility]) Creatinine For GFR 0.46 mg/dL 0.55-1.30 Below low normal [facility] ([facility]) Glucose, Fasting 74 mg/dL 70-100 Normal (applies to non-numeric results) [facility] ([facility]) Glomerular Filtration Rate Laboratory test result Normal (applies to non- numeric results) [facility] ([facility]) <content>Units are mL/min/1.73 m2</content>
<content></content>
<content>Chronic Kidney Disease Staging per NKF:</content>
<content></content>
<content>Stage I & II GFR >=60 Normal to Mildly Decreased</content>
<content>Stage III GFR 30- 59 Moderately Decreased</content>
<content>Stage IV GFR 15-29 Severely Decreased</content>
<content>Stage V GFR <15 Very Little GFR Left</content>
<content>ESRD GFR <15 on ACTUARIAL TRAINEE</content>
<content></content> Sodium Level 138 meq/L 136-145 Normal (applies to non-numeric res ults) [facility] Carbon Dioxide Level 28 meq/L 21-32 Normal (applies to non-num sri results) [facility] Chloride Level 108 meq/L 98-107 Above high normal [facility] ([facility]) Potassium Serum 4.2 meq/L 3.5-5.1 Normal (applies to non-numeric results) [facility] ([facility]) Ast/Sgot 21 U/L 7-37 Normal (applies to non-numeric resul ts) [facility] Calcium Level 9.1 mg/dL 8.8-10.2 Normal (applies to non-numeric re sults) [facility] Alt/SGPT 13 U/L 12-78 Normal (applies to non-numeric resul ts) [facility] Anion Gap 2 meq/L 8-16 Below low normal [facility] ( [facility]) Bilirubin,Total 0.3 mg/dL 0.2-1.0 Normal (applies to non-numeric results) [facility] ([facility]) Alkaline Phosphatase 82 U/L 45-117 Normal (applies to non-num sri results) [facility] ([facility]) Total Protein 7.4 GM/DL 6.4-8.2 Normal (applies to non-numeric re sults) [facility] ([facility]) Albumin/Globulin Ratio 0.9 1.2-2.2 Below low normal [facility] ([facility]) Albumin 3.5 GM/DL 3.2-5.2 Normal (applies to non-numeric resul ts) [facility] ID Date Data Source [id number] 03/26/2020 10:31:00 AM EDT [facility], ) Name Value Range Interpretation Code Description Data Bouchra rce(s) Supporting Document(s) White Blood Count 6.3 10 4.0-10.0 Normal (applies to non-numeri c results) [facility] ) Hemoglobin 13.8 g/dL 12.0-15.5 Normal (applies to non-numeric resul ts) [facility] Red Blood Count 4.36 10 4.00-5.40 Normal (applies to non-numeric results) [facility] ([facility]) Mean Corpuscular Volume 94.0 fl 80.0-96.0 Normal ( applies to non-numeric results) [facility] ([facility]) Mean Corpuscular Hemoglobin 31.7 pg 27.0-33.0 Norm al (applies to non-numeric results) [facility] ([facility]) Hematocrit 41.0 % 36.0-47.0 Normal (applies to non-numeric resul ts) [facility] ([facility]) Red Cell Distribution Width 12.6 % 11.5-14.5 Norm al (applies to non-numeric results) [facility] ([facility]) Mean Corpuscular HGB Conc 33.7 g/dL 32.0-36.5 Normal (applies to non-numeric results) [facility] ([facility]) Platelet Count, Automated 342 10 150-450 Normal (applies to non-numeric results) [facility] ([facility]) Lymph % 32.2 % 24.0-44.0 Normal (applies to non-numeric resul ts) [facility] Neutrophils % 54.1 % 36.0-66.0 Normal (applies to non-numeric re sults) [facility] [place] % 7.3 % 0.0-5.0 Above high normal [facility] ([facility]) Eos % 5.4 % 0.0-3.0 Above high normal [facility] Baso % 0.8 % 0.0-1.0 Normal (applies to non-numeric resul ts) [facility] Immature Granulocyte % 0.2 % 0-3.0 Normal (applies to non-n umeric results) [facility] ([facility]) Neutrophils # 3.4 10 1.5-8.5 Normal (applies to non-numeric re sults) [facility] Nucleated Red Blood Cell % 0.0 % 0-0 Normal (applies to n on-numeric results) [facility] ([facility]) Lymph # 2.0 10 1.5-5.0 Normal (applies to non-numeric resul ts) [facility] ([facility]) [place] # 0.5 10 0.0-0.8 Normal (applies to non-numeric resul ts) [facility] Eos # 0.3 10 0.0-0.5 Normal (applies to non-numeric resul ts) [facility] Baso # 0.1 10 0.0-0.2 Normal (applies to non-numeric resul ts) [facility] ([facility]) Procedure Social History No Information Vital Signs ID Date Data Source UNK Name Value Range Interpretation Code Description Data Source(s) Systolic blood pressure 152 mm[Hg] 152 mm[Hg] [facility] Diastolic blood pressure 68 mm[Hg] 68 mm[Hg] [facility] ([facility]) Body height 58 [in_i] 58 [in_i] [facility] ([facility]) 4'10" Body weight 99.00 [lb_av] 99.00 [lb_av] [facility] ([facility]) Body mass index (BMI) [Ratio] 20.7 kg/m2 20.7 k g/m2 [facility] ([facility]) [place] body weight 100 [lb_av] 100 [lb_av] [facility] T ([facility]) Body weight 44.906 kg 44.906 kg [facility] ([facility]) Body surface area Derived from formula 1.35 m2 1.35 m2 [facility] ([facility]) Body mass index (BMI) [Ratio] 22.4 kg/m2 22.4 k g/m2 [facility] ([facility]) [place] body weight 100 [lb_av] 100 [lb_av] [facility] T ([facility]) Body weight 48.535 kg 48.535 kg [facility] ([facility]) Body surface area Derived from formula 1.40 m2 1.40 m2 [facility] ([facility]) Body height 58 [in_i] 58 [in_i] [facility] ([facility]) 4'10" Body weight 107.00 [lb_av] 107.00 [lb_av] [facility] T ([facility]) Body surface area Derived from formula 1.40 m2 1.40 m2 [facility] ([facility]) Systolic blood pressure 150 mm[Hg] 150 mm[Hg] [facility] Diastolic blood pressure 78 mm[Hg] 78 mm[Hg] [facility] ([facility]) Body height 58 [in_i] 58 [in_i] [facility] ([facility]) 4'10" Body weight 107.00 [lb_av] 107.00 [lb_av] [facility] Body mass index (BMI) [Ratio] 22.4 kg/m2 22.4 k g/m2 [facility] ([facility]) [place] body weight 100 [lb_av] 100 [lb_av] [facility] T ([facility]) Body weight 48.535 kg 48.535 kg [facility] ([facility]) Diastolic blood pressure 82 mm[Hg] 82 mm[Hg] [facility] ([facility]) Systolic blood pressure 130 mm[Hg] 130 mm[Hg] [facility] Heart rate 80 /min 80 /min [facility]) Respiratory rate 16 /min 16 /min [facility] ( [facility], [facility]) Oxygen saturation in Arterial blood by Pulse oximetry 97 % 97 % [facility] ([facility], [facility]) Body temperature 97.8 [degF] 97.8 [degF] [facility] ([facility], [facility]) Body weight 110.00 [lb_av] 110.00 [lb_av] [facility] T ([facility]) Body height 57 [in_i] 57 [in_i] [facility] ([facility]) 4'9" Body mass index (BMI) [Ratio] 23.8 kg/m2 23.8 k g/m2 [facility] ([facility]) Respiratory rate 15 /min 15 /min [facility] ( [facility]) Oxygen saturation in Arterial blood by Pulse oximetry 97 % 97 % [facility] ([facility]) Heart rate 80 /min 80 /min [facility] ([facility], [facility]) Body mass index (BMI) [Ratio] 23.8 kg/m2 23.8 k g/m2 [facility] Body temperature 97.1 [degF] 97.1 [degF] [facility]) Body height 57 [in_i] 57 [in_i] [facility] ([facility]) 4'9" Systolic blood pressure 136 mm[Hg] 136 mm[Hg] M EDENT ([facility], [facility]) Body weight 110.00 [lb_av] 110.00 [lb_av] [facility] T ([facility], [facility]) Diastolic blood pressure 86 mm[Hg] 86 mm[Hg] [facility] ([facility], [facility]) Oxygen saturation in Arterial blood by Pulse oximetry 98 % 98 % [facility] ([facility], [facility]) Body temperature 98.4 [degF] 98.4 [degF] [facility] ([facility]) Body weight 115.00 [lb_av] 115.00 [lb_av] [facility] ([facility], [facility]) Systolic blood pressure 151 mm[Hg] 151 mm[Hg] M EDENT ([facility], [facility]) Diastolic blood pressure 80 mm[Hg] 80 mm[Hg] [facility] ([facility]) Heart rate 74 /min 74 /min [facility]) Respiratory rate 16 /min 16 /min [facility] ( [facility]) Heart rate 75 /min 75 /min [facility]) Respiratory rate 12 /min 12 /min [facility] ( [facility]) Systolic blood pressure 173 mm[Hg] 173 mm[Hg] M EDENT ([facility], [facility]) Diastolic blood pressure 79 mm[Hg] 79 mm[Hg] [facility]) Oxygen saturation in Arterial blood by Pulse oximetry 99 % 99 % [facility] ([facility]) Body temperature 98.3 [degF] 98.3 [degF] [facility] ([facility]) Body mass index (BMI) [Ratio] 21.6 kg/m2 21.6 k g/m2 [facility] ([facility]) Body weight 100.00 [lb_av] 100.00 [lb_av] [facility] ([facility]) Body height 57 [in_i] 57 [in_i] [facility]) 4'9" Oxygen saturation in Arterial blood by Pulse oximetry 96 % 96 % [facility] ([facility], [facility]) Body mass index (BMI) [Ratio] 22.7 kg/m2 22.7 k g/m2 [facility] ([facility], [facility]) Body temperature 98.3 [degF] 98.3 [degF] [facility] ([facility]) Body weight 105.00 [lb_av] 105.00 [lb_av] [facility] ([facility]) Body height 57 [in_i] 57 [in_i] [facility]) 4'9" Systolic blood pressure 132 mm[Hg] 132 mm[Hg] M EDENT ([facility]) Diastolic blood pressure 82 mm[Hg] 82 mm[Hg] [facility] ([facility]) Heart rate 83 /min 83 /min [facility]) Body weight 117.00 [lb_av] 117.00 [lb_av] [facility] ([facility]) Body height 57 [in_i] 57 [in_i] [facility] ([facility], [facility]) 4'9" Body mass index (BMI) [Ratio] 25.3 kg/m2 25.3 k g/m2 [facility]) Systolic blood pressure 140 mm[Hg] 140 mm[Hg] M EDENT ([facility], [facility]) Diastolic blood pressure 82 mm[Hg] 82 mm[Hg] [facility]) Heart rate 76 /min 76 /min [facility]) Respiratory rate 16 /min 16 /min [facility] ( [facility]) Oxygen saturation in Arterial blood by Pulse oximetry 98 % 98 % [facility] ([facility]) Body temperature 98.9 [degF] 98.9 [degF] [facility] ([facility], [facility]) Systolic blood pressure 132 mm[Hg] 132 mm[Hg] [facility] Diastolic blood pressure 78 mm[Hg] 78 mm[Hg] [facility] ([facility]) Body height 58 [in_i] 58 [in_i] [facility] ([facility]) 4'10" Body mass index (BMI) [Ratio] 24.5 kg/m2 24.5 k g/m2 [facility] ([facility]) [place] body weight 100 [lb_av] 100 [lb_av] [facility] ([facility]) Body weight 53.071 kg 53.071 kg [facility] ([facility]) Body surface area Derived from formula 1.45 m2 1.45 m2 [facility] ([facility]) Body weight 117.00 [lb_av] 117.00 [lb_av] [facility] ([facility])
[2021-05-19] MEDS ORDERED: NS 1,000 ML IV ONE (20:45)
[2021-05-19] MEDS ORDERED: MORPHINE 2 MG/ML 1ML VIAL (J2270) IV ONE (20:45)
[2021-05-19 21:27] LABS: BASO # 0.1 10^3/uL (0.0-0.2); BASO % 0.5 % (0.0-1.0); EOS # 0.1 10^3/uL (0.0-0.5); EOS % 0.4 % (0.0-3.0); HEMATOCRIT 44.7 % (36.0-47.0); HEMOGLOBIN 15.1 g/dl (12.0-15.5); LYMPH # 1.8 10^3/uL (1.5-5.0); LYMPH % 12.7 % (24.0-44.0); MEAN CORPUSCULAR HEMOGLOBIN 32.7 pg (27.0-33.0); MEAN CORPUSCULAR HGB CONC 33.8 g/dl (32.0-36.5); MEAN CORPUSCULAR VOLUME 96.8 fl (80.0-96.0); MONO # 0.7 10^3/uL (0.0-0.8); MONO % 4.8 % (2.0-8.0); NEUTROPHILS # 11.2 10^3/uL (1.5-8.5); NEUTROPHILS % 81.1 % (36.0-66.0); PLATELET COUNT, AUTOMATED 386 10^3/uL (150-450); RED BLOOD COUNT 4.62 10^6/uL (4.00-5.40); WHITE BLOOD COUNT 13.8 10^3/uL (4.0-10.0)
--- NOTE | 2021-05-19 21:29 | REPVR ---
PROCEDURE INFORMATION: Exam: XR Left Shoulder Exam date and time: 05/19/2021 8:57 PM Age: 65 years old Clinical indication: Pain; Shoulder; Left; Additional info: Trauma TECHNIQUE: Imaging protocol: XR Left shoulder. Views: 2 or more views. COMPARISON: CR Chest, 2 view PA, Lat 08/04/2017 1:05 PM FINDINGS: Bones/joints: Normal. Soft tissues: Normal. IMPRESSION: No acute findings. Electronically signed by: Brian Saleh On 05/19/2021 21:28:42 PM
--- NOTE | 2021-05-19 21:30 | REPVR ---
PROCEDURE INFORMATION: Exam: XR Left Wrist Exam date and time: 05/19/2021 8:57 PM Age: 65 years old Clinical indication: Pain; Wrist; Left; Additional info: Trauma TECHNIQUE: Imaging protocol: XR Left wrist. Views: 3 or more views. 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 Mild degenerative changes in the radiocarpal joint. Osteoporosis. Soft tissues: Normal. IMPRESSION: No acute findings. Electronically signed by: Brian Saleh On 05/19/2021 21:29:37 PM
[2021-05-19 21:57] LABS: ALBUMIN 4.3 GM/DL (3.2-5.2); ALT/SGPT 16 U/L (12-78); BILIRUBIN,TOTAL 0.5 MG/DL (0.2-1.0); BLOOD UREA NITROGEN 11 MG/DL (7-18); CALCIUM LEVEL 10.2 MG/DL (8.8-10.2); CARBON DIOXIDE LEVEL 25 MEQ/L (21-32); CHLORIDE LEVEL 102 MEQ/L (98-107); CREATININE FOR GFR 0.85 MG/DL (0.55-1.30); GLOMERULAR FILTRATION RATE > 60.0 (>45); GLUCOSE, FASTING 124 MG/DL (70-100); LIPASE 90 U/L (73-393); POTASSIUM SERUM 4.3 MEQ/L (3.5-5.1); SODIUM LEVEL 133 MEQ/L (136-145); TOTAL PROTEIN 8.6 GM/DL (6.4-8.2)
[2021-05-19] MEDS ORDERED: ISOVUE-370 76% 100ML VIAL As Ordered ONE (22:06)
--- OUTSIDE RECORDS SUMMARY | 2021-05-19 22:35 | CCD ---
Author Author [facility] Organization [facility] Address Unknown Phone Unavailable Care Team Providers Care Veterans Adviser Name Role Phone Diboll, L Roro CLIENT PROJECT COORDINATOR Unavailable Unavailable Diboll, L Roro CLIENT PROJECT COORDINATOR Unavailable Unavailable Razia, L Roro CLIENT PROJECT COORDINATOR Unavailable Unavailable Razia, L Roro CLIENT PROJECT COORDINATOR Unavailable Unavailable Razia, L Roro CLIENT PROJECT COORDINATOR Unavailable Unavailable Razia, L Roro CLIENT PROJECT COORDINATOR Unavailable Unavailable Diboll, L Roro CLIENT PROJECT COORDINATOR Unavailable Unavailable Razia, L Roro CLIENT PROJECT COORDINATOR Unavailable Unavailable Diboll, L Roro CLIENT PROJECT COORDINATOR Unavailable Unavailable Razia, L Roro CLIENT PROJECT COORDINATOR Unavailable Unavailable Razia, L Roro CLIENT PROJECT COORDINATOR Unavailable Unavailable Razia, L Roro CLIENT PROJECT COORDINATOR Unavailable Unavailable Razia, L Roro CLIENT PROJECT COORDINATOR Unavailable Unavailable Diboll, L Roro CLIENT PROJECT COORDINATOR Unavailable Unavailable Razia, L Roro CLIENT PROJECT COORDINATOR Unavailable Unavailable Diboll, L Roro CLIENT PROJECT COORDINATOR Unavailable Unavailable Razia, L Roro CLIENT PROJECT COORDINATOR Unavailable Unavailable Razia, L Roro CLIENT PROJECT COORDINATOR Unavailable Unavailable Diboll, L Roro CLIENT PROJECT COORDINATOR Unavailable Unavailable Diboll, L Roro CLIENT PROJECT COORDINATOR Unavailable Unavailable Diboll, L Roro CLIENT PROJECT COORDINATOR Unavailable Unavailable Razia, L Roro CLIENT PROJECT COORDINATOR Unavailable Unavailable Razia, L Roro CLIENT PROJECT COORDINATOR Unavailable Unavailable Razia, L Roro CLIENT PROJECT COORDINATOR Unavailable Unavailable Razia, L Roro CLIENT PROJECT COORDINATOR Unavailable Unavailable Razia, L Roro CLIENT PROJECT COORDINATOR Unavailable Unavailable Diboll, L Roro CLIENT PROJECT COORDINATOR Unavailable Unavailable Diboll, L Roro CLIENT PROJECT COORDINATOR Unavailable Unavailable Diboll, L Roro CLIENT PROJECT COORDINATOR Unavailable Unavailable Diboll, L Roro CLIENT PROJECT COORDINATOR Unavailable Unavailable Diboll, L Roro CLIENT PROJECT COORDINATOR Unavailable Unavailable Razia, L Roro CLIENT PROJECT COORDINATOR Unavailable Unavailable Diboll, L Roro CLIENT PROJECT COORDINATOR Unavailable Unavailable Diboll, L Roro CLIENT PROJECT COORDINATOR Unavailable Unavailable Razia, L Roro CLIENT PROJECT COORDINATOR Unavailable Unavailable Razia, L Roro CLIENT PROJECT COORDINATOR Unavailable Unavailable Razia, L Roro CLIENT PROJECT COORDINATOR Unavailable Unavailable Diboll, L Roro CLIENT PROJECT COORDINATOR Unavailable Unavailable Diboll, L Roro CLIENT PROJECT COORDINATOR Un[facility] Unavailable Unavailable ARMANDO, [...] Unavailable ARMANDO, MATA PA Unavailable Unavailable ARMANDO, MTAA PA Unavailable Unavailable ARMANDO, MATA PA Unavailable Unavailable ARMANDO, MATA PA Unavailable Unavailable ARMANDO, MATA PA Unavailable Unavailable ARMANDO, MATA PA Unavailable Unavailable RING, K COSMO PA Unavailable Unavailable RING, K COMSO PA Unavailable Unavailable RING, K COSMO PA [...] COSMO PA Unavailable Unavailable Nathaniel, Radha Rakesh LNA Unavailable Unavailable Nathaniel, Radha Rakesh LNA Unavailable Unavailable [place], Radha Rakesh LNA Unavailable Unavailable Nathaniel, Radha Rakesh LNA Unavailable Unavailable [place], Radha Rakesh LNA Unavailable Unavailable Nathaniel, Radha Rakesh LNA Unavailable Unavailable Nathaniel, Radha Rakesh LNA Unavailable Unavailable Nathaniel, Radha Rakesh LNA Unavailable Unavailable [place], Radha Rakesh LNA Unavailable Unavailable [place], Radha Rakesh LNA Unavailable Unavailable [place], Radha Rakesh LNA Unavailable Unavailable Nathaniel, Radha Rakesh LNA Unavailable Unavailable Nathaniel, Radha Rakesh LNA Unavailable Unavailable [place], Radha Rakesh LNA Unavailable Unavailable GURJIT DELEON MD Unavailable Unavailable [...] PATEL Unavailable Unavailable Jaimee, Ted W Samanta LNA-C Unavailable Unavailabl e Jaimee, Regalexi W Samanta LNA-C Unavailable Unavailabl e Jaimee, Regalexi W Samanta LNA-C Unavailable Unavailabl e Jaimee, Regalexi W Samanta LNA-C Unavailable Unavailabl e Jaimee, Regalexi Issa Samanta LNA-C Unavailable Unavailabl e Jaimee, Regalexi W Samanta LNA-C Unavailable Unavailabl e Jaimee, Regalexi W Samanta LNA-C Unavailable Unavailabl e Jaimee, Regalexi Issa Samanta LNA-C Unavailable Unavailabl e Jaimee, Regalexi W Samanta LNA-C Unavailable Unavailabl e Jaimee, Regalexi W Samanta LNA-C Unavailable Unavailabl e Jaimee, Regalexi W Samanta LNA-C Unavailable Unavailabl e Jaimee, Regalexi W Samanta LNA-C Unavailable Unavailabl e Jaimee, Regalexi W Samanta LNA-C Unavailable Unavailabl e Jaimee, Regalexi W Samanta LNA-C Unavailable Unavailabl e Jaimee, Regalexi W Samanta LNA-C Unavailable Unavailabl e Jaimee, Regalexi W Samanta LNA-C Unavailable Unavailabl e Jaimee, Regalexi W Samanta LNA-C Unavailable Unavailabl e Jaimee, Regalexi W Samanta LNA-C Unavailable Unavailabl e Jaimee, Regalexi W Samanta LNA-C Unavailable Unavailabl e Jaimee, Regalexi W Samanta LNA-C Unavailable Unavailabl e Jaimee, Regalexi W Samanta LNA-C Unavailable Unavailabl e Jaimee, Ted England LNA-C Unavailable Unavailabl e Jaimee, Ted England LNA-C Unavailable Unavailabl e Jaimee, Ted England LNA-C Unavailable Unavailabl e Jaimee, Ted England LNA-C Unavailable Unavailabl e Jaimee, Ted England LNA-C Unavailable Unavailabl e Jaimee, Ted Zavalae LNA-C Unavailable Unavailabl e Jaimee, Ted [place] LNA-C Unavailable Unavailabl e Jaimee, Ted Zavalae LNA-C Unavailable Unavailabl e Jaimee, Ted [place] LNA-C Unavailable Unavailabl e Jaimee, Ted Zavalae LNA-C Unavailable Unavailabl e Jaimee, Ted Zavalae LNA-C Unavailable Unavailabl e LETTIERE, A DI PA [...] Unavailable FLORES, ANTWON BRENDA RPA-C Unavailable Unavailable FLOERS, ANTWON BRENDA RPA-C Unavailable Unavailable FLORES, ANTWON [...] SEAN DO Unavailable Unavailable Ileana, A Melissa LNA Unavailable Unavailable Ileana, A Melissa LNA Unavailable Unavailable Ileana, A Melissa LNA Unavailable Unavailable Ileana, A Melissa LNA Unavailable Unavailable Ileana, A Melissa LNA Unavailable Unavailable Ileana, A Melissa LNA Unavailable Unavailable Ileana, A Melissa LNA Unavailable Unavailable Ileana, A Melissa LNA Unavailable Unavailable Ileana, A Melissa LNA Unavailable Unavailable Ileana, A Melissa LNA Unavailable Unavailable Ileana, A Melissa LNA Unavailable Unavailable Ileana, A Melissa LNA Unavailable Unavailable Ileana, A Melissa LNA Unavailable Unavailable Ileana, A Melissa LNA Unavailable Unavailable Ileana, A Melissa LNA Unavailable Unavailable Ileana, A Melissa LNA Unavailable Unavailable Ileana, A Melissa LNA Unavailable Unavailable Ileana, A Melissa LNA Unavailable Unavailable Ileana, A Melissa LNA Unavailable Unavailable Ileana, A Melissa LNA Unavailable Unavailable Ileana, A Melissa LNA Unavailable Unavailable Ileana, A Melissa LNA Unavailable Unavailable Ileana, A Melissa LNA Unavailable Unavailable Ileana, A Melissa LNA Unavailable Unavailable Ileana, A Melissa LNA Unavailable Unavailable Ileana, A Melissa LNA Unavailable Unavailable Ileana, A Melissa LNA Unavailable Unavailable Ileana, A Melissa LNA Unavailable Unavailable Ileana, A Melissa LNA Unavailable Unavailable Ileana, A Melissa LNA Unavailable Unavailable Ileana, A Melissa LNA Unavailable Unavailable Ileana, A Melissa LNA Unavailable Unavailable Ileana, A Melissa LNA Unavailable Unavailable Ileana, A Melissa LNA Unavailable Unavailable Ileana, A Melissa LNA Unavailable Unavailable Ileana, A Melissa LNA Unavailable Unavailable Ileana, A Melissa LNA Unavailable Unavailable Ileana, A Melissa LNA Unavailable Unavailable Ileana, A Melissa LNA Unavailable Unavailable Ileana, A Melissa LNA Unavailable Unavailable Ileana, A Melissa LNA Unavailable Unavailable Ileana, A Melissa LNA Unavailable Unavailable Ileana, A Melissa LNA Unavailable Unavailable Ileana, A Melissa LNA Unavailable Unavailable Ileana, A Melissa LNA Unavailable Unavailable Ileana, A Melissa LNA Unavailable Unavailable Ileana, A Melissa LNA Unavailable Unavailable Ileana, A Melissa LNA Unavailable Unavailable Ileana, A Melissa LNA Unavailable Unavailable Ileana, A Melissa LNA Unavailable Unavailable Ileana, A Melissa LNA Unavailable Unavailable Ileana, A Melissa LNA Unavailable Unavailable Ileana, A Melissa LNA Unavailable Unavailable Ileana, A Melissa LNA Unavailable Unavailable [place], Radha Rakesh LNA Unavailable Unavailable Nathaniel, Radha Rakesh LNA Unavailable Unavailable Nathaniel, Radha Rakesh LNA Unavailable Unavailable [place], Radha Rakesh LNA Unavailable Unavailable Nathaniel, Radha Rakesh LNA Unavailable Unavailable Nathaniel, Radha Rakesh LNA Unavailable Unavailable Nathaniel, Radha Rakesh LNA Unavailable Unavailable Nathaniel, Radha Rakesh LNA Unavailable Unavailable [place], Radha Raeksh LNA Unavailable Unavailable [place], Radha Cameron LNA Unavailable Unavailable [place], Radha Cameron LNA Unavailable Unavailable [place], Radha Cameron LNA Unavailable Unavailable [place], Radha Cameron LNA Unavailable Unavailable Nathaniel, Radha Cameron LNA Unavailable Unavailable Re-disclosure Warning The records that [...] is protected by Article 27-F of the [facility] Public Health law. If you continue you may have access to information: Regarding HIV / AIDS; Provided by facilities licensed or operated by the [facility] Office of Mental Health; or Provided by the [facility] Office for People With Developmental Disabilities. If such information is present, then the following [facility] mandated warning applies: This information has [...] law may result in a fine or nursing home sentence or both. A general authorization for the release of medical or other information is NOT sufficient authorization for further disc losure. Family History Family Member Name Family Member Gender Family Member Status Date o f Status Description Data Source(s) Unknown Unknown Problem [facility] ([facility]) Unknown Male Problem MEDENT ([facility]) Unknown Unknown Problem [facility] ([facility]) Unknown Unknown Encounters Encounter Providers Location Date Indications Data Source(s ) Outpatient Attender: GURJIT Mancera/Shaun/Jani/Rein dl 03/30/2021 03:30:00 PM EDT MED[facility] ([facility] Outpatient Attender: Rakesh Armstrong FNPReferrer: Danielle MORAES EMERGENCY ROOM-LAB REF 03/09/2021 10:56:00 AM EDT - 03/09/2021 10:56:00 AM [facility] Outpatient Attender: Rakesh Armstrong FNPConsultant: [facility] [id number] 03/09/2021 10:17:00 AM [facility] Outpatient Attender: Rakesh MORAES 03/09/2021 10:14:00 AM [facility] Outpatient Attender: Roro CHERRY 03/04/2021 08:38:00 AM [facility] Outpatient Attender: Roro Randle RNPReferrer: Sangeeta MORAES EMERGENCY ROOM-MAMMO 02/25/2021 11:21:00 AM EDT - 02/25/2021 11:21:00 AM [facility] Outpatient Attender: Roro CHERRY 02/04/2021 10:00:00 AM [facility] Outpatient Attender: Samanta IRVINGP-CReferrer: Me alex MORAES EMERGENCY ROOM-LAB REF 11/13/2020 03:27:00 PM EDT - 11/13/2020 03:27:00 PM [facility] Outpatient Attender: SEAN DUMONT DOConsultant: [facility] [id number] 11/13/2020 01:15:00 PM [facility] Outpatient Attender: Samanta Hermosillo LNA-C 11/13/2020 01:01:0 0 PM [facility] Outpatient Attender: GURJIT Mancera/Shaun/Jani/Rein dl 10/09/2020 11:30:00 AM EDT MEDENT ([facility]) Outpatient Attender: COSMO Fuentes 08/20/2020 11:30:00 AM EST MEDENT ([facility] [place] [address] [address] 07/25/2020 12:00:00 AM EST eCW1 ([facility]) Outpatient Attender: DI Otero Prim pedro 07/09/2020 12:20:00 PM EST MED[facility] ([facility]) Outpatient Attender: DI Otero Prim pedro 06/06/2020 06:25:00 PM EST MED[facility] ([facility]) Outpatient [facility] 06/02/2020 12:38:00 PM [facility] Outpatient Attender: Melissa MORAES 05/27/2020 08:00 :00 AM [facility] Outpatient [facility] 05/14/2020 12:44:00 PM EDT [facility] Outpatient [facility] 05/14/2020 12:43:01 PM EDT [facility] Outpatient [facility] 05/14/2020 10:01:00 AM EDT [facility] Outpatient Attender: DI Otero Prim pedro 05/09/2020 03:35:00 PM EDT MEDENT ([facility]) Outpatient Attender: Devora Otero Prim pedro 04/21/2020 04:15:00 PM EDT MED[facility] ([facility]) Outpatient 04/03/2020 12:00:[address] [facility] Outpatient Attender: Melissa RIOSttender: BRENDA SANCHEZ RPA-C 03/31/2020 12:01:00 AM [facility] Outpatient Attender: MATA Rodrigueza ry 03/28/2020 10:30:00 AM EDT MEDENT ([facility]) Outpatient Attender: GURJIT Mancera/Shaun/Jani/Melanie bean 03/26/2020 09:30:00 AM EDT MEDENT ([facility]) Outpatient Attender: BRENDA FLORES RPA-C 02/28/2020 12:01:00 AM [facility] Outpatient Attender: BRENDA GUERREROCReferrer: BRENDA FLORES RPA-C 04/24/2019 04:50:00 PM EDT - 04/24/2019 04:50:00 PM [facility] Outpatient Attender: BRENDA HOGAN 11/21/2018 01:00:00 PM [facility] Outpatient Attender: BRENDA HOGAN 09/16 12:52:00 PM EDT - 10/05/2018 12:52:00 PM [facility] Medications Medication Brand Name Start Date Product [...] 03/30/2021 12:00:00 AM EDT active M EDENT ([facility], ) Magnesium Hydroxide 80 MG/ML Oral Suspension Milk Of Magnesi a 03/30/2021 12:00:00 AM EDT ORAL active M EDENT ([facility], ) Cholestyramine Resin 66.7 MG/ML Oral Suspension Cholestyrami ne 03/30/2021 12:00:00 AM EDT ORAL active M EDENT ([facility], ) NITROFURANTOIN, MACROCRYSTALS 25 MG / [...] 08/20/2020 12:00:00 AM EST ORAL active MEDENT ([facility]) Cephalexin 500 MG Oral Capsule CEPHALEXIN 07/09/2020 12:00:00 AM EST capsule 14 TAKE ONE CAPSULE BY MOUTH TWICE A DAY FOR 7 DAYS TAKE ONE CAPSULE BY MOUTH TWICE A DAY FOR 7 DAYS SOLD: 07/09/2020 [facility] Cephalexin 500 MG Oral Tablet Cephalexin 07/09/2020 12:00:00 AM EST ORAL completed MEDENT ([facility]) 500 mg 06/06/2020 12:00:00 AM EST capsule 14 TAKE ONE CAPSULE BY MOUTH TWICE A DAY FOR 7 DAYS TAKE ONE CAPSULE BY MOUTH TWICE A DAY FOR 7 DAYS SOLD: 06/06/2020 [facility] Cephalexin 500 MG Oral Tablet Cephalexin 06/06/2020 12:00:00 AM EST ORAL completed MEDENT ([facility]) Cephalexin 500 MG Oral Tablet Cephalexin 05/11/2020 12:00:00 AM EDT ORAL completed MED[facility] ([facility] 500 mg 05/11/2020 12:00:00 AM EDT capsule [...] 05/09/2020 12:00:00 AM EDT ORAL completed MED[facility] ([facility]) 100 mg 04/23/2020 12:00:00 AM EDT capsule 14 TAKE ONE CAPSULE BY MOUTH TWICE A DAY FOR 7 DAYS TAKE ONE CAPSULE BY MOUTH TWICE A DAY FOR 7 DAYS SOLD: 04/23/2020 [facility] NITROFURANTOIN, MACROCRYSTALS 25 MG / Ni trofurantoin, Monohydrate 75 MG Oral Capsule [Macrobid] Macrobid 04/23/2020 12:00:00 AM EDT ORAL completed MEDENT ([facility], [facility]) Cephalexin 500 MG Oral Capsule [Keflex] Keflex 04/21/2020 12:00:0 0 AM EDT ORAL completed MEDENT ([facility]) Cephalexin 500 MG Oral Capsule [...] 03/28/2020 12:00:00 AM EDT ORAL completed MEDENT ([facility], [facility]) 10 mg 03/27/2020 12:00:00 AM [...] type / Coverage type Policy ID Covered libertarian ID Covered libertarian's relationship to botello Policy [place] Plan Information MEDICARE [id number] SP [id number] A MEDICARE [id number] SP [id number] MEDICARE [id number] SP [id number] A MEDICARE [id number] SP [id number] A MEDICARE [id number] SP [id number] A Medicaid [place] Medigap Part B [id number] Self [id number] [facility] Medigap Part B [id number] Self [id number] [facility] Medigap Part B [id number] Self 1 [id number] [facility] Manoj/MCR Medigap Part B [id number] Self [id number] [facility] Manoj/MCR Medigap Part B [id number] Self [id number] [place] [id number] S [id number] [employer] [employer] [id number] S [id number] Hmo Blue Option/Medicaid Health Maintenance Organization (HMO) V [id number] Self V [id number] [place] [id number] S [id number] Hmo Blue Option/Medicaid Health Maintenance Organization (HMO) V [id number] Self V [id number] Hmo Blue Option/Medicaid Health Maintenance Organization (HMO) V [id number] Self V [id number] [place] MED[employer]ARE [employer] [id number] S [id number] [place]ICARE [place] [id number] S [id number] BS Manoj Hmo Blue Option Medigap Part B [id number] Self [id number] Medicare [place] Medicare Primary [id number] Self [id number] BS Manoj Hmo Blue Option Medigap Part B [id number] Self [id number] [place] Medicare Primary [id number] Self [id number] BS Manoj Hmo Blue Option Medigap Part B [id number] Self [id number] [place] [employer] [id number] S [id number] Medicare [place] Medicare Primary [id number] Self [id number] Hmo Blue Option/Medicaid Health Maintenance Organization (HMO) V [id number] Self V [id number] Hmo Blue Option/Medicaid Health Maintenance Organization (HMO) V [id number] Self V [id number] Hmo Blue Option/Medicaid Health Maintenance Organization (HMO) [id number] Self [id number] Medicare [place] Medicare Primary [id number] Self Medicare [place] Medicare Primary [id number] Self [id number] HUMANA MEDICARE ADVANTAGE G [id number] Self [id number] MEDICARE A [id number] Self [id number] A MEDICARE [id number] SP [id number] A MEDICARE A [id number] Self [id number] [id number] Medicaid S [id number] S [id number] Medicaid P [id number] S [id number] A Medicare P [id number] S [id number] [id number] Medicare P [id number] S [id number] A MEDICAID M [id number] Self [id number] MEDICAID [id number] SP [id number] MEDICAID [id number] SP [id number] MEDICAID [id number] SP [id number] MEDICAID [id number] SP [id number] MEDICAID [id number] S [id number] MEDICAID [id number] S [id number] [id number] SP [id number] [place] [id number] SP [id number] X MEDICAID [id number] SP [id number] HUMANA GOLD CLASSIC UNAVAILABLE S UNAVAILABLE HUMANA GOLD CLASSIC [id number] S [id number] HUMANA GOLD CLASSIC [id number] S [id number] HUMANA GOLD CLASSIC [id number] S [id number] Medicare P [id number] S [id number] [id number] Medicaid [place] Medigap Part B [id number] Self [id number] Medicare Natl Gov't Servi Medicare Primary [id number] Self [id number] Medicaid [place] Medig[place] Part B [id number] Self [id number] [facility] UNAVAILABLE [id number] S UNAVAILABLE Medicaid Medigap Part B [id number] Self [id number] [place] Part B [id number] Self [id number] [place] Medig[place] Part B [id number] Self [employer] [id number] SP [id number] MEDICARE [id number] SP [id number] A Medicare Part B Medicare Primary [id number] Self Medicaid Medicaid 1 [id number] Self 1 1 [facility] [id number] SP [id number] Medicare Medicare Primary [id number] Self SELF PAY UNAVAILABLE SP UNAVAILA BLE MEDICARE [id number] SP [id number] A Medicaid [place] Medigap Part B [id number] Self [place] Primary [id number] Self Medicare S [id number] S [id number] BLUE CROSS LOERA PLAN [id number] SP [id number] [facility] [id number] SP [id number] MEDICARE UNAVAILABLE SP UNAVAILA BLE [facility] [id number] SP [id number] [place] [id number] SP [id number] [place] [id number] SP [id number] HUMANA GOLD [id number] SP [id number] HUMANA GOLD CLASSIC [id number] S [id number] MEDICAID [id number] S [id number] MEDICAID [id number] S [id number] MEDICAID [id number] S [id number] [facility] MEDICARE DIVISION [id number] S [id number] [place]ICARE [place] [id number] S [id number] WELLCARE [id number] SP [id number] [facility] [id number] SP [id number] [facility] DUAL COMPLET [id number] S [id number] [facility] DUAL COMPLET [id number] S [id number] MEDICARE [id number] SP [id number] HUMANA GOLD [id number] SP [id number] [place] [id number] SP [id number] WELLCARE [id number] SP [id number] HUMANA GOLD [id number] SP [id number] [id number] SP [id number] Medicaid S [id number] S [id number] A [facility] [id number] SP [id number] HUMANA GOLD [id number] SP [id number] MEDICARE [id number] SP [id number] A HUMANA GOLD [id number] SP [id number] HUMANA GOLD [id number] SP [id number] HUMANA GOLD [id number] SP [id number] [facility] Secure Horizons P [id number] S [id number] [facility] DUAL COMPLET [id number] S [id number] HUMANA [id number] S [id number] [facility] DUAL COMPLET [id number] S [id number] Medicaid [place] Medigap Part B [id number] Self [id number] Medicare [place]/[facility] Medicare Primary [id number] Self [id number] MEDICAID [id number] SP [id number] Medicaid [place] Part B [id number] Self [id number] [place] MED[place]ARE [employer] [id number] S [id number] MEDICARE [place] [id number] S [id number] Medicaid Medigap Part B [id number] Self [id number] Medicare Part Medicare Primary [id number] Self [id number] Medicaid [facility] Part B [id number] Self [id number] Medicare Natl Gov't Servi Medicare Primary [id number] Self [id number] [facility] [id number] Self [id number] Medicare Natl Gov't Servi Medicare Primary [id number] Self [id number] MEDICAID M [id number] S [id number] MEDICARE C [id number] S [id number] A Medicaid Medigap Part B [id number] 93.0 Self [id number] Medicare Part B Medicare Primary [id number] Self [id number] [place] Part [place] [id number] .[id number] [facility] OPTIONS C [id number] S [id number] [place] Part B [id number] Self [id number] [place] Part B [id number] Self [id number] [place] [id number] Self [id number] Medicare Natl Gov't Servi Medicare Primary [id number] Self [id number] [place] Part B [id number] Self [id number] Medicaid [place] Medigap Part B [id number] Self [id number] Problems, Conditions, and Diagnoses Code Display Name Description Problem Type Effective Dates Data Source(s) R35.0 Frequency of micturition FREQUENCY OF MICTURITION Diag nosis 03/09/2021 10:56:00 AM [facility] N30.01 Acute cystitis with hematuria ACUTE CYSTITIS WITH MEENAKSHI TURIA Diagnosis 03/09/2021 10:14:00 AM [facility] Z71.2 Person consulting for explanation of exa mination or test findings PERSON CONSULTING FOR EXPLANATION OF EXAM OR TEST Diagnosis 03/04/2021 08:38: 00 AM [facility] E78.00 PURE HYPERCHOLESTEROLEMIA, UNSPECIFIED P URE HYPERCHOLESTEROLEMIA, UNSPECIFIED Diagnosis 03/04/2021 08:38:00 AM [facility] F17.210 Nicotine dependence, cigarettes, uncompl icated NICOTINE DEPENDENCE, CIGARETTES, UNCOMPLICATED Diagnosis 03/04/2021 08:38:[address] [facility] K50.90 Crohn's disease, unspecified, without co mplications CROHN'S DISEASE, UNSPECIFIED, WITHOUT COMPLICATION Diagnosis 02/04/2021 10:00:00 AM [facility] Z12.31 Encounter for screening mammogram for ma lignant neoplasm of breast ENCNTR SCREEN MAMMOGRAM FOR MALIGNANT NEOPLASM OF Diagnosis 02/04/2021 10:00:00 AM [facility] Z71.89 Other specified counseling OTHER SPECIFIED COUNSELING Diagnosis 02/04/2021 10:00:00 AM [facility] Z55.0 Illiteracy and low-level literacy ILLITERACY AND LOW-LEVEL LITERACY Diagnosis 02/04/2021 10:00:00 AM [facility] Z86.39 Personal history of other endocrine, nut ritional and metabolic disease PERSONAL HISTORY OF ENDO, NUTRITIONAL AND METABOLI Diagnosis 10:00:00 AM [facility] Z86.11 Personal history of tuberculosis PERSONAL HISTOR Y OF TUBERCULOSIS Diagnosis 02/04/2021 10:00:00 AM [facility] Z13.31 ENCOUNTER FOR SCREENING FOR DEPRESSION E NCOUNTER FOR SCREENING FOR DEPRESSION Diagnosis 02/04/2021 10:00:00 AM [facility] R63.4 Abnormal weight loss ABNORMAL WEIGHT LOSS Diagnosis 02/04/2021 10:00:00 AM [facility] M81.0 Age-related osteoporosis without current pathological fracture AGE-RELATED OSTEOPOROSIS W/O CURRENT PATHOLOGICAL Diagnosis 02/04/2021 10:00:00 A M [facility] L98.9 Disorder of the skin and subcutaneous ti ssue, unspecified DISORDER OF THE SKIN AND SUBCUTANEOUS TISSUE, UNSP Diagnosis 02/04/2021 10:00:00 AM ED [facility] F03.90 Unspecified dementia without behavioral disturbance UNSPECIFIED DEMENTIA WITHOUT BEHAVIORAL DISTURBANC Diagnosis 02/04/2021 10:00:00 AM [facility] E78.5 Hyperlipidemia, unspecified HYPERLIPIDEMIA, UNSPECIFIE D Diagnosis 02/04/2021 10:00:00 AM [facility] R30.0 Dysuria DYSURIA Diagnosis 11/13/2020 03:27:00 PM [facility] 525.13 LOSS OF TEETH DUE TO CARIES LOSS OF TEETH DUE TO DANA S 05/14/2020 12:42:22 PM EDT [facility] Surgeries/Procedures Procedure Description Date Indications Data Source(s) OFFICE OUTPATIENT VISIT 25 MINUTES 03/30/2021 12:00:00 AM EDT [facility] ([facility], ) OFFICE OUTPATIENT VISIT 25 MINUTES 10/09/2020 12:00:00 AM EDT [facility] ([facility]) Results ID Date Data Source [id number] 04/24/2021 12:15:00 PM EDT [facility] ([facility]) Name Value Range Interpretation Code Description Data Bouchra rce(s) Supporting Document(s) Elastase.pancreatic [Mass/mass] in Stool Laboratory test result Normal (applies to non-numeric results) [facility] ([facility] frankie ) <content>Result Units: ug Elast./g</cont ent>
<content>Severe Pancreatic Insufficiency: <100</content>
<content>Moderate Pancreatic Insufficiency: 100 - 200</content>
<content>Normal: >200</content>
<content></content> ID Date Data Source [id number] 04/24/2021 12:15:00 PM EDT [facility] ([facility]) Name Value Range Interpretation Code Description Data Bouchra rce(s) Supporting Document(s) Gastrointestinal (GI) Panel Laboratory test result [facility] ([facility], ) This Gastrointestinal PCR Panel detects the following [...] NUCLEIC ACID PCR ID Date Data Source [id number] 04/24/2021 12:15:00 PM [facility] Name Value Range Interpretation Code Description Data Bouchra rce(s) Supporting Document(s) Calprotectin [Mass/mass] in Stool 63 ug/g 0-120 Normal (applies to non-numeric results) [facility], ) <content>Concentration Interpretatio n Follow-Up</content>
<content><16 - 50 ug/g Normal None</content>
<content>>50 -120 ug/g Borderline Re-evaluate in 4-6 weeks</content>
<content>>120 ug/g Abnormal Repeat as clinically</content>
<content>indicated</content>
<content>Performed at: [facility]</content>
<content>[address] [place] [address] [id number]</content>
<content>Watershed Manager: Mehran Vasquez MD, Phone: [phone]</content>
<content></content> ID Date Data Source [id number] 03/30/2021 04:56:00 PM EDT [facility] ([facility]) Name Value Range Interpretation Code Description Data Bouchra rce(s) Supporting Document(s) Erythrocyte sedimentation rate by Westergren method 19 mm/hr 0-30 Normal (applies to non-numeric results) [facility] ([facility], ) C reactive protein [Mass/volume] in Serum or Plasma by High sensitivity method 0.30 mg/dL 0.00-0.30 Normal (applies to non-numeric results) [facility] ([facility]) 03/30/21 (TueMar 30) 07:12 PM GURJIT SOTO normal ID Date Data Source [id number] 03/30/2021 04:56:00 PM EDT [facility] ([facility]) Name Value Range Interpretation Code Description Data Bouchra rce(s) Supporting Document(s) Blood Urea Nitrogen 12 mg/dL 7-18 Normal (applies to non-nume andrew results) [facility] ([facility]) Glucose, Fasting 67 mg/dL 70-100 Below low normal [facility] ([facility]) Creatinine For GFR 0.53 mg/dL 0.55-1.30 Below low normal [facility] ([facility]) Glomerular Filtration Rate Laboratory test result Normal (applies to non- numeric results) [facility]) <content>Units are mL/min/1.73 m2</content>
<content></content>
<content>Chronic Kidney Disease Staging per NKF:</content>
<content></content>
<content>Stage I & II GFR >=60 Normal to Mildly Decreased</content>
<content>Stage III GFR 30- 59 Moderately Decreased</content>
<content>Stage IV GFR 15-29 Severely Decreased</content>
<content>Stage V GFR <15 Very Little GFR Left</content>
<content>ESRD GFR <15 on FORM MAKER PLASTER</content>
<content></content> Sodium Level 139 meq/L 136-145 Normal (applies to non-numeric res ults) [facility] ([facility]) Chloride Level 107 meq/L 98-107 Normal (applies to non-numeric r esults) [facility] ([facility]) Potassium Serum 4.4 meq/L 3.5-5.1 Normal (applies to non-numeric results) [facility] ([facility]) Carbon Dioxide Level 26 meq/L 21-32 Normal (applies to non-num sri results) [facility] ([facility]) Anion Gap 6 meq/L 8-16 Below low normal [facility] ( [facility]) Alt/SGPT 12 U/L 12-78 Normal (applies to non-numeric resul ts) [facility]) Calcium Level 9.3 mg/dL 8.8-10.2 Normal (applies to non-numeric re sults) [facility]) Ast/Sgot 9 U/L 7-37 Normal (applies to non-numeric resul ts) [facility] ([facility]) Total Protein 7.2 GM/DL 6.4-8.2 Normal (applies to non-numeric re sults) [facility]) Bilirubin,Total 0.6 mg/dL 0.2-1.0 Normal (applies to non-numeric results) [facility] ([facility]) Alkaline Phosphatase 78 U/L 45-117 Normal (applies to non-num sri results) [facility] ([facility]) Albumin 3.8 GM/DL 3.2-5.2 Normal (applies to non-numeric resul ts) [facility] ([facility]) Albumin/Globulin Ratio 1.1 1.2-2.2 Below low normal [facility] ([facility]) ID Date Data Source [id number] 03/30/2021 04:56:00 PM EDT [facility] ([facility]) Name Value Range Interpretation Code Description Data Bouchra rce(s) Supporting Document(s) Red Blood Count 4.46 10 4.00-5.40 Normal (applies to non-numeric results) [facility] ([facility]) Hemoglobin 14.2 g/dL 12.0-15.5 Normal (applies to non-numeric resul ts) [facility]) White Blood Count 7.9 10 4.0-10.0 Normal (applies to non-numeri c results) [facility]) Mean Corpuscular Volume 96.2 fl 80.0-96.0 Above high normal [facility] ([facility]) Hematocrit 42.9 % 36.0-47.0 Normal (applies to non-numeric resul ts) [facility]) Mean Corpuscular Hemoglobin 31.8 pg 27.0-33.0 Norm al (applies to non-numeric results) [facility]) Red Cell Distribution Width 12.7 % 11.5-14.5 Norm al (applies to non-numeric results) [facility]) Mean Corpuscular HGB Conc 33.1 g/dL 32.0-36.5 Normal (applies to non-numeric results) [facility] ([facility]) Neutrophils % 51.4 % 36.0-66.0 Normal (applies to non-numeric re sults) [facility]) Platelet Count, Automated 330 10 150-450 Normal (applies to non-numeric results) [facility]) Lymph % 35.2 % 24.0-44.0 Normal (applies to non-numeric resul ts) [facility]) Baso % 0.9 % 0.0-1.0 Normal (applies to non-numeric resul ts) [facility] Eos % 5.0 % 0.0-3.0 Above high normal [facility] ([facility]) Tift % 7.2 % 2.0-8.0 Normal (applies to non-numeric resul ts) [facility]) Immature Granulocyte % 0.3 % 0-3.0 Normal (applies to non-n umeric results) [facility]) Neutrophils # 4.1 10 1.5-8.5 Normal (applies to non-numeric re sults) [facility]) Nucleated Red Blood Cell % 0.0 % 0-0 Normal (applies to n on-numeric results) [facility] ([facility]) Lymph # 2.8 10 1.5-5.0 Normal (applies to non-numeric resul ts) [facility]) Eos # 0.4 10 0.0-0.5 Normal (applies to non-numeric resul ts) [facility] Tift # 0.6 10 0.0-0.8 Normal (applies to non-numeric resul ts) [facility] ([facility]) Baso # 0.1 10 0.0-0.2 Normal (applies to non-numeric resul ts) [facility] ([facility]) ID Date Data Source [id number] 03/11/2021 02:55:00 PM EDT [facility] Name Value Range Interpretation Code Description Data Bouchra rce(s) Supporting Document(s) ORGANISM [facility] COLONY COUNT N [facility] ID Date Data Source [id number] 03/09/2021 11:03:00 AM EDT [facility] MICROSCOPIC PERFORMED ON UNSPUN SPECIMAN DUE TO QNS Name Value Range Interpretation Code Description Data Bouchra rce(s) Supporting Document(s) URINE RBC 0-2 /hpf 0-3 [facility] URINE WBC TNTC /hpf 0-5 H [facility] URINE EPITHELIAL CELLS 1+ /hpf 0 [facility] URINE BACTERIA 3+ NONE SEEN [facility] ID Date Data Source [id number] 03/09/2021 11:02:00 AM EDT [facility]CR[facility]IC PERFORMED ON UNSPUN SPECIMAN DUE TO QNS Name Value Range Interpretation Code Description Data Bouchra rce(s) Supporting Document(s) URINE COLOR. YELLOW [facility] URINE APPEARANCE CLOUDY [facility] URINE GLUCOSE (UA) NEGATIVE mg/dL NEGATIVE [facility] URINE BILIRUBIN NEGATIVE NEGATIVE [facility] URINE KETONE NEGATIVE mg/dL NEGATIVE [facility] SPECIFIC GRAVITY,URINE 1.025 1.005-1.030 [facility] URINE BLOOD TRACE NEGATIVE H [facility] PH,URINE 5.5 5.0-9.0 [facility] URINE PROTEIN 1+(30) mg/dL NEGATIVE H [facility] URINE UROBILINOGEN NORMAL(0.2-1) mg/dL 0-1 [facility] URINE NITRATE POSITIVE NEGATIVE [facility] URINE LEUKOCYTE ESTERASE 1+(SMALL) NEGATIVE [facility] ID Date Data Source [id number] 02/25/2021 02:18:00 PM EDT [facility] DATE OF EXAMINATION: 02/25/2021 12:39 EDT MAMMO [...] analyzed through the latest version of the [employer] ddiagnosis system. The patient states that her [...] rce(s) Supporting Document(s) ID Date Data Source [id number] 02/25/2021 01:44:00 PM EDT [facility] DATE OF EXAMINATION: 02/25/2021 12:39 EDT HISTORY: Evaluate for osteoporosis. IMPRESSION: For a detailed report please refer to the software generated [employer]. Electronically signed in [id number] by: Rios Barajas M.D. 02/25/2021 13:38 EDT Name Value Range Interpretation Code Description Data Bouchra rce(s) Supporting Document(s) ID Date Data Source [id number] 02/25/2021 12:54:00 PM EDT [facility] Name Value Range Interpretation Code Description Data Bouchra rce(s) Supporting Document(s) FREE T4 1.1 ng/dL 0.76-1.46 [facility] ID Date Data Source [id number] 02/25/2021 12:54:00 PM EDT [facility] Name Value Range Interpretation Code Description Data Bouchra rce(s) Supporting Document(s) TSH 1.675 uIU/mL 0.360-3.740 [facility] ID Date Data Source [id number] 02/25/2021 12:22:00 PM EDT [facility] Name Value Range Interpretation Code Description Data Bouchra rce(s) Supporting Document(s) CHOLESTEROL 203 mg/dL 0-200 H [facility] TRIGLYCERIDES 105 mg/dL 0-150 [facility] LDL CHOLESTEROL 130 mg/dL 0-100 H [facility] HDL CHOLESTEROL 52 mg/dL 40-60 [facility] CHOL/HDL RATIO 3.9 0.0-5.0 [facility] ID Date Data Source [id number] 02/25/2021 12:22:00 PM EDT [facility] Name Value Range Interpretation Code Description Data Bouchra rce(s) Supporting Document(s) GLUCOSE 106 mg/dL 74-106 [facility] BLOOD UREA NITROGEN 14 mg/dL 7-18 [facility] CREATININE 0.60 mg/dL 0.6-1.0 [facility] SODIUM 143 mmol/L 136-145 [facility] POTASSIUM 3.6 mmol/L 3.5-5.1 [facility] CHLORIDE 106 mmol/L 98-107 [facility] CO2 23 mmol/L 21-32 [facility] CALCIUM 9.1 mg/dL 8.5-10.1 [facility] ANION GAP 14.0 mmol/L 5-12 H [facility] GLOMERULAR FILTRATION RATE >90 mL/min [facility] GFR IS CALCULATED IN mL/min/1.73m2 JESSICA L FUNCTION: >90MILDLY DECREASED: 60-89MILDY TO MODERATELY DECREASED: 45-59 MODERATELY TO SEVERELY DECREASED: 30-44SEVERELY DECREASED: 15-29RENAL FAILURE: <15 AST 9 U/L 15-37 L [facility] ALT 16 U/L 12-78 [facility] ALKALINE PHOSPHATASE 73 U/L 46-116 [facility] TOTAL BILIRUBIN 0.3 mg/dL 0.2-1.0 [facility] TOTAL PROTEIN 7.0 g/dl 6.4-8.2 [facility] ALBUMIN 3.7 gm/dL 3.4-5.0 [facility] ID Date Data Source [id number] 02/25/2021 12:04:00 PM EDT [facility] Name Value Range Interpretation Code Description Data Bouchra rce(s) Supporting Document(s) HGBA1C 5.1 % 3.8-5.6 [facility] Diabetic > or = to 6.5%Prediabetes 5.7-6 .4%Normal <5.7 ESTIMATED AVERAGE GLUCOSE 99.7 mg[facility]dL [facility] ID Date Data Source [id number] 02/25/2021 11:43:00 AM T [facility] Name Value Range Interpretation Code Description Data Bouchra rce(s) Supporting Document(s) WHITE BLOOD COUNT 6.8 K/mm3 4.0-10.0 [facility] al RED BLOOD COUNT 4.14 M/mm3 4.00-5.50 [facility] HEMOGLOBIN 13.3 gm/dL 12.0-16.0 [facility] HEMATOCRIT 38.5 % 36.0-48.8 [facility] MEAN CELL VOLUME 93.0 fl 80-96 [facility] MEAN CORPUSCULAR HEMOGLOBIN 32.1 pg 27.0-31.0 H [facility] MEAN CORPUSCULAR HGB CONC 34.5 g/dl 32.0-36.0 [facility] RED CELL DISTRIBUTION WIDTH 13.2 % 10.0-14.5 [facility] PLATELET COUNT 280 K/mm3 172-450 [facility] MEAN PLATELET VOLUME 9.7 fl 9.0-13.0 [facility] pital GRAN % 58.5 % 50-80.0 [facility] IG% 0.1 % 0.0-0.2 [facility] LYMPH % 31.4 % 25.0-50.0 [facility] MONO % 4.6 % 2.0-10.0 [facility] EOS % 4.7 % 0-5.0 [facility] BASO % 0.7 % 0.0-2.0 [facility] GRAN # 4.0 K/mm3 2.0-8.00 [facility] IG# 0.0 K/mm3 0.0-0.2 [facility] LYMPH # 2.1 K/mm3 1.0-5.0 [facility] MONO # 0.3 K/mm3 0.10-1.20 [facility] EOS # 0.3 K/mm3 0.0-0.5 [facility] BASO # 0.1 K/mm3 0.0-0.2 [facility] ID Date Data Source [id number] 11/13/2020 03:34:00 PM EDT [facility] Name Value Range Interpretation Code Description Data Bouchra rce(s) Supporting Document(s) URINE COLOR. YELLOW [facility] URINE APPEARANCE CLEAR [facility] URINE GLUCOSE (UA) NEGATIVE mg/dL NEGATIVE [facility] URINE BILIRUBIN NEGATIVE NEGATIVE [facility] URINE KETONE NEGATIVE mg/dL NEGATIVE [facility] SPECIFIC GRAVITY,URINE 1.010 1.005-1.030 [facility] URINE BLOOD NEGATIVE NEGATIVE [facility] PH,URINE 5.5 5.0-9.0 [facility] URINE PROTEIN NEGATIVE mg/dL NEGATIVE [facility] URINE UROBILINOGEN 0.2 mg/dL 0-1 [facility] URINE NITRATE NEGATIVE NEGATIVE [facility] URINE LEUKOCYTE ESTERASE NEGATIVE NEGATIVE [facility] ID Date Data Source [id number] 10/11/2020 07:20:00 AM EDT [facility] Name Value Range Interpretation Code Description Data Bouchra rce(s) Supporting Document(s) Elastase.pancreatic [Mass/mass] in Stool Laboratory test result Normal (applies to non-numeric results) [facility] ([facility]ie ) <content>Result Units: ug Elast./g</cont ent>
<content>Severe Pancreatic Insufficiency: <100</content>
<content>Moderate Pancreatic Insufficiency: 100 - 200</content>
<content>Normal: >200</content>
<content></content> Calprotectin [Mass/mass] in Stool 133 ug/g 0-120 Above high no rmal [facility] ([facility], ) <content>Concentration Interpretatio n Follow-Up</content>
<content><16 - 50 ug/g Normal None</content>
<content>>50 -120 ug/g Borderline Re-evaluate in 4-6 weeks</content>
<content>>120 ug/g Abnormal Repeat as clinically</content>
<content>indicated</content>
<content>Performed at: [facility]</content>
<content>[address] [place] [address] [id number]</content>
<content>Watershed Manager: Mehran Vasquez MD, Phone: [phone]</content>
<content></content> ID Date Data Source [id number] 10/09/2020 01:54:00 PM EDT [facility] Name Value Range Interpretation Code Description Data Bouchra rce(s) Supporting Document(s) Creatinine For GFR 0.64 mg/dL 0.55-1.30 Normal (applies to non -numeric results) [facility] ([facility], ) Glucose, Fasting 102 mg/dL 70-100 Above high normal [facility] Blood Urea Nitrogen 16 mg/dL 7-18 Normal (applies to non-nume andrew results) [facility] ([facility]) Glomerular Filtration Rate Laboratory test result Normal (applies to non- numeric results) [facility] ([facility]) <content>Units are mL/min/1.73 m2</content>
<content></content>
<content>Chronic Kidney Disease Staging per NKF:</content>
<content></content>
<content>Stage I & II GFR >=60 Normal to Mildly Decreased</content>
<content>Stage III GFR 30- 59 Moderately Decreased</content>
<content>Stage IV GFR 15-29 Severely Decreased</content>
<content>Stage V GFR <15 Very Little GFR Left</content>
<content>ESRD GFR <15 on FORM MAKER PLASTER</content>
<content></content> Potassium Serum 4.6 meq/L 3.5-5.1 Normal (applies to non-numeric results) [facility] ([facility], ) Chloride Level 107 meq/L 98-107 Normal (applies to non-numeric r esults) [facility] ([facility], ) Sodium Level 137 meq/L 136-145 Normal (applies to non-numeric res ults) [facility] ([facility]) Calcium Level 9.4 mg/dL 8.8-10.2 Normal (applies to non-numeric re sults) [facility] ([facility], ) Carbon Dioxide Level 26 meq/L 21-32 Normal (applies to non-num sri results) [facility] ([facility], ) Anion Gap 4 meq/L 8-16 Below low normal [facility] Alkaline Phosphatase 89 U/L 45-117 Normal (applies to non-num sri results) [facility] Ast/Sgot 16 U/L 7-37 Normal (applies to non-numeric resul ts) [facility] ) Alt/SGPT 18 U/L 12-78 Normal (applies to non-numeric resul ts) [facility]) Bilirubin,Total 0.3 mg/dL 0.2-1.0 Normal (applies to non-numeric results) [facility] ([facility], ) Albumin 4.0 GM/DL 3.2-5.2 Normal (applies to non-numeric resul ts) [facility] Total Protein 7.8 GM/DL 6.4-8.2 Normal (applies to non-numeric re sults) [facility] ([facility], ) Albumin/Globulin Ratio 1.1 1.2-2.2 Below low normal [facility] ([facility]) 10/15/20 (TueOct 15) 07:16 PM GURJIT SOTO ok ID Date Data Source [id number] 10/09/2020 01:54:00 PM EDT [facility] ([facility]) Name Value Range Interpretation Code Description Data Bouchra rce(s) Supporting Document(s) White Blood Count 5.9 10 4.0-10.0 Normal (applies to non-numeri c results) [facility] ([facility]) Hemoglobin 14.8 g/dL 12.0-15.5 Normal (applies to non-numeric resul ts) [facility] Red Blood Count 4.57 10 4.00-5.40 Normal (applies to non-numeric results) [facility]) Mean Corpuscular HGB Conc 33.6 g/dL 32.0-36.5 Normal (applies to non-numeric results) [facility] ([facility]) Mean Corpuscular Hemoglobin 32.4 pg 27.0-33.0 Norm al (applies to non-numeric results) [facility] ([facility]) Mean Corpuscular Volume 96.5 fl 80.0-96.0 Above high normal [facility] ([facility]) Hematocrit 44.1 % 36.0-47.0 Normal (applies to non-numeric resul ts) [facility] Neutrophils % 53.9 % 36.0-66.0 Normal (applies to non-numeric re sults) [facility]) Platelet Count, Automated 331 10 150-450 Normal (applies to non-numeric results) [facility] ([facility]) Red Cell Distribution Width 13.3 % 11.5-14.5 Norm al (applies to non-numeric results) [facility] Tift % 6.5 % 2.0-8.0 Normal (applies to non-numeric resul ts) [facility]) Eos % 4.8 % 0.0-3.0 Above high normal [facility] ([facility]) Lymph % 33.7 % 24.0-44.0 Normal (applies to non-numeric resul ts) [facility]) Baso % 0.9 % 0.0-1.0 Normal (applies to non-numeric resul ts) [facility] ([facility]) Nucleated Red Blood Cell % 0.0 % 0-0 Normal (applies to n on-numeric results) [facility] ([facility]) Immature Granulocyte % 0.2 % 0-3.0 Normal (applies to non-n umeric results) [facility] ([facility]) Neutrophils # 3.2 10 1.5-8.5 Normal (applies to non-numeric re sults) [facility] ([facility]) Lymph # 2.0 10 1.5-5.0 Normal (applies to non-numeric resul ts) [facility]) Tift # 0.4 10 0.0-0.8 Normal (applies to non-numeric resul ts) [facility] ([facility]) Eos # 0.3 10 0.0-0.5 Normal (applies to non-numeric resul ts) [facility]) Baso # 0.1 10 0.0-0.2 Normal (applies to non-numeric resul ts) [facility] ([facility]) ID Date Data Source [id number] 10/09/2020 01:54:00 PM EDT [facility] ([facility]) Name Value Range Interpretation Code Description Data Bouchra rce(s) Supporting Document(s) Cobalamin (Vitamin B12) [Mass/volume] in Serum or Plasma 370 pg/ mL 247-911 Normal (applies to non-numeric results) [facility] ([facility]) VITAMIN B12 NORMAL RANGE NORMAL 247 - 911 PG/ML INDETERMINATE 211 - 246 PG/ML DEFICIENT LESS THAN 211 PG/ML ID Date Data Source [id number] 08/20/2020 12:18:00 PM EST [facility] ([facility]) Name Value Range Interpretation Code Description Data Bouchra rce(s) Supporting Document(s) Bacteria identified in Urine by Culture Laboratory test result [facility] ([facility]) ID Date Data Source [id number] 07/09/2020 12:55:00 PM EST [facility] ([facility]) Name Value Range Interpretation Code Description Data Bouchra rce(s) Supporting Document(s) Bacteria identified in Urine by Culture Laboratory test result [facility] ([facility], [facility]) Rx Keflex ID Date Data Source [id number] 06/06/2020 06:16:00 PM EST [facility] ([facility], [facility]) Name Value Range Interpretation Code [...] FOR ESBL</content>
<content></content> ID Date Data Source [id number] 05/14/2020 10:00:43 AM EDT [facility] Current Problems: LOSS OF TEETH DUE TO C DARRYL (ICD-525.13) (XDU69-C85.139)DENTAL CARIES EXTENDING INTO DENTINE (ICD-521.02) (RJV66-S05.62)Dental caries (ICD- 521.00) (LCW31-I78.9)Tobacco use (ICD-305.1) (HCI04-W77.0)Allergic rhinitis (ICD-477.9) (RBY13-Z77.9)HEALTH SCREENING (ICD-V70.0) (KSD27-D68.9)DEMENTIA (ICD-294.8) (BKY14-P25.90)ALOPECIA (ICD-704.00) (ZJI85-W66.9)FH OTHER MEDICAL PROBLEMS (ICD-V19.8)OSTEOARTHRITIS (ICD-715.90) (BMS67-M09.90)DIABETES, TYPE 2 (ICD-250.00) (GGQ19-Q63.9)CROHN'S DISEASE (ICD-555.9) (YAR61-Z75.90)Problem list reviewed during this update.Current Medications: ZYRTEC [...] daily at onset of headache, may repeat [id number] 5 MG ORAL TABLET (DO NEPEZIL HCL) [...] - CDT Code - Description[E] Missing - [place] and [place] On #10 Surface I Region [...] LOSS OF TEETH DUE TO CARIES (ICD-525.13) (QBA39-B76.139)Medications:ZYRTEC ALLERGY 10 MG ORAL TABLETMUCINEX 600 MG ORAL TABLET EXTENDED RELEASE 12 HOURFLONASE 50 MCG/ACT NASAL SUSPENSIONAZATHIOPRINE 50 MG ORAL TABLETMAXALT 10 MG ORAL TABLETARICEPT 5 MG ORAL TABLETAllergies:BACTRIM DS (SULFAMETHOXAZOLE- TRIMETHOPRIM TABS) (Critical)* LATEX (Critical)Orders:Oral Surgery Referral [CPT-[id number]] Multi-Service Referral [CPT-[id number]] Name Value Range Interpretation Code Description Data Bouchra rce(s) Supporting Document(s) ID Date Data Source [id number] 05/09/2020 03:16:00 PM EDT [facility] ([facility], [facility]) Name Value Range Interpretation Code [...] FOR ESBL</content>
<content></content> ID Date Data Source [id number] 04/21/2020 05:14:00 PM EDT [facility] ([facility]) Name Value Range Interpretation Code Description Data Bouchra rce(s) Supporting Document(s) Bacteria identified in Urine by Culture Laboratory test result [facility] ([facility]) Sent Triage to Nurse...stop Keflex.. [place]upe nge to Macrobid. ID Date Data Source [id number] 03/28/2020 10:48:00 AM EDT [facility] ([facility]) Name Value Range Interpretation Code Description Data [...] FOR ESBL</content>
<content></content> ID Date Data Source [id number] [facility]2020 [facility] Name Value Range Interpretation Code Description Data Bouchra rce(s) Supporting Document(s) Gastrointestinal (GI) Panel Laboratory test [facility]) This Gastrointestinal PCR Panel detects [...] NUCLEIC ACID PCR ID Date Data Source [id number] 03/27/2020 11:30:00 AM EDT [facility] ([facility], ) Name Value Range Interpretation Code Description Data Bouchra rce(s) Supporting Document(s) Elastase.pancreatic [Mass/mass] in Stool Laboratory test result [facility] ([facility]) Calprotectin [Mass/mass] in Stool 33 ug/g 0-120 Normal (applies to non-numeric results) [facility] ([facility]) <content>Concentration Interpretatio n Follow-Up</content>
<content><16 - 50 ug/g Normal None</content>
<content>>50 -120 ug/g Borderline Re-evaluate in 4-6 weeks</content>
<content>>120 ug/g Abnormal Repeat as clinically</content>
<content>indicated</content>
<content></content> ID Date Data Source [id number] 03/26/2020 10:31:00 AM EDT [facility]) Name Value Range Interpretation Code Description Data Bouchra rce(s) Supporting Document(s) Cobalamin (Vitamin B12) [Mass/volume] in Serum or Plasma 301 pg/ mL 247-911 Normal (applies to non-numeric results) [facility] ([facility]) VITAMIN B12 NORMAL RANGE NORMAL 247 - 911 PG/ML INDETERMINATE 211 - 246 PG/ML DEFICIENT LESS THAN 211 PG/ML ID Date Data Source [id number] 03/26/2020 10:31:00 AM EDT [facility] ([facility]) Name Value Range Interpretation Code Description Data Bouchra rce(s) Supporting Document(s) Blood Urea Nitrogen 10 mg/dL 7-18 Normal (applies to non-nume andrew results) [facility] ([facility]) Creatinine For GFR 0.46 mg/dL 0.55-1.30 Below low normal [facility] ([facility]) Glucose, Fasting 74 mg/dL 70-100 Normal (applies to non-numeric results) [facility] ([facility]) Glomerular Filtration Rate Laboratory test result Normal (applies to non- numeric results) [facility] ([facility]) <content>Units are mL/min/1.73 m2</content>
<content></content>
<content>Chronic Kidney Disease Staging per NKF:</content>
<content></content>
<content>Stage I & II GFR >=60 Normal to Mildly Decreased</content>
<content>Stage III GFR 30- 59 Moderately Decreased</content>
<content>Stage IV GFR 15-29 Severely Decreased</content>
<content>Stage V GFR <15 Very Little GFR Left</content>
<content>ESRD GFR <15 on FORM MAKER PLASTER</content>
<content></content> Sodium Level 138 meq/L 136-145 Normal (applies to non-numeric res ults) [facility], ) Carbon Dioxide Level 28 meq/L 21-32 Normal (applies to non-num sri results) [facility] ([facility], ) Chloride Level 108 meq/L 98-107 Above high normal [facility] ([facility]) Potassium Serum 4.2 meq/L 3.5-5.1 Normal (applies to non-numeric results) [facility] ([facility], ) Ast/Sgot 21 U/L 7-37 Normal (applies to non-numeric resul ts) [facility]) Calcium Level 9.1 mg/dL 8.8-10.2 Normal (applies to non-numeric re sults) [facility] ([facility], ) Alt/SGPT 13 U/L 12-78 Normal (applies to non-numeric resul ts) [facility]) Anion Gap 2 meq/L 8-16 Below low normal [facility] ( [facility]) Bilirubin,Total 0.3 mg/dL 0.2-1.0 Normal (applies to non-numeric results) [facility] ([facility], ) Alkaline Phosphatase 82 U/L 45-117 Normal (applies to non-num sri results) [facility] ([facility]) Total Protein 7.4 GM/DL 6.4-8.2 Normal (applies to non-numeric re sults) [facility], ) Albumin/Globulin Ratio 0.9 1.2-2.2 Below low normal [facility] ([facility]) Albumin 3.5 GM/DL 3.2-5.2 Normal (applies to non-numeric resul ts) [facility] ID Date Data Source [id number] 03/26/2020 10:31:00 AM EDT [facility] Name Value Range Interpretation Code Description Data Bouchra rce(s) Supporting Document(s) White Blood Count 6.3 10 4.0-10.0 Normal (applies to non-numeri c results) [facility] ([facility], ) Hemoglobin 13.8 g/dL 12.0-15.5 Normal (applies to non-numeric resul ts) [facility]) Red Blood Count 4.36 10 4.00-5.40 Normal (applies to non-numeric results) [facility] ([facility]) Mean Corpuscular Volume 94.0 fl 80.0-96.0 Normal ( applies to non-numeric results) [facility] ([facility]) Mean Corpuscular Hemoglobin 31.7 pg 27.0-33.0 Norm al (applies to non-numeric results) [facility] ([facility]) Hematocrit 41.0 % 36.0-47.0 Normal (applies to non-numeric resul ts) [facility] ([facility]) Red Cell Distribution Width 12.6 % 11.5-14.5 Norm al (applies to non-numeric results) [facility] ([facility]) Mean Corpuscular HGB Conc 33.7 g/dL 32.0-36.5 Normal (applies to non-numeric results) [facility] ([facility]) Platelet Count, Automated 342 10 150-450 Normal (applies to non-numeric results) [facility] ([facility]) Lymph % 32.2 % 24.0-44.0 Normal (applies to non-numeric resul ts) [facility]) Neutrophils % 54.1 % 36.0-66.0 Normal (applies to non-numeric re sults) [facility]) Tift % 7.3 % 0.0-5.0 Above high normal [facility] ([facility]) Eos % 5.4 % 0.0-3.0 Above high normal [facility] Baso % 0.8 % 0.0-1.0 Normal (applies to non-numeric resul ts) [facility] ([facility]) Immature Granulocyte % 0.2 % 0-3.0 Normal (applies to non-n umeric results) [facility]) Neutrophils # 3.4 10 1.5-8.5 Normal (applies to non-numeric re sults) [facility] ([facility]) Nucleated Red Blood Cell % 0.0 % 0-0 Normal (applies to n on-numeric results) [facility] ([facility]) Lymph # 2.0 10 1.5-5.0 Normal (applies to non-numeric resul ts) [facility] ([facility]) Tift # 0.5 10 0.0-0.8 Normal (applies to non-numeric resul ts) [facility]) Eos # 0.3 10 0.0-0.5 Normal (applies to non-numeric resul ts) [facility] ([facility]) Baso # 0.1 10 0.0-0.2 Normal (applies to non-numeric resul ts) [facility]) Procedure Social History No Information Vital Signs ID Date Data Source UNK Name Value Range Interpretation Code Description Data Source(s) Systolic blood pressure 152 mm[Hg] 152 mm[Hg] [facility] Diastolic blood pressure 68 mm[Hg] 68 mm[Hg] [facility] ([facility]) Body height 58 [in_i] 58 [in_i] [facility] ([facility]) 4'10" Body weight 99.00 [lb_av] 99.00 [lb_av] [facility] ([facility]) Body mass index (BMI) [Ratio] 20.7 kg/m2 20.7 k g/m2 [facility] ([facility]) Scheller body weight 100 [lb_av] 100 [lb_av] [facility] Body weight 44.906 kg 44.906 kg [facility] ([facility]) Body surface area Derived from formula 1.35 m2 1.35 m2 [facility] ([facility]) Body height 58 [in_i] 58 [in_i] [facility] ([facility]) 4'10" Body weight 107.00 [lb_av] 107.00 [lb_av] [facility] T ([facility]) Body mass index (BMI) [Ratio] 22.4 kg/m2 22.4 k g/m2 [facility] ([facility]) Scheller body weight 100 [lb_av] 100 [lb_av] [facility] T ([facility]) Body weight 48.535 kg 48.535 kg [facility] ([facility]) Body surface area Derived from formula 1.40 m2 1.40 m2 [facility] ([facility]) Systolic blood pressure 150 mm[Hg] 150 mm[Hg] M [facility] ([facility]) Body surface area Derived from formula 1.40 m2 1.40 m2 [facility] ([facility]) Diastolic blood pressure 78 mm[Hg] 78 mm[Hg] [facility] ([facility]) Body height 58 [in_i] 58 [in_i] [facility] 4'10" Body weight 107.00 [lb_av] 107.00 [lb_av] [facility] T ([facility]) Body mass index (BMI) [Ratio] 22.4 kg/m2 22.4 k g/m2 [facility] ([facility]) Scheller body weight 100 [lb_av] 100 [lb_av] [facility] T ([facility]) Body weight 48.535 kg 48.535 kg [facility] ([facility]) Diastolic blood pressure 82 mm[Hg] 82 mm[Hg] [facility], [facility]) Systolic blood pressure 130 mm[Hg] 130 mm[Hg] [facility], [facility]) Respiratory rate 16 /min 16 /min [facility] ( [facility], [facility]) Oxygen saturation in Arterial blood by Pulse oximetry 97 % 97 % [facility], [facility]) Body temperature 97.8 [degF] 97.8 [degF] [facility] ([facility], [facility]) Body weight 110.00 [lb_av] 110.00 [lb_av] [facility] T ([facility], [facility]) Body height 57 [in_i] 57 [in_i] [facility] ([facility], [facility]) 4'9" Body mass index (BMI) [Ratio] 23.8 kg/m2 23.8 k g/m2 [facility], [facility]) Heart rate 80 /min 80 /min [facility] ([facility], [facility]) Respiratory rate 15 /min 15 /min [facility] ( [facility], [facility]) Heart rate 80 /min 80 /min [facility] ([facility], [facility]) Oxygen saturation in Arterial blood by Pulse oximetry 97 % 97 % [facility] ([facility], [facility]) Body temperature 97.1 [degF] 97.1 [degF] [facility] ([facility], [facility]) Body mass index (BMI) [Ratio] 23.8 kg/m2 23.8 k g/m2 [facility] ([facility], [facility]) Body height 57 [in_i] 57 [in_i] [facility] ([facility], [facility]) 4'9" Systolic blood pressure 136 mm[Hg] 136 mm[Hg] [facility], [facility]) Body weight 110.00 [lb_av] 110.00 [lb_av] [facility] T ([facility], [facility]) Diastolic blood pressure 86 mm[Hg] 86 mm[Hg] [facility] ([facility], [facility]) Oxygen saturation in Arterial blood by Pulse oximetry 98 % 98 % [facility] ([facility], [facility]) Body temperature 98.4 [degF] 98.4 [degF] [facility] ([facility], [facility]) Body weight 115.00 [lb_av] 115.00 [lb_av] [facility] T ([facility], [facility]) Systolic blood pressure 151 mm[Hg] 151 mm[Hg] M EDENT ([facility], [facility]) Diastolic blood pressure 80 mm[Hg] 80 mm[Hg] [facility] ([facility], [facility]) Heart rate 74 /min 74 /min [facility]) Respiratory rate 16 /min 16 /min [facility] ( [facility], [facility]) Heart rate 75 /min 75 /min [facility] ([facility], [facility]) Respiratory rate 12 /min 12 /min [facility] ( [facility], [facility]) Body mass index (BMI) [Ratio] 21.6 kg/m2 21.6 k g/m2 [facility] ([facility], [facility]) Systolic blood pressure 173 mm[Hg] 173 mm[Hg] [facility] ([facility], [facility]) Diastolic blood pressure 79 mm[Hg] 79 mm[Hg] [facility] ([facility], [facility]) Oxygen saturation in Arterial blood by Pulse oximetry 99 % 99 % [facility] ([facility], [facility]) Body temperature 98.3 [degF] 98.3 [degF] [facility] ([facility], [facility]) Body weight 100.00 [lb_av] 100.00 [lb_av] [facility] T ([facility], [facility]) Body height 57 [in_i] 57 [in_i] [facility] ([facility], [facility]) 4'9" Oxygen saturation in Arterial blood by Pulse oximetry 96 % 96 % [facility] ([facility], [facility]) Body weight 105.00 [lb_av] 105.00 [lb_av] [facility] T ([facility], [facility]) Body mass index (BMI) [Ratio] 22.7 kg/m2 22.7 k g/m2 [facility] ([facility], [facility]) Body temperature 98.3 [degF] 98.3 [degF] [facility] ([facility], [facility]) Body height 57 [in_i] 57 [in_i] [facility] ([facility], [facility]) 4'9" Systolic blood pressure 132 mm[Hg] 132 mm[Hg] M EDENT ([facility], [facility]) Diastolic blood pressure 82 mm[Hg] 82 mm[Hg] [facility] ([facility], [facility]) Heart rate 83 /min 83 /min [facility] ([facility], [facility]) Body weight 117.00 [lb_av] 117.00 [lb_av] [facility] T ([facility], [facility]) Body height 57 [in_i] 57 [in_i] [facility] ([facility], [facility]) 4'9" Body mass index (BMI) [Ratio] 25.3 kg/m2 25.3 k g/m2 [facility] ([facility], [facility]) Systolic blood pressure 140 mm[Hg] 140 mm[Hg] M EDENT ([facility], [facility]) Diastolic blood pressure 82 mm[Hg] 82 mm[Hg] [facility] ([facility], [facility]) Heart rate 76 /min 76 /min [facility] ([facility], [facility]) Respiratory rate 16 /min 16 /min [facility] ( [facility], [facility]) Oxygen saturation in Arterial blood by Pulse oximetry 98 % 98 % [facility] ([facility], [facility]) Body temperature 98.9 [degF] 98.9 [degF] [facility] ([facility], [facility]) Body surface area Derived from formula 1.45 m2 1.45 m2 [facility] [facility] ([facility]) Systolic blood pressure 132 mm[Hg] 132 mm[Hg] [facility] ([facility]) Diastolic blood pressure 78 mm[Hg] 78 mm[Hg] [facility] ([facility]) Body height 58 [in_i] 58 [in_i] [facility] ([facility]) 4'10" Body mass index (BMI) [Ratio] 24.5 kg/m2 24.5 k g/m2 [facility] ([facility]) Body weight 117.00 [lb_av] 117.00 [lb_av] [facility] ([facility]) Scheller body weight 100 [lb_av] 100 [lb_av] [facility] ([facility]) Body weight 53.071 kg 53.071 kg [facility] ([facility])
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
[2021-05-20] MEDS ORDERED: LR 1,000 ML IV SCH (00:25)
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
[2021-05-20 00:44] LABS: APPEARANCE, URINE CLEAR (CLEAR); BACTERIA, URINE AUTO NEGATIVE (NEGATIVE); BILIRUBIN, URINE AUTO NEGATIVE (NEGATIVE); BLOOD, URINE BLOOD 1+ (NEGATIVE); COLOR, URINE YELLOW (YELLOW); GLUCOSE, URINE (UA) AUTO NEGATIVE (NEGATIVE); KETONE, URINE AUTO NEGATIVE (NEGATIVE); LEUKOCYTE ESTERASE, URINE AUTO NEGATIVE (NEGATIVE); NITRITE, URINE AUTO NEGATIVE (NEGATIVE); PROTEIN, URINE AUTO NEGATIVE (NEGATIVE); RBC, URINE AUTO 2 /HPF (0-3); SQUAMOUS EPITHELIAL CELL UR AU 4 /HPF (0-6); UROBILINOGEN, URINE AUTO 0.2 mg/dL (0.0-2.0); WBC, URINE AUTO 2 /HPF (0-3)
[2021-05-20 01:30] LABS: INR 0.93; PROTHROMBIN TIME 12.9 SECONDS (12.7-14.5)
[2021-05-20 01:31] LABS: PARTIAL THROMBOPLASTIN TIME 23.4 SECONDS (25.9-37.0)
[2021-05-20] MEDS ORDERED: ONDANSETRON 4MG/2ML VIAL IV PRN (01:45)
[2021-05-20] MEDS ORDERED: ACETAMINOPHEN TAB 650MG DOSE (2X325MG) PO PRN (01:45)
[2021-05-20] MEDS ORDERED: METOCLOPRAMIDE INJ 10MG/2ML VIAL (J2765 PER 1) IV PRN (01:45)
[2021-05-20] MEDS ORDERED: CHOL4PW PO (02:00)
[2021-05-20] MEDS ORDERED: MUCI600T31 PO (02:00)
[2021-05-20] MEDS ORDERED: HOME MED LIST COMPLETE! XX SCH (02:05)
--- OUTSIDE RECORDS SUMMARY | 2021-05-20 02:08 | CCD ---
Author Author [facility] Organization [facility] Address Unknown Phone Unavailable Care Team Providers Care Asphalt Blender Name Role Phone Sagamore, L Roro DENTIST/OWNER Unavailable Unavailable Sagamore, L Roro DENTIST/OWNER Unavailable Unavailable Razia, L Roro DENTIST/OWNER Unavailable Unavailable Razia, L Roro DENTIST/OWNER Unavailable Unavailable Razia, L Roro DENTIST/OWNER Unavailable Unavailable Razia, L Roro DENTIST/OWNER Unavailable Unavailable Sagamore, L Roro DENTIST/OWNER Unavailable Unavailable Razia, L Roro DENTIST/OWNER Unavailable Unavailable Sagamore, L Roro DENTIST/OWNER Unavailable Unavailable Razia, L Roro DENTIST/OWNER Unavailable Unavailable Razia, L Roro DENTIST/OWNER Unavailable Unavailable Razia, L Roro DENTIST/OWNER Unavailable Unavailable Razia, L Roro DENTIST/OWNER Unavailable Unavailable Sagamore, L Roro DENTIST/OWNER Unavailable Unavailable Razia, L Roro DENTIST/OWNER Unavailable Unavailable Sagamore, L Roro DENTIST/OWNER Unavailable Unavailable Razia, L Roro DENTIST/OWNER Unavailable Unavailable Razia, L Roro DENTIST/OWNER Unavailable Unavailable Sagamore, L Roro DENTIST/OWNER Unavailable Unavailable Sagamore, L Roro DENTIST/OWNER Unavailable Unavailable Sagamore, L Roro DENTIST/OWNER Unavailable Unavailable Razia, L Roro DENTIST/OWNER Unavailable Unavailable Razia, L Roro DENTIST/OWNER Unavailable Unavailable Razia, L Roro DENTIST/OWNER Unavailable Unavailable Razia, L Roro DENTIST/OWNER Unavailable Unavailable Razia, L Roro DENTIST/OWNER Unavailable Unavailable Sagamore, L Roro DENTIST/OWNER Unavailable Unavailable Sagamore, L Roro DENTIST/OWNER Unavailable Unavailable Sagamore, L Roro DENTIST/OWNER Unavailable Unavailable Sagamore, L Roro DENTIST/OWNER Unavailable Unavailable Sagamore, L Roro DENTIST/OWNER Unavailable Unavailable Razia, L Roro DENTIST/OWNER Unavailable Unavailable Sagamore, L Roro DENTIST/OWNER Unavailable Unavailable Sagamore, L Roro DENTIST/OWNER Unavailable Unavailable Razia, L Roro DENTIST/OWNER Unavailable Unavailable Razia, L Roro DENTIST/OWNER Unavailable Unavailable Razia, L Roro DENTIST/OWNER Unavailable Unavailable Sagamore, L Roro DENTIST/OWNER Unavailable Unavailable Sagamore, L Roro DENTIST/OWNER Unavailable [facility] Unavailable Unavailable ARMANDO, [...] COSMO PA Unavailable Unavailable Nathaniel, Radha Rakesh PROPERTY CLAIMS ADJUSTER Unavailable Unavailable Nathaniel, Radha Rakesh PROPERTY CLAIMS ADJUSTER Unavailable Unavailable [place], Radha Rakesh PROPERTY CLAIMS ADJUSTER Unavailable Unavailable Nathaniel, Radha Rakesh PROPERTY CLAIMS ADJUSTER Unavailable Unavailable [place], Radha Rakesh PROPERTY CLAIMS ADJUSTER Unavailable Unavailable Nathaniel, Radha Rakesh PROPERTY CLAIMS ADJUSTER Unavailable Unavailable Nathaniel, Radha Rakesh PROPERTY CLAIMS ADJUSTER Unavailable Unavailable Nathaniel, Radha Rakesh PROPERTY CLAIMS ADJUSTER Unavailable Unavailable [place], Radha Rakesh PROPERTY CLAIMS ADJUSTER Unavailable Unavailable [place], Radha Rakesh PROPERTY CLAIMS ADJUSTER Unavailable Unavailable [place], Radha Rakesh PROPERTY CLAIMS ADJUSTER Unavailable Unavailable Nathaniel, Radha Rakesh PROPERTY CLAIMS ADJUSTER Unavailable Unavailable Nathaniel, Radha Rakesh PROPERTY CLAIMS ADJUSTER Unavailable Unavailable [place], Radha Rakesh PROPERTY CLAIMS ADJUSTER Unavailable Unavailable GURJIT DELEON MD Unavailable Unavailable [...] PATEL Unavailable Unavailable Jaimee, Ted W Samanta PROPERTY CLAIMS ADJUSTER-C Unavailable Unavailabl e Jaimee, Regalexi W Samanta PROPERTY CLAIMS ADJUSTER-C Unavailable Unavailabl e Jaimee, Regalexi W Samanta PROPERTY CLAIMS ADJUSTER-C Unavailable Unavailabl e Jaimee, Regalexi W Samanta PROPERTY CLAIMS ADJUSTER-C Unavailable Unavailabl e Jaimee, Regalexi Issa Samanta PROPERTY CLAIMS ADJUSTER-C Unavailable Unavailabl e Jaimee, Regalexi W Samanta PROPERTY CLAIMS ADJUSTER-C Unavailable Unavailabl e Jaimee, Regalexi W Samanta PROPERTY CLAIMS ADJUSTER-C Unavailable Unavailabl e Jaimee, Regalexi Issa Samanta PROPERTY CLAIMS ADJUSTER-C Unavailable Unavailabl e Jaimee, Regalexi W Samanta PROPERTY CLAIMS ADJUSTER-C Unavailable Unavailabl e Jaimee, Regalexi W Samanta PROPERTY CLAIMS ADJUSTER-C Unavailable Unavailabl e Jaimee, Regalexi W Samanta PROPERTY CLAIMS ADJUSTER-C Unavailable Unavailabl e Jaimee, Regalexi W Samanta PROPERTY CLAIMS ADJUSTER-C Unavailable Unavailabl e Jaimee, Regalexi W Samanta PROPERTY CLAIMS ADJUSTER-C Unavailable Unavailabl e Jaimee, Regalexi W Samanta PROPERTY CLAIMS ADJUSTER-C Unavailable Unavailabl e Jaimee, Regalexi W Samanta PROPERTY CLAIMS ADJUSTER-C Unavailable Unavailabl e Jaimee, Regalexi W Samanta PROPERTY CLAIMS ADJUSTER-C Unavailable Unavailabl e Jaimee, Regalexi W Samanta PROPERTY CLAIMS ADJUSTER-C Unavailable Unavailabl e Jaimee, Regalexi W Samanta PROPERTY CLAIMS ADJUSTER-C Unavailable Unavailabl e Jaimee, Regalexi W Samanta PROPERTY CLAIMS ADJUSTER-C Unavailable Unavailabl e Jaimee, Regalexi W Samanta PROPERTY CLAIMS ADJUSTER-C Unavailable Unavailabl e Jaimee, Regalexi W Samanta PROPERTY CLAIMS ADJUSTER-C Unavailable Unavailabl e Jaimee, Ted England PROPERTY CLAIMS ADJUSTER-C Unavailable Unavailabl e Jaimee, Ted [place] PROPERTY CLAIMS ADJUSTER-C Unavailable Unavailabl e Jaimee, Ted [place] PROPERTY CLAIMS ADJUSTER-C Unavailable Unavailabl e Jaimee, Ted [place] PROPERTY CLAIMS ADJUSTER-C Unavailable Unavailabl e Jaimee, Ted [place] PROPERTY CLAIMS ADJUSTER-C Unavailable Unavailabl e Jaimee, Ted Zavalae PROPERTY CLAIMS ADJUSTER-C Unavailable Unavailabl e Jaimee, Ted [place] PROPERTY CLAIMS ADJUSTER-C Unavailable Unavailabl e Jaimee, Ted Zavalae PROPERTY CLAIMS ADJUSTER-C Unavailable Unavailabl e Jaimee, Ted [place] PROPERTY CLAIMS ADJUSTER-C Unavailable Unavailabl e Jaimee, Ted Zavalae PROPERTY CLAIMS ADJUSTER-C Unavailable Unavailabl e Jaimee, Ted Zavalae PROPERTY CLAIMS ADJUSTER-C Unavailable Unavailabl e LETTIERE, A DI PA [...] SEAN DO Unavailable Unavailable Ileana, A Melissa PROPERTY CLAIMS ADJUSTER Unavailable Unavailable Ileana, A Melissa PROPERTY CLAIMS ADJUSTER Unavailable Unavailable Ileana, A Melissa PROPERTY CLAIMS ADJUSTER Unavailable Unavailable Ileana, A Melissa PROPERTY CLAIMS ADJUSTER Unavailable Unavailable Ileana, A Melissa PROPERTY CLAIMS ADJUSTER Unavailable Unavailable Ileana, A Melissa PROPERTY CLAIMS ADJUSTER Unavailable Unavailable Ileana, A Melissa PROPERTY CLAIMS ADJUSTER Unavailable Unavailable Ileana, A Melissa PROPERTY CLAIMS ADJUSTER Unavailable Unavailable Ileana, A Melissa PROPERTY CLAIMS ADJUSTER Unavailable Unavailable Ileana, A Melissa PROPERTY CLAIMS ADJUSTER Unavailable Unavailable Ileana, A Melissa PROPERTY CLAIMS ADJUSTER Unavailable Unavailable Ileana, A Melissa PROPERTY CLAIMS ADJUSTER Unavailable Unavailable Ileana, A Melissa PROPERTY CLAIMS ADJUSTER Unavailable Unavailable Ileana, A Melissa PROPERTY CLAIMS ADJUSTER Unavailable Unavailable Ileana, A Melissa PROPERTY CLAIMS ADJUSTER Unavailable Unavailable Ileana, A Melissa PROPERTY CLAIMS ADJUSTER Unavailable Unavailable Ileana, A Melissa PROPERTY CLAIMS ADJUSTER Unavailable Unavailable Ileana, A Melissa PROPERTY CLAIMS ADJUSTER Unavailable Unavailable Ileana, A Melissa PROPERTY CLAIMS ADJUSTER Unavailable Unavailable Ileana, A Melissa PROPERTY CLAIMS ADJUSTER Unavailable Unavailable Ileana, A Melissa PROPERTY CLAIMS ADJUSTER Unavailable Unavailable Ileana, A Melissa PROPERTY CLAIMS ADJUSTER Unavailable Unavailable Ileana, A Melissa PROPERTY CLAIMS ADJUSTER Unavailable Unavailable Ileana, A Melissa PROPERTY CLAIMS ADJUSTER Unavailable Unavailable Ileana, A Melissa PROPERTY CLAIMS ADJUSTER Unavailable Unavailable Ileana, A Melissa PROPERTY CLAIMS ADJUSTER Unavailable Unavailable Ileana, A Melissa PROPERTY CLAIMS ADJUSTER Unavailable Unavailable Ileana, A Melissa PROPERTY CLAIMS ADJUSTER Unavailable Unavailable Ileana, A Melissa PROPERTY CLAIMS ADJUSTER Unavailable Unavailable Ileana, A Melissa PROPERTY CLAIMS ADJUSTER Unavailable Unavailable Ileana, A Melissa PROPERTY CLAIMS ADJUSTER Unavailable Unavailable Ileana, A Melissa PROPERTY CLAIMS ADJUSTER Unavailable Unavailable Ileana, A Melissa PROPERTY CLAIMS ADJUSTER Unavailable Unavailable Ileana, A Melissa PROPERTY CLAIMS ADJUSTER Unavailable Unavailable Ileana, A Melissa PROPERTY CLAIMS ADJUSTER Unavailable Unavailable Ileana, A Melissa PROPERTY CLAIMS ADJUSTER Unavailable Unavailable Ileana, A Melissa PROPERTY CLAIMS ADJUSTER Unavailable Unavailable Ileana, A Melissa PROPERTY CLAIMS ADJUSTER Unavailable Unavailable Ileana, A Melissa PROPERTY CLAIMS ADJUSTER Unavailable Unavailable Ileana, A Melissa PROPERTY CLAIMS ADJUSTER Unavailable Unavailable Ileana, A Melissa PROPERTY CLAIMS ADJUSTER Unavailable Unavailable Ileana, A Melissa PROPERTY CLAIMS ADJUSTER Unavailable Unavailable Ileana, A Melissa PROPERTY CLAIMS ADJUSTER Unavailable Unavailable Ileana, A Melissa PROPERTY CLAIMS ADJUSTER Unavailable Unavailable Ileana, A Melissa PROPERTY CLAIMS ADJUSTER Unavailable Unavailable Ileana, A Melissa PROPERTY CLAIMS ADJUSTER Unavailable Unavailable Ileana, A Melissa PROPERTY CLAIMS ADJUSTER Unavailable Unavailable Ileana, A Melissa PROPERTY CLAIMS ADJUSTER Unavailable Unavailable Ileana, A Melissa PROPERTY CLAIMS ADJUSTER Unavailable Unavailable Ileana, A Melissa PROPERTY CLAIMS ADJUSTER Unavailable Unavailable Ileana, A Melissa PROPERTY CLAIMS ADJUSTER Unavailable Unavailable Ileana, A Melissa PROPERTY CLAIMS ADJUSTER Unavailable Unavailable Ileana, A Melissa PROPERTY CLAIMS ADJUSTER Unavailable Unavailable Ileana, A Melissa PROPERTY CLAIMS ADJUSTER Unavailable Unavailable [place], Radha Rakesh PROPERTY CLAIMS ADJUSTER Unavailable Unavailable Nathaniel, Radha Rakesh PROPERTY CLAIMS ADJUSTER Unavailable Unavailable Nathaniel, Radha Rakesh PROPERTY CLAIMS ADJUSTER Unavailable Unavailable [place], Radha Rakesh PROPERTY CLAIMS ADJUSTER Unavailable Unavailable Nathaniel, Radha Rakesh PROPERTY CLAIMS ADJUSTER Unavailable Unavailable Nathaniel, Radha Rakesh PROPERTY CLAIMS ADJUSTER Unavailable Unavailable Nathaniel, Radha Rakesh PROPERTY CLAIMS ADJUSTER Unavailable Unavailable Nathaniel, Radha Rakesh PROPERTY CLAIMS ADJUSTER Unavailable Unavailable [place], Radha Rakesh PROPERTY CLAIMS ADJUSTER Unavailable Unavailable [place], Radha Cameron PROPERTY CLAIMS ADJUSTER Unavailable Unavailable [place], Radha Cameron PROPERTY CLAIMS ADJUSTER Unavailable Unavailable [place], Radha Cameron PROPERTY CLAIMS ADJUSTER Unavailable Unavailable [place], Radha Cameron PROPERTY CLAIMS ADJUSTER Unavailable Unavailable Nathaniel, Radha Cameron PROPERTY CLAIMS ADJUSTER Unavailable Unavailable Re-disclosure Warning The records that [...] is protected by Article 27-F of the [facility] Public Health law. If you continue you may have access to information: Regarding HIV / AIDS; Provided by facilities licensed or operated by the [facility] Office of Mental Health; or Provided by the [facility] Office for People With Developmental Disabilities. If such information is present, then the following [facility] mandated warning applies: This information has [...] law may result in a fine or long term sentence or both. A general authorization for the release of medical or other information is NOT sufficient authorization for further disc losure. Family History Family Member Name Family Member Gender Family Member Status Date o f Status Description Data Source(s) Unknown Unknown Problem [facility] ([facility]) Unknown Male Problem MEDENT ([facility]) Unknown Unknown Problem MED[facility] ([facility]) Unknown Unknown Encounters Encounter Providers Location Date Indications Data Source(s ) Outpatient Attender: GURJIT Mancera/Shaun/Jani/Rein dl 03/30/2021 03:30:00 PM EDT MEDENT ([facility]) Outpatient Attender: Rakesh Armstrong FNPReferrer: Danielle MORAES EMERGENCY ROOM-LAB REF 03/09/2021 10:56:00 AM EDT - 03/09/2021 10:56:00 AM [facility] Outpatient Attender: Rakesh Armstrong FNPConsultant: [facility] [id number] 03/09/2021 10:17:00 AM [facility] Outpatient Attender: Rakesh MORAES 03/09/2021 10:14:00 AM [facility] Outpatient Attender: Roro CHERRY 03/04/2021 08:38:00 AM [facility] Outpatient Attender: Roro Randle RNPReferrer: Sangeeta MORAES EMERGENCY ROOM-MAMMO 02/25/2021 11:21:00 AM EDT - 02/25/2021 11:21:00 AM [facility] Outpatient Attender: Roro CHERRY 02/04/2021 10:00:00 AM [facility] Outpatient Attender: Samanta IRVINGP-CReferrer: Me alex MORAES EMERGENCY ROOM-LAB REF 11/13/2020 03:27:00 PM EDT - 11/13/2020 03:27:00 PM [facility] Outpatient Attender: SEAN DUMONT DOConsultant: [facility] [id number] 11/13/2020 01:15:00 PM [facility] Outpatient Attender: Samanta Hermosillo PROPERTY CLAIMS ADJUSTER-C 11/13/2020 01:01:0 0 PM [facility] Outpatient Attender: GURJIT Mancera/Shaun/Jani/Rein dl 10/09/2020 11:30:00 AM EDT MEDENT ([facility]) Outpatient Attender: COSMO Fuentes 08/20/2020 11:30:00 AM EST MED[facility] ([facility]) Unknown [address] [facility] [address] 07/25/2020 12:00:00 AM EST eCW1 ([facility]) Outpatient Attender: DI Otero Prim pedro 07/09/2020 12:20:00 PM EST MED[facility] ([facility]) Outpatient Attender: DI Otero Prim pedro 06/06/2020 06:25:00 PM EST MEDENT ([facility] Outpatient [facility] 06/02/2020 12:38:00 PM [facility] Outpatient Attender: Melissa MORAES 05/27/2020 08:00 :00 AM [facility] Outpatient [facility] 05/14/2020 12:44:00 PM EDT [facility] Outpatient [facility] 05/14/2020 12:43:01 PM EDT [facility] Outpatient [facility] 05/14/2020 10:01:00 AM EDT [facility] Outpatient Attender: DI Otero Prim pedro 05/09/2020 03:35:00 PM EDT MED[facility] ([facility]) Outpatient Attender: Devora Otero Prim pedro 04/21/2020 04:15:00 PM EDT MEDENT ([facility]) Outpatient 04/03/2020 12:00:00 AM [facility] Outpatient Attender: Melissa RIOSttender: BRENDA SANCHEZ RPA-C 03/31/2020 12:01:00 AM [facility] Outpatient Attender: MATA Rodrigueza ry 03/28/2020 10:30:00 AM EDT MEDENT ([facility]) Outpatient Attender: GURJIT Mancera/Shaun/Jani/Melanie bean 03/26/2020 09:30:00 AM EDT MEDENT ([facility]) Outpatient Attender: BRENDA FLORES RPA-C 02/28/2020 12:01:00 AM [facility] Outpatient Attender: BRENDA GUERREROCReferrer: BRENDA FLORES RPA-C 04/24/2019 04:50:00 PM EDT - 04/24/2019 04:50:00 PM [facility] Outpatient Attender: BRENDA HOGAN 11/21/2018 01:00:00 PM [facility] Outpatient Attender: BRENDA HOGAN 09/16 12:52:00 PM EDT - 10/05/2018 12:52:00 PM [facility] Medications Medication Brand Name Start Date [...] 03/30/2021 12:00:00 AM EDT active M EDENT ([facility], ) Magnesium Hydroxide 80 MG/ML Oral Suspension Milk Of Magnesi a 03/30/2021 12:00:00 AM EDT ORAL active M EDENT ([facility], ) Cholestyramine Resin 66.7 MG/ML Oral Suspension Cholestyrami ne 03/30/2021 12:00:00 AM EDT ORAL active M EDENT ([facility], ) NITROFURANTOIN, MACROCRYSTALS 25 MG / Ni [...] 08/20/2020 12:00:00 AM EST ORAL active MEDENT ([facility]) Cephalexin 500 MG Oral Capsule CEPHALEXIN 07/09/2020 12:00:00 AM EST capsule 14 TAKE ONE CAPSULE BY MOUTH TWICE A DAY FOR 7 DAYS TAKE ONE CAPSULE BY MOUTH TWICE A DAY FOR 7 DAYS SOLD: 07/09/2020 [facility] Cephalexin 500 MG Oral Tablet Cephalexin 07/09/2020 12:00:00 AM EST ORAL completed MEDENT ([facility]) 500 mg 06/06/2020 12:00:00 AM EST capsule 14 TAKE ONE CAPSULE BY MOUTH TWICE A DAY FOR 7 DAYS TAKE ONE CAPSULE BY MOUTH TWICE A DAY FOR 7 DAYS SOLD: 06/06/2020 [facility] Cephalexin 500 MG Oral Tablet Cephalexin 06/06/2020 12:00:00 AM EST ORAL completed MEDENT ([facility]) Cephalexin 500 MG Oral Tablet Cephalexin 05/11/2020 12:00:00 AM EDT ORAL completed MEDENT ([facility]) 500 mg 05/11/2020 12:00:00 AM EDT capsule [...] 05/09/2020 12:00:00 AM EDT ORAL completed MED[facility] ([facility]) 100 mg 04/23/2020 12:00:00 AM EDT capsule 14 TAKE ONE CAPSULE BY MOUTH TWICE A DAY FOR 7 DAYS TAKE ONE CAPSULE BY MOUTH TWICE A DAY FOR 7 DAYS SOLD: 04/23/2020 [facility] NITROFURANTOIN, MACROCRYSTALS 25 MG / Ni trofurantoin, Monohydrate 75 MG Oral Capsule [Macrobid] Macrobid 04/23/2020 12:00:00 AM EDT ORAL completed MEDENT ([facility]) Cephalexin 500 MG Oral Capsule [Keflex] Keflex 04/21/2020 12:00:0 0 AM EDT ORAL completed MEDENT ([facility]) Cephalexin 500 MG Oral Capsule CEPHALEXIN 04/21/2020 [...] 03/28/2020 12:00:00 AM EDT ORAL completed MEDENT ([facility]) 10 mg 03/27/2020 12:00:00 AM EDT capsule [...] type / Coverage type Policy ID Covered republican ID Covered republican's relationship to botello Policy [place] Plan Information MEDICARE [id number] SP [id number] A MEDICARE [id number] SP [id number] MEDICARE [id number] SP [id number] A MEDICARE [id number] SP [id number] A MEDICARE [id number] SP [id number] A Medicaid [place] Medigap Part B [id number] Self [id number] [facility] Medigap Part B [id number] Self [id number] [facility] Medigap Part B [id number] Self [id number] [facility] Manoj/MCR Medigap Part B [id number] Self [id number] [facility] Manoj/MCR Medigap Part B [id number] Self [id number] [place] [id number] S [id number] [employer] [employer] [id number] S [id number] Hmo Blue Option/Medicaid Health Maintenance Organization (HMO) V [id number] Self V [id number] [place] [id number] S [id number] Hmo Blue Option/Medicaid Health Maintenance Organization (HMO) V [id number] Self V [id number] Hmo Blue Option/Medicaid Health Maintenance Organization (HMO) V [id number] Self V [id number] [employer] MED[employer]ARE [employer] [id number] S [id number] MEDICARE - [place] [id number] S [id number] BS Manoj Hmo Blue Option Medigap Part B [id number] Self [id number] Medicare [place] Medicare Primary [id number] Self [id number] BS Manoj Hmo Blue Option Medigap Part B [id number] Self [id number] Medicare [place] Medicare Primary [id number] Self [id number] BS Manoj Hmo Blue Option Medigap Part B [id number] Self [id number] [employer]ARE [employer] [id number] S [id number] Medicare [place] Medicare Primary [id number] Self [id number] Hmo Blue Option/Medicaid Health Maintenance Organization (HMO) V [id number] Self V [id number] Hmo Blue Option/Medicaid Health Maintenance Organization (HMO) V [id number] Self V [id number] Hmo Blue Option/Medicaid Health Maintenance Organization (HMO) [id number] Self [id number]/802 Medicare [place] Medicare Primary [id number] Self Medicare [place] Medicare Primary [id number] Self [id number] HUMANA MEDICARE ADVANTAGE G [id number] Self [id number] MEDICARE A [id number] Self [id number] A MEDICARE [id number] SP [id number] A MEDICARE A [id number] Self [id number] [id number] Medicaid S [id number] S [id number] Medicaid P [id number] S [id number] A Medicare P [id number] S [id number] [id number] Medicare P [id number] S [id number] A MEDICAID M [id number] Self [id number] MEDICAID [id number] SP [id number] MEDICAID [id number] SP [id number] MEDICAID [id number] SP [id number] MEDICAID [id number] SP [id number] MEDICAID [id number] S [id number] MEDICAID [id number] S [id number] [place] [id number] SP [id number] [place] [id number] SP [id number] MEDICAID [id number] SP [id number] HUMANA GOLD CLASSIC UNAVAILABLE S UNAVAILABLE HUMANA GOLD CLASSIC [id number] S [id number] HUMANA GOLD CLASSIC [id number] S [id number] HUMANA GOLD CLASSIC [id number] S [id number] Medicare P [id number] S [id number] [id number] Medicaid [place] Medigap Part B [id number] Self [id number] Medicare Natl Gov't Servi Medicare Primary [id number] Self [id number] [place] Med[place] Part B [id number] Self [id number] [facility] O UNAVAILABLE [id number] S UNAVAILABLE Medicaid Medigap Part B [id number] Self [id number] [place] Med[place] Part B [id number] Self [id number] Medicaid [place] Medigap Part B [id number] Self [employer] [id number] SP [id number] MEDICARE [id number] SP [id number] A Medicare Part B Medicare Primary [id number] Self Medicaid Medicaid 1 [id number] Self 1 1 [facility] [id number] SP [id number] Medicare Medicare Primary [id number] Self SELF PAY UNAVAILABLE SP UNAVAILA BLE MEDICARE [id number] SP [id number] [place]igap Part B [id number] Self [place] Primary [id number] Self Medicare S [id number] S [id number] BLUE CROSS LOERA PLAN [id number] SP [id number] [facility] [id number] SP [id number] MEDICARE UNAVAILABLE SP UNAVAILA BLE [facility] COMMUNITY PLAN [facility] [id number] SP [id number] [place] [id number] [place] [id number] [place] [id number] SP [id number] HUMANA GOLD [id number] SP [id number] HUMANA GOLD CLASSIC [id number] S [id number] MEDICAID [id number] S [id number] MEDICAID [id number] S [id number] MEDICAID [id number] S [id number] [facility] MEDICARE DIVISION [id number] S [id number] MEDICARE - [place] [id number] S [id number] WELLCARE [id number] SP [id number] [facility] [id number] SP [id number] [facility] DUAL COMPLET [id number] S [id number] [facility] DUAL COMPLET [id number] S [id number] MEDICARE [id number] SP [id number] HUMANA GOLD [id number] SP [id number] [place] [id number] SP [id number] WELLCARE [id number] SP [id number] HUMANA GOLD [id number] SP [id number] [id number] SP [id number] Medicaid S [id number] S [id number] [facility] COMMUNITY PLAN [facility] [id number] SP [id number] HUMANA GOLD [id number] SP [id number] MEDICARE [id number] SP [id number] A HUMANA GOLD [id number] SP [id number] HUMANA GOLD [id number] SP [id number] HUMANA GOLD [id number] SP [id number] [facility] Secure [employer]izons P [id number] S [id number] [facility] DUAL COMPLET [id number] S [id number] HUMANA [id number] S [id number] [facility] DUAL COMPLET [id number] S [id number] Medicaid [place] Medigap Part B [id number] Self [id number] Medicare Upstate/[facility] Medicare Primary [id number] Self [id number] MEDICAID [id number] SP [id number] Medicaid [place] [facility] Part B [id number] Self [id number] [place] MEDICARE DIVISION [id number] S [id number] MEDICARE - [place] [id number] S [id number] Medicaid Medigap Part B [id number] Self [id number] Medicare Part Medicare Primary [id number] Self [id number] Medicaid [facility] Part B [id number] Self [id number] Medicare Natl Gov't Servi Medicare Primary [id number] Self [id number] [facility] [id number] Self [id number] Medicare Natl Gov't Servi Medicare Primary [id number] Self [id number] MEDICAID M [id number] S [id number] MEDICARE C [id number] S [id number] A Medicaid Medigap Part B [id number] Self [id number] Medicare Part B Medicare Primary [id number] Self [id number] Medicaid [place] Med[place] Part B [id number] [facility] OPTIONS C [id number] S [id number] [place] [id number] Self [id number] [place] [id number] Self [id number] [place] [id number] Self [id number] Medicare Natl Gov't Servi Medicare Primary [id number] Self [id number] [place] Part [place] [id number] Self [id number] [place] [id number] Self [id number] Problems, Conditions, and Diagnoses Code Display Name Description Problem Type Effective Dates Data Source(s) R35.0 Frequency of micturition FREQUENCY OF MICTURITION Diag nosis 03/09/2021 10:56:00 AM [facility] N30.01 Acute cystitis with hematuria ACUTE CYSTITIS WITH MEENAKSHI TURIA Diagnosis 03/09/2021 10:14:00 AM [facility] Z71.2 Person consulting for explanation of exa mination or test findings PERSON CONSULTING FOR EXPLANATION OF EXAM OR TEST Diagnosis 03/04/2021 08:38: 00 AM [facility] E78.00 PURE HYPERCHOLESTEROLEMIA, UNSPECIFIED P URE HYPERCHOLESTEROLEMIA, UNSPECIFIED Diagnosis 03/04/2021 08:38:00 AM [facility] F17.210 Nicotine dependence, cigarettes, uncompl icated NICOTINE DEPENDENCE, CIGARETTES, UNCOMPLICATED Diagnosis 03/04/2021 08:38:00 AM [facility] K50.90 Crohn's disease, unspecified, without co mplications CROHN'S DISEASE, UNSPECIFIED, WITHOUT COMPLICATION Diagnosis 02/04/2021 10:00:00 AM [facility] Z12.31 Encounter for screening mammogram for ma lignant neoplasm of breast ENCNTR SCREEN MAMMOGRAM FOR MALIGNANT NEOPLASM OF Diagnosis 02/04/2021 10:00:00 AM [facility] Z71.89 Other specified counseling OTHER SPECIFIED COUNSELING Diagnosis 02/04/2021 10:00:00 AM [facility] 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 ILLITERACY AND LOW-LEVEL LITERACY Diagnosis 02/04/2021 10:00:00 AM [facility] Z86.39 Personal history of other endocrine, nut ritional and metabolic disease PERSONAL HISTORY OF ENDO, NUTRITIONAL AND METABOLI Diagnosis 10:00:00 AM [facility] Z86.11 Personal history of tuberculosis PERSONAL HISTOR Y OF TUBERCULOSIS Diagnosis 02/04/2021 10:00:00 AM [facility] Z13.31 ENCOUNTER FOR SCREENING FOR DEPRESSION E NCOUNTER FOR SCREENING FOR DEPRESSION Diagnosis 02/04/2021 10:00:00 AM [facility] R63.4 Abnormal weight loss ABNORMAL WEIGHT LOSS Diagnosis 02/04/2021 10:00:00 AM [facility] M81.0 Age-related osteoporosis without current pathological fracture AGE-RELATED OSTEOPOROSIS W/O CURRENT PATHOLOGICAL Diagnosis 02/04/2021 10:00:00 A M [facility] L98.9 Disorder of the skin and subcutaneous ti ssue, unspecified DISORDER OF THE SKIN AND SUBCUTANEOUS TISSUE, UNSP Diagnosis 02/04/2021 10:00:00 AM ED [facility] F03.90 Unspecified dementia without behavioral disturbance UNSPECIFIED DEMENTIA WITHOUT BEHAVIORAL DISTURBANC Diagnosis 02/04/2021 10:00:00 AM EDT [facility] E78.5 Hyperlipidemia, unspecified HYPERLIPIDEMIA, UNSPECIFIE D Diagnosis 02/04/2021 10:00:00 AM [facility] R30.0 Dysuria DYSURIA Diagnosis 11/13/2020 03:27:00 PM [facility] 525.13 LOSS OF TEETH DUE TO CARIES LOSS OF TEETH DUE TO DANA S 05/14/2020 12:42:22 PM EDT [facility] Surgeries/Procedures Procedure Description Date Indications Data Source(s) OFFICE OUTPATIENT VISIT 25 MINUTES 03/30/2021 12:00:00 AM EDT [facility] ([facility], ) OFFICE OUTPATIENT VISIT 25 MINUTES 10/09/2020 12:00:00 AM EDT [facility] ([facility]) Results ID Date Data Source [id number] 04/24/2021 12:15:00 PM EDT [facility] ([facility]) Name Value Range Interpretation Code Description Data Bouchra rce(s) Supporting Document(s) Elastase.pancreatic [Mass/mass] in Stool Laboratory test result Normal (applies to non-numeric results) [facility] ([facility]ie ) <content>Result Units: ug Elast./g</cont ent>
<content>Severe Pancreatic Insufficiency: <100</content>
<content>Moderate Pancreatic Insufficiency: 100 - 200</content>
<content>Normal: >200</content>
<content></content> ID Date Data Source [id number] 04/24/2021 12:15:00 PM EDT [facility] ([facility]) Name Value Range Interpretation Code Description Data Bouchra rce(s) Supporting Document(s) Gastrointestinal (GI) Panel Laboratory test result [facility] ([facility], ) This Gastrointestinal PCR Panel detects the [...] NUCLEIC ACID PCR ID Date Data Source [id number] 04/24/2021 12:15:00 PM EDT [facility] ) Name Value Range Interpretation Code Description Data Bouchra rce(s) Supporting Document(s) Calprotectin [Mass/mass] in Stool 63 ug/g 0-120 Normal (applies to non-numeric results) [facility] ) <content>Concentration Interpretatio n Follow-Up</content>
<content><16 - 50 ug/g Normal None</content>
<content>>50 -120 ug/g Borderline Re-evaluate in 4-6 weeks</content>
<content>>120 ug/g Abnormal Repeat as clinically</content>
<content>indicated</content>
<content>Performed at: [facility]</content>
<content>[address] [place] [address] [phone]</content>
<content>[employer]: Mehran Vasquez MD, Phone: [phone]</content>
<content></content> ID Date Data Source [id number] 03/30/2021 04:56:00 PM EDT [facility] ([facility]) Name Value Range Interpretation Code Description Data Bouchra rce(s) Supporting Document(s) Erythrocyte sedimentation rate by Westergren method 19 mm/hr 0-30 Normal (applies to non-numeric results) [facility] ([facility], ) C reactive protein [Mass/volume] in Serum or Plasma by High sensitivity method 0.30 mg/dL 0.00-0.30 Normal (applies to non-numeric results) [facility] ([facility]) 03/30/21 (TueMar 30) 07:12 PM GURJIT SOTO normal ID Date Data Source [id number] 03/30/2021 04:56:00 PM EDT [facility] ([facility]) Name Value Range Interpretation Code Description Data Bouchra rce(s) Supporting Document(s) Blood Urea Nitrogen 12 mg/dL 7-18 Normal (applies to non-nume andrew results) [facility] ([facility]) Glucose, Fasting 67 mg/dL 70-100 Below low normal [facility] ([facility]) Creatinine For GFR 0.53 mg/dL 0.55-1.30 Below low normal [facility] ([facility]) Glomerular Filtration Rate Laboratory test result Normal (applies to non- numeric results) [facility]) <content>Units are mL/min/1.73 m2</content>
<content></content>
<content>Chronic Kidney Disease Staging per NKF:</content>
<content></content>
<content>Stage I & II GFR >=60 Normal to Mildly Decreased</content>
<content>Stage III GFR 30- 59 Moderately Decreased</content>
<content>Stage IV GFR 15-29 Severely Decreased</content>
<content>Stage V GFR <15 Very Little GFR Left</content>
<content>ESRD GFR <15 on EAR PULL MACHINE OPERATOR</content>
<content></content> Sodium Level 139 meq/L 136-145 Normal (applies to non-numeric res ults) [facility] ([facility]) Chloride Level 107 meq/L 98-107 Normal (applies to non-numeric r esults) [facility] ([facility]) Potassium Serum 4.4 meq/L 3.5-5.1 Normal (applies to non-numeric results) [facility] ([facility]) Carbon Dioxide Level 26 meq/L 21-32 Normal (applies to non-num sri results) [facility] ([facility]) Anion Gap 6 meq/L 8-16 Below low normal [facility] ( [facility]) Alt/SGPT 12 U/L 12-78 Normal (applies to non-numeric resul ts) [facility]) Calcium Level 9.3 mg/dL 8.8-10.2 Normal (applies to non-numeric re sults) [facility]) Ast/Sgot 9 U/L 7-37 Normal (applies to non-numeric resul ts) [facility] ([facility]) Total Protein 7.2 GM/DL 6.4-8.2 Normal (applies to non-numeric re sults) [facility]) Bilirubin,Total 0.6 mg/dL 0.2-1.0 Normal (applies to non-numeric results) [facility] ([facility]) Alkaline Phosphatase 78 U/L 45-117 Normal (applies to non-num sri results) [facility] ([facility]) Albumin 3.8 GM/DL 3.2-5.2 Normal (applies to non-numeric resul ts) [facility] ([facility]) Albumin/Globulin Ratio 1.1 1.2-2.2 Below low normal [facility] ([facility]) ID Date Data Source [id number] 03/30/2021 04:56:00 PM EDT [facility] ([facility]) Name Value Range Interpretation Code Description Data Bouchra rce(s) Supporting Document(s) Red Blood Count 4.46 10 4.00-5.40 Normal (applies to non-numeric results) [facility] ([facility]) Hemoglobin 14.2 g/dL 12.0-15.5 Normal (applies to non-numeric resul ts) [facility]) White Blood Count 7.9 10 4.0-10.0 Normal (applies to non-numeri c results) [facility]) Mean Corpuscular Volume 96.2 fl 80.0-96.0 Above high normal [facility] ([facility]) Hematocrit 42.9 % 36.0-47.0 Normal (applies to non-numeric resul ts) [facility]) Mean Corpuscular Hemoglobin 31.8 pg 27.0-33.0 Norm al (applies to non-numeric results) [facility]) Red Cell Distribution Width 12.7 % 11.5-14.5 Norm al (applies to non-numeric results) [facility]) Mean Corpuscular HGB Conc 33.1 g/dL 32.0-36.5 Normal (applies to non-numeric results) [facility] ([facility]) Neutrophils % 51.4 % 36.0-66.0 Normal (applies to non-numeric re sults) [facility]) Platelet Count, Automated 330 10 150-450 Normal (applies to non-numeric results) [facility]) Lymph % 35.2 % 24.0-44.0 Normal (applies to non-numeric resul ts) [facility]) Baso % 0.9 % 0.0-1.0 Normal (applies to non-numeric resul ts) [facility] Eos % 5.0 % 0.0-3.0 Above high normal [facility] ([facility]) [place] % 7.2 % 2.0-8.0 Normal (applies to non-numeric resul ts) [facility]) Immature Granulocyte % 0.3 % 0-3.0 Normal (applies to non-n umeric results) [facility]) Neutrophils # 4.1 10 1.5-8.5 Normal (applies to non-numeric re sults) [facility]) Nucleated Red Blood Cell % 0.0 % 0-0 Normal (applies to n on-numeric results) [facility] ([facility]) Lymph # 2.8 10 1.5-5.0 Normal (applies to non-numeric resul ts) [facility]) Eos # 0.4 10 0.0-0.5 Normal (applies to non-numeric resul ts) [facility] [place] # 0.6 10 0.0-0.8 Normal (applies to non-numeric resul ts) [facility] ([facility]) Baso # 0.1 10 0.0-0.2 Normal (applies to non-numeric resul ts) [facility] ([facility]) ID Date Data Source [id number] 03/11/2021 02:55:00 PM EDT [facility] Name Value Range Interpretation Code Description Data Bouchra rce(s) Supporting Document(s) ORGANISM [facility] COLONY COUNT N [facility] ID Date Data Source [id number] 03/09/2021 11:03:00 AM EDT [facility] MICROSCOPIC PERFORMED ON UNSPUN SPECIMAN DUE TO QNS Name Value Range Interpretation Code Description Data Bouchra rce(s) Supporting Document(s) URINE RBC 0-2 /hpf 0-3 [facility] URINE WBC TNTC /hpf 0-[address] [facility] URINE EPITHELIAL CELLS 1+ /hpf 0 [facility] URINE BACTERIA 3+ NONE SEEN [facility] ID Date Data Source [id number] 03/09/2021 11:02:00 AM EDT [facility] PERFORMED ON UNSPUN SPECIMAN DUE TO QNS Name Value Range Interpretation Code Description Data Bouchra rce(s) Supporting Document(s) URINE COLOR. YELLOW [facility] URINE APPEARANCE CLOUDY [facility] l URINE GLUCOSE (UA) NEGATIVE mg/dL NEGATIVE [facility] URINE BILIRUBIN NEGATIVE NEGATIVE [facility] URINE KETONE NEGATIVE mg/dL NEGATIVE [facility] SPECIFIC GRAVITY,URINE 1.025 1.005-1.030 [facility] URINE BLOOD TRACE NEGATIVE H [facility] PH,URINE 5.5 5.0-9.0 [facility] URINE PROTEIN 1+(30) mg/dL NEGATIVE H [facility] URINE UROBILINOGEN NORMAL(0.2-1) mg/dL 0-1 [facility] URINE NITRATE POSITIVE NEGATIVE [facility] URINE LEUKOCYTE ESTERASE 1+(SMALL) NEGATIVE [facility] ID Date Data Source [id number] 02/25/2021 02:18:00 PM EDT [facility] DATE OF EXAMINATION: 02/25/2021 12:39 EDT MAMMO [...] analyzed through the latest version of the TE2 ddiagnosis system. The patient states that her [...] rce(s) Supporting Document(s) ID Date Data Source [id number] 02/25/2021 01:44:00 PM EDT [facility] DATE OF EXAMINATION: 02/25/2021 12:39 EDT HISTORY: Evaluate for osteoporosis. IMPRESSION: For a detailed report please refer to the software generated [employer]EXAreport. Electronically signed in PS360 by: Rios Barajas M.D. 02/25/2021 13:38 EDT Name Value Range Interpretation Code Description Data Bouchra rce(s) Supporting Document(s) ID Date Data Source [id number] 02/25/2021 12:54:00 PM EDT [facility] Name Value Range Interpretation Code Description Data Bouchra rce(s) Supporting Document(s) FREE T4 1.1 ng/dL 0.76-1.46 [facility] ID Date Data Source [id number] 02/25/2021 12:54:00 PM EDT [facility] Name Value Range Interpretation Code Description Data Bouchra rce(s) Supporting Document(s) TSH 1.675 uIU/mL 0.360-3.740 [facility] ID Date Data Source [id number] 02/25/2021 12:22:00 PM EDT [facility] ID Date Data Source [id number] 02/25/2021 12:22:00 PM EDT [facility] Name Value Range Interpretation Code Description Data Bouchra rce(s) Supporting Document(s) GLUCOSE 106 mg/dL 74-106 [facility] BLOOD UREA NITROGEN 14 mg/dL 7-18 [facility] ital CREATININE 0.60 mg/dL 0.6-1.0 [...] [facility] GLOMERULAR FILTRATION RATE >90 mL/min [facility] GFR IS CALCULATED IN mL/min/1.73m2 JESSICA L FUNCTION: >90MILDLY DECREASED: 60-89MILDY TO MODERATELY DECREASED: 45-59 MODERATELY TO SEVERELY DECREASED: 30-44SEVERELY DECREASED: 15-29RENAL FAILURE: <15 AST 9 U/L 15-[address] [facility] ALT 16 U/L 12-78 [facility] ALKALINE PHOSPHATASE 73 U/L 46-116 [facility] TOTAL BILIRUBIN 0.3 mg/dL 0.2-1.0 [facility] TOTAL PROTEIN 7.0 g/dl 6.4-8.2 [facility] ALBUMIN 3.7 gm/dL 3.4-5.0 [facility] ID Date Data Source [id number] 02/25/2021 12:04:00 PM EDT [facility] Name Value Range Interpretation Code Description Data Bouchra rce(s) Supporting Document(s) HGBA1C 5.1 % 3.8-5.6 [facility] Diabetic > or = to 6.5%Prediabetes 5.7-6 .4%Normal <5.7 ESTIMATED AVERAGE GLUCOSE 99.7 mg/dL [facility] ID Date Data Source [id number] 02/25/2021 11:43:00 AM T [facility] Name Value Range Interpretation Code Description Data Bouchra rce(s) Supporting Document(s) WHITE BLOOD COUNT 6.8 K/mm3 4.0-10.0 [facility] al RED BLOOD COUNT 4.14 M/mm3 4.00-5.50 [facility] HEMOGLOBIN 13.3 gm/dL 12.0-16.0 [facility] HEMATOCRIT 38.5 % 36.0-48.8 [facility] MEAN CELL VOLUME 93.0 fl 80-96 [facility] MEAN CORPUSCULAR HEMOGLOBIN 32.1 pg 27.0-31.0 H [facility] MEAN CORPUSCULAR HGB CONC 34.5 g/dl 32.0-36.0 [facility] RED CELL DISTRIBUTION WIDTH 13.2 % 10.0-14.5 [facility] PLATELET COUNT 280 K/mm3 172-450 [facility] MEAN PLATELET VOLUME 9.7 fl 9.0-13.0 [facility] pital GRAN % 58.5 % 50-80.0 [facility] IG% 0.1 % 0.0-0.2 [facility] LYMPH % 31.4 % 25.0-50.0 [facility] MONO % 4.6 % 2.0-10.0 [facility] EOS % 4.7 % 0-5.0 [facility] [...] [facility] ID Date Data Source [id number] 11/13/2020 03:34:00 PM EDT [facility] l Name Value Range Interpretation Code Description Data Bouchra rce(s) Supporting Document(s) URINE COLOR. YELLOW [facility] URINE APPEARANCE CLEAR [facility] l URINE GLUCOSE (UA) NEGATIVE mg/dL NEGATIVE [facility] URINE BILIRUBIN NEGATIVE NEGATIVE [facility] URINE KETONE NEGATIVE mg/dL NEGATIVE [facility] SPECIFIC GRAVITY,URINE 1.010 1.005-1.030 [facility] URINE BLOOD NEGATIVE NEGATIVE [facility] PH,URINE 5.5 5.0-9.0 [facility] URINE PROTEIN NEGATIVE mg/dL NEGATIVE [facility] URINE UROBILINOGEN 0.2 mg/dL 0-1 [facility] URINE NITRATE NEGATIVE NEGATIVE [facility] URINE LEUKOCYTE ESTERASE NEGATIVE NEGATIVE [facility] ID Date Data Source [id number] 10/11/2020 07:20:00 AM EDT [facility] Name Value Range Interpretation Code Description Data Bouchra rce(s) Supporting Document(s) Elastase.pancreatic [Mass/mass] in Stool Laboratory test result Normal (applies to non-numeric results) [facility] ([facility] ) <content>Result Units: ug Elast./g</cont ent>
<content>Severe Pancreatic Insufficiency: <100</content>
<content>Moderate Pancreatic Insufficiency: 100 - 200</content>
<content>Normal: >200</content>
<content></content> Calprotectin [Mass/mass] in Stool 133 ug/g 0-120 Above high no rmal [facility] ([facility], ) <content>Concentration Interpretatio n Follow-Up</content>
<content><16 - 50 ug/g Normal None</content>
<content>>50 -120 ug/g Borderline Re-evaluate in 4-6 weeks</content>
<content>>120 ug/g Abnormal Repeat as clinically</content>
<content>indicated</content>
<content>Performed at: [facility]</content>
<content>[address] [place] [address] [phone]</content>
<content>[employer]: Mehran Vasquez MD, Phone: [phone]</content>
<content></content> ID Date Data Source [id number] 10/09/2020 01:54:00 PM EDT [facility]) Name Value Range Interpretation Code Description Data Bouchra rce(s) Supporting Document(s) Creatinine For GFR 0.64 mg/dL 0.55-1.30 Normal (applies to non -numeric results) [facility] ([facility], ) Glucose, Fasting 102 mg/dL 70-100 Above high normal [facility] Blood Urea Nitrogen 16 mg/dL 7-18 Normal (applies to non-nume andrew results) [facility] ([facility]) Glomerular Filtration Rate Laboratory test result Normal (applies to non- numeric results) [facility] ([facility]) <content>Units are mL/min/1.73 m2</content>
<content></content>
<content>Chronic Kidney Disease Staging per NKF:</content>
<content></content>
<content>Stage I & II GFR >=60 Normal to Mildly Decreased</content>
<content>Stage III GFR 30- 59 Moderately Decreased</content>
<content>Stage IV GFR 15-29 Severely Decreased</content>
<content>Stage V GFR <15 Very Little GFR Left</content>
<content>ESRD GFR <15 on EAR PULL MACHINE OPERATOR</content>
<content></content> Potassium Serum 4.6 meq/L 3.5-5.1 Normal (applies to non-numeric results) [facility] ([facility], ) Chloride Level 107 meq/L 98-107 Normal (applies to non-numeric r esults) [facility] ([facility], ) Sodium Level 137 meq/L 136-145 Normal (applies to non-numeric res ults) [facility] ([facility]) Calcium Level 9.4 mg/dL 8.8-10.2 Normal (applies to non-numeric re sults) [facility] ([facility], ) Carbon Dioxide Level 26 meq/L 21-32 Normal (applies to non-num sri results) [facility] ([facility], ) Anion Gap 4 meq/L 8-16 Below low [facility] Alkaline Phosphatase 89 U/L 45-117 Normal (applies to non-num sri results) [facility] ) Ast/Sgot 16 U/L 7-37 Normal (applies to non-numeric resul ts) [facility] ) Alt/SGPT 18 U/L 12-78 Normal (applies to non-numeric resul ts) [facility]) Bilirubin,Total 0.3 mg/dL 0.2-1.0 Normal (applies to non-numeric results) [facility] ([facility], ) Albumin 4.0 GM/DL 3.2-5.2 Normal (applies to non-numeric resul ts) [facility]) Total Protein 7.8 GM/DL 6.4-8.2 Normal (applies to non-numeric re sults) [facility] ([facility], ) Albumin/Globulin Ratio 1.1 1.2-2.2 Below low normal [facility] ([facility]) 10/15/20 (TueOct 15) 07:16 PM GURJIT SOTO ok ID Date Data Source [id number] 10/09/2020 01:54:00 PM EDT [facility] ([facility]) Name Value Range Interpretation Code Description Data Bouchra rce(s) Supporting Document(s) White Blood Count 5.9 10 4.0-10.0 Normal (applies to non-numeri c results) [facility] ([facility]) Hemoglobin 14.8 g/dL 12.0-15.5 Normal (applies to non-numeric resul ts) [facility] Red Blood Count 4.57 10 4.00-5.40 Normal (applies to non-numeric results) [facility]) Mean Corpuscular HGB Conc 33.6 g/dL 32.0-36.5 Normal (applies to non-numeric results) [facility] ([facility]) Mean Corpuscular Hemoglobin 32.4 pg 27.0-33.0 Norm al (applies to non-numeric results) [facility] ([facility]) Mean Corpuscular Volume 96.5 fl 80.0-96.0 Above high normal [facility] ([facility]) Hematocrit 44.1 % 36.0-47.0 Normal (applies to non-numeric resul ts) [facility] Neutrophils % 53.9 % 36.0-66.0 Normal (applies to non-numeric re sults) [facility]) Platelet Count, Automated 331 10 150-450 Normal (applies to non-numeric results) [facility] ([facility]) Red Cell Distribution Width 13.3 % 11.5-14.5 Norm al (applies to non-numeric results) [facility] [place] % 6.5 % 2.0-8.0 Normal (applies to non-numeric resul ts) [facility] Eos % 4.8 % 0.0-3.0 Above high normal [facility] ([facility]) Lymph % 33.7 % 24.0-44.0 Normal (applies to non-numeric resul ts) [facility]) Baso % 0.9 % 0.0-1.0 Normal (applies to non-numeric resul ts) [facility] ([facility]) Nucleated Red Blood Cell % 0.0 % 0-0 Normal (applies to n on-numeric results) [facility] ([facility]) Immature Granulocyte % 0.2 % 0-3.0 Normal (applies to non-n umeric results) [facility] ([facility]) Neutrophils # 3.2 10 1.5-8.5 Normal (applies to non-numeric re sults) [facility] ([facility]) Lymph # 2.0 10 1.5-5.0 Normal (applies to non-numeric resul ts) [facility]) [place] # 0.4 10 0.0-0.8 Normal (applies to non-numeric resul ts) [facility] ([facility]) Eos # 0.3 10 0.0-0.5 Normal (applies to non-numeric resul ts) [facility] ([facility]) Baso # 0.1 10 0.0-0.2 Normal (applies to non-numeric resul ts) [facility] ([facility]) ID Date Data Source [id number] 10/09/2020 01:54:00 PM EDT [facility] ([facility]) Name Value Range Interpretation Code Description Data Bouchra rce(s) Supporting Document(s) Cobalamin (Vitamin B12) [Mass/volume] in Serum or Plasma 370 pg/ mL 247-911 Normal (applies to non-numeric results) [facility] ([facility]) VITAMIN B12 NORMAL RANGE NORMAL 247 - 911 PG/ML INDETERMINATE 211 - 246 PG/ML DEFICIENT LESS THAN 211 PG/ML ID Date Data Source [id number] 08/20/2020 12:18:00 PM EST [facility] ([facility]) Name Value Range Interpretation Code Description Data Bouchra rce(s) Supporting Document(s) Bacteria identified in Urine by Culture Laboratory test result [facility] ([facility]) ID Date Data Source [id number] 07/09/2020 12:55:00 PM EST [facility] ([facility]) Name Value Range Interpretation Code Description Data Bouchra rce(s) Supporting Document(s) Bacteria identified in Urine by Culture Laboratory test result [facility] ([facility]) Rx Keflex ID Date Data Source [id number] 06/06/2020 06:16:00 PM EST [facility] ([facility], [facility]) Name Value Range Interpretation Code Description Data Bouchra rce(s) Supporting Document(s) Bacteria identified in Urine by Culture Laboratory test result [facility] ([facility]) <content>FULL REPORT IN LAB NOTES [...] FOR ESBL</content>
<content></content> ID Date Data Source [id number] 05/14/2020 10:00:43 AM EDT [facility] Current Problems: LOSS OF TEETH DUE TO C DARRYL (ICD-525.13) (NYL15-W17.139)DENTAL CARIES EXTENDING INTO DENTINE (ICD-521.02) (DEQ50-U24.62)Dental caries (ICD- 521.00) (GHU61-N49.9)Tobacco use (ICD-305.1) (VLF10-Q38.0)Allergic rhinitis (ICD-477.9) (PIE16-Q36.9)HEALTH SCREENING (ICD-V70.0) (LVM76-U43.9)DEMENTIA (ICD-294.8) (PNY14-Y22.90)ALOPECIA (ICD-704.00) (XKI30-X74.9)FH OTHER MEDICAL PROBLEMS (ICD-V19.8)OSTEOARTHRITIS (ICD-715.90) (YUU82-F88.90)DIABETES, TYPE 2 (ICD-250.00) (EOD00-C55.9)CROHN'S DISEASE (ICD-555.9) (IIO35-H50.90)Problem list reviewed during this update.Current Medications: ZYRTEC [...] daily at onset of headache, may repeat [id number] 5 MG ORAL TABLET (DO NEPEZIL HCL) [...] - CDT Code - Description[E] Missing - [place] On #10 Surface I Region [...] LOSS OF TEETH DUE TO CARIES (ICD-525.13) (WYX43-K16.139)Medications:ZYRTEC ALLERGY 10 MG ORAL TABLETMUCINEX 600 MG ORAL TABLET EXTENDED RELEASE 12 HOURFLONASE 50 MCG/ACT NASAL SUSPENSIONAZATHIOPRINE 50 MG ORAL TABLETMAXALT 10 MG ORAL TABLETARICEPT 5 MG ORAL TABLETAllergies:BACTRIM DS (SULFAMETHOXAZOLE- TRIMETHOPRIM TABS) (Critical)* LATEX (Critical)Orders:Oral Surgery Referral [CPT-[id number]] Multi-Service Referral [CPT-[id number]] Name Value Range Interpretation Code Description Data Bouchra rce(s) Supporting Document(s) ID Date Data Source [id number] 05/09/2020 03:16:00 PM EDT [facility] ([facility], [facility]) Name Value Range Interpretation Code Description Data Bouchra rce(s) Supporting Document(s) Bacteria identified in Urine by Culture Laboratory test result [facility] ([facility]) <content>FULL REPORT IN LAB NOTES [...] FOR ESBL</content>
<content></content> ID Date Data Source [id number] 04/21/2020 05:14:00 PM EDT [facility] ([facility]) Name Value Range Interpretation Code Description Data Bouchra rce(s) Supporting Document(s) Bacteria identified in Urine by Culture Laboratory test result [facility] ([facility]) Sent Triage to Nurse...stop Keflex.. [place] nge to Macrobid. ID Date Data Source [id number] 03/28/2020 10:48:00 AM EDT [facility] ([facility]) Name Value Range Interpretation Code Description Data Bouchra rce(s) Supporting Document(s) Bacteria identified in Urine by Culture Laboratory test result [facility] ([facility]) <content>FULL REPORT IN LAB NOTES [...] FOR ESBL</content>
<content></content> ID Date Data Source [id number] [facility] Name Value Range Interpretation Code Description Data Bouchra rce(s) Supporting Document(s) Gastrointestinal (GI) Panel Laboratory test result [facility] ([facility]) This Gastrointestinal PCR Panel detects the following [...] NUCLEIC ACID PCR ID Date Data Source [id number] 03/27/2020 11:30:00 AM EDT [facility] ([facility], ) Name Value Range Interpretation Code Description Data Bouchra rce(s) Supporting Document(s) Elastase.pancreatic [Mass/mass] in Stool Laboratory test result [facility] ([facility]) Calprotectin [Mass/mass] in Stool 33 ug/g 0-120 Normal (applies to non-numeric results) [facility] ([facility]) <content>Concentration Interpretatio n Follow-Up</content>
<content><16 - 50 ug/g Normal None</content>
<content>>50 -120 ug/g Borderline Re-evaluate in 4-6 weeks</content>
<content>>120 ug/g Abnormal Repeat as clinically</content>
<content>indicated</content>
<content></content> ID Date Data Source [id number] 03/26/2020 10:31:00 AM EDT [facility]) Name Value Range Interpretation Code Description Data Bouchra rce(s) Supporting Document(s) Cobalamin (Vitamin B12) [Mass/volume] in Serum or Plasma 301 pg/ mL 247-911 Normal (applies to non-numeric results) [facility] ([facility]) VITAMIN B12 NORMAL RANGE NORMAL 247 - 911 PG/ML INDETERMINATE 211 - 246 PG/ML DEFICIENT LESS THAN 211 PG/ML ID Date Data Source [id number] 03/26/2020 10:31:00 AM EDT [facility] ([facility]) Name Value Range Interpretation Code Description Data Bouchra rce(s) Supporting Document(s) Blood Urea Nitrogen 10 mg/dL 7-18 Normal (applies to non-nume andrew results) [facility] ([facility]) Creatinine For GFR 0.46 mg/dL 0.55-1.30 Below low normal [facility] ([facility]) Glucose, Fasting 74 mg/dL 70-100 Normal (applies to non-numeric results) [facility] ([facility]) Glomerular Filtration Rate Laboratory test result Normal (applies to non- numeric results) [facility] ([facility]) <content>Units are mL/min/1.73 m2</content>
<content></content>
<content>Chronic Kidney Disease Staging per NKF:</content>
<content></content>
<content>Stage I & II GFR >=60 Normal to Mildly Decreased</content>
<content>Stage III GFR 30- 59 Moderately Decreased</content>
<content>Stage IV GFR 15-29 Severely Decreased</content>
<content>Stage V GFR <15 Very Little GFR Left</content>
<content>ESRD GFR <15 on EAR PULL MACHINE OPERATOR</content>
<content></content> Sodium Level 138 meq/L 136-145 Normal (applies to non-numeric res ults) [facility] ([facility], ) Carbon Dioxide Level 28 meq/L 21-32 Normal (applies to non-num sri results) [facility] ([facility], ) Chloride Level 108 meq/L 98-107 Above high normal [facility] ([facility]) Potassium Serum 4.2 meq/L 3.5-5.1 Normal (applies to non-numeric results) [facility] ([facility], ) Ast/Sgot 21 U/L 7-37 Normal (applies to non-numeric resul ts) [facility] ([facility]) Calcium Level 9.1 mg/dL 8.8-10.2 Normal (applies to non-numeric re sults) [facility] ([facility], ) Alt/SGPT 13 U/L 12-78 Normal (applies to non-numeric resul ts) [facility] ([facility]) Anion Gap 2 meq/L 8-16 Below low normal [facility] ( [facility]) Bilirubin,Total 0.3 mg/dL 0.2-1.0 Normal (applies to non-numeric results) [facility] ([facility], ) Alkaline Phosphatase 82 U/L 45-117 Normal (applies to non-num sri results) [facility] ([facility]) Total Protein 7.4 GM/DL 6.4-8.2 Normal (applies to non-numeric re sults) [facility], ) Albumin/Globulin Ratio 0.9 1.2-2.2 Below low normal [facility] ([facility]) Albumin 3.5 GM/DL 3.2-5.2 Normal (applies to non-numeric resul ts) [facility] ID Date Data Source [id number] 03/26/2020 10:31:00 AM EDT [facility] Name Value Range Interpretation Code Description Data Bouchra rce(s) Supporting Document(s) White Blood Count 6.3 10 4.0-10.0 Normal (applies to non-numeri c results) [facility] ([facility], ) Hemoglobin 13.8 g/dL 12.0-15.5 Normal (applies to non-numeric resul ts) [facility] ([facility]) Red Blood Count 4.36 10 4.00-5.40 Normal (applies to non-numeric results) [facility] ([facility]) Mean Corpuscular Volume 94.0 fl 80.0-96.0 Normal ( applies to non-numeric results) [facility] ([facility]) Mean Corpuscular Hemoglobin 31.7 pg 27.0-33.0 Norm al (applies to non-numeric results) [facility] ([facility]) Hematocrit 41.0 % 36.0-47.0 Normal (applies to non-numeric resul ts) [facility] ([facility]) Red Cell Distribution Width 12.6 % 11.5-14.5 Norm al (applies to non-numeric results) [facility] ([facility]) Mean Corpuscular HGB Conc 33.7 g/dL 32.0-36.5 Normal (applies to non-numeric results) [facility] ([facility]) Platelet Count, Automated 342 10 150-450 Normal (applies to non-numeric results) [facility] ([facility]) Lymph % 32.2 % 24.0-44.0 Normal (applies to non-numeric resul ts) [facility] Neutrophils % 54.1 % 36.0-66.0 Normal (applies to non-numeric re sults) [facility]) [place] % 7.3 % 0.0-5.0 Above high normal [facility] ([facility]) Eos % 5.4 % 0.0-3.0 Above high normal [facility] Baso % 0.8 % 0.0-1.0 Normal (applies to non-numeric resul ts) [facility] ([facility]) Immature Granulocyte % 0.2 % 0-3.0 Normal (applies to non-n umeric results) [facility] ([facility]) Neutrophils # 3.4 10 1.5-8.5 Normal (applies to non-numeric re sults) [facility] ([facility]) Nucleated Red Blood Cell % 0.0 % 0-0 Normal (applies to n on-numeric results) [facility] ([facility]) Lymph # 2.0 10 1.5-5.0 Normal (applies to non-numeric resul ts) [facility] ([facility]) [place] # 0.5 10 0.0-0.8 Normal (applies to non-numeric resul ts) [facility] ([facility]) Eos # 0.3 10 0.0-0.5 Normal (applies to non-numeric resul ts) [facility] ([facility]) Baso # 0.1 10 0.0-0.2 Normal (applies to non-numeric resul ts) [facility] ([facility]) Procedure Social History No Information Vital Signs ID Date Data Source UNK Name Value Range Interpretation Code Description Data Source(s) Systolic blood pressure 152 mm[Hg] 152 mm[Hg] [facility] Diastolic blood pressure 68 mm[Hg] 68 mm[Hg] [facility] ([facility]) Body height 58 [in_i] 58 [in_i] [facility] ([facility]) 4'10" Body weight 99.00 [lb_av] 99.00 [lb_av] [facility] ([facility]) Body mass index (BMI) [Ratio] 20.7 kg/m2 20.7 k g/m2 [facility] ([facility]) [place] body weight 100 [lb_av] 100 [lb_av] [facility] Body weight 44.906 kg 44.906 kg [facility] ([facility]) Body surface area Derived from formula 1.35 m2 1.35 m2 [facility] ([facility]) Body height 58 [in_i] 58 [in_i] [facility] ([facility]) 4'10" Body weight 107.00 [lb_av] 107.00 [lb_av] [facility] ([facility]) Body mass index (BMI) [Ratio] 22.4 kg/m2 22.4 k g/m2 [facility] ([facility]) [place] body weight 100 [lb_av] 100 [lb_av] [facility] ([facility]) Body weight 48.535 kg 48.535 kg [facility] ([facility]) Body surface area Derived from formula 1.40 m2 1.40 m2 [facility] ([facility]) Body surface area Derived from formula 1.40 m2 1.40 m2 [facility] ([facility]) Systolic blood pressure 150 mm[Hg] 150 mm[Hg] M [facility] ([facility]) Diastolic blood pressure 78 mm[Hg] 78 mm[Hg] [facility] ([facility]) Body height 58 [in_i] 58 [in_i] [facility] ([facility]) 4'10" Body weight 107.00 [lb_av] 107.00 [lb_av] [facility] ([facility]) Body mass index (BMI) [Ratio] 22.4 kg/m2 22.4 k g/m2 [facility] ([facility]) [place] body weight 100 [lb_av] 100 [lb_av] [facility] ([facility]) Body weight 48.535 kg 48.535 kg [facility] Diastolic blood pressure 82 mm[Hg] 82 mm[Hg] [facility] ([facility], [facility]) Systolic blood pressure 130 mm[Hg] 130 mm[Hg] M [facility] ([facility], [facility]) Heart rate 80 /min 80 /min [facility] ([facility], [facility]) Respiratory rate 16 /min 16 /min [facility] ( [facility] [place], [facility]) Oxygen saturation in Arterial blood by Pulse oximetry 97 % 97 % [facility] ([facility], [facility]) Body temperature 97.8 [degF] 97.8 [degF] [facility] ([facility], [facility]) Body weight 110.00 [lb_av] 110.00 [lb_av] [facility] ([facility], [facility]) Body height 57 [in_i] 57 [in_i] [facility] ([facility], [facility]) 4'9" Body mass index (BMI) [Ratio] 23.8 kg/m2 23.8 k g/m2 [facility] ([facility], [facility]) Respiratory rate 15 /min 15 /min [facility] ( [facility], [facility]) Heart rate 80 /min 80 /min [facility] ([facility] [place], [facility]) Body mass index (BMI) [Ratio] 23.8 kg/m2 23.8 k g/m2 [facility] ([facility], [facility]) Oxygen saturation in Arterial blood by Pulse oximetry 97 % 97 % [facility] ([facility], [facility]) Body temperature 97.1 [degF] 97.1 [degF] [facility] ([facility], [facility]) Body height 57 [in_i] 57 [in_i] [facility] ([facility], [facility]) 4'9" Systolic blood pressure 136 mm[Hg] 136 mm[Hg] M [facility] ([facility], [facility]) Body weight 110.00 [lb_av] 110.00 [lb_av] [facility] ([facility], [facility]) Diastolic blood pressure 86 mm[Hg] 86 mm[Hg] [facility] ([facility], [facility]) Systolic blood pressure 151 mm[Hg] 151 mm[Hg] [facility]) Oxygen saturation in Arterial blood by Pulse oximetry 98 % 98 % [facility] ([facility], [facility]) Body temperature 98.4 [degF] 98.4 [degF] [facility] ([facility], [facility]) Body weight 115.00 [lb_av] 115.00 [lb_av] [facility] ([facility], [facility]) Diastolic blood pressure 80 mm[Hg] 80 mm[Hg] [facility] ([facility], [facility]) Heart rate 74 /min 74 /min [facility] Respiratory rate 16 /min 16 /min [facility] ( [facility], [facility]) Heart rate 75 /min 75 /min [facility] Respiratory rate 12 /min 12 /min [facility] ( [facility], [facility]) Body mass index (BMI) [Ratio] 21.6 kg/m2 21.6 k g/m2 [facility] ([facility], [facility]) Systolic blood pressure 173 mm[Hg] 173 mm[Hg] [facility] ([facility], [facility]) Diastolic blood pressure 79 mm[Hg] 79 mm[Hg] [facility] ([facility], [facility]) Oxygen saturation in Arterial blood by Pulse oximetry 99 % 99 % [facility] [place], [facility]) Body temperature 98.3 [degF] 98.3 [degF] [facility] ([facility], [facility]) Body weight 100.00 [lb_av] 100.00 [lb_av] [facility] ([facility], [facility]) Body height 57 [in_i] 57 [in_i] [facility] ([facility], [facility]) 4'9" Oxygen saturation in Arterial blood by Pulse oximetry 96 % 96 % [facility] ([facility] [place], [facility]) Body mass index (BMI) [Ratio] 22.7 kg/m2 22.7 k g/m2 [facility] ([facility], [facility]) Body weight 105.00 [lb_av] 105.00 [lb_av] [facility] ([facility] [place], [facility]) Body temperature 98.3 [degF] 98.3 [degF] [facility] ([facility], [facility]) Body height 57 [in_i] 57 [in_i] [facility] ([facility], [facility]) 4'9" Systolic blood pressure 132 mm[Hg] 132 mm[Hg] M [facility] ([facility] [place], [facility]) Diastolic blood pressure 82 mm[Hg] 82 mm[Hg] [facility] ([facility], [facility]) Heart rate 83 /min 83 /min [facility] ([facility]) Body weight 117.00 [lb_av] 117.00 [lb_av] [facility] ([facility], [facility]) Body height 57 [in_i] 57 [in_i] [facility] ([facility], [facility]) 4'9" Body mass index (BMI) [Ratio] 25.3 kg/m2 25.3 k g/m2 [facility] ([facility], [facility]) Systolic blood pressure 140 mm[Hg] 140 mm[Hg] M [facility] ([facility], [facility]) Diastolic blood pressure 82 mm[Hg] 82 mm[Hg] [facility] ([facility], [facility]) Heart rate 76 /min 76 /min [facility] ([facility]) Respiratory rate 16 /min 16 /min [facility] ( [facility], [facility]) Oxygen saturation in Arterial blood by Pulse oximetry 98 % 98 % [facility] ([facility], [facility]) Body temperature 98.9 [degF] 98.9 [degF] [facility] ([facility], [facility]) Systolic blood pressure 132 mm[Hg] 132 mm[Hg] [facility] Diastolic blood pressure 78 mm[Hg] 78 mm[Hg] [facility] ([facility]) Body height 58 [in_i] 58 [in_i] [facility] ([facility]) 4'10" Body mass index (BMI) [Ratio] 24.5 kg/m2 24.5 k g/m2 [facility] ([facility]) [place] body weight 100 [lb_av] 100 [lb_av] [facility] ([facility]) Body weight 53.071 kg 53.071 kg [facility] ([facility]) Body surface area Derived from formula 1.45 m2 1.45 m2 [facility] ([facility]) Body weight 117.00 [lb_av] 117.00 [lb_av] [facility] ([facility])
[2021-05-20] MEDS: LR 1,000 ML IV SCH ×2 (02:37→14:36)
[2021-05-20 06:49] LABS: BASO % 0.6 % (0.0-1.0); EOS # 0.2 10^3/uL (0.0-0.5); EOS % 2.5 % (0.0-3.0); LYMPH # 2.2 10^3/uL (1.5-5.0); LYMPH % 32.3 % (24.0-44.0); MEAN CORPUSCULAR HEMOGLOBIN 32.5 pg (27.0-33.0); MEAN CORPUSCULAR HGB CONC 33.9 g/dl (32.0-36.5); MEAN CORPUSCULAR VOLUME 95.7 fl (80.0-96.0); MONO # 0.5 10^3/uL (0.0-0.8); MONO % 7.6 % (2.0-8.0); NEUTROPHILS # 3.9 10^3/uL (1.5-8.5); NEUTROPHILS % 56.7 % (36.0-66.0); RED BLOOD COUNT 3.45 10^6/uL (4.00-5.40); WHITE BLOOD COUNT 6.9 10^3/uL (4.0-10.0)
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
[2021-05-20 06:56] LABS: HEMOGLOBIN 11.2 g/dl (12.0-15.5); PLATELET COUNT, AUTOMATED 277 10^3/uL (150-450)
[2021-05-20 07:16] LABS: BLOOD UREA NITROGEN 8 MG/DL (7-18); CALCIUM LEVEL 8.5 MG/DL (8.8-10.2); CARBON DIOXIDE LEVEL 22 MEQ/L (21-32); CHLORIDE LEVEL 110 MEQ/L (98-107); CREATININE FOR GFR 0.57 MG/DL (0.55-1.30); GLOMERULAR FILTRATION RATE > 60.0 (>45); GLUCOSE, FASTING 92 MG/DL (70-100); POTASSIUM SERUM 3.9 MEQ/L (3.5-5.1); SODIUM LEVEL 138 MEQ/L (136-145)
[2021-05-20] MEDS: MORPHINE 2 MG/ML 1ML VIAL (J2270) IV PRN ×4 (07:38→22:08)
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
[2021-05-20 17:49] LABS: HEMATOCRIT 32.4 % (36.0-47.0); HEMOGLOBIN 10.9 g/dl (12.0-15.5); MEAN CORPUSCULAR HEMOGLOBIN 32.4 pg (27.0-33.0); MEAN CORPUSCULAR HGB CONC 33.6 g/dl (32.0-36.5); MEAN CORPUSCULAR VOLUME 96.4 fl (80.0-96.0); PLATELET COUNT, AUTOMATED 284 10^3/uL (150-450); RED BLOOD COUNT 3.36 10^6/uL (4.00-5.40); WHITE BLOOD COUNT 6.6 10^3/uL (4.0-10.0)
[2021-05-21] MEDS: MORPHINE 2 MG/ML 1ML VIAL (J2270) IV PRN ×2 (06:40→11:05)
[2021-05-21 09:04] LABS: HEMATOCRIT 33.2 % (36.0-47.0); MEAN CORPUSCULAR HEMOGLOBIN 32.3 pg (27.0-33.0); MEAN CORPUSCULAR HGB CONC 33.1 g/dl (32.0-36.5); MEAN CORPUSCULAR VOLUME 97.4 fl (80.0-96.0); PLATELET COUNT, AUTOMATED 247 10^3/uL (150-450); RED BLOOD COUNT 3.41 10^6/uL (4.00-5.40); WHITE BLOOD COUNT 6.8 10^3/uL (4.0-10.0)
[2021-05-21] MEDS ORDERED: MORPHINE 2 MG/ML 1ML VIAL (J2270) IV ONE (09:15)
[2021-05-21] MEDS: LR 1,000 ML IV SCH (09:38)
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
[2021-05-21] MEDS ORDERED: PERCOCET 5MG/325MG TAB PO PRN (13:20)
[2021-05-21 14:40] VITALS: BP 154/87
[2021-05-21 22:00] VITALS: BP 153/87
[2021-05-22 02:00] VITALS: BP 140/70
[2021-05-22 04:59] LABS: HEMATOCRIT 35.2 % (36.0-47.0); MEAN CORPUSCULAR HEMOGLOBIN 32.5 pg (27.0-33.0); MEAN CORPUSCULAR HGB CONC 34.1 g/dl (32.0-36.5); MEAN CORPUSCULAR VOLUME 95.4 fl (80.0-96.0); PLATELET COUNT, AUTOMATED 276 10^3/uL (150-450); RED BLOOD COUNT 3.69 10^6/uL (4.00-5.40); WHITE BLOOD COUNT 8.7 10^3/uL (4.0-10.0)
[2021-05-22 06:00] VITALS: BP 157/77
[2021-05-22] MEDS ORDERED: HYDR-3713 PO (09:47)
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
== END 2021-05-22 15:15 | disposition hospice, home (50) | DRG 663 ==
LOC: M ED 15:47 → M ED INP 05-20 01:44 → ENRESERV 05-21 13:40 → M MSPAV 05-21 14:41
PROVIDERS: ADMIT Surgery; ATTEND Surgery
DX: S36.032A Major laceration of spleen, initial encounter (principal); K50.90 Crohn's disease, unspecified, without complications; J44.9 Chronic obstructive pulmonary disease, unspecified; V43.52XA Car driver injured in collision with other type car in traffic accident, initial encounter; Y92.410 Unspecified street and highway as the place of occurrence of the external cause; Y99.8 Other external cause status; Y93.89 Activity, other specified; Z88.2 Allergy status to sulfonamides; Z88.8 Allergy status to other drugs, medicaments and biological substances; Z91.040 Latex allergy status

== ENCOUNTER 2021-06-03 09:58 | Outpatient (CLI) | payer OTHER, MEDICAID ==
[~2021-06-03] VITALS: Ht 147.3 cm; Wt 48.2 kg
[~2021-06-03 09:58] MED LIST changes: +CHOL4PW PO; +HYDR-3713 PO; +MUCI600T31 PO
[2021-06-03 10:05] VITALS: BP 135/66
[2021-06-03] MEDS ORDERED: VEDOLIZUMAB 300 MG in NS 250 ML IV ONE (10:30)
[2021-06-03 11:24] VITALS: BP 148/84
== END 2021-06-03 11:30 | disposition home or self-care (01) ==
LOC: M INFU 09:58
PROVIDERS: ATTEND Internal Medicine Gastroenterology
DX: K50.90 Crohn's disease, unspecified, without complications (principal); Z88.2 Allergy status to sulfonamides; Z91.040 Latex allergy status
CPT/HCPCS: 96365; J3380

== ENCOUNTER 2021-07-15 10:46 | Outpatient (CLI) | payer OTHER, MEDICAID ==
[~2021-07-15] VITALS: Ht 149.9 cm; Wt 43.1 kg
[2021-07-15 10:50] VITALS: BP 122/65
[2021-07-15] MEDS ORDERED: VEDOLIZUMAB 300 MG in NS 250 ML IV ONE (11:00)
[2021-07-15 12:10] VITALS: BP 138/74
== END 2021-07-15 12:15 | disposition home or self-care (01) ==
LOC: M INFU 10:46
PROVIDERS: ATTEND Internal Medicine Gastroenterology
DX: K50.90 Crohn's disease, unspecified, without complications (principal); Z88.2 Allergy status to sulfonamides; Z88.8 Allergy status to other drugs, medicaments and biological substances; Z91.040 Latex allergy status
CPT/HCPCS: 96365; J3380

== ENCOUNTER 2021-08-26 11:11 | Outpatient (CLI) | payer MEDICARE, MEDICAID ==
[~2021-08-26] VITALS: Ht 147.3 cm; Wt 44.5 kg
[~2021-08-26 11:11] MED LIST changes: +VEDOLIZUMAB 300 MG in NS 250 ML IV ONE
[2021-08-26 11:40] VITALS: BP 160/70
[2021-08-26 13:05] VITALS: BP 167/78
== END 2021-08-26 13:05 | disposition home or self-care (01) ==
LOC: M INFU 11:11
PROVIDERS: ATTEND Internal Medicine Gastroenterology
DX: K50.90 Crohn's disease, unspecified, without complications (principal); Z88.2 Allergy status to sulfonamides; Z88.8 Allergy status to other drugs, medicaments and biological substances; Z91.040 Latex allergy status
CPT/HCPCS: 96365; J3380

== ENCOUNTER 2021-10-07 11:05 | Outpatient (CLI) | payer MEDICARE, MEDICAID ==
[~2021-10-07] VITALS: Ht 147.3 cm; Wt 44.9 kg
[2021-10-07 11:15] VITALS: BP 154/71
[2021-10-07 12:42] VITALS: BP 138/88
== END 2021-10-07 12:43 | disposition home or self-care (01) ==
LOC: M INFU 11:05
PROVIDERS: ATTEND Internal Medicine Gastroenterology
DX: K50.90 Crohn's disease, unspecified, without complications (principal); Z88.2 Allergy status to sulfonamides; Z88.8 Allergy status to other drugs, medicaments and biological substances; Z91.040 Latex allergy status
CPT/HCPCS: 96365; J3380

== ENCOUNTER → 2021-11-16 | Outpatient (CLI) | payer MEDICARE, MEDICAID, OTHER ==
[~2021-11-16] MED LIST changes: -VEDOLIZUMAB 300 MG in NS 250 ML IV ONE; +[UNRECOGNIZED DRUG - REMARK]
== END ==
LOC: M LABSMTC 11:17
PROVIDERS: ATTEND Anesthesiology
DX: Z01.818 Encounter for other preprocedural examination (principal); Z11.52 Encounter for screening for COVID-19

== ENCOUNTER → 2021-12-23 | Outpatient (CLI) | payer OTHER, MEDICAID | LOC: M LABSMTC 09:45 | PROVIDERS: ATTEND Anesthesiology | DX: Z01.812 Encounter for preprocedural laboratory examination (principal) ==

== ENCOUNTER 2021-12-24 10:02 | Day surgery (SDC) | payer OTHER, MEDICAID ==
[~2021-12-24] VITALS: Ht 142.2 cm; Wt 38.6 kg
[~2021-12-24 10:02] MED LIST changes: +NS 1,000 ML IV ONE
[2021-12-24] MEDS ORDERED: propofoL 200 MG/20 ML VIAL As Ordered ONE ×2 (11:27→11:28)
[2021-12-24 12:05] VITALS: BP 133/64
== END 2021-12-24 12:17 | disposition home or self-care (01) ==
LOC: M OPP 10:02
PROVIDERS: ATTEND Internal Medicine Gastroenterology
DX: Q43.8 Other specified congenital malformations of intestine (principal); Z87.19 Personal history of other diseases of the digestive system; F17.210 Nicotine dependence, cigarettes, uncomplicated; Z86.14 Personal history of Methicillin resistant Staphylococcus aureus infection; Z86.16 Personal history of COVID-19; Z79.899 Other long term (current) drug therapy; Z88.2 Allergy status to sulfonamides; Z88.8 Allergy status to other drugs, medicaments and biological substances; Z91.040 Latex allergy status

== ENCOUNTER 2022-02-01 10:00 | Outpatient (CLI) | payer OTHER, MEDICAID ==
[~2022-02-01] VITALS: Ht 147.3 cm; Wt 44.9 kg
[~2022-02-01 10:00] MED LIST changes: -NS 1,000 ML IV ONE; +VEDOLIZUMAB 300 MG in NS 250 ML IV ONE
[2022-02-01 10:17] VITALS: BP 148/78
[2022-02-01 11:15] VITALS: BP 166/78
== END 2022-02-01 11:15 | disposition home or self-care (01) ==
LOC: M INFU 10:00
PROVIDERS: ATTEND Internal Medicine Gastroenterology
DX: K50.90 Crohn's disease, unspecified, without complications (principal); Z88.2 Allergy status to sulfonamides; Z88.8 Allergy status to other drugs, medicaments and biological substances; Z91.040 Latex allergy status
CPT/HCPCS: 96365; J3380

== ENCOUNTER 2022-05-06 10:03 | Outpatient (CLI) | payer MEDICARE, MEDICAID ==
[~2022-05-06] VITALS: Ht 147.3 cm; Wt 45.0 kg
[2022-05-06 10:20] VITALS: BP 166/77
[2022-05-06 11:45] VITALS: BP 172/85
[2022-05-06] MEDS ORDERED: VEDOLIZUMAB 300 MG in NS 250 ML IV ONE (12:00)
== END 2022-05-06 11:45 | disposition home or self-care (01) ==
LOC: M INFU 10:03
PROVIDERS: ATTEND Internal Medicine Gastroenterology
DX: K50.90 Crohn's disease, unspecified, without complications (principal); Z88.2 Allergy status to sulfonamides; Z88.8 Allergy status to other drugs, medicaments and biological substances
CPT/HCPCS: 96365; J3380

== ENCOUNTER → 2022-06-15 | Outpatient (CLI) | payer MEDICARE, MEDICAID | LOC: M INFU 10:01 | PROVIDERS: ATTEND Internal Medicine Gastroenterology | DX: K50.90 Crohn's disease, unspecified, without complications (principal); Z88.2 Allergy status to sulfonamides; Z88.8 Allergy status to other drugs, medicaments and biological substances; Z53.9 Procedure and treatment not carried out, unspecified reason ==

== ENCOUNTER 2022-06-17 10:15 | Outpatient (CLI) | payer MEDICARE, MEDICAID ==
[~2022-06-17] VITALS: Ht 147.3 cm; Wt 43.9 kg
[~2022-06-17 10:15] MED LIST changes: -VEDOLIZUMAB 300 MG in NS 250 ML IV ONE
[2022-06-17] MEDS ORDERED: VEDOLIZUMAB 300 MG in NS 250 ML IV ONE (10:30)
[2022-06-17 10:35] VITALS: BP 164/76
[2022-06-17 12:17] VITALS: BP 154/69
== END 2022-06-17 12:15 | disposition home or self-care (01) ==
LOC: M INFU 10:15
PROVIDERS: ATTEND Internal Medicine Gastroenterology
DX: K50.90 Crohn's disease, unspecified, without complications (principal); Z88.2 Allergy status to sulfonamides; Z88.8 Allergy status to other drugs, medicaments and biological substances
CPT/HCPCS: 96365; J3380

== ENCOUNTER 2022-08-24 11:05 | Outpatient (CLI) | payer MEDICARE, MEDICAID ==
[~2022-08-24] VITALS: Ht 147.3 cm; Wt 43.9 kg
[2022-08-24 11:05] VITALS: BP 166/72
[2022-08-24] MEDS ORDERED: VEDOLIZUMAB 300 MG in NS 250 ML IV ONE (11:30)
[2022-08-24 12:30] VITALS: BP 168/77
== END 2022-08-24 12:30 | disposition home or self-care (01) ==
LOC: M INFU 11:05
PROVIDERS: ATTEND Internal Medicine Gastroenterology
DX: K50.90 Crohn's disease, unspecified, without complications (principal); Z88.1 Allergy status to other antibiotic agents; Z88.2 Allergy status to sulfonamides; Z91.040 Latex allergy status
CPT/HCPCS: 96365; J3380

== ENCOUNTER 2022-12-07 10:20 | Outpatient (CLI) | payer MEDICARE, MEDICAID ==
[~2022-12-07] VITALS: Ht 144.8 cm; Wt 35.7 kg
[2022-12-07] MEDS ORDERED: VEDOLIZUMAB 300 MG in NS 250 ML IV ONE (10:30)
[2022-12-07 10:38] VITALS: BP 128/78
[2022-12-07 11:21] VITALS: BP 126/77
== END 2022-12-07 11:23 | disposition home or self-care (01) ==
LOC: M INFU 10:20
PROVIDERS: ATTEND Internal Medicine Gastroenterology
DX: K50.90 Crohn's disease, unspecified, without complications (principal); Z88.2 Allergy status to sulfonamides; Z88.8 Allergy status to other drugs, medicaments and biological substances
CPT/HCPCS: 96365; J3380

== ENCOUNTER → 2022-12-29 | Outpatient (CLI) | payer MEDICARE, MEDICAID ==
[2022-12-29 14:24] LABS: BASO # 0.1 10^3/uL (0.0-0.2); BASO % 0.9 % (0.0-1.0); EOS # 0.3 10^3/uL (0.0-0.5); EOS % 4.4 % (0.0-3.0); HEMATOCRIT 40.7 % (36.0-47.0); HEMOGLOBIN 13.4 g/dl (12.0-15.5); LYMPH # 1.8 10^3/uL (1.5-5.0); LYMPH % 31.6 % (24.0-44.0); MEAN CORPUSCULAR HGB CONC 32.9 g/dl (32.0-36.5); MEAN CORPUSCULAR VOLUME 97.1 fl (80.0-96.0); MONO # 0.4 10^3/uL (0.0-0.8); MONO % 7.2 % (2.0-8.0); NEUTROPHILS # 3.2 10^3/uL (1.5-8.5); NEUTROPHILS % 55.7 % (36.0-66.0); PLATELET COUNT, AUTOMATED 343 10^3/uL (150-450); RED BLOOD COUNT 4.19 10^6/uL (4.00-5.40); WHITE BLOOD COUNT 5.7 10^3/uL (4.0-10.0)
[2022-12-29 14:26] LABS: HEMOGLOBIN A1c 4.9 % (4.0-6.0)
[2022-12-29 14:47] LABS: ALBUMIN 3.7 G/DL (3.2-5.2); ALKALINE PHOSPHATASE 74 U/L (46-116); ALT/SGPT 10 U/L (7.0-40); AST/SGOT 13 U/L (<34); BILIRUBIN,TOTAL 0.3 MG/DL (0.3-1.2); BLOOD UREA NITROGEN 14 MG/DL (9-23); CALCIUM LEVEL 8.9 MG/DL (8.3-10.6); CARBON DIOXIDE LEVEL 24 MMOL/L (20-31); CHLORIDE LEVEL 107 MMOL/L (98-107); CREATININE FOR GFR 0.51 MG/DL (0.55-1.30); GLOMERULAR FILTRATION RATE > 60.0 (>45); GLUCOSE, FASTING 106 MG/DL (74-106); POTASSIUM SERUM 3.3 MMOL/L (3.5-5.1); SODIUM LEVEL 138 MMOL/L (136-145); TOTAL PROTEIN 6.7 G/DL (5.7-8.2)
[2022-12-29 14:50] LABS: ERYTHROCYTE SEDIMENTATION RATE 24 mm/hr (0-30)
[2022-12-29 14:55] LABS: RHEUMATOID FACTOR QUANT 5.6 IU/ML (<14)
[2022-12-29 14:56] LABS: FOLATE 13.9 NG/ML (>5.4)
[2022-12-29 14:57] LABS: VITAMIN B12 LEVEL 285 PG/ML (211-911)
== END ==
LOC: M LAB 13:10
PROVIDERS: ATTEND Psychiatry & Neurology Neurology
DX: F09 Unspecified mental disorder due to known physiological condition (principal); E07.9 Disorder of thyroid, unspecified

== ENCOUNTER 2023-01-27 14:26 | Outpatient (CLI) | payer MEDICARE, MEDICAID ==
[~2023-01-27] VITALS: Ht 144.8 cm; Wt 35.0 kg
[2023-01-27 15:04] VITALS: BP 156/71; O2SAT 97
[2023-01-27 16:00] VITALS: BP 148/64; O2SAT 98
[2023-01-27] MEDS ORDERED: VEDOLIZUMAB 300 MG in NS 250 ML IV ONE (16:00)
== END 2023-01-27 16:00 | disposition home or self-care (01) ==
LOC: M INFU 14:26
PROVIDERS: ATTEND Internal Medicine Gastroenterology
DX: K50.018 Crohn's disease of small intestine with other complication (principal); Z88.2 Allergy status to sulfonamides; Z88.1 Allergy status to other antibiotic agents; Z88.8 Allergy status to other drugs, medicaments and biological substances
CPT/HCPCS: 96365; J3380

== ENCOUNTER → 2023-03-03 | Outpatient (CLI) | payer MEDICARE, MEDICAID ==
[~2023-03-03] VITALS: Ht 139.7 cm; Wt 37.2 kg
[~2023-03-03] MED LIST changes: -ESTR1MIS PV; +ESTR1VAG3 PV; +VEDOLIZUMAB 300 MG in NS 250 ML IV ONE
[2023-03-03 16:00] VITALS: BP 144/65; O2SAT 98
[2023-03-03 17:06] VITALS: BP 156/70; O2SAT 100
== END ==
LOC: M INFU 15:51
PROVIDERS: ATTEND Internal Medicine Gastroenterology
DX: K50.90 Crohn's disease, unspecified, without complications (principal); Z88.2 Allergy status to sulfonamides; Z88.8 Allergy status to other drugs, medicaments and biological substances
CPT/HCPCS: 96365; J3380

== ENCOUNTER 2023-05-24 10:09 | Outpatient (CLI) | payer MEDICARE, MEDICAID ==
[~2023-05-24] VITALS: Ht 147.3 cm; Wt 36.0 kg
[~2023-05-24 10:09] MED LIST changes: -VEDOLIZUMAB 300 MG in NS 250 ML IV ONE
[2023-05-24] MEDS ORDERED: VEDOLIZUMAB 300 MG in NS 250 ML IV ONE (10:30)
[2023-05-24 10:35] VITALS: BP 145/65; O2SAT 99
[2023-05-24 12:05] VITALS: BP 155/74; O2SAT 100
== END 2023-05-24 12:25 ==
LOC: M INFU 10:09
PROVIDERS: ATTEND Internal Medicine Gastroenterology
DX: K50.90 Crohn's disease, unspecified, without complications (principal); Z88.2 Allergy status to sulfonamides; Z88.8 Allergy status to other drugs, medicaments and biological substances
CPT/HCPCS: 96365; J3380

== ENCOUNTER 2023-07-06 13:20 | Outpatient (CLI) | payer MEDICARE, MEDICAID ==
[~2023-07-06] VITALS: Ht 147.3 cm; Wt 36.2 kg
[2023-07-06 13:25] VITALS: BP 123/58; O2SAT 97
[2023-07-06] MEDS ORDERED: VEDOLIZUMAB 300 MG in NS 250 ML IV ONE (13:30)
[2023-07-06 14:58] VITALS: BP 120/60; O2SAT 99
== END 2023-07-06 15:00 | disposition home or self-care (01) ==
LOC: M INFU 13:20
PROVIDERS: ATTEND Internal Medicine Gastroenterology
DX: K50.90 Crohn's disease, unspecified, without complications (principal); Z88.2 Allergy status to sulfonamides; Z88.8 Allergy status to other drugs, medicaments and biological substances
CPT/HCPCS: 96365; J3380

== ENCOUNTER 2023-10-11 16:01 | Outpatient (CLI) | payer MEDICARE, MEDICAID ==
[~2023-10-11] VITALS: Ht 147.3 cm; Wt 36.4 kg
[2023-10-11 16:05] VITALS: BP 139/66; O2SAT 98
[2023-10-11] MEDS: VEDOLIZUMAB 300 MG in NS 250 ML IV ONE (16:38)
[2023-10-11 17:25] VITALS: BP 128/59; O2SAT 98
== END 2023-10-11 17:25 ==
LOC: M INFU 16:01
PROVIDERS: ATTEND Internal Medicine Gastroenterology
DX: K50.919 Crohn's disease, unspecified, with unspecified complications (principal); Z88.2 Allergy status to sulfonamides; Z88.8 Allergy status to other drugs, medicaments and biological substances
CPT/HCPCS: 96365; J3380

== ENCOUNTER 2023-10-27 15:33 | Inpatient (IN) | payer MEDICARE, MEDICAID ==
[~2023-10-27] VITALS: Ht 139.7 cm; Wt 37.7 kg
[2023-10-27] MEDS: NS 1,000 ML IV SCH (15:45)
[2023-10-27 16:28] LABS: VENOUS BASE EXCESS -1.5 (-2.0-2.0); VENOUS HCO3 24.1 MMOL/L (23.0-27.0); VENOUS O2 SATURATION 82.7 % (60.0-80.0); VENOUS PARTIAL PRESSURE CO2 43.8 mmHg (38.0-50.0); VENOUS PARTIAL PRESSURE O2 43.3 mmHg (30.0-50.0); VENOUS PH 7.359 UNITS (7.330-7.430); VENOUS STANDARD HCO3 22.9 MMOL/L; VENOUS TOTAL CO2 25.5 MMOL/L (24.0-28.0)
[2023-10-27 16:32] LABS: BASO % 0.6 % (0.0-1.0); EOS # 0.3 10^3/uL (0.0-0.5); EOS % 4.9 % (0.0-3.0); HEMATOCRIT 39.8 % (36.0-47.0); HEMOGLOBIN 13.7 g/dl (12.0-15.5); LYMPH # 3.3 10^3/uL (1.5-5.0); LYMPH % 48.7 % (24.0-44.0); MEAN CORPUSCULAR HEMOGLOBIN 31.7 pg (27.0-33.0); MEAN CORPUSCULAR HGB CONC 34.4 g/dl (32.0-36.5); MEAN CORPUSCULAR VOLUME 92.1 fl (80.0-96.0); MONO # 0.4 10^3/uL (0.0-0.8); MONO % 5.5 % (2.0-8.0); NEUTROPHILS # 2.7 10^3/uL (1.5-8.5); NEUTROPHILS % 40.2 % (36.0-66.0); PLATELET COUNT, AUTOMATED 300 10^3/uL (150-450); RED BLOOD COUNT 4.32 10^6/uL (4.00-5.40); WHITE BLOOD COUNT 6.8 10^3/uL (4.0-10.0)
[2023-10-27] MEDS: ONDANSETRON 4MG 2ML VIAL IV ONE (16:57)
[2023-10-27] MEDS: MORPHINE 2 MG/ML 1ML VIAL IV PRN (16:57)
[2023-10-27 16:59] LABS: ETHYL ALCOHOL (ETHANOL) 0.003 % (0.000-0.010)
[2023-10-27 17:01] LABS: ALBUMIN 3.4 G/DL (3.2-5.2); ALKALINE PHOSPHATASE 81 U/L (46-116); ALT/SGPT 13 U/L (7.0-40); AST/SGOT 11 U/L (<34); BILIRUBIN,DIRECT 0.1 MG/DL (<0.4); BILIRUBIN,TOTAL 0.3 MG/DL (0.3-1.2); BLOOD UREA NITROGEN 18 MG/DL (9-23); CALCIUM LEVEL 9.4 MG/DL (8.3-10.6); CARBON DIOXIDE LEVEL 26 MMOL/L (20-31); CHLORIDE LEVEL 112 MMOL/L (98-107); CREATININE FOR GFR 0.54 MG/DL (0.55-1.30); GLOMERULAR FILTRATION RATE > 60.0 (>45); GLUCOSE, FASTING 89 MG/DL (74-106); SALICYLATE LEVEL < 3.0 MG/DL (<30); SODIUM LEVEL 144 MMOL/L (136-145); TOTAL PROTEIN 6.4 G/DL (5.7-8.2)
[2023-10-27 17:02] LABS: THYROID STIMULATING HORMONE 0.629 uIU/ML (0.55-4.78)
[2023-10-27] MEDS ORDERED: MORPHINE 2 MG/ML 1ML VIAL IV PRN (18:25)
[2023-10-27] MEDS ORDERED: GLUCAGON INJ 1MG VIAL SC PRN (18:50)
[2023-10-27] MEDS ORDERED: GLUCOSE 4GM CHEW TABLET PO PRN (18:50)
[2023-10-27] MEDS ORDERED: DEXTROSE 50% 50ML SYRINGE IV PRN (18:50)
[2023-10-27] MEDS ORDERED: STEL130I IV (20:54)
[2023-10-27] MEDS ORDERED: HOME MED LIST COMPLETE! XX SCH (20:55)
[2023-10-27 22:26] VITALS: BP 106/56; TEMP 97.3; O2SAT 99
[2023-10-28] VITALS (10 sets, daily range): BP systolic 91–154; BP diastolic 44–79; TEMP 97.3–98.4; O2SAT 92–96
[2023-10-28] MEDS: MORPHINE 2 MG/ML 1ML VIAL IV PRN ×2 (06:13→11:56)
[2023-10-28] MEDS: NICOTINE 21MG/24HR 1 EA TRANSDERMAL TD SCH (11:54)
[2023-10-28] MEDS: ONDANSETRON 4MG 2ML VIAL IV PRN (11:56)
[2023-10-28] MEDS: CLINDAMYCIN 600MG/50ML PREMIX BAG As Ordered ONE (14:05)
[2023-10-28] MEDS: ceFAZolin 1GM VIAL As Ordered ONE (14:05)
[2023-10-28] MEDS: DEXTROSE 50% 50ML SYRINGE IV STA (16:10)
[2023-10-28] MEDS ORDERED: PHENYLephrine 500MCG 5ML (100MCG/ML) SYRINGE As Ordered ONE (16:20)
[2023-10-28] MEDS ORDERED: fentaNYL 100 MCG/2 ML INJECTION As Ordered ONE (16:20)
[2023-10-28] MEDS ORDERED: KETAMINE HCL 200MG/20ML VIAL As Ordered ONE (16:20)
[2023-10-28] MEDS ORDERED: ONDANSETRON 4MG 2ML VIAL As Ordered ONE (16:20)
[2023-10-28] MEDS ORDERED: propofoL 200 MG/20 ML VIAL As Ordered ONE (16:20)
[2023-10-28] MEDS ORDERED: MIDAZOLAM INJ 2MG/2ML VIAL As Ordered ONE (16:20)
[2023-10-28] MEDS ORDERED: LIDOCAINE 2% 100MG/5ML SDV (FOR ANES.) As Ordered ONE (16:20)
[2023-10-28] MEDS ORDERED: HYDROMORPHONE HCL 0.5 MG/ 0.5 ML SYRINGE IV PRN (17:05)
[2023-10-28] MEDS ORDERED: INSULIN LISPRO (NovoLOG) PER UNIT SC PRN (17:05)
[2023-10-28] MEDS ORDERED: oxyCODONE 5MG TAB PO PRN (17:05)
[2023-10-28] MEDS ORDERED: GLUCOSE 4GM CHEW TABLET PO PRN (17:05)
[2023-10-28] MEDS ORDERED: LR 1,000 ML IV SCH (17:05)
[2023-10-28] MEDS ORDERED: fentaNYL 100 MCG/2 ML INJECTION IV PRN (17:05)
[2023-10-28] MEDS ORDERED: DEXTROSE 50% 50ML SYRINGE IV PRN (17:05)
[2023-10-28] MEDS ORDERED: ONDANSETRON 4MG 2ML VIAL IV PRN (17:05)
[2023-10-28] MEDS ORDERED: GLUCAGON INJ 1MG VIAL SC PRN (17:05)
[2023-10-28] MEDS: LIDOCAINE 1% SDV 30ML VIAL As Ordered ONE (17:28)
[2023-10-28] MEDS: TRANEXAMIC ACID 100 MG/ML 10ML VIAL As Ordered ONE (17:34)
[2023-10-28] MEDS ORDERED: KETOROLAC 60MG 2ML VIAL As Ordered ONE (18:22)
[2023-10-29 00:22] VITALS: BP 109/53; O2SAT 96
[2023-10-29 00:23] VITALS: TEMP 97.9; O2SAT 96
[2023-10-29] MEDS: ceFAZolin SOD 1 GM in D5W MINI-BAG PLUS 50 ML IV SCH ×2 (01:26→21:12)
[2023-10-29 05:53] VITALS: BP 127/61; TEMP 97.3; O2SAT 92
[2023-10-29 07:36] LABS: BLOOD UREA NITROGEN 11 MG/DL (9-23); CALCIUM LEVEL 8.4 MG/DL (8.3-10.6); CARBON DIOXIDE LEVEL 23 MMOL/L (20-31); CHLORIDE LEVEL 110 MMOL/L (98-107); CREATININE FOR GFR 0.52 MG/DL (0.55-1.30); GLOMERULAR FILTRATION RATE > 60.0 (>45); GLUCOSE, FASTING 114 MG/DL (74-106); MAGNESIUM LEVEL 1.7 MG/DL (1.8-2.4); POTASSIUM SERUM 3.6 MMOL/L (3.5-5.1); SODIUM LEVEL 142 MMOL/L (136-145)
[2023-10-29] MEDS: ACETAMINOPHEN TAB 650MG DOSE (2X325MG) PO PRN (10:12)
[2023-10-29 14:00] VITALS: BP 125/66; TEMP 97.3; O2SAT 91
[2023-10-29] MEDS: MAG SULF 1GM/100ML (MAG RUN) 1 GM in IV 1 EA IV ONE (17:11)
[2023-10-29 19:41] VITALS: BP 146/72; TEMP 98.4; O2SAT 94
[2023-10-29] MEDS: ACETAMINOPHEN *IV* 500 MG in IV 1 EA IV ONE (22:05)
[2023-10-30] MEDS: PERCOCET 5MG/325MG TAB PO PRN (01:18)
[2023-10-30 05:30] VITALS: BP 120/68; TEMP 97.7; O2SAT 95
[2023-10-30 07:17] LABS: BASO # 0.1 10^3/uL (0.0-0.2); BASO % 0.7 % (0.0-1.0); EOS # 0.2 10^3/uL (0.0-0.5); EOS % 2.8 % (0.0-3.0); HEMATOCRIT 28.5 % (36.0-47.0); HEMOGLOBIN 9.6 g/dl (12.0-15.5); LYMPH # 1.9 10^3/uL (1.5-5.0); MEAN CORPUSCULAR HEMOGLOBIN 32.2 pg (27.0-33.0); MEAN CORPUSCULAR HGB CONC 33.7 g/dl (32.0-36.5); MEAN CORPUSCULAR VOLUME 95.6 fl (80.0-96.0); MONO # 0.5 10^3/uL (0.0-0.8); NEUTROPHILS # 4.2 10^3/uL (1.5-8.5); NEUTROPHILS % 61.2 % (36.0-66.0); PLATELET COUNT, AUTOMATED 244 10^3/uL (150-450); RED BLOOD COUNT 2.98 10^6/uL (4.00-5.40); WHITE BLOOD COUNT 6.9 10^3/uL (4.0-10.0)
[2023-10-30 07:41] LABS: TOTAL 25(OH) VITAMIN D 30.4 NG/ML (20.0-100.0)
[2023-10-30 07:42] LABS: BLOOD UREA NITROGEN 10 MG/DL (9-23); CARBON DIOXIDE LEVEL 24 MMOL/L (20-31); CHLORIDE LEVEL 110 MMOL/L (98-107); CREATININE FOR GFR 0.43 MG/DL (0.55-1.30); GLOMERULAR FILTRATION RATE > 60.0 (>45); GLUCOSE, FASTING 104 MG/DL (74-106); MAGNESIUM LEVEL 1.8 MG/DL (1.8-2.4); POTASSIUM SERUM 3.6 MMOL/L (3.5-5.1); SODIUM LEVEL 140 MMOL/L (136-145)
[2023-10-30] MEDS ORDERED: PERCOCET PO (09:48)
[2023-10-30] MEDS ORDERED: NICO1DIS12 TOP (09:55)
== END 2023-10-30 13:30 | disposition home health service (06) | DRG 481 ==
LOC: M ED 15:33 → M ED INP 18:25 → ENRESERV 20:12 → M MS5PR 21:45
PROVIDERS: ADMIT Student in an Organized Health Care Education/Training Program; ATTEND Student in an Organized Health Care Education/Training Program
PROC: 0QS606Z Reposition Right Upper Femur with Intramedullary Internal Fixation Device, Open Approach (ICD-10-PCS; principal; 2023-10-28 19:00)
DX: S72.144A Nondisplaced intertrochanteric fracture of right femur, initial encounter for closed fracture (principal); K50.90 Crohn's disease, unspecified, without complications; E11.9 Type 2 diabetes mellitus without complications; M81.0 Age-related osteoporosis without current pathological fracture; L65.9 Nonscarring hair loss, unspecified; W18.09XA Striking against other object with subsequent fall, initial encounter; E83.42 Hypomagnesemia; Y92.89 Other specified places as the place of occurrence of the external cause; Y93.9 Activity, unspecified; R53.81 Other malaise; Y99.8 Other external cause status; F17.290 Nicotine dependence, other tobacco product, uncomplicated; Z79.899 Other long term (current) drug therapy; Z88.2 Allergy status to sulfonamides; Z88.8 Allergy status to other drugs, medicaments and biological substances; Z91.040 Latex allergy status

== ENCOUNTER → 2023-11-14 | Outpatient (CLI) | payer MEDICARE, MEDICAID ==
[~2023-11-14] MED LIST changes: +NICO1DIS12 TOP; +PERCOCET PO; +STEL130I IV
== END ==
LOC: M SOG 13:38
PROVIDERS: ATTEND Physician Assistant
DX: S72.141A Displaced intertrochanteric fracture of right femur, initial encounter for closed fracture (principal); W18.30XA Fall on same level, unspecified, initial encounter; Y92.009 Unspecified place in unspecified non-institutional (private) residence as the place of occurrence of the external cause

== ENCOUNTER → 2023-12-14 | Outpatient (CLI) | payer MEDICARE, MEDICAID | LOC: M SOG 08:02 | PROVIDERS: ATTEND Physician Assistant | DX: S72.141A Displaced intertrochanteric fracture of right femur, initial encounter for closed fracture (principal) ==

== ENCOUNTER → 2023-12-20 | Outpatient (CLI) | payer MEDICARE, MEDICAID, OTHER ==
[~2023-12-20] MED LIST changes: +ONDA-284 PO; -ONDA8TAB8 PO
== END ==
LOC: M SOG 07:59
PROVIDERS: ATTEND Physician Assistant
DX: S72.141D Displaced intertrochanteric fracture of right femur, subsequent encounter for closed fracture with routine healing (principal)

== ENCOUNTER 2023-12-28 11:54 | Outpatient (CLI) | payer OTHER, MEDICAID ==
[~2023-12-28] VITALS: Ht 137.2 cm; Wt 34.1 kg
[2023-12-28 12:30] VITALS: BP 163/70; O2SAT 98
[2023-12-28] MEDS: VEDOLIZUMAB 300 MG in NS 250 ML IV ONE (13:31)
[2023-12-28 14:10] VITALS: BP 169/76; O2SAT 99
== END 2023-12-28 14:15 ==
LOC: M INFU 11:54
PROVIDERS: ATTEND Internal Medicine Gastroenterology
DX: K50.90 Crohn's disease, unspecified, without complications (principal); Z88.2 Allergy status to sulfonamides; Z88.8 Allergy status to other drugs, medicaments and biological substances; Z91.040 Latex allergy status
CPT/HCPCS: 96365; J3380

== ENCOUNTER → 2024-01-31 | Outpatient (CLI) | payer OTHER, MEDICAID | LOC: M SOG 07:58 | PROVIDERS: ATTEND Physician Assistant | DX: S72.141D Displaced intertrochanteric fracture of right femur, subsequent encounter for closed fracture with routine healing (principal) ==

== ENCOUNTER → 2024-05-03 | Outpatient (CLI) | payer OTHER, MEDICAID | LOC: M SOG 07:25 | PROVIDERS: ATTEND Physician Assistant | DX: S72.141D Displaced intertrochanteric fracture of right femur, subsequent encounter for closed fracture with routine healing (principal); Y93.9 Activity, unspecified; Y92.9 Unspecified place or not applicable ==

== ENCOUNTER → 2024-10-17 | Outpatient (CLI) | payer OTHER, MEDICAID ==
[~2024-10-17] MED LIST changes: -CELE50CA PO; +CELE50CA17 PO; +ISON1TAB5 PO; -ISON300T18 PO
== END ==
LOC: M SOG 07:59
PROVIDERS: ATTEND Physician Assistant
DX: S72.141D Displaced intertrochanteric fracture of right femur, subsequent encounter for closed fracture with routine healing (principal)

== ENCOUNTER → 2025-07-17 | Outpatient (REF) | payer MEDICARE | LOC: M LAB REF 19:00 | PROVIDERS: ATTEND Nurse Practitioner Family | DX: K50.018 Crohn's disease of small intestine with other complication (principal); R19.7 Diarrhea, unspecified ==